=== PATIENT | male | born 1965 | race Caucasian/White ===

== ENCOUNTER 2025-03-15 18:30 | Inpatient (IN) | payer MEDICARE, MEDICAID, SELFPAY ==
[2025-03-15] VITALS (15 sets, daily range): BP systolic 118–157; BP diastolic 54–85; PULSE 80–92; RESP 14–24; TEMP 36.8; O2SAT 86–97; BMI 28.3
--- NOTE | 2025-03-15 | ECG_ITS ---
Test Reason : SOB Blood Pressure : */* mmHG Vent. Rate : 85 BPM Atrial Rate : 85 BPM P-R Int : 134 ms QRS Dur : 88 ms QT Int : 374 ms P-R-T Axes : -25 16 64 degrees QTcB Int : 445 ms Normal sinus rhythm Septal infarct , age undetermined Abnormal ECG No previous ECGs available Referred By: Eloina Andrade Electronically Signed By: CORBY BARKER MD
--- NOTE | ~2025-03-15 | US_ITS ---
CLINICAL HISTORY: RUQ GB sludge ? acute philip or CBD obstruction US abdomen limited Comparison: CT/SR - CT ABDOMEN PELVIS WO IV CON - 03/15/25 21:28 EDT Findings: The common duct is 3 mm in diameter. The gallbladder contains sludge and stones. Stones appear mobile. Gallbladder wall is normal measuring 2 mm. IMPRESSION: Cholelithiasis without evidence of cholecystitis or common duct obstruction. This document has been electronically signed by: Eitan Trejo MD on 03/16/2025 02:51:08
--- NOTE | ~2025-03-15 | CT_ITS ---
CLINICAL HISTORY: History of COPD perinephric abscess CT chest without contrast Comparison: CT/SR - CT ABDOMEN PELVIS WO IV CON - 03/15/25 21:28 EDT CR - XR CHEST 1V - 03/15/25 19:32 EDT Findings: Mild coronary artery atherosclerotic vascular calcifications. The elevation of left hemidiaphragm exerts mass effect on the mediastinum/heart. The visualized thyroid and mediastinum are unremarkable. Small Left pleural effusion. Low lung volumes. Bilateral somewhat linear opacities in the lungs (left lower lobe greater than the right lower lobe ) which may be due to infection and/or atelectasis. Recommend follow-up chest CT in 4-6 weeks. Elevation of left hemidiaphragm. Fluoroscopic sniff test could be performed for further evaluation if indicated. Refer to concurrently acquired CT abdomen and pelvis for description of intra-abdominal and intrapelvic findings. There is age-indeterminate irregularity at the superior endplate and compression fracture with approximately 25% height loss of the 1st [id number]-oyyydvj vertebrae ( labeling as L1 with possible lumbosacral transitional vertebrae ). This is within the region of the thickening posterior to the right kidney. If there is clinical concern for discitis osteomyelitis then MRI of this spinal region is recommended. Limited evaluation without intravenous contrast. IMPRESSION: 1. There is age-indeterminate irregularity at the superior endplate and compression fracture with approximately 25% height loss of the 1st efu-utm-mbixphb vertebrae ( labeling as L1 with possible lumbosacral transitional vertebrae ). This is within the region of the thickening posterior to the right kidney. If there is clinical concern for discitis osteomyelitis then MRI of this spinal region is recommended. 2. Small Left pleural effusion. 3. Bilateral somewhat linear opacities in the lungs (left lower lobe greater than the right lower lobe ) which may be due to infection and/or atelectasis. Recommend follow-up chest CT in 4-6 weeks. 4. Elevation of left hemidiaphragm. Fluoroscopic sniff test could be performed for further evaluation if indicated. This document has been electronically signed by: Quinn Shaver DO on 03/15/2025 23:15:13
--- NOTE | ~2025-03-15 | CT_ITS ---
CLINICAL HISTORY: History of perinephric abscess. Presented today w CT abdomen and pelvis without contrast Comparison: CT/SR - CT CHEST WO IV CON - 03/15/25 21:28 EDT CR - XR CHEST 1V - 03/15/25 19:32 EDT Findings: Elevation of the left hemidiaphragm. Refer to concurrently acquired chest CT for description of intrathoracic findings. Scarring and atrophy of the right kidney. There is a percutaneous nephrostomy tube in the right kidney in good position with coil in the right renal pelvis region. Indeterminate rounded 2.5 cm Fluid density lesion in the right upper renal pole. (series 11, image 46). Indeterminate rounded fluid density lesion in the right mid kidney measuring 1.5 cm ( series 11, image 47). Comparison with prior imaging if available is recommended. Renal ultrasound could be obtained for further evaluation if contrast is not able to be administered. Linear calcification which is nonobstructive in the right inferior renal pole measuring 0.8 cm. The right kidney abuts a linear area of soft tissue density and calcifications which extends inferiorly along the psoas musculature into the right renal pelvis which may be due to scarring. Comparison with prior imaging if available is recommended. Multiple areas of amorphous density throughout the left renal cortex likely due to medullary nephrocalcinosis. Multiple nonobstructive left nephrolithiasis. Gallbladder is distended measuring 4.2 cm in diameter. Gallbladder sludge. Multiple gallstones. These findings are nonspecific. Correlation with right upper quadrant tenderness is recommended. If indicated, right upper quadrant ultrasound is recommended for further evaluation. Both indeterminate left adrenal gland nodule measuring 1.1 cm. Correlation with remote prior imaging if available is recommended. If remote prior imaging is not available then recommend CT adrenal protocol for further evaluation. Marked hepatic cirrhosis with portal venous hypertension including multiple enlarged collateral vessels. Indeterminate area of fat density along the hepatic dome measuring 2.1 cm. Comparison with prior imaging if available is recommended. If prior imaging is not available then MRI liver mass protocol is recommended for further evaluation. No bowel obstruction, pneumoperitoneum, or pneumatosis. Atherosclerotic vascular calcifications. Fat stranding in the central mesentery. This is nonspecific in the setting of cirrhosis. The rectum is distended with stool measuring 7.7 cm in diameter. There is rectal wall thickening and mild adjacent inflammation. Findings may be due to stercoral colitis. Chronic appearing compression fractures of L1. Postoperative changes of the lumbar spine. Limited evaluation without intravenous contrast. Lumbosacral transitional vertebrae. There is fat density posterior to this possible area of scarring. IMPRESSION: 1. Limited evaluation without intravenous contrast. 2. There is a percutaneous nephrostomy tube in the right kidney in good position with coil in the right renal pelvis region. 3. Indeterminate rounded 2.5 cm Fluid density lesion in the right upper renal pole. (series 11, image 46). Indeterminate rounded fluid density lesion in the right mid kidney measuring 1.5 cm ( series 11, image 47). Comparison with prior imaging if available is recommended. Renal ultrasound could be obtained for further evaluation if contrast is not able to be administered. 4. The right kidney abuts a linear area of soft tissue density and calcifications which extends inferiorly along the psoas musculature into the right renal pelvis which may be due to scarring. Comparison with prior imaging if available is recommended. 5. Multiple areas of amorphous density throughout the left renal cortex likely due to medullary nephrocalcinosis. 6. The rectum is distended with stool measuring 7.7 cm in diameter. There is rectal wall thickening and mild adjacent inflammation. Findings may be due to stercoral colitis. 7. Gallbladder is distended measuring 4.2 cm in diameter. Gallbladder sludge. Multiple gallstones. These findings are nonspecific. Correlation with right upper quadrant tenderness is recommended. If indicated, right upper quadrant ultrasound is recommended for further evaluation. Both indeterminate left adrenal gland nodule measuring 1.1 cm. Correlation with remote prior imaging if available is recommended. If remote prior imaging is not available then recommend CT adrenal protocol for further evaluation. 8. Marked hepatic cirrhosis with portal venous hypertension including multiple enlarged collateral vessels. Indeterminate area of fat density along the hepatic dome measuring 2.1 cm. Comparison with prior imaging if available is recommended. If prior imaging is not available then MRI liver mass protocol is recommended for further evaluation. This document has been electronically signed by: Quinn Shaver DO on 03/15/2025 23:06:57
--- NOTE | ~2025-03-15 | NM_ITS ---
CLINICAL HISTORY: r o Lumbar spine osteo Nuclear medicine white blood cell scan Comparison: None provided Findings: Patient was given 13 mCi technetium Ceretec. Vascular phase imaging performed initially. Delayed whole-body and spot images obtained. Heterogeneous uptake noted in the lungs. This can indicate pneumonia, please correlate. Hepatic and splenic activity is unremarkable. No other abnormal uptake is identified. Bone marrow activity is also within normal limits. Dedicated spinal images not possible with white blood cell stand. If spinal osteomyelitis discitis suspected, recommend MRI. Impression: Bilateral pulmonary uptake, possible pneumonia Recommend MRI if discitis or osteomyelitis is suspected This document has been electronically signed by: Dank Gonzalez MD on 03/20/2025 20:15:02
--- NOTE | ~2025-03-15 | XR_ITS ---
CLINICAL HISTORY: sob 1 view chest x-ray. Comparison: None Findings: No consolidation or effusion. There is elevation of the left hemidiaphragm with mild resultant left base atelectasis. Cardiac and mediastinal contours appear grossly unremarkable. Bones unremarkable. Impression: 1. No acute pulmonary disease. This document has been electronically signed by: Jeffrey Pereira MD on 03/15/2025 19:55:05
--- NOTE | ~2025-03-15 | CT_ITS ---
EXAMINATION: CT ABDOMEN PELVIS WITHOUT IV CONTRAST HISTORY: anemia, bruising at right flank COMPARISON: Previous CT of the abdomen and pelvis March 15, 2025 and abdominal ultrasound March 15, 2025 TECHNIQUE: CT scan of the abdomen and pelvis was performed without contrast using standard departmental protocol. Coronal and sagittal reformatted images were generated and reviewed. This CT exam was performed with one or more of the following dose reduction techniques: automated exposure control, adjustment of the mA and/or kV according to patient size, use of iterative reconstruction technique. DLP: 678 mGy-cm FINDINGS: LOWER CHEST: Atelectasis/consolidation in both lower lobes and small bilateral pleural effusions, left greater than right. This is increased from February 2025 exam. CARDIOVASCULATURE: Heart is enlarged. There is no pericardial effusion. LIVER: Cirrhotic appearing liver. 1 cm partially fatty lesion high in the dome of the liver. 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 This is unchanged from prior exam. No other focal liver lesion. GALLBLADDER / BILE DUCTS: Bile normal size gallbladder. Multiple gallstones. No intra or extrahepatic biliary duct dilatation. SPLEEN: Slightly enlarged spleen measuring 14.5 cm in length. No focal lesion. PANCREAS: The pancreas has an unremarkable unenhanced appearance. ADRENAL GLANDS: Difficult to except for the adrenal glands from varices. The right adrenal gland is probably a normal-appearing image 30-32 series 3. Question left adrenal nodule measuring 1.3 cm axial image 27 series 3 versus varix. KIDNEYS/RETROPERITONEUM: There is a right nephrostomy tube in satisfactory position. There are upper pole cystic structure is questionable for dilated calyces versus peripelvic cysts. No lower pole collecting system dilatation or dilatation of the right renal pelvis is seen. There are 2 stones in the lower pole of the right kidney largest measuring 4 mm. There are multiple left renal stones largest measuring 4 to 5 mm in the mid and lower pole of the left kidney. No hydronephrosis. Are central high attenuation areas in the left kidney. L1 appears well-defined in the upper pole questionable for a hyperdense cyst. Other lesions appear ill-defined more suggestive of medullary nephrocalcinosis. No left hydronephrosis. There is minimal thickening or stranding of the right perinephric fat. This is partially calcified inferiorly. This is continuous with the anterior right psoas muscle and extends anterior to the IVC. Adjacent scattered areas of rim calcification probably representing areas of fat necrosis in the right retroperitoneum.. This does not appear appreciably changed from March 16, 2025 suggestive of chronic changes as opposed to changes from acute hematoma. LYMPH NODES: No retroperitoneal lymphadenopathy is identified in the abdomen or pelvis. VASCULATURE: Mild atherosclerotic disease. Portal hypertension with multiple upper abdominal varices. The left renal vein is prominent and there may be a spontaneous splenorenal shunt. MESENTERY/PERITONEUM: No free fluid. No masses. There is no free intraperitoneal gas. Right perinephric changes described above. STOMACH: Not optimally distended. Difficult to exclude mild proximal gastric wall or fold thickening/gastritis. SMALL BOWEL: The small bowel is normal in caliber. COLON: Increased stool the colon and rectum suggestive of constipation. Mild diverticulosis. APPENDIX: Not Definitely seen. No inflammatory changes in the right lower quadrant. URINARY BLADDER/PELVIC ORGANS: The urinary bladder is unremarkable. The prostate gland does not appear enlarged. BONES / SOFT TISSUES: There may be transitional anatomy with 6 lumbar type vertebral bodies. The first nonrib-bearing vertebral body is designated as L1 for metastases prior to dictation. There is surgical hardware in the lower lumbar spine with posterior rods and interpedicular screws and disc interspace appears at L5, transitional segment and S1. There is mild anterior subluxation of the transitional segment with respect to S1. Compression fracture of the superior endplate of the most superior lumbar type vertebral body designated as L1. This appears similar to recent exam. There is air in the disc space. May be degenerative or related to trauma. Infection cannot be excluded. Again if there is clinical concern of osteomyelitis/discitis, MRI would be recommended. No abnormal paraspinal soft tissue or fluid collection is seen. Multiple rib fractures of varying ages. Most recent fractures appear to be left posterior lower rib fractures. Old trauma to the left pelvis/iliac crest. Degenerative changes of the spine and hip joints. Minimal increased in thickening and fat stranding surrounding the left nephrostomy tube appears increased compared to recent exam. No large fluid collection or soft tissue hematoma is seen. wall umbilical hernia containing fat. CT/CT abdomen pelvis wo IV con IMPRESSION: Stable position of right nephrostomy tube. Question right dilated upper pole calyces versus peripelvic cysts. No lower pole calyceal dilatation adjacent to the nephrostomy tube renal pelvis or ureteral dilatation. Increased skin thickening and fat stranding surrounding the nephrostomy tube which may be related to hemorrhage given clinical history. No large fluid collection or soft tissue hematoma is seen. Chronic soft tissue changes in the right posterior pararenal fascia and muscle extending to the right anterior psoas muscle and anterior to the IVC. This appears partially calcified and similar to March 16, 2025 exam and likely chronic. No evidence of acute retroperitoneal hematoma. Left renal stones. Question hyperdense left renal cyst versus medullary nephrocalcinosis. Cirrhosis splenomegaly and varices. There may be a spontaneous left splenorenal shunt. Gallstones. Difficult to visualize the adrenal glands with the varices. Question left adrenal nodule versus a varix. Constipation and diverticulosis. Bilateral rib fractures of varying ages. Probable transitional vertebral body and anatomy. Transitional or upper lumbar vertebral body mild recent appearing compression fracture. Air in the adjacent disc space. This may be related to trauma or degenerative change. Cannot include infection. Again if there is concern for discitis/osteomyelitis, lumbar spine MRI would be recommended. Multiple bilateral rib fractures of varying ages. Old trauma to the pelvis. Postsurgical changes to the lower lumbar sacral spine. Increasing bilateral lower lobe atelectasis/consolidation and small bilateral pleural effusions, left greater than right2. Electronically signed by: Gina Ball MD 03/18/2025 11:35 AM EDT
[2025-03-15] MEDS: Albuterol Sulfate 7.5 MG, Albuterol Sulfate (0.083%) 2.5 MG 10 MG INHALE (18:54)
--- OUTSIDE RECORDS SUMMARY | 2025-03-15 19:05 | XMS_ITS | Encounter Summary ---
Author Organization [employer] Address [address] [place] [address] Care Team Providers Care Antique Jewelry Repairer Name Role Phone Jules Lu MD Primary Care Provider + [phone] Encounter Details Date Type Department Care Team (Late st Contact Info) Description 06/20/2024 Lab Requisition [facility] - Main Lab [address] [facility] [address] Jules Lu MD [address] [place] [address] Anemia, unspecified; Heart failure, unspecified (CMS/HCC V24, CMS/HCC V28) Social History Tobacco Use Types Packs/Day Years Used Date Smoking Tobacco: Never Assessed Sex and Gender Information Value Date Recorded Sex Assigned at Not on file Legal Sex Male 3:40 PM EDT Gender Identity Not on file Sexual Orientation Not on file documented as of this encounter Plan of Treatment Not on file documented as of this encounter Procedures Procedure Name Priority Date/Time Associated Diagnosis Comments CBC WITH AUTO DIFFERENTIAL Routine 06/20/2024 6:41 AM EST Anemia, unspecified Heart failure, unspecified (CMS/HCC) CBC AND DIFFERENTIAL Routine 06/20/2024 6:41 AM EST Anemia, unspecified Heart failure, unspecified (CMS/HCC) COMPREHENSIVE METABOLIC PANEL Routine 06/20/2024 6:41 AM EST Anemia, unspecified Heart failure, unspecified (CMS/HCC) documented in this encounter Results * (ABNORMAL) CBC auto differential (06/20/2024 6:41 AM EST) WBC 13.5(H) 4.8 - 10.8 K/[facility] LAB HEMETOLOGY METHOD 06/20/2024 10:14 AM [facility] LAB RBC 3.50(L) 4.50 - 5.50 M/mcL LAB HEMETOLOGY METHOD 06/20/2024 10:14 AM [facility] LAB Hemoglobin 10.2(L) 13.5 - 17.5 g/dL LAB HEMETOLOGY METHOD 06/20/2024 10:14 AM [facility] LAB Hematocrit 33.9(L) 42.0 - 54.0 % LAB HEMETOLOGY METHOD 06/20/2024 10:14 AM [facility] LAB MCV 95.8 79.0 - 98.0 FL LAB HEMETOLOGY METHOD 06/20/2024 10:14 AM [facility] LAB MCH 28.8 27.0 - 32.0 pcg LAB HEMETOLOGY METHOD 06/20/2024 10:14 AM [facility] LAB MCHC 30.1(L) 32.0 - 37.0 g/dL LAB HEMETOLOGY METHOD 06/20/2024 10:14 AM [facility] LAB RDW 21.0(H) 11.0 - 15.0 % LAB HEMETOLOGY METHOD 06/20/2024 10:14 AM [facility] LAB Platelets 168 130 - 400 K/mcL LAB HEMETOLOGY METHOD 06/20/2024 10:14 AM [facility] LAB MPV 12.2(H) 7.0 - 11.0 FL LAB HEMETOLOGY METHOD 06/20/2024 10:14 AM [facility] LAB NRBC 0.0 <1.0 % LAB HEMETOLOGY METHOD 06/20/2024 10:14 AM [facility] LAB NRBC Absolute 0.00 <0.10 K/mcL LAB HEMETOLOGY METHOD 06/20/2024 10:14 AM [facility] LAB Neutrophils Relative 82.6 % LAB HEMETOLOGY METHOD 06/20/2024 10:14 AM [facility] LAB Lymphocytes Relative 9.3 % LAB HEMETOLOGY METHOD 06/20/2024 10:14 AM [facility] LAB Monocytes Relative 6.1 % LAB HEMETOLOGY METHOD 06/20/2024 10:14 AM [facility] LAB Eosinophils Relative 1.5 % LAB HEMETOLOGY METHOD 06/20/2024 10:14 AM [facility] LAB Basophils Relative 0.1 % LAB HEMETOLOGY METHOD 06/20/2024 10:14 AM [facility] LAB Immature Granulocytes Relative 0.4 % LAB HEMETOLOGY METHOD 06/20/2024 10:14 AM [facility] LAB Neutrophils Absolute 11.13(H) 1.50 - 7.00 K/mcL LAB HEMETOLOGY METHOD 06/20/2024 10:14 AM [facility] LAB Lymphocytes Absolute 1.26 1.00 - 5.00 K/mcL LAB HEMETOLOGY METHOD 06/20/2024 10:14 AM [facility] LAB Monocytes Absolute 0.82 0.20 - 1.00 K/mcL LAB HEMETOLOGY METHOD 06/20/2024 10:14 AM [facility] LAB Eosinophils Absolute 0.20 0.00 - 0.50 K/mcL LAB HEMETOLOGY METHOD 06/20/2024 10:14 AM [facility] LAB Basophils Absolute 0.02 0.00 - 0.20 K/mcL LAB HEMETOLOGY METHOD 06/20/2024 10:14 AM [facility] LAB Immature Granulocytes Absolute 0.06(H) 0.00 - 0.03 K/mcL LAB HEMETOLOGY METHOD 06/20/2024 10:14 AM [facility] LAB Blood Venous blood specimen / Unknown Venipuncture / Unknown 06/20/2024 6:41 AM EST 06/20/2024 9:14 AM EST us Jules Lu MD LAB BLOOD ORDERABLES Final R esult [facility] [address] [place] [address], * (ABNORMAL) Comprehensive metabolic panel (06/20/2024 6:41 AM EST) Sodium 141 133 - 145 mmol/L LAB CHEMISTRY METHOD 06/20/2024 10:45 AM EST [facility] LAB Potassium 4.5 3.5 - 5.5 mmol/L LAB CHEMISTRY METHOD 06/20/2024 10:45 AM [facility] LAB Chloride 107 96 - 110 mmol/L LAB CHEMISTRY METHOD 06/20/2024 10:45 AM [facility] LAB CO2 30 21 - 32 mmol/L LAB CHEMISTRY METHOD 06/20/2024 10:45 AM [facility] LAB Anion Gap 4 3 - 11 LAB CHEMISTRY METHOD 06/20/2024 10:45 AM [facility] LAB Glucose 63(L) 70 - 100 mg/dL LAB CHEMISTRY METHOD 06/20/2024 10:45 AM [facility] LAB BUN 37(H) 5 - 25 mg/dL LAB CHEMISTRY METHOD 06/20/2024 10:45 AM [facility] LAB Creatinine 1.20 0.70 - 1.30 mg/dL LAB CHEMISTRY METHOD 06/20/2024 10:45 AM [facility] LAB eGFR 69 >=60 mL/min/1. 73m2 LAB CHEMISTRY METHOD 06/20/2024 10:45 AM [facility] LAB Comment:Calculation based on the Chronic Kidney Disease Epidemiology Collaboration (CKD-EPI) equation refit without adjustment for race. BUN/Creatinine Ratio 30.8 LAB CHEMISTRY METHOD 06/20/2024 10:45 AM [facility] LAB Calcium 8.6 8.5 - 10.5 mg/dL LAB CHEMISTRY METHOD 06/20/2024 10:45 AM [facility] LAB AST (SGOT) 24 10 - 42 unit/L LAB CHEMISTRY METHOD 06/20/2024 10:45 AM [facility] LAB ALT (SGPT) 16 10 - 60 unit/L LAB CHEMISTRY METHOD 06/20/2024 10:45 AM [facility] LAB Alkaline Phosphatase 145(H) 42 - 121 unit/L LAB CHEMISTRY METHOD 06/20/2024 10:45 AM EST [facility] LAB Total Protein 7.0 6.0 - 8.0 g/dL LAB CHEMISTRY METHOD 06/20/2024 10:45 AM [facility] LAB Albumin 2.0(L) 3.2 - 5.0 g/dL LAB CHEMISTRY METHOD 06/20/2024 10:45 AM [facility] LAB Total Bilirubin 1.3 0.0 - 1.4 mg/dL LAB CHEMISTRY METHOD 06/20/2024 10:45 AM [facility] LAB Blood Venous blood specimen / Unknown Venipuncture / Unknown 06/20/2024 6:41 AM EST 06/20/2024 9:14 AM EST Jules Lu MD LAB BLOOD ORDERABLES Final R esult [facility] [address] [place] [address], documented in this encounter Visit Diagnoses Diagnosis Anemia, unspecified Heart failure, unspecified (CMS/HCC V24, CMS/HCC V28) Heart failure, unspecified documented in this encounter Care Teams Antique Jewelry Repairer Relationship Specialty Start Date End Date Jules Lu MD [address] [place] [address] PCP - General Family Medicine 03/25/24 documented as of this encounter
--- OUTSIDE RECORDS SUMMARY | 2025-03-15 19:05 | XMS_ITS | Encounter Summary ---
Author Organization [employer] Address [address] [place] [address] Care Team Providers Care Barrel Rifler Button Name Role Phone Jules Lu MD Primary Care Provider [phone] Encounter Details Date Type Department Care Team (Late st Contact Info) Description 02/05/2025 Lab Requisition [facility] - Main Lab [address] [facility] [place] [address] Jules Lu MD [address] [place] [address] Anemia, unspecified; Unspecified atrial fibrillation (CMS/HCC V24, CMS/HCC V28) Social History Tobacco [...] Procedure Name Priority Date/Time Associated Diagnosis Comments PROTHROMBIN TIME WITH INR Routine 02/05/2025 8:18 AM EDT Anemia, unspecified Unspecified atrial fibrillation (CMS/HCC V24, CMS/HCC V28) COMPLETE BLOOD COUNT Routine 02/05/2025 8:18 AM EDT Anemia, unspecified Unspecified atrial fibrillation (CMS/HCC V24, CMS/HCC V28) COMPREHENSIVE METABOLIC PANEL Routine 02/05/2025 8:18 AM EDT Anemia, unspecified Unspecified atrial fibrillation (CMS/HCC V24, CMS/HCC V28) documented in this encounter Results * (ABNORMAL) Comprehensive metabolic panel (02/05/2025 8:18 AM EDT) Sodium 144 133 - 145 mmol/L LAB CHEMISTRY METHOD 02/05/2025 11:20 AM [facility] LAB Potassium 4.9 3.5 - 5.5 mmol/L LAB CHEMISTRY METHOD 02/05/2025 11:20 AM [facility] LAB Chloride 107 96 - 110 mmol/L LAB CHEMISTRY METHOD 02/05/2025 11:20 AM [facility] LAB CO2 35(H) 21 - 32 mmol/L LAB CHEMISTRY METHOD 02/05/2025 11:20 AM [facility] LAB Anion Gap 2(L) 3 - 11 LAB CHEMISTRY METHOD 02/05/2025 11:20 AM [facility] LAB Glucose 57(L) 70 - 100 mg/dL LAB CHEMISTRY METHOD 02/05/2025 11:20 AM [facility] BUN 15 5 - 25 mg/dL LAB CHEMISTRY METHOD 02/05/2025 11:20 AM [facility] LAB Creatinine 0.88 0.70 - 1.30 mg/dL LAB CHEMISTRY METHOD 02/05/2025 11:20 AM [facility] LAB eGFR 98 >=60 mL/min/1. 73m2 LAB CHEMISTRY METHOD 02/05/2025 11:20 AM [facility] LAB Comment:Calculation based on the Chronic Kidney Disease Epidemiology Collaboration (CKD-EPI) equation refit without adjustment for race. BUN/Creatinine Ratio 17.0 LAB CHEMISTRY METHOD 02/05/2025 11:20 AM [facility] LAB Calcium 9.2 8.5 - 10.5 mg/dL LAB CHEMISTRY METHOD 02/05/2025 11:20 AM [facility] LAB AST (SGOT) 24 10 - 42 unit/L LAB CHEMISTRY METHOD 02/05/2025 11:20 AM [facility] LAB ALT (SGPT) 18 10 - 60 unit/L LAB CHEMISTRY METHOD 02/05/2025 11:20 AM EDT [facility] Alkaline Phosphatase 139(H) 42 - 121 unit/L LAB CHEMISTRY METHOD 02/05/2025 11:20 AM EDT [facility] Total Protein 6.6 6.0 - 8.0 g/dL LAB CHEMISTRY METHOD 02/05/2025 11:20 AM EDT [facility] Albumin 2.3(L) 3.2 - 5.0 g/dL LAB CHEMISTRY METHOD 02/05/2025 11:20 AM EDT [facility] Total Bilirubin 0.7 0.0 - 1.4 mg/dL LAB CHEMISTRY METHOD 02/05/2025 11:20 AM EDT [facility] Blood Venous blood specimen / Unknown Venipuncture / Unknown 02/05/2025 8:18 AM EDT 02/05/2025 10:04 AM EDT us Jules Lu MD LAB BLOOD ORDERABLES Final R esult Performing Organization Address City/[facility]/ZIP Co de Phone Number [facility] [address] [place] [address], [place] [phone] * (ABNORMAL) Prothrombin time with INR (02/05/2025 8:18 AM EDT) Protime 14.8(H) 10.6 - 13.9 sec LAB COAGULATION METHOD 02/05/2025 10:49 AM EDT [facility] INR 1.2 LAB COAGULATION METHOD 02/05/2025 10:49 AM EDT [facility] Blood Venous blood specimen / Unknown Venipuncture / Unknown 02/05/2025 8:18 AM EDT 02/05/2025 10:04 AM EDT us Jules Lu MD LAB BLOOD ORDERABLES Final R esult Performing Organization Address City/[facility]/ZIP Co de Phone Number [facility] [address] [place] [address], [place] [phone] * (ABNORMAL) Complete blood count (02/05/2025 8:18 AM EDT) [facility] WBC 11.5(H) 4.8 - 10.8 K/mcL LAB HEMETOLOGY METHOD 02/05/2025 10:52 AM [facility] RBC 3.80(L) 4.50 - 5.50 M/mcL LAB HEMETOLOGY METHOD 02/05/2025 10:52 AM [facility] Hemoglobin 11.8(L) 13.5 - 17.5 g/dL LAB HEMETOLOGY METHOD 02/05/2025 10:52 AM [facility] LAB Hematocrit 39.7(L) 42.0 - 54.0 % LAB HEMETOLOGY METHOD 02/05/2025 10:52 AM [facility] LAB MCV 103.9(H) 79.0 - 98.0 FL LAB HEMETOLOGY METHOD 02/05/2025 10:52 AM [facility] MCH 30.9 27.0 - 32.0 pcg LAB HEMETOLOGY METHOD 02/05/2025 10:52 AM [facility] LAB MCHC 29.7(L) 32.0 - 37.0 g/dL LAB HEMETOLOGY METHOD 02/05/2025 10:52 AM [facility] LAB RDW 17.7(H) 11.0 - 15.0 % LAB HEMETOLOGY METHOD 02/05/2025 10:52 AM [facility] LAB Platelets 158 130 - 400 K/mcL LAB HEMETOLOGY METHOD 02/05/2025 10:52 AM [facility] LAB MPV 12.0(H) 7.0 - 11.0 FL LAB HEMETOLOGY METHOD 02/05/2025 10:52 AM [facility] NRBC 0.0 <1.0 % LAB HEMETOLOGY METHOD 02/05/2025 10:52 AM EDT [facility] NRBC Absolute 0.00 <0.10 K/[facility] LAB HEMETOLOGY METHOD 02/05/2025 10:52 AM EDT [facility] Blood Venous blood specimen / Unknown Venipuncture / Unknown 02/05/2025 8:18 AM EDT 02/05/2025 10:04 AM EDT us Jules Lu MD LAB BLOOD ORDERABLES Final R esult [facility] [address] [place] [address], documented in this encounter Visit Diagnoses Diagnosis Anemia, unspecified Unspecified atrial fibrillation (CMS/HCC V24, CMS/HCC V28) documented in this encounter Care Teams Barrel Rifler Button Relationship Specialty Start Date End Date Jules Lu MD [address] [place] [id number] PCP - General Family Medicine 03/25/24 documented as of this encounter
--- OUTSIDE RECORDS SUMMARY | 2025-03-15 19:05 | XMS_ITS | Encounter Summary ---
Author Organization [employer] Address [address] [place] [address] Care Team Providers Care Thread Winder Name Role Phone Jules Lu MD Primary Care Provider [phone] Encounter Details Date Type Department Care Team (Late st Contact Info) Description 05/03/[address] [facility] - Main Lab [address] [place] [address] Jules Lu MD [address] [place] [address] Localized swelling, mass and lump, left upper limb Social History Tobacco Use Types Packs/Day Years [...] Procedure Name Priority Date/Time Associated Diagnosis Comments COMPLETE BLOOD COUNT Routine 05/03/2024 6:49 AM EST Localized swelling, mass and lump, left upper limb URIC ACID Routine 05/03/2024 6:49 AM EST Localized swelling, mass and lump, left upper limb documented in this encounter Results * Uric acid (05/03/2024 6:49 AM EST) Uric Acid 7.7 3.7 - 9.2 mg/dL LAB CHEMISTRY METHOD 05/03/2024 10:12 AM EST [facility] Blood Venous blood specimen / Unknown Venipuncture / Unknown 05/03/2024 6:49 AM EST 05/03/2024 9:23 AM EST Jules Lu MD LAB BLOOD ORDERABLES Final R esult [facility] [address] [place] [address], * (ABNORMAL) Complete blood count (05/03/2024 6:49 AM EST) WBC 3.6(L) 4.8 - 10.8 K/mcL LAB HEMETOLOGY METHOD 05/03/2024 10:51 AM EST [facility] RBC 2.90(L) 4.50 - 5.50 M/mcL LAB HEMETOLOGY METHOD 05/03/2024 10:51 AM [facility] Hemoglobin 8.3(L) 13.5 - 17.5 g/dL LAB HEMETOLOGY METHOD 05/03/2024 10:51 AM [facility] LAB Hematocrit 27.5(L) 42.0 - 54.0 % LAB HEMETOLOGY METHOD 05/03/2024 10:51 AM EST [facility] MCV 96.5 79.0 - 98.0 FL LAB HEMETOLOGY METHOD 05/03/2024 10:51 AM [facility] MCH 29.1 27.0 - 32.0 pcg LAB HEMETOLOGY METHOD 05/03/2024 10:51 AM [facility] LAB MCHC 30.2(L) 32.0 - 37.0 g/dL LAB HEMETOLOGY METHOD 05/03/2024 10:51 AM [facility] LAB RDW 17.2(H) 11.0 - 15.0 % LAB HEMETOLOGY METHOD 05/03/2024 10:51 AM [facility] LAB Platelets 93(L) 130 - 400 K/mcL LAB HEMETOLOGY METHOD 05/03/2024 10:51 AM [facility] LAB Comment:reviewed by slide MPV 11.5(H) 7.0 - 11.0 FL LAB HEMETOLOGY METHOD 05/03/2024 10:51 AM EST [facility] NRBC 0.0 <1.0 % LAB HEMETOLOGY METHOD 05/03/2024 10:51 AM EST [facility] NRBC Absolute 0.00 <0.10 K/mcL LAB HEMETOLOGY METHOD 05/03/2024 10:51 AM EST [facility] Blood Venous blood specimen / Unknown Venipuncture / Unknown 05/03/2024 6:49 AM EST 05/03/2024 9:23 AM EST us Jules Lu MD LAB BLOOD ORDERABLES Final R esult [facility] [address] [place] [address], documented in this encounter Visit Diagnoses Diagnosis Localized swelling, mass and lump, left upper limb documented in this encounter Care Teams Thread Winder Relationship Specialty Start Date End Date Jules Lu MD [address] [place] [address] PCP - General Family Medicine 03/25/24 documented as of this encounter
--- OUTSIDE RECORDS SUMMARY | 2025-03-15 19:05 | XMS_ITS | Encounter Summary ---
Author Organization [employer] Address [address] [place] [address] Care Team Providers Care Assistant Professor Of Art Name Role Phone Jules Lu MD Primary Care Provider [phone] Encounter Details Date Type Department Care Team (Late st Contact Info) Description 06/22/2024 Lab Requisition [facility] - Main Lab [address] [facility] [address] [place] [address] Jules Lu MD [address] [place] [address] Nausea with vomiting, unspecified Social History Tobacco Use Types Packs/Day Years [...] Procedure Name Priority Date/Time Associated Diagnosis Comments RBC MORPHOLOGY REVIEW Routine 06/22/2024 5:41 AM EST Nausea with vomiting, unspecified CBC WITH AUTO DIFFERENTIAL Routine 06/22/2024 5:41 AM EST Nausea with vomiting, unspecified CBC AND DIFFERENTIAL Routine 06/22/2024 5:41 AM EST Nausea with vomiting, unspecified COMPREHENSIVE METABOLIC PANEL Routine 06/22/2024 5:41 AM EST Nausea with vomiting, unspecified documented in this encounter Results * (ABNORMAL) RBC morphology review (06/22/2024 5:41 AM EST) Rbc Morphology Consistent with indices Consistent with indices, Normal for LAB HEMETOLOGY METHOD 06/22/2024 11:08 AM EST [facility] Platelet Morphology - WAM See Note(A) Normal LAB HEMETOLOGY METHOD 06/22/2024 11:08 AM [facility] LAB Comment:PLT: Normal Blood Venous blood specimen / Unknown Venipuncture / Unknown 06/22/2024 5:41 AM EST 06/22/2024 10:03 AM EST Jules Lu MD LAB BLOOD ORDERABLES Final R esult [facility] [address] [place] [address], [place] [phone] * (ABNORMAL) CBC auto differential (06/22/2024 5:41 AM EST) WBC 7.6 4.8 - 10.8 K/mcL LAB HEMETOLOGY METHOD 06/22/2024 11:08 AM [facility] LAB RBC 3.10(L) 4.50 - 5.50 M/mcL LAB HEMETOLOGY METHOD 06/22/2024 11:08 AM [facility] Hemoglobin 9.1(L) 13.5 - 17.5 g/dL LAB HEMETOLOGY METHOD 06/22/2024 11:08 AM [facility] LAB Hematocrit 30.2(L) 42.0 - 54.0 % LAB HEMETOLOGY METHOD 06/22/2024 11:08 AM [facility] LAB MCV 96.8 79.0 - 98.0 FL LAB HEMETOLOGY METHOD 06/22/2024 11:08 AM [facility] LAB MCH 29.2 27.0 - 32.0 pcg LAB HEMETOLOGY METHOD 06/22/2024 11:08 AM [facility] LAB MCHC 30.1(L) 32.0 - 37.0 g/dL LAB HEMETOLOGY METHOD 06/22/2024 11:08 AM [facility] RDW 20.2(H) 11.0 - 15.0 % LAB HEMETOLOGY METHOD 06/22/2024 11:08 AM [facility] Platelets 132 130 - 400 K/mcL LAB HEMETOLOGY METHOD 06/22/2024 11:08 AM [facility] MPV 12.0(H) 7.0 - 11.0 FL LAB HEMETOLOGY METHOD 06/22/2024 11:08 AM [facility] NRBC 0.0 <1.0 % LAB HEMETOLOGY METHOD 06/22/2024 11:08 AM [facility] NRBC Absolute 0.00 <0.10 K/mcL LAB HEMETOLOGY METHOD 06/22/2024 11:08 AM [facility] Neutrophils Relative 58.7 % LAB HEMETOLOGY METHOD 06/22/2024 11:08 AM [facility] LAB Comment:This is an appended report. These results have been appended to a previously preliminary verified report. Lymphocytes Relative 22.4 % LAB HEMETOLOGY METHOD 06/22/2024 11:08 AM [facility] Comment:This is an appended report. These results have been appended to a previously preliminary verified report. Monocytes Relative 10.6 % LAB HEMETOLOGY METHOD 06/22/2024 11:08 AM [facility] Comment:This is an appended report. These results have been appended to a previously preliminary verified report. Eosinophils Relative 8.1 % LAB HEMETOLOGY METHOD 06/22/2024 11:08 AM [facility] Comment:This is an appended report. These results have been appended to a previously preliminary verified report. Basophils Relative 0.1 % LAB HEMETOLOGY METHOD 06/22/2024 11:08 AM [facility] Comment:This is an appended report. These results have been appended to a previously preliminary verified report. Immature Granulocytes Relative 0.1 % LAB HEMETOLOGY METHOD 06/22/2024 11:08 AM [facility] Comment:This is an appended report. These results have been appended to a previously preliminary verified report. Neutrophils Absolute 4.48 1.50 - 7.00 K/mcL LAB HEMETOLOGY METHOD 06/22/2024 11:08 AM [facility] Comment:This is an appended report. These results have been appended to a previously preliminary verified report. Lymphocytes Absolute 1.71 1.00 - 5.00 K/mcL LAB HEMETOLOGY METHOD 06/22/2024 11:08 AM [facility] Comment:This is an appended report. These results have been appended to a previously preliminary verified report. Monocytes Absolute 0.81 0.20 - 1.00 K/mcL LAB HEMETOLOGY METHOD 06/22/2024 11:08 AM [facility] Comment:This is an appended report. These results have been appended to a previously preliminary verified report. Eosinophils Absolute 0.62(H) 0.00 - 0.50 K/mcL LAB HEMETOLOGY METHOD 06/22/2024 11:08 AM [facility] Comment:This is an appended report. These results have been appended to a previously preliminary verified report. Basophils Absolute 0.01 0.00 - 0.20 K/mcL LAB HEMETOLOGY METHOD 06/22/2024 11:08 AM [facility] Comment:This is an appended report. These results have been appended to a previously preliminary verified report. Immature Granulocytes Absolute 0.01 0.00 - 0.03 K/mcL LAB HEMETOLOGY METHOD 06/22/2024 11:08 AM [facility] Comment:This is an appended report. These results have been appended to a previously preliminary verified report. Blood Venous blood specimen / Unknown Venipuncture / Unknown 06/22/2024 5:41 AM EST 06/22/2024 10:03 AM EST Jules Lu MD LAB BLOOD ORDERABLES Final R esult [facility] [address] [place] [address], * (ABNORMAL) Comprehensive metabolic panel (06/22/2024 5:41 AM EST) Sodium 141 133 - 145 mmol/L LAB CHEMISTRY METHOD 06/22/2024 11:20 AM EST [facility] Potassium 4.3 3.5 - 5.5 mmol/L LAB CHEMISTRY METHOD 06/22/2024 11:20 AM [facility] Chloride 105 96 - 110 mmol/L LAB CHEMISTRY METHOD 06/22/2024 11:20 AM [facility] CO2 32 21 - 32 mmol/L LAB CHEMISTRY METHOD 06/22/2024 11:20 AM [facility] Anion Gap 4 3 - 11 LAB CHEMISTRY METHOD 06/22/2024 11:20 AM [facility] Glucose 47(L) 70 - 100 mg/dL LAB CHEMISTRY METHOD 06/22/2024 11:20 AM [facility] BUN 29(H) 5 - 25 mg/dL LAB CHEMISTRY METHOD 06/22/2024 11:20 AM [facility] Creatinine 1.09 0.70 - 1.30 mg/dL LAB CHEMISTRY METHOD 06/22/2024 11:20 AM [facility] LAB eGFR 78 >=60 mL/min/1. 73m2 LAB CHEMISTRY METHOD 06/22/2024 11:20 AM [facility] Comment:Calculation based on the Chronic Kidney Disease Epidemiology Collaboration (CKD-EPI) equation refit without adjustment for race. BUN/Creatinine Ratio 26.6 LAB CHEMISTRY METHOD 06/22/2024 11:20 AM [facility] Calcium 8.7 8.5 - 10.5 mg/dL LAB CHEMISTRY METHOD 06/22/2024 11:20 AM [facility] AST (SGOT) 17 10 - 42 unit/L LAB CHEMISTRY METHOD 06/22/2024 11:20 AM [facility] ALT (SGPT) 17 10 - 60 unit/L LAB CHEMISTRY METHOD 06/22/2024 11:20 AM [facility] Alkaline Phosphatase 124(H) 42 - 121 unit/L LAB CHEMISTRY METHOD 06/22/2024 11:20 AM [facility] Total Protein 6.5 6.0 - 8.0 g/dL LAB CHEMISTRY METHOD 06/22/2024 11:20 AM [facility] Albumin 2.1(L) 3.2 - 5.0 g/dL LAB CHEMISTRY METHOD 06/22/2024 11:20 AM [facility] Total Bilirubin 0.7 0.0 - 1.4 mg/dL LAB CHEMISTRY METHOD 06/22/2024 11:20 AM [facility] Blood Venous blood specimen / Unknown Venipuncture / Unknown 06/22/2024 5:41 AM EST 06/22/2024 10:03 AM EST us Jules Lu MD LAB BLOOD ORDERABLES Final R esult [facility] [address] [place] [address], documented in this encounter Visit Diagnoses Diagnosis Nausea with vomiting, unspecified documented in this encounter Care Teams Assistant Professor Of Art Relationship Specialty Start Date End Date Jules Lu MD [address] [place] [address] PCP - General Family Medicine 03/25/24 documented as of this encounter
--- OUTSIDE RECORDS SUMMARY | 2025-03-15 19:05 | XMS_ITS | Clinical Summary ---
Author Organization [facility] Address [address] [place] [address] Phone Care Team Providers Care Casing Splitter Name Role Phone Jules Lu MD Primary Care Provider Encounters Date Type Department Care Team Description 03/14/2025 Lab Requisition [facility] [address] [place] [phone] Jules Lu MD Presbyopia; Anemia, unspecified; Unspecified systolic (congestive) heart failure ([facility] V24, [facility] V28) 02/26/2025 Lab Requisition [facility] [address] [place] [phone] Jules Lu MD Unspecified infectious disease 02/05/2025 Lab Requisition [facility] [address] [place] [phone] Jules Lu MD Anemia, unspecified; Unspecified atrial fibrillation ([facility] V24, [facility] V28) 01/16/2025 Lab Requisition [facility] [address] [place] [phone] Jules Lu MD Hepatic encephalopathy ([facility] V24, [facility] V28) 01/10/2025 Lab Requisition [facility] [address] [place] [phone] Jules Lu MD Unspecified cirrhosis of liver ([facility] V24, [facility] V28); Heart failure, unspecified ([facility] V24, [facility] V28); Anemia, unspecified; Epilepsy, unspecified, intractable, without status epilepticus ([facility] V24, [facility] V28) 01/09/2025 Lab Requisition [facility] [address] [place] [phone] Jules Lu MD Unspecified cirrhosis of liver (CMS/HCC V24, CMS/HCC V28); Heart failure, unspecified (CMS/HCC V24, CMS/HCC V28); Anemia, unspecified; Epilepsy, unspecified, intractable, without status epilepticus (CMS/HCC V24, CMS/HCC V28) 01/04/2025 Lab Requisition [facility] [address] [place] [phone] Jules Lu MD Unspecified cirrhosis of liver (CMS/HCC V24, CMS/HCC V28); Heart failure, unspecified (CMS/HCC V24, CMS/HCC V28); Anemia, unspecified; Epilepsy, unspecified, intractable, without status epilepticus (CMS/HCC V24, CMS/HCC V28) 01/02/2025 Lab Requisition [facility] [address] [place] [phone] Jules Lu MD Unspecified cirrhosis of liver (CMS/HCC V24, CMS/HCC V28); Heart failure, unspecified (CMS/HCC V24, CMS/HCC V28); Anemia, unspecified; Epilepsy, unspecified, intractable, without status epilepticus (CMS/HCC V24, CMS/HCC V28) 12/31/2024 Lab Requisition [facility] [address] [place] [phone] Jules Lu MD Hepatic encephalopathy (CMS/HCC V24, CMS/HCC V28); Hyperlipidemia, unspecified; Unspecified cirrhosis of liver (CMS/HCC V24, CMS/HCC V28) 12/27/2024 Lab Requisition [facility] [address] [place] [phone] Jules Lu MD Unspecified cirrhosis of liver (CMS/HCC V24, CMS/HCC V28); Heart failure, unspecified (CMS/HCC V24, CMS/HCC V28); Anemia, unspecified; Epilepsy, unspecified, intractable, without status epilepticus (CMS/HCC V24, CMS/HCC V28) 12/26/2024 Lab Requisition [facility] [address] [place] [phone] Jules Lu MD Unspecified cirrhosis of liver (CMS/HCC V24, CMS/HCC V28); Heart failure, unspecified (CMS/HCC V24, CMS/HCC V28); Anemia, unspecified; Epilepsy, unspecified, intractable, without status epilepticus (CMS/HCC V24, CMS/HCC V28) 12/21/2024 Lab Requisition [facility] [address] [place] [phone] Jules Lu MD Unspecified cirrhosis of liver (CMS/HCC V24, CMS/HCC V28); Heart failure, unspecified (CMS/HCC V24, CMS/HCC V28); Anemia, unspecified; Epilepsy, unspecified, intractable, without status epilepticus (CMS/HCC V24, CMS/HCC V28) 12/19/2024 Lab Requisition [facility] [address] [place] [phone] Jules Lu MD Unspecified cirrhosis of liver (CMS/HCC V24, CMS/HCC V28); Heart failure, unspecified (CMS/HCC V24, CMS/HCC V28); Anemia, unspecified; Epilepsy, unspecified, intractable, without status epilepticus (CMS/HCC V24, CMS/HCC V28) 12/14/2024 Lab Requisition [facility] [address] [place] [phone] Jules Lu MD Unspecified cirrhosis of liver (CMS/HCC V24, CMS/HCC V28); Heart failure, unspecified (CMS/HCC V24, CMS/HCC V28); Anemia, unspecified; Epilepsy, unspecified, intractable, without status epilepticus (CMS/HCC V24, CMS/HCC V28) 12/13/2024 Lab Requisition [facility] [address] [place] [phone] Jules Lu MD Anemia, unspecified; Heart failure, unspecified (CMS/HCC V24, CMS/HCC V28); Unspecified cirrhosis of liver (CMS/HCC V24, CMS/HCC V28); Epilepsy, unspecified, not intractable, without status epilepticus (CMS/HCC V24, CMS/HCC V28) from Last 3 Months Social History Tobacco Use Types Packs/Day Years Used Date Smoking Tobacco: Never Assessed Sex and Gender Information Value Date Recorded Sex Assigned at Not on file Legal Sex Male 3:40 PM EDT Gender Identity Not on file Sexual Orientation Not on file Plan of Treatment Health Maintenance Due Date Last Done Comments Colorectal Cancer Screening: Colonoscopy 1965 Hepatitis A Vaccines (1 of 2 - Risk 2-dose series) 1983 RSV Immunization Adult Patients (1 - Risk 50-74 years 1-dose series) 2014 Pneumococcal Vaccine: 50+ Years (2 of 2 - PCV) 01/06/2022 01/06/2021, 07/16/2018 Cholesterol Screening (Lipid Panel) 03/17/2024 HIV Screening 03/17/2024 Hepatitis C Screening 03/17/2024 Medicare Annual Wellness Visit 03/17/2024 Social Influencers of Health Screening 03/17/2024 Depression Screening 05/22/2024 Influenza Vaccine (#1) 2025 , 03/31/2023, 05/06/2022, Additional history exists Hypertension/CHF/CAD Annual BMP Blood Test 03/14/2026 03/14/2025, 02/26/2025, 02/05/2025, Additional history exists DTaP,Tdap,and Td Vaccines (2 - Td or Tdap) 10/05/2033 10/06/2023 Zoster Vaccines Completed 05/08/2020, 03/06/2020 Hepatitis B Vaccines Completed 06/08/2022, 08/31/2020, 07/20/2020 COVID-19 Vaccine Completed 03/20/2024, 09/2023, 11/13/2021, Additional history exists HIB Vaccines Aged Out No longer eligi ble based on patient's age to complete this topic HPV Vaccines Aged Out No longer eligi ble based on patient's age to complete this topic IPV Vaccines Aged Out No longer eligi ble based on patient's age to complete this topic MMR Vaccines Aged Out No longer eligi ble based on patient's age to complete this topic Meningococcal ACWY Vaccine Aged Out N o longer eligible based on patient's age to complete this topic Meningococcal B Vaccine Aged Out No l onger eligible based on patient's age to complete this topic RSV Immunization Patients Under 20 months Aged Out No longer eligible based on patient's age to complete this topic Varicella Vaccines Aged Out No longer eligible based on patient's age to complete this topic Procedures Procedure Name Priority Date/Time Associated Diagnosis Comments AMMONIA Routine 03/14/2025 9:01 AM EDT Presbyopia Anemia, unspecified Unspecified systolic (congestive) heart failure (CMS/HCC V24, CMS/HCC V28) BASIC METABOLIC PANEL Routine 03/14/2025 9:01 AM EDT Presbyopia Anemia, unspecified Unspecified systolic (congestive) heart failure (CMS/HCC V24, CMS/HCC V28) COMPLETE BLOOD COUNT Routine 03/14/2025 9:01 AM EDT Presbyopia Anemia, unspecified Unspecified systolic (congestive) heart failure (CMS/HCC V24, CMS/HCC V28) BASIC METABOLIC PANEL Routine 02/26/2025 5:00 AM EDT Unspecified infectious disease COMPLETE BLOOD COUNT Routine 02/26/2025 5:00 AM EDT Unspecified infectious disease COMPREHENSIVE METABOLIC PANEL Routine 02/05/2025 8:18 AM EDT Anemia, unspecified Unspecified atrial fibrillation (CMS/HCC V24, CMS/HCC V28) PROTHROMBIN TIME WITH INR Routine 02/05/2025 8:18 AM EDT Anemia, unspecified Unspecified atrial fibrillation (CMS/HCC V24, CMS/HCC V28) COMPLETE BLOOD COUNT Routine 02/05/2025 8:18 AM EDT Anemia, unspecified Unspecified atrial fibrillation (CMS/HCC V24, CMS/HCC V28) COMPREHENSIVE METABOLIC PANEL Routine 01/16/2025 5:28 AM EDT Hepatic encephalopathy (CMS/HCC V24, CMS/HCC V28) COMPLETE BLOOD COUNT Routine 01/16/2025 5:28 AM EDT Hepatic encephalopathy (CMS/HCC V24, CMS/HCC V28) AMMONIA Routine 01/13/2025 8:36 AM EDT Unspecified cirrhosis of liver (CMS/HCC V24, CMS/HCC V28) Heart failure, unspecified (CMS/HCC V24, CMS/HCC V28) Anemia, unspecified Epilepsy, unspecified, intractable, without status epilepticus (CMS/HCC V24, CMS/HCC V28) COMPLETE BLOOD COUNT Routine 01/13/2025 8:36 AM EDT Unspecified cirrhosis of liver (CMS/HCC V24, CMS/HCC V28) Heart failure, unspecified (CMS/HCC V24, CMS/HCC V28) Anemia, unspecified Epilepsy, unspecified, intractable, without status epilepticus (CMS/HCC V24, CMS/HCC V28) COMPREHENSIVE METABOLIC PANEL Routine 01/13/2025 8:36 AM EDT Unspecified cirrhosis of liver (CMS/HCC V24, CMS/HCC V28) Heart failure, unspecified (CMS/HCC V24, CMS/HCC V28) Anemia, unspecified Epilepsy, unspecified, intractable, without status epilepticus (CMS/HCC V24, CMS/HCC V28) LEVETIRACETAM LEVEL Routine 01/13/2025 8 :36 AM EDT Unspecified cirrhosis of liver (CMS/HCC V24, CMS/HCC V28) Heart failure, unspecified (CMS/HCC V24, CMS/HCC V28) Anemia, unspecified Epilepsy, unspecified, intractable, without status epilepticus (CMS/HCC V24, CMS/HCC V28) AMMONIA Routine 01/06/2025 5:36 AM EDT Unspecified cirrhosis of liver (CMS/HCC V24, CMS/HCC V28) Heart failure, unspecified (CMS/HCC V24, CMS/HCC V28) Anemia, unspecified Epilepsy, unspecified, intractable, without status epilepticus (CMS/HCC V24, CMS/HCC V28) COMPLETE BLOOD COUNT Routine 01/06/2025 5:36 AM EDT Unspecified cirrhosis of liver (CMS/HCC V24, CMS/HCC V28) Heart failure, unspecified (CMS/HCC V24, CMS/HCC V28) Anemia, unspecified Epilepsy, unspecified, intractable, without status epilepticus (CMS/HCC V24, CMS/HCC V28) COMPREHENSIVE METABOLIC PANEL Routine 01/06/2025 5:36 AM EDT Unspecified cirrhosis of liver (CMS/HCC V24, CMS/HCC V28) Heart failure, unspecified (CMS/HCC V24, CMS/HCC V28) Anemia, unspecified Epilepsy, unspecified, intractable, without status epilepticus (CMS/HCC V24, CMS/HCC V28) LEVETIRACETAM LEVEL Routine 01/06/2025 5 :36 AM EDT Unspecified cirrhosis of liver (CMS/HCC V24, CMS/HCC V28) Heart failure, unspecified (CMS/HCC V24, CMS/HCC V28) Anemia, unspecified Epilepsy, unspecified, intractable, without status epilepticus (CMS/HCC V24, CMS/HCC V28) AMMONIA Routine 01/03/2025 8:02 AM EDT Unspecified cirrhosis of liver (CMS/HCC V24, CMS/HCC V28) Heart failure, unspecified (CMS/HCC V24, CMS/HCC V28) Anemia, unspecified Epilepsy, unspecified, intractable, without status epilepticus (CMS/HCC V24, CMS/HCC V28) COMPLETE BLOOD COUNT Routine 01/03/2025 8:02 AM EDT Unspecified cirrhosis of liver (CMS/HCC V24, CMS/HCC V28) Heart failure, unspecified (CMS/HCC V24, CMS/HCC V28) Anemia, unspecified Epilepsy, unspecified, intractable, without status epilepticus (CMS/HCC V24, CMS/HCC V28) COMPREHENSIVE METABOLIC PANEL Routine 01/03/2025 8:02 AM EDT Unspecified cirrhosis of liver (CMS/HCC V24, CMS/HCC V28) Heart failure, unspecified (CMS/HCC V24, CMS/HCC V28) Anemia, unspecified Epilepsy, unspecified, intractable, without status epilepticus (CMS/HCC V24, CMS/HCC V28) LEVETIRACETAM LEVEL Routine 01/03/2025 8 :02 AM EDT Unspecified cirrhosis of liver (CMS/HCC V24, CMS/HCC V28) Heart failure, unspecified (CMS/HCC V24, CMS/HCC V28) Anemia, unspecified Epilepsy, unspecified, intractable, without status epilepticus (CMS/HCC V24, CMS/HCC V28) AMMONIA Routine 12/31/2024 5:38 AM EDT Hepatic encephalopathy (CMS/HCC V24, CMS/HCC V28) Hyperlipidemia, unspecified Unspecified cirrhosis of liver (CMS/HCC V24, CMS/HCC V28) MAGNESIUM Routine 12/31/2024 5:38 AM EDT Hepatic encephalopathy (CMS/HCC V24, CMS/HCC V28) Hyperlipidemia, unspecified Unspecified cirrhosis of liver (CMS/HCC V24, CMS/HCC V28) COMPREHENSIVE METABOLIC PANEL Routine 12/31/2024 5:38 AM EDT Hepatic encephalopathy (CMS/HCC V24, CMS/HCC V28) Hyperlipidemia, unspecified Unspecified cirrhosis of liver (CMS/HCC V24, CMS/HCC V28) COMPLETE BLOOD COUNT Routine 12/31/2024 5:38 AM EDT Hepatic encephalopathy (CMS/HCC V24, CMS/HCC V28) Hyperlipidemia, unspecified Unspecified cirrhosis of liver (CMS/HCC V24, CMS/HCC V28) AMMONIA Routine 12/30/2024 6:16 AM EDT Unspecified cirrhosis of liver (CMS/HCC V24, CMS/HCC V28) Heart failure, unspecified (CMS/HCC V24, CMS/HCC V28) Anemia, unspecified Epilepsy, unspecified, intractable, without status epilepticus (CMS/HCC V24, CMS/HCC V28) COMPLETE BLOOD COUNT Routine 12/30/2024 6:16 AM EDT Unspecified cirrhosis of liver (CMS/HCC V24, CMS/HCC V28) Heart failure, unspecified (CMS/HCC V24, CMS/HCC V28) Anemia, unspecified Epilepsy, unspecified, intractable, without status epilepticus (CMS/HCC V24, CMS/HCC V28) COMPREHENSIVE METABOLIC PANEL Routine 12/30/2024 6:16 AM EDT Unspecified cirrhosis of liver (CMS/HCC V24, CMS/HCC V28) Heart failure, unspecified (CMS/HCC V24, CMS/HCC V28) Anemia, unspecified Epilepsy, unspecified, intractable, without status epilepticus (CMS/HCC V24, CMS/HCC V28) LEVETIRACETAM LEVEL Routine 12/30/2024 6 :16 AM EDT Unspecified cirrhosis of liver (CMS/HCC V24, CMS/HCC V28) Heart failure, unspecified (CMS/HCC V24, CMS/HCC V28) Anemia, unspecified Epilepsy, unspecified, intractable, without status epilepticus (CMS/HCC V24, CMS/HCC V28) AMMONIA Routine 12/27/2024 8:58 AM EDT Unspecified cirrhosis of liver (CMS/HCC V24, CMS/HCC V28) Heart failure, unspecified (CMS/HCC V24, CMS/HCC V28) Anemia, unspecified Epilepsy, unspecified, intractable, without status epilepticus (CMS/HCC V24, CMS/HCC V28) COMPLETE BLOOD COUNT Routine 12/27/2024 8:58 AM EDT Unspecified cirrhosis of liver (CMS/HCC V24, CMS/HCC V28) Heart failure, unspecified (CMS/HCC V24, CMS/HCC V28) Anemia, unspecified Epilepsy, unspecified, intractable, without status epilepticus (CMS/HCC V24, CMS/HCC V28) COMPREHENSIVE METABOLIC PANEL Routine 12/27/2024 8:58 AM EDT Unspecified cirrhosis of liver (CMS/HCC V24, CMS/HCC V28) Heart failure, unspecified (CMS/HCC V24, CMS/HCC V28) Anemia, unspecified Epilepsy, unspecified, intractable, without status epilepticus (CMS/HCC V24, CMS/HCC V28) LEVETIRACETAM LEVEL Routine 12/27/2024 8 :58 AM EDT Unspecified cirrhosis of liver (CMS/HCC V24, CMS/HCC V28) Heart failure, unspecified (CMS/HCC V24, CMS/HCC V28) Anemia, unspecified Epilepsy, unspecified, intractable, without status epilepticus (CMS/HCC V24, CMS/HCC V28) AMMONIA Routine 12/23/2024 5:55 AM EDT Unspecified cirrhosis of liver (CMS/HCC V24, CMS/HCC V28) Heart failure, unspecified (CMS/HCC V24, CMS/HCC V28) Anemia, unspecified Epilepsy, unspecified, intractable, without status epilepticus (CMS/HCC V24, CMS/HCC V28) COMPLETE BLOOD COUNT Routine 12/23/2024 5:55 AM EDT Unspecified cirrhosis of liver (CMS/HCC V24, CMS/HCC V28) Heart failure, unspecified (CMS/HCC V24, CMS/HCC V28) Anemia, unspecified Epilepsy, unspecified, intractable, without status epilepticus (CMS/HCC V24, CMS/HCC V28) COMPREHENSIVE METABOLIC PANEL Routine 12/23/2024 5:55 AM EDT Unspecified cirrhosis of liver (CMS/HCC V24, CMS/HCC V28) Heart failure, unspecified (CMS/HCC V24, CMS/HCC V28) Anemia, unspecified Epilepsy, unspecified, intractable, without status epilepticus (CMS/HCC V24, CMS/HCC V28) LEVETIRACETAM LEVEL Routine 12/23/2024 5 :55 AM EDT Unspecified cirrhosis of liver (CMS/HCC V24, CMS/HCC V28) Heart failure, unspecified (CMS/HCC V24, CMS/HCC V28) Anemia, unspecified Epilepsy, unspecified, intractable, without status epilepticus (CMS/HCC V24, CMS/HCC V28) COMPLETE BLOOD COUNT Routine 12/20/2024 9:11 AM EDT Unspecified cirrhosis of liver (CMS/HCC V24, CMS/HCC V28) Heart failure, unspecified (CMS/HCC V24, CMS/HCC V28) Anemia, unspecified Epilepsy, unspecified, intractable, without status epilepticus (CMS/HCC V24, CMS/HCC V28) AMMONIA Routine 12/20/2024 9:11 AM EDT Unspecified cirrhosis of liver (CMS/HCC V24, CMS/HCC V28) Heart failure, unspecified (CMS/HCC V24, CMS/HCC V28) Anemia, unspecified Epilepsy, unspecified, intractable, without status epilepticus (CMS/HCC V24, CMS/HCC V28) COMPREHENSIVE METABOLIC PANEL Routine 12/20/2024 9:11 AM EDT Unspecified cirrhosis of liver (CMS/HCC V24, CMS/HCC V28) Heart failure, unspecified (CMS/HCC V24, CMS/HCC V28) Anemia, unspecified Epilepsy, unspecified, intractable, without status epilepticus (CMS/HCC V24, CMS/HCC V28) LEVETIRACETAM LEVEL Routine 12/20/2024 9 :11 AM EDT Unspecified cirrhosis of liver (CMS/HCC V24, CMS/HCC V28) Heart failure, unspecified (CMS/HCC V24, CMS/HCC V28) Anemia, unspecified Epilepsy, unspecified, intractable, without status epilepticus (CMS/HCC V24, CMS/HCC V28) AMMONIA Routine 12/16/2024 9:30 AM EDT Unspecified cirrhosis of liver (CMS/HCC V24, CMS/HCC V28) Heart failure, unspecified (CMS/HCC V24, CMS/HCC V28) Anemia, unspecified Epilepsy, unspecified, intractable, without status epilepticus (CMS/HCC V24, CMS/HCC V28) COMPLETE BLOOD COUNT Routine 12/16/2024 9:30 AM EDT Unspecified cirrhosis of liver (CMS/HCC V24, CMS/HCC V28) Heart failure, unspecified (CMS/HCC V24, CMS/HCC V28) Anemia, unspecified Epilepsy, unspecified, intractable, without status epilepticus (CMS/HCC V24, CMS/HCC V28) COMPREHENSIVE METABOLIC PANEL Routine 12/16/2024 9:30 AM EDT Unspecified cirrhosis of liver (CMS/HCC V24, CMS/HCC V28) Heart failure, unspecified (CMS/HCC V24, CMS/HCC V28) Anemia, unspecified Epilepsy, unspecified, intractable, without status epilepticus (CMS/HCC V24, CMS/HCC V28) LEVETIRACETAM LEVEL Routine 12/16/2024 9 :30 AM EDT Unspecified cirrhosis of liver (CMS/HCC V24, CMS/HCC V28) Heart failure, unspecified (CMS/HCC V24, CMS/HCC V28) Anemia, unspecified Epilepsy, unspecified, intractable, without status epilepticus (CMS/HCC V24, CMS/HCC V28) AMMONIA Routine 12/13/2024 7:22 AM EDT Anemia, unspecified Heart failure, unspecified (CMS/HCC V24, CMS/HCC V28) Unspecified cirrhosis of liver (CMS/HCC V24, CMS/HCC V28) Epilepsy, unspecified, not intractable, without status epilepticus (CMS/HCC V24, CMS/HCC V28) LEVETIRACETAM LEVEL Routine 12/13/2024 7 :22 AM EDT Anemia, unspecified Heart failure, unspecified (CMS/HCC V24, CMS/HCC V28) Unspecified cirrhosis of liver (CMS/HCC V24, CMS/HCC V28) Epilepsy, unspecified, not intractable, without status epilepticus (CMS/HCC V24, CMS/HCC V28) COMPREHENSIVE METABOLIC PANEL Routine 12/13/2024 7:22 AM EDT Anemia, unspecified Heart failure, unspecified (CMS/HCC V24, CMS/HCC V28) Unspecified cirrhosis of liver (CMS/HCC V24, CMS/HCC V28) Epilepsy, unspecified, not intractable, without status epilepticus (CMS/HCC V24, CMS/HCC V28) COMPLETE BLOOD COUNT Routine 12/13/2024 7:22 AM EDT Anemia, unspecified Heart failure, unspecified (CMS/HCC V24, CMS/HCC V28) Unspecified cirrhosis of liver (CMS/HCC V24, CMS/HCC V28) Epilepsy, unspecified, not intractable, without status epilepticus (CMS/HCC V24, CMS/HCC V28) from Last 3 Months Results * (ABNORMAL) Complete blood count (03/14/2025 9:01 AM EDT) Only the most recent of14 resultswithin the time period is included. WBC 14.8(H) 4.8 - 10.8 K/mcL LAB HEMETOLOGY METHOD 03/14/2025 9:38 AM [facility] RBC 3.80(L) 4.50 - 5.50 M/mcL LAB HEMETOLOGY METHOD 03/14/2025 9:38 AM [facility] Hemoglobin 11.5(L) 13.5 - 17.5 g/dL LAB HEMETOLOGY METHOD 03/14/2025 9:38 AM [facility] Hematocrit 37.9(L) 42.0 - 54.0 % LAB HEMETOLOGY METHOD 03/14/2025 9:38 AM [facility] MCV 99.5(H) 79.0 - 98.0 FL LAB HEMETOLOGY METHOD 03/14/2025 9:38 AM [facility] MCH 30.2 27.0 - 32.0 pcg LAB HEMETOLOGY METHOD 03/14/2025 9:38 AM EDT [facility] MCHC 30.3(L) 32.0 - 37.0 g/dL LAB HEMETOLOGY METHOD 03/14/2025 9:38 AM EDT [facility] RDW 16.1(H) 11.0 - 15.0 % LAB HEMETOLOGY METHOD 03/14/2025 9:38 AM EDT [facility] Platelets 101(L) 130 - 400 K/mcL LAB HEMETOLOGY METHOD 03/14/2025 9:38 AM EDT [facility] MPV 11.9(H) 7.0 - 11.0 FL LAB HEMETOLOGY METHOD 03/14/2025 9:38 AM EDT [facility] NRBC 0.0 <1.0 % LAB HEMETOLOGY METHOD 03/14/2025 9:38 AM EDT [facility] NRBC Absolute 0.00 <0.10 K/mcL LAB HEMETOLOGY METHOD 03/14/2025 9:38 AM EDT [facility] Blood Venous blood specimen / Unknown Venipuncture / Unknown 03/14/2025 9:01 AM EDT 03/14/2025 9:32 AM EDT Jules Lu MD LAB BLOOD ORDERABLES Final R esult [facility] [address] [place] [address], * (ABNORMAL) Ammonia (03/14/2025 9:01 AM EDT) Only the most recent of11 resultswithin the time period is included. Ammonia 113(H) 11 - 35 mcmol/L LAB CHEMISTRY METHOD 03/14/2025 9:57 AM EDT [facility] Blood Venous blood specimen / Unknown Venipuncture / Unknown 03/14/2025 9:01 AM EDT 03/14/2025 9:32 AM EDT us Jules Lu MD LAB BLOOD ORDERABLES Final R esult [facility] [address] [place] [address], [place] [phone] * (ABNORMAL) Basic metabolic panel (03/14/2025 9:01 AM EDT) Only the most recent of2 resultswithin the time period is included. Pathologist [facility] Sodium 143 133 - 145 mmol/L LAB CHEMISTRY METHOD 03/14/2025 10:30 AM [facility] Potassium 4.3 3.5 - 5.5 mmol/L LAB CHEMISTRY METHOD 03/14/2025 10:30 AM [facility] Chloride 101 96 - 110 mmol/L LAB CHEMISTRY METHOD 03/14/2025 10:30 AM [facility] CO2 37(H) 21 - 32 mmol/L LAB CHEMISTRY METHOD 03/14/2025 10:30 AM [facility] Anion Gap 5 3 - 11 LAB CHEMISTRY METHOD 03/14/2025 10:30 AM [facility] Glucose 88 70 - 100 mg/dL LAB CHEMISTRY METHOD 03/14/2025 10:30 AM [facility] BUN 28(H) 5 - 25 mg/dL LAB CHEMISTRY METHOD 03/14/2025 10:30 AM [facility] Creatinine 1.56(H) 0.70 - 1.30 mg/dL LAB CHEMISTRY METHOD 03/14/2025 10:30 AM [facility] eGFR 51(L) >=60 mL/min/1. 73m2 LAB CHEMISTRY METHOD 03/14/2025 10:30 AM [facility] Comment:Calculation based on the Chronic Kidney Disease Epidemiology Collaboration (CKD-EPI) equation refit without adjustment for race. BUN/Creatinine Ratio 17.9 LAB CHEMISTRY METHOD 03/14/2025 10:30 AM EDT [facility] Calcium 9.5 8.5 - 10.5 mg/dL LAB CHEMISTRY METHOD 03/14/2025 10:30 AM EDT [facility] Blood Venous blood specimen / Unknown Venipuncture / Unknown 03/14/2025 9:01 AM EDT 03/14/2025 9:32 AM EDT Jules Lu MD LAB BLOOD ORDERABLES Final R esult Performing Organization Address City/[facility]/ZIP Co de Phone Number [facility] [address] [place] [address], [place] [phone] * (ABNORMAL) Prothrombin time with INR (02/05/2025 8:18 AM EDT) Protime 14.8(H) 10.6 - 13.9 sec LAB COAGULATION METHOD 02/05/2025 10:49 AM EDT [facility] INR 1.2 LAB COAGULATION METHOD 02/05/2025 10:49 AM EDT [facility] Blood Venous blood specimen / Unknown Venipuncture / Unknown 02/05/2025 8:18 AM EDT 02/05/2025 10:04 AM EDT Jules Lu MD LAB BLOOD ORDERABLES Final R esult Performing Organization Address City/[facility]/ZIP Co de Phone Number [facility] [address] [place] [address], [place] [phone] * (ABNORMAL) Comprehensive metabolic panel (02/05/2025 8:18 AM EDT) Only the most recent of12 resultswithin the time period is included. Sodium 144 133 - 145 mmol/L LAB CHEMISTRY METHOD 02/05/2025 11:20 AM EDT [facility] Potassium 4.9 3.5 - 5.5 mmol/L LAB CHEMISTRY METHOD 02/05/2025 11:20 AM [facility] Chloride 107 96 - 110 mmol/L LAB CHEMISTRY METHOD 02/05/2025 11:20 AM [facility] LAB CO2 35(H) 21 - 32 mmol/L LAB CHEMISTRY METHOD 02/05/2025 11:20 AM [facility] LAB Anion Gap 2(L) 3 - 11 LAB CHEMISTRY METHOD 02/05/2025 11:20 AM [facility] LAB Glucose 57(L) 70 - 100 mg/dL LAB CHEMISTRY METHOD 02/05/2025 11:20 AM [facility] LAB BUN 15 5 - 25 mg/dL LAB CHEMISTRY METHOD 02/05/2025 11:20 AM [facility] LAB Creatinine 0.88 0.70 - 1.30 mg/dL LAB CHEMISTRY METHOD 02/05/2025 11:20 AM [facility] LAB eGFR 98 >=60 mL/min/1. 73m2 LAB CHEMISTRY METHOD 02/05/2025 11:20 AM [facility] LAB Comment:Calculation based on the Chronic Kidney Disease Epidemiology Collaboration (CKD-EPI) equation refit without adjustment for race. BUN/Creatinine Ratio 17.0 LAB CHEMISTRY METHOD 02/05/2025 11:20 AM [facility] LAB Calcium 9.2 8.5 - 10.5 mg/dL LAB CHEMISTRY METHOD 02/05/2025 11:20 AM [facility] LAB AST (SGOT) 24 10 - 42 unit/L LAB CHEMISTRY METHOD 02/05/2025 11:20 AM [facility] LAB ALT (SGPT) 18 10 - 60 unit/L LAB CHEMISTRY METHOD 02/05/2025 11:20 AM [facility] LAB Alkaline Phosphatase 139(H) 42 - 121 unit/L LAB CHEMISTRY METHOD 02/05/2025 11:20 AM [facility] LAB Total Protein 6.6 6.0 - 8.0 g/dL LAB CHEMISTRY METHOD 02/05/2025 11:20 AM EDT [facility] Albumin 2.3(L) 3.2 - 5.0 g/dL LAB CHEMISTRY METHOD 02/05/2025 11:20 AM EDT [facility] Total Bilirubin 0.7 0.0 - 1.4 mg/dL LAB CHEMISTRY METHOD 02/05/2025 11:20 AM EDT [facility] Blood Venous blood specimen / Unknown Venipuncture / Unknown 02/05/2025 8:18 AM EDT 02/05/2025 10:04 AM EDT us Jules Lu MD LAB BLOOD ORDERABLES Final R esult [facility] [address] [place] [address], * Levetiracetam level (01/13/2025 8:36 AM EDT) Only the most recent of9 resultswithin the time period is included. [facility] Signature Levetiracetam 39.0 3.0 - 60.0 ug/mL 01/15/2025 5:35 AM EDT [facility] Comment: Steady state trough serum or plasma levels following doses of 1000 to 3000 mg/Day: 3 to 37 ug/mL. The same dosage regimen will typically result in peak levels of 10 to 60 ug/mL, at approximately 1.5 hours post dose. If applicable, any drug confirmation testing reported here was developed and the performance characteristics determined by [facility]. This confirmation testing has not been cleared or approved by the FDA. The laboratory is regulated under CLIA as qualified to perform high-complexity testing. This test is used for patient testing purposes. It should not be regarded as investigational or for research. Test performed at [facility], [address] , [place] [address] Allison Dominguez MD, PhD - Welding Machine Operator Plasma Arc Blood Venous blood specimen / Unknown Venipuncture / Unknown 01/13/2025 8:36 AM EDT 01/13/2025 10:28 AM EDT Jules Lu MD LAB BLOOD ORDERABLES Final R esult [facility] [address] [place] [address] * (ABNORMAL) Magnesium (12/31/2024 5:38 AM EDT) Magnesium 1.8(L) 1.9 - 2.6 mg/dL LAB CHEMISTRY METHOD 12/31/2024 9:21 AM EDT [facility]) [facility] Blood Venous blood specimen / Unknown Venipuncture / Unknown 12/31/2024 5:38 AM EDT 12/31/2024 6:49 AM EDT Jules Lu MD LAB BLOOD ORDERABLES Final R esult [facility] [address] [place] [address], [place] [phone] from Last 3 Months Insurance MEDICAID - [place] MEDICARE Care Teams Casing Splitter Relationship Specialty Start Date End Date Jules Lu MD [address] [place] [address] PCP - General Family Medicine 03/25/24
--- OUTSIDE RECORDS SUMMARY | 2025-03-15 19:05 | XMS_ITS | Encounter Summary ---
Author Organization [employer] Address [address] [place] [address] Care Team Providers Care Stained Glass Glazier Helper Name Role Phone Jules Lu MD Primary Care Provider [phone] Encounter Details Date Type Department Care Team (Late st Contact Info) Description 06/10/2024 Lab Requisition [facility] - Main Lab [address] [place] [address] Jules Lu MD [address] [place] [address] Heart failure, unspecified (CMS/HCC V24, CMS/HCC V28); Anemia, unspecified Social History Tobacco Use Types Packs/Day [...] Associated Diagnosis Comments COMPLETE BLOOD COUNT Routine 06/10/2024 6:01 AM EST Heart failure, unspecified (CMS/HCC) Anemia, unspecified BASIC METABOLIC PANEL Routine 06/10/2024 6:01 AM EST Heart failure, unspecified (CMS/HCC) Anemia, unspecified documented in this encounter Results * (ABNORMAL) Basic metabolic panel (06/10/2024 6:01 AM EST) Sodium 138 133 - 145 mmol/L LAB CHEMISTRY METHOD 06/10/2024 3:28 PM EST [facility] Potassium 4.4 3.5 - 5.5 mmol/L LAB CHEMISTRY METHOD 06/10/2024 3:28 PM EST [facility] Chloride 100 96 - 110 mmol/L LAB CHEMISTRY METHOD 06/10/2024 3:28 PM [facility] CO2 36(H) 21 - 32 mmol/L LAB CHEMISTRY METHOD 06/10/2024 3:28 PM [facility] Anion Gap 2(L) 3 - 11 LAB CHEMISTRY METHOD 06/10/2024 3:28 PM [facility] Glucose 43(L) 70 - 100 mg/dL LAB CHEMISTRY METHOD 06/10/2024 3:28 PM [facility] BUN 19 5 - 25 mg/dL LAB CHEMISTRY METHOD 06/10/2024 3:28 PM [facility] Creatinine 0.87 0.70 - 1.30 mg/dL LAB CHEMISTRY METHOD 06/10/2024 3:28 PM [facility] eGFR 99 >=60 mL/min/1. 73m2 LAB CHEMISTRY METHOD 06/10/2024 3:28 PM [facility] Comment:Calculation based on the Chronic Kidney Disease Epidemiology Collaboration (CKD-EPI) equation refit without adjustment for race. BUN/Creatinine Ratio 21.8 LAB CHEMISTRY METHOD 06/10/2024 3:28 PM [facility] Calcium 8.8 8.5 - 10.5 mg/dL LAB CHEMISTRY METHOD 06/10/2024 3:28 PM [facility] Blood Venous blood specimen / Unknown Venipuncture / Unknown 06/10/2024 6:01 AM EST 06/10/2024 12:26 PM EST us Jules Lu MD LAB BLOOD ORDERABLES Final R esult [facility] [address] [place] [address], * (ABNORMAL) Complete blood count (06/10/2024 6:01 AM EST) WBC 9.8 4.8 - 10.8 K/mcL LAB HEMETOLOGY METHOD 06/10/2024 1:18 PM [facility] RBC 3.10(L) 4.50 - 5.50 M/mcL LAB HEMETOLOGY METHOD 06/10/2024 1:18 PM [facility] Hemoglobin 9.1(L) 13.5 - 17.5 g/dL LAB HEMETOLOGY METHOD 06/10/2024 1:18 PM [facility] Hematocrit 30.0(L) 42.0 - 54.0 % LAB HEMETOLOGY METHOD 06/10/2024 1:18 PM [facility] MCV 97.1 79.0 - 98.0 FL LAB HEMETOLOGY METHOD 06/10/2024 1:18 PM [facility] MCH 29.4 27.0 - 32.0 pcg LAB HEMETOLOGY METHOD 06/10/2024 1:18 PM [facility] MCHC 30.3(L) 32.0 - 37.0 g/dL LAB HEMETOLOGY METHOD 06/10/2024 1:18 PM [facility] RDW 19.2(H) 11.0 - 15.0 % LAB HEMETOLOGY METHOD 06/10/2024 1:18 PM [facility] Platelets 137 130 - 400 K/mcL LAB HEMETOLOGY METHOD 06/10/2024 1:18 PM [facility] MPV 10.9 7.0 - 11.0 FL LAB HEMETOLOGY METHOD 06/10/2024 1:18 PM [facility] NRBC 0.0 <1.0 % LAB HEMETOLOGY METHOD 06/10/2024 1:18 PM [facility] NRBC Absolute 0.00 <0.10 K/mcL LAB HEMETOLOGY METHOD 06/10/2024 1:18 PM [facility] Blood Venous blood specimen / Unknown Venipuncture / Unknown 06/10/2024 6:01 AM EST 06/10/2024 12:26 PM EST Jules Lu MD LAB BLOOD ORDERABLES Final R esult [facility] ([facility] [place] [address] [place] [address], documented in this encounter Visit Diagnoses Diagnosis Heart failure, unspecified (CMS/HCC V24, CMS/HCC V28) Heart failure, unspecified Anemia, unspecified documented in this encounter Care Teams Stained Glass Glazier Helper Relationship Specialty Start Date End Date Jules Lu MD [address] [place] [address] PCP - General Family Medicine 03/25/24 documented as of this encounter
--- OUTSIDE RECORDS SUMMARY | 2025-03-15 19:05 | XMS_ITS | Encounter Summary ---
Author Organization [employer] Address [address] [place] [address] Care Team Providers Care Delivery Truck Driver Heavy Name Role Phone Jules Lu MD Primary Care Provider [phone] Encounter Details Date Type Department Care Team (Late st Contact Info) Description 05/29/[address] [facility] - Main Lab [address] [place] [address] Jules Lu MD [address] [place] [address] Disorder of kidney and ureter, unspecified; Anemia, unspecified Social History Tobacco Use Types [...] Associated Diagnosis Comments COMPLETE BLOOD COUNT Routine 05/29/2024 5:52 AM EST Disorder of kidney and ureter, unspecified Anemia, unspecified MAGNESIUM Routine 05/29/2024 5:52 AM EST Disorder of kidney and ureter, unspecified Anemia, unspecified BASIC METABOLIC PANEL Routine 05/29/2024 5:52 AM EST Disorder of kidney and ureter, unspecified Anemia, unspecified documented in this encounter Results * Magnesium (05/29/2024 5:52 AM EST) Magnesium 2.4 1.9 - 2.6 mg/dL LAB CHEMISTRY METHOD 05/29/2024 11:57 AM EST [facility] Blood Venous blood specimen / Unknown Venipuncture / Unknown 05/29/2024 5:52 AM EST 05/29/2024 10:19 AM EST us Jules Lu MD LAB BLOOD ORDERABLES Final R esult [facility] [address] [place] [address], [place] [phone] * (ABNORMAL) Basic metabolic panel (05/29/2024 5:52 AM EST) Sodium 138 133 - 145 mmol/L LAB CHEMISTRY METHOD 05/29/2024 12:17 PM [facility] Potassium 4.5 3.5 - 5.5 mmol/L LAB CHEMISTRY METHOD 05/29/2024 12:17 PM [facility] Chloride 100 96 - 110 mmol/L LAB CHEMISTRY METHOD 05/29/2024 12:17 PM [facility] CO2 37(H) 21 - 32 mmol/L LAB CHEMISTRY METHOD 05/29/2024 12:17 PM [facility] Anion Gap 1(L) 3 - 11 LAB CHEMISTRY METHOD 05/29/2024 12:17 PM [facility] Glucose 61(L) 70 - 100 mg/dL LAB CHEMISTRY METHOD 05/29/2024 12:17 PM [facility] BUN 16 5 - 25 mg/dL LAB CHEMISTRY METHOD 05/29/2024 12:17 PM [facility] Creatinine 0.90 0.70 - 1.30 mg/dL LAB CHEMISTRY METHOD 05/29/2024 12:17 PM [facility] eGFR 98 >=60 mL/min/1. 73m2 LAB CHEMISTRY METHOD 05/29/2024 12:17 PM [facility] Comment:Calculation based on the Chronic Kidney Disease Epidemiology Collaboration (CKD-EPI) equation refit without adjustment for race. BUN/Creatinine Ratio 17.8 LAB CHEMISTRY METHOD 05/29/2024 12:17 PM [facility] Calcium 8.4(L) 8.5 - 10.5 mg/dL LAB CHEMISTRY METHOD 05/29/2024 12:17 PM [facility] Blood Venous blood specimen / Unknown Venipuncture / Unknown 05/29/2024 5:52 AM EST 05/29/2024 10:19 AM EST us Jules Lu MD LAB BLOOD ORDERABLES Final R esult [facility] [address] [place] [address], * (ABNORMAL) Complete blood count (05/29/2024 5:52 AM EST) WBC 6.3 4.8 - 10.8 K/mcL LAB HEMETOLOGY METHOD 05/29/2024 11:31 AM [facility] RBC 2.80(L) 4.50 - 5.50 M/mcL LAB HEMETOLOGY METHOD 05/29/2024 11:31 AM [facility] Hemoglobin 8.0(L) 13.5 - 17.5 g/dL LAB HEMETOLOGY METHOD 05/29/2024 11:31 AM [facility] Hematocrit 27.1(L) 42.0 - 54.0 % LAB HEMETOLOGY METHOD 05/29/2024 11:31 AM [facility] MCV 95.8 79.0 - 98.0 FL LAB HEMETOLOGY METHOD 05/29/2024 11:31 AM [facility] MCH 28.3 27.0 - 32.0 pcg LAB HEMETOLOGY METHOD 05/29/2024 11:31 AM [facility] MCHC 29.5(L) 32.0 - 37.0 g/dL LAB HEMETOLOGY METHOD 05/29/2024 11:31 AM EST [facility] RDW 17.2(H) 11.0 - 15.0 % LAB HEMETOLOGY METHOD 05/29/2024 11:31 AM EST [facility] Platelets 139 130 - 400 K/mcL LAB HEMETOLOGY METHOD 05/29/2024 11:31 AM EST [facility] MPV 10.7 7.0 - 11.0 FL LAB HEMETOLOGY METHOD 05/29/2024 11:31 AM EST [facility] NRBC 0.5 <1.0 % LAB HEMETOLOGY METHOD 05/29/2024 11:31 AM [facility] NRBC Absolute 0.03 <0.10 K/mcL LAB HEMETOLOGY METHOD 05/29/2024 11:31 AM [facility] Blood Venous blood specimen / Unknown Venipuncture / Unknown 05/29/2024 5:52 AM EST 05/29/2024 10:19 AM EST us Jules Lu MD LAB BLOOD ORDERABLES Final R esult [facility] [address] [place] [address], documented in this encounter Visit Diagnoses Diagnosis Disorder of kidney and ureter, unspecified Anemia, unspecified documented in this encounter Care Teams Delivery Truck Driver Heavy Relationship Specialty Start Date End Date Jules Lu MD [address] [place] [id number] PCP - General Family Medicine 03/25/24 documented as of this encounter
--- OUTSIDE RECORDS SUMMARY | 2025-03-15 19:05 | XMS_ITS | Encounter Summary ---
Author Organization [employer] Address [address] [place] [address] Care Team Providers Care On Site Property Manager Name Role Phone Jules Lu MD Primary Care Provider [phone] Encounter Details Date Type Department Care Team (Late st Contact Info) Description 06/05/2024 Lab Requisition [facility] - Main Lab [address] [place] [address] Jules Lu MD [address] [place] [address] Anemia, unspecified Social History Tobacco Use Types [...] Diagnosis Comments CBC WITH AUTO DIFFERENTIAL Routine 06/06/2024 5:24 AM EST Anemia, unspecified CBC AND DIFFERENTIAL Routine 06/06/2024 5:24 AM EST Anemia, unspecified documented in this encounter Results * (ABNORMAL) CBC auto differential (06/06/2024 5:24 AM EST) WBC 11.9(H) 4.8 - 10.8 K/mcL LAB HEMETOLOGY METHOD 06/06/2024 10:42 AM EST [facility] RBC 3.10(L) 4.50 - 5.50 M/mcL LAB HEMETOLOGY METHOD 06/06/2024 10:42 AM EST [facility] Hemoglobin 8.7(L) 13.5 - 17.5 g/dL LAB HEMETOLOGY METHOD 06/06/2024 10:42 AM [facility] Hematocrit 29.7(L) 42.0 - 54.0 % LAB HEMETOLOGY METHOD 06/06/2024 10:42 AM [facility] MCV 97.4 79.0 - 98.0 FL LAB HEMETOLOGY METHOD 06/06/2024 10:42 AM [facility] MCH 28.5 27.0 - 32.0 pcg LAB HEMETOLOGY METHOD 06/06/2024 10:42 AM [facility] MCHC 29.3(L) 32.0 - 37.0 g/dL LAB HEMETOLOGY METHOD 06/06/2024 10:42 AM [facility] RDW 18.6(H) 11.0 - 15.0 % LAB HEMETOLOGY METHOD 06/06/2024 10:42 AM [facility] Platelets 147 130 - 400 K/mcL LAB HEMETOLOGY METHOD 06/06/2024 10:42 AM [facility] MPV 10.8 7.0 - 11.0 FL LAB HEMETOLOGY METHOD 06/06/2024 10:42 AM [facility] NRBC 0.0 <1.0 % LAB HEMETOLOGY METHOD 06/06/2024 10:42 AM [facility] NRBC Absolute 0.00 <0.10 K/mcL LAB HEMETOLOGY METHOD 06/06/2024 10:42 AM [facility] Neutrophils Relative 76.2 % LAB HEMETOLOGY METHOD 06/06/2024 10:42 AM [facility] Lymphocytes Relative 12.1 % LAB HEMETOLOGY METHOD 06/06/2024 10:42 AM [facility] Monocytes Relative 10.3 % LAB HEMETOLOGY METHOD 06/06/2024 10:42 AM [facility] Eosinophils Relative 0.8 % LAB HEMETOLOGY METHOD 06/06/2024 10:42 AM EST [facility] Basophils Relative 0.2 % LAB HEMETOLOGY METHOD 06/06/2024 10:42 AM [facility] Immature Granulocytes Relative 0.4 % LAB HEMETOLOGY METHOD 06/06/2024 10:42 AM [facility] Neutrophils Absolute 9.06(H) 1.50 - 7.00 K/mcL LAB HEMETOLOGY METHOD 06/06/2024 10:42 AM EST [facility] Lymphocytes Absolute 1.44 1.00 - 5.00 K/mcL LAB HEMETOLOGY METHOD 06/06/2024 10:42 AM [facility] Monocytes Absolute 1.23(H) 0.20 - 1.00 K/mcL LAB HEMETOLOGY METHOD 06/06/2024 10:42 AM [facility] Eosinophils Absolute 0.09 0.00 - 0.50 K/mcL LAB HEMETOLOGY METHOD 06/06/2024 10:42 AM EST [facility] Basophils Absolute 0.02 0.00 - 0.20 K/mcL LAB HEMETOLOGY METHOD 06/06/2024 10:42 AM [facility] Immature Granulocytes Absolute 0.05(H) 0.00 - 0.03 K/mcL LAB HEMETOLOGY METHOD 06/06/2024 10:42 AM [facility] Blood Venous blood specimen / Unknown Venipuncture / Unknown 06/06/2024 5:24 AM EST 06/06/2024 10:14 AM EST us Jules Lu MD LAB BLOOD ORDERABLES Final R esult [facility] [address] [place] [address], documented in this encounter Visit Diagnoses Diagnosis Anemia, unspecified documented in this encounter Care Teams On Site Property Manager Relationship Specialty Start Date End Date Jules Lu MD [address] [place] [address] PCP - General Family Medicine 03/25/24 documented as of this encounter
--- OUTSIDE RECORDS SUMMARY | 2025-03-15 19:05 | XMS_ITS | Encounter Summary ---
Author Organization [employer] Address [address] [place] [address] Care Team Providers Care Yield Analyst Name Role Phone Jules Lu MD Primary Care Provider [phone] Encounter Details Date Type Department Care Team (Late st Contact Info) Description 09/29/[address] [facility] - Main Lab [address] [place] [address] Jules Lu MD [address] [place] [address] Heart failure, unspecified (CMS/HCC V24, CMS/HCC V28); Hypokalemia Social History Tobacco Use Types Packs/Day Years [...] Procedure Name Priority Date/Time Associated Diagnosis Comments BASIC METABOLIC PANEL Routine 09/30/2024 5:12 AM EDT Heart failure, unspecified (CMS/HCC V24, CMS/HCC V28) Hypokalemia documented in this encounter Results * (ABNORMAL) Basic metabolic panel (09/30/2024 5:12 AM EDT) Sodium 140 133 - 145 mmol/L LAB CHEMISTRY METHOD 09/30/2024 1:30 PM EDT [facility] Potassium 4.1 3.5 - 5.5 mmol/L LAB CHEMISTRY METHOD 09/30/2024 1:30 PM EDT [facility] Chloride 104 96 - 110 mmol/L LAB CHEMISTRY METHOD 09/30/2024 1:30 PM EDT [facility] CO2 29 21 - 32 mmol/L LAB CHEMISTRY METHOD 09/30/2024 1:30 PM EDT [facility] Anion Gap 7 3 - 11 LAB CHEMISTRY METHOD 09/30/2024 1:30 PM EDT [facility] Glucose 50(L) 70 - 100 mg/dL LAB CHEMISTRY METHOD 09/30/2024 1:30 PM EDT [facility] BUN 25 5 - 25 mg/dL LAB CHEMISTRY METHOD 09/30/2024 1:30 PM EDT [facility] Creatinine 1.22 0.70 - 1.30 mg/dL LAB CHEMISTRY METHOD 09/30/2024 1:30 PM EDT [facility] eGFR 68 >=60 mL/min/1. 73m2 LAB CHEMISTRY METHOD 09/30/2024 1:30 PM EDT [facility] Comment:Calculation based on the Chronic Kidney Disease Epidemiology Collaboration (CKD-EPI) equation refit without adjustment for race. BUN/Creatinine Ratio 20.5 LAB CHEMISTRY METHOD 09/30/2024 1:30 PM T [facility] Calcium 8.8 8.5 - 10.5 mg/dL LAB CHEMISTRY METHOD 09/30/2024 1:30 PM T [facility] Blood Venous blood specimen / Unknown Venipuncture / Unknown 09/30/2024 5:12 AM EDT 09/30/2024 12:04 PM EDT us Jules Lu MD LAB BLOOD ORDERABLES Final R esult [facility] [address] [place] [address], documented in this encounter Visit Diagnoses Diagnosis Heart failure, unspecified (CMS/HCC V24, CMS/HCC V28) Heart failure, unspecified Hypokalemia Hypopotassemia documented in this encounter Care Teams Yield Analyst Relationship Specialty Start Date End Date Jules Lu MD [address] [place] [address] PCP - General Family Medicine 03/25/24 documented as of this encounter
--- OUTSIDE RECORDS SUMMARY | 2025-03-15 19:05 | XMS_ITS | Encounter Summary ---
Author Organization [employer] Address [address] [place] [address] Care Team Providers Care Lube Man Name Role Phone Jules Lu MD Primary Care Provider [phone] Encounter Details Date Type Department Care Team (Latest Contact Info) Description 01/16/2025 Lab Requisition [facility] - Main Lab [address] [place] [address] Jules Lu MD [facility] [place] [address] Hepatic encephalopathy (CMS/HCC V24, CMS/HCC V28) Social History Tobacco [...] Associated Diagnosis Comments COMPLETE BLOOD COUNT Routine 01/16/2025 5:28 AM EDT Hepatic encephalopathy (CMS/HCC V24, CMS/HCC V28) COMPREHENSIVE METABOLIC PANEL Routine 01/16/2025 5:28 AM EDT Hepatic encephalopathy (CMS/HCC V24, CMS/HCC V28) documented in this encounter Results * (ABNORMAL) Comprehensive metabolic panel (01/16/2025 5:28 AM EDT) Sodium 144 133 - 145 mmol/L LAB CHEMISTRY METHOD 01/16/2025 10:[address] [facility] Potassium 4.6 3.5 - 5.5 mmol/L LAB CHEMISTRY METHOD 01/16/2025 10:[address] [facility] Chloride 106 96 - 110 mmol/L LAB CHEMISTRY METHOD 01/16/2025 10:41 AM [facility] CO2 35(H) 21 - 32 mmol/L LAB CHEMISTRY METHOD 01/16/2025 10:41 AM [facility] Anion Gap 3 3 - 11 LAB CHEMISTRY METHOD 01/16/2025 10:41 AM [facility] Glucose 85 70 - 100 mg/dL LAB CHEMISTRY METHOD 01/16/2025 10:41 AM [facility] BUN 17 5 - 25 mg/dL LAB CHEMISTRY METHOD 01/16/2025 10:41 AM [facility] Creatinine 1.01 0.70 - 1.30 mg/dL LAB CHEMISTRY METHOD 01/16/2025 10:41 AM [facility] eGFR 85 >=60 mL/min/1. 73m2 LAB CHEMISTRY METHOD 01/16/2025 10:41 AM [facility] Comment:Calculation based on the Chronic Kidney Disease Epidemiology Collaboration (CKD-EPI) equation refit without adjustment for race. BUN/Creatinine Ratio 16.8 LAB CHEMISTRY METHOD 01/16/2025 10:41 AM [facility] Calcium 8.6 8.5 - 10.5 mg/dL LAB CHEMISTRY METHOD 01/16/2025 10:41 AM [facility] AST (SGOT) 25 10 - 42 unit/L LAB CHEMISTRY METHOD 01/16/2025 10:41 AM [facility] ALT (SGPT) 21 10 - 60 unit/L LAB CHEMISTRY METHOD 01/16/2025 10:41 AM [facility] Alkaline Phosphatase 203(H) 42 - 121 unit/L LAB CHEMISTRY METHOD 01/16/2025 10:41 AM [facility] Total Protein 6.5 6.0 - 8.0 g/dL LAB CHEMISTRY METHOD 01/16/2025 10:41 AM [facility] Albumin 2.3(L) 3.2 - 5.0 g/dL LAB CHEMISTRY METHOD 01/16/2025 10:[address] [facility] Total Bilirubin 0.5 0.0 - 1.4 mg/dL LAB CHEMISTRY METHOD 01/16/2025 10:41 AM [facility] Blood Venous blood specimen / Unknown Venipuncture / Unknown 01/16/2025 5:28 AM EDT 01/16/2025 9:14 AM EDT us Jules Lu MD LAB BLOOD ORDERABLES Final R esult [facility] [address] [place] [address], [place] [phone] * (ABNORMAL) Complete blood count (01/16/2025 5:28 AM EDT) WBC 8.4 4.8 - 10.8 K/mcL LAB HEMETOLOGY METHOD 01/16/2025 10:12 AM [facility] RBC 3.70(L) 4.50 - 5.50 M/mcL LAB HEMETOLOGY METHOD 01/16/2025 10:12 AM [facility] Hemoglobin 11.2(L) 13.5 - 17.5 g/dL LAB HEMETOLOGY METHOD 01/16/2025 10:12 AM [facility] Hematocrit 38.6(L) 42.0 - 54.0 % LAB HEMETOLOGY METHOD 01/16/2025 10:12 AM [facility] MCV 104.9(H) 79.0 - 98.0 FL LAB HEMETOLOGY METHOD 01/16/2025 10:12 AM [facility] MCH 30.4 27.0 - 32.0 pcg LAB HEMETOLOGY METHOD 01/16/2025 10:12 AM EDT [facility] MCHC 29.0(L) 32.0 - 37.0 g/dL LAB HEMETOLOGY METHOD 01/16/2025 10:[address] [facility] RDW 17.1(H) 11.0 - 15.0 % LAB HEMETOLOGY METHOD 01/16/2025 10:[address] [facility] Platelets 143 130 - 400 K/mcL LAB HEMETOLOGY METHOD 01/16/2025 10:[address] [facility] MPV 12.5(H) 7.0 - 11.0 FL LAB HEMETOLOGY METHOD 01/16/2025 10:[address] [facility] NRBC 0.0 <1.0 % LAB HEMETOLOGY METHOD 01/16/2025 10:[address] [facility] NRBC Absolute 0.00 <0.10 K/mcL LAB HEMETOLOGY METHOD 01/16/2025 10:[address] [facility] Blood Venous blood specimen / Unknown Venipuncture / Unknown 01/16/2025 5:28 AM EDT 01/16/2025 9:14 AM EDT us Jules Lu MD LAB BLOOD ORDERABLES Final R esult [facility] [address] [place] [address], documented in this encounter Visit Diagnoses Diagnosis Hepatic encephalopathy (CMS/HCC V24, CMS/HCC V28) Hepatic encephalopathy documented in this encounter Care Teams Lube Man Relationship Specialty Start Date End Date Jules Lu MD [facility] [place] [address] PCP - General Family Medicine 03/25/24 documented as of this encounter
--- OUTSIDE RECORDS SUMMARY | 2025-03-15 19:05 | XMS_ITS | Encounter Summary ---
Author Organization [employer] Address [address] [place] [address] Care Team Providers Care Talent Engineer Name Role Phone Jules Lu MD Primary Care Provider [phone] Encounter Details Date Type Department Care Team (Late st Contact Info) Description 09/08/2024 Lab Requisition [facility] - Main Lab [address] [facility] [place] [address] Jules Lu MD [address] [place] [address] Sepsis, unspecified organism (CMS/HCC V24, CMS/HCC V28) Social History Tobacco [...] Associated Diagnosis Comments COMPLETE BLOOD COUNT Routine 09/09/2024 6:09 AM EDT Sepsis, unspecified organism (CMS/HCC V24, CMS/HCC V28) VANCOMYCIN, TROUGH Routine 09/09/2024 6: 09 AM EDT Sepsis, unspecified organism (CMS/HCC V24, CMS/HCC V28) BASIC METABOLIC PANEL Routine 09/09/2024 6:09 AM EDT Sepsis, unspecified organism (CMS/HCC V24, CMS/HCC V28) documented in this encounter Results * Vancomycin, trough (09/09/2024 6:09 AM EDT) Vancomycin Trough 18.2 10.0 - 20.0 mcg/mL LAB CHEMISTRY METHOD 09/09/2024 1:03 PM [facility] Blood Venous blood specimen / Unknown Venipuncture / Unknown 09/09/2024 6:09 AM EDT 09/09/2024 9:59 AM EDT us Jules Lu MD LAB BLOOD ORDERABLES Final R esult [facility] [address] [place] [address], * (ABNORMAL) Basic metabolic panel (09/09/2024 6:09 AM EDT) Sodium 142 133 - 145 mmol/L LAB CHEMISTRY METHOD 09/09/2024 1:14 PM [facility] Potassium 4.6 3.5 - 5.5 mmol/L LAB CHEMISTRY METHOD 09/09/2024 1:14 PM [facility] Chloride 104 96 - 110 mmol/L LAB CHEMISTRY METHOD 09/09/2024 1:14 PM [facility] CO2 32 21 - 32 mmol/L LAB CHEMISTRY METHOD 09/09/2024 1:14 PM [facility] Anion Gap 6 3 - 11 LAB CHEMISTRY METHOD 09/09/2024 1:14 PM [facility] Glucose 40(L) 70 - 100 mg/dL LAB CHEMISTRY METHOD 09/09/2024 1:14 PM [facility] BUN 24 5 - 25 mg/dL LAB CHEMISTRY METHOD 09/09/2024 1:14 PM [facility] Creatinine 0.92 0.70 - 1.30 mg/dL LAB CHEMISTRY METHOD 09/09/2024 1:14 PM [facility] eGFR 95 >=60 mL/min/1. 73m2 LAB CHEMISTRY METHOD 09/09/2024 1:14 PM [facility] Comment:Calculation based on the Chronic Kidney Disease Epidemiology Collaboration (CKD-EPI) equation refit without adjustment for race. BUN/Creatinine Ratio 26.1 LAB CHEMISTRY METHOD 09/09/2024 1:14 PM EDT [facility] Calcium 9.8 8.5 - 10.5 mg/dL LAB CHEMISTRY METHOD 09/09/2024 1:14 PM [facility] Blood Venous blood specimen / Unknown Venipuncture / Unknown 09/09/2024 6:09 AM EDT 09/09/2024 9:59 AM EDT us Jules Lu MD LAB BLOOD ORDERABLES Final R esult [facility] [address] [place] [address], [place] [phone] * (ABNORMAL) Complete blood count (09/09/2024 6:09 AM EDT) WBC 11.2(H) 4.8 - 10.8 K/mcL LAB HEMETOLOGY METHOD 09/09/2024 11:23 AM [facility] RBC 3.30(L) 4.50 - 5.50 M/mcL LAB HEMETOLOGY METHOD 09/09/2024 11:23 AM [facility] Hemoglobin 9.1(L) 13.5 - 17.5 g/dL LAB HEMETOLOGY METHOD 09/09/2024 11:23 AM [facility] Hematocrit 31.4(L) 42.0 - 54.0 % LAB HEMETOLOGY METHOD 09/09/2024 11:23 AM [facility] MCV 94.3 79.0 - 98.0 FL LAB HEMETOLOGY METHOD 09/09/2024 11:23 AM [facility] MCH 27.3 27.0 - 32.0 pcg LAB HEMETOLOGY METHOD 09/09/2024 11:23 AM [facility] MCHC 29.0(L) 32.0 - 37.0 g/dL LAB HEMETOLOGY METHOD 09/09/2024 11:23 AM EDT [facility] RDW 17.3(H) 11.0 - 15.0 % LAB HEMETOLOGY METHOD 09/09/2024 11:23 AM EDT [facility] Platelets 143 130 - 400 K/mcL LAB HEMETOLOGY METHOD 09/09/2024 11:23 AM EDT [facility] MPV 11.4(H) 7.0 - 11.0 FL LAB HEMETOLOGY METHOD 09/09/2024 11:23 AM T [facility] NRBC 0.0 <1.0 % LAB HEMETOLOGY METHOD 09/09/2024 11:23 AM [facility] NRBC Absolute 0.00 <0.10 K/mcL LAB HEMETOLOGY METHOD 09/09/2024 11:23 AM T [facility] Blood Venous blood specimen / Unknown Venipuncture / Unknown 09/09/2024 6:09 AM EDT 09/09/2024 9:59 AM EDT us Jules Lu MD LAB BLOOD ORDERABLES Final R esult [facility] [address] [place] [address], documented in this encounter Visit Diagnoses Diagnosis Sepsis, unspecified organism (CMS/HCC V24, CMS/HCC V28) documented in this encounter Care Teams Talent Engineer Relationship Specialty Start Date End Date Jules Lu MD [address] [place] [address] PCP - General Family Medicine 03/25/24 documented as of this encounter
--- OUTSIDE RECORDS SUMMARY | 2025-03-15 19:05 | XMS_ITS | Encounter Summary ---
Author Organization [employer] Address [address] [place] [address] Care Team Providers Care Process Improvement Engineer Name Role Phone Juels Lu MD Primary Care Provider [phone] Encounter Details Date Type Department Care Team (Late st Contact Info) Description 09/19/2024 Lab Requisition [facility] - Main Lab [address] [place] [address] Jules Lu MD [address] [place] [address] Acute and chronic respiratory failure, unspecified whether with hypoxia or hypercapnia (CMS/HCC V24, CMS/HCC V28) Social History Tobacco [...] Procedure Name Priority Date/Time Associated Diagnosis Comments VANCOMYCIN, TROUGH Routine 09/20/2024 5: 25 AM EDT Acute and chronic respiratory failure, unspecified whether with hypoxia or hypercapnia (CMS/HCC V24, CMS/HCC V28) documented in this encounter Results * Vancomycin, trough (09/20/2024 5:25 AM EDT) Vancomycin Trough 14.6 10.0 - 20.0 mcg/mL LAB CHEMISTRY METHOD 09/20/2024 8:37 AM EDT [facility] Blood Venous blood specimen / Unknown Venipuncture / Unknown 09/20/2024 5:25 AM EDT 09/20/2024 8:08 AM EDT Jules Lu MD LAB BLOOD ORDERABLES Final R esult [facility] [address] [place] [address], documented in this encounter Visit Diagnoses Diagnosis Acute and chronic respiratory failure, unspecified whether with hypoxia or hypercapnia (CMS/HCC V24, CMS/HCC V28) documented in this encounter Care Teams Process Improvement Engineer Relationship Specialty Start Date End Date Jules Lu MD [address] [place] [address] PCP - General Family Medicine 03/25/24 documented as of this encounter
--- OUTSIDE RECORDS SUMMARY | 2025-03-15 19:05 | XMS_ITS | Encounter Summary ---
Author Organization [employer] Address [address] [place] [address] Care Team Providers Care Route Sales Associate Name Role Phone Jules Lu MD Primary Care Provider [phone]- [phone] Encounter Details Date Type Department Care Team (Latest Contact Info) Description 04/26/2024 Lab Requisition [facility] - Main Lab [address] [place] [address] Jules Lu MD [employer] [place] [address] Type 2 diabetes mellitus without complications (CMS/HCC V24, CMS/HCC V28) Social History Tobacco [...] Procedure Name Priority Date/Time Associated Diagnosis Comments HEMOGLOBIN A1C Routine 04/26/2024 7:48 AM EST Type 2 diabetes mellitus without complications (CMS/[facility]) documented in this encounter Results * Hemoglobin A1c (04/26/2024 7:48 AM EST) Hemoglobin A1C 4.3 <6.5 % LAB CHEMISTRY METHOD 04/26/2024 2:19 PM EST [facility] Mean Bld Glu Estim. 77 mg/dL LAB CHEMISTRY METHOD 04/26/2024 2:19 PM EST [facility] Blood Venous blood specimen / Unknown Venipuncture / Unknown 04/26/2024 7:48 AM EST 04/26/2024 10:32 AM EST Jules Lu MD LAB BLOOD ORDERABLES Final R esult [facility] LAB [address] [place] [address], documented in this encounter Visit Diagnoses Diagnosis Type 2 diabetes mellitus without complications (CMS/HCC V24, CMS/HCC V28) documented in this encounter Care Teams Route Sales Associate Relationship Specialty Start Date End Date Jules Lu MD [address] [place] [address] PCP - General Family Medicine 03/25/24 documented as of this encounter
--- OUTSIDE RECORDS SUMMARY | 2025-03-15 19:05 | XMS_ITS | Encounter Summary ---
Author Organization [employer] Address [address] [place] [address] Care Team Providers Care Deputy Sheriff Civil Division Name Role Phone Jules Lu MD Primary Care Provider [phone] Encounter Details Date Type Department Care Team (Late st Contact Info) Description 06/07/2024 Lab Requisition [facility] - Main Lab [address] [place] [address] Jules Lu MD [address] [place] [address] Anemia, unspecified Social History Tobacco [...] Associated Diagnosis Comments COMPLETE BLOOD COUNT Routine 06/07/2024 6:25 AM EST Anemia, unspecified documented in this encounter Results * (ABNORMAL) Complete blood count (06/07/2024 6:25 AM EST) WBC 11.2(H) 4.8 - 10.8 K/[facility] LAB HEMETOLOGY METHOD 06/07/2024 9:21 AM EST [facility] RBC 3.10(L) 4.50 - 5.50 M/[facility] LAB HEMETOLOGY METHOD 06/07/2024 9:21 AM EST [facility] Hemoglobin 8.7(L) 13.5 - 17.5 g/dL LAB HEMETOLOGY METHOD 06/07/2024 9:21 AM EST [facility] Hematocrit 29.3(L) 42.0 - 54.0 % LAB HEMETOLOGY METHOD 06/07/2024 9:21 AM EST [facility] MCV 96.1 79.0 - 98.0 FL LAB HEMETOLOGY METHOD 06/07/2024 9:21 AM [facility] MCH 28.5 27.0 - 32.0 pcg LAB HEMETOLOGY METHOD 06/07/2024 9:21 AM EST [facility] MCHC 29.7(L) 32.0 - 37.0 g/dL LAB HEMETOLOGY METHOD 06/07/2024 9:21 AM [facility] RDW 18.9(H) 11.0 - 15.0 % LAB HEMETOLOGY METHOD 06/07/2024 9:21 AM [facility] Platelets 136 130 - 400 K/mcL LAB HEMETOLOGY METHOD 06/07/2024 9:21 AM EST [facility] MPV 11.3(H) 7.0 - 11.0 FL LAB HEMETOLOGY METHOD 06/07/2024 9:21 AM EST [facility] NRBC 0.0 <1.0 % LAB HEMETOLOGY METHOD 06/07/2024 9:21 AM [facility] NRBC Absolute 0.00 <0.10 K/mcL LAB HEMETOLOGY METHOD 06/07/2024 9:21 AM [facility] Blood Venous blood specimen / Unknown Venipuncture / Unknown 06/07/2024 6:25 AM EST 06/07/2024 8:52 AM EST us Jules Lu MD LAB BLOOD ORDERABLES Final R esult [facility] [address] [place] [address], documented in this encounter Visit Diagnoses Diagnosis Anemia, unspecified documented in this encounter Care Teams Deputy Sheriff Civil Division Relationship Specialty Start Date End Date Jules Lu MD [address] [place] [address] PCP - General Family Medicine 03/25/24 documented as of this encounter
--- OUTSIDE RECORDS SUMMARY | 2025-03-15 19:05 | XMS_ITS | Encounter Summary ---
Author Organization [employer] Address [address] [place] [address] Care Team Providers Care Tape Edge Machine Operator Name Role Phone Jules Lu MD Primary Care Provider Encounter Details Date Type Department Care Team (Late st Contact Info) Description 06/22/2024 Lab Requisition [facility] - Main Lab [address] [facility] [place] [address] Brianna Pires MD [address] [place] [address] Social History Tobacco Use Types Packs/Day Years Used Date Smoking Tobacco: Never Assessed Sex and Gender Information Value Date Recorded Sex Assigned at Not on file Legal Sex Male 3:40 PM EDT Gender Identity Not on file Sexual Orientation Not on file documented as of this encounter Plan of Treatment Not on file documented as of this encounter Visit Diagnoses Not on filedocumented in this encounter Care Teams Tape Edge Machine Operator Relationship Specialty Start Date End Date Jules Lu MD [address] [place] [address] PCP - General Family Medicine 03/25/24 documented as of this encounter
--- OUTSIDE RECORDS SUMMARY | 2025-03-15 19:05 | XMS_ITS | Encounter Summary ---
Author Organization [employer] Address [address] [place] [address] Care Team Providers Care Alterations Sewer Name Role Phone Jules Lu MD Primary Care Provider [phone] Encounter Details Date Type Department Care Team (Late st Contact Info) Description 01/10/2025 Lab Requisition [facility] - Main Lab [address] [facility] [place] [address] Jules Lu MD [address] [place] [address] Unspecified cirrhosis of liver (CMS/HCC V24, CMS/HCC V28); Heart failure, unspecified (CMS/HCC V24, CMS/HCC V28); Anemia, unspecified; Epilepsy, unspecified, intractable, without status epilepticus (CMS/HCC V24, CMS/HCC V28) Social History Tobacco [...] Procedure Name Priority Date/Time Associated Diagnosis Comments LEVETIRACETAM LEVEL Routine 01/13/2025 8 :36 AM [...] epilepticus (CMS/HCC V24, CMS/HCC V28) AMMONIA Routine 01/13/2025 [...] without status epilepticus (CMS/HCC V24, CMS/HCC V28) documented in this encounter Results * (ABNORMAL) Ammonia (01/13/2025 8:36 AM EDT) Pathologist [facility] Ammonia 113(H) 11 - 35 mcmol/L LAB CHEMISTRY METHOD 01/13/2025 10:20 AM EDT [facility] Blood Venous blood specimen / Unknown Venipuncture / Unknown 01/13/2025 8:36 AM EDT 01/13/2025 9:52 AM EDT us Jules Lu MD LAB BLOOD ORDERABLES Final R esult [facility] [address] [place] [address], * (ABNORMAL) Complete blood count (01/13/2025 8:36 AM EDT) Pathologist [facility] WBC 6.6 4.8 - 10.8 K/mcL LAB HEMETOLOGY METHOD 01/13/2025 11:06 AM EDT [facility] RBC 3.10(L) 4.50 - 5.50 M/mcL LAB HEMETOLOGY METHOD 01/13/2025 11:06 AM [facility] Hemoglobin 9.7(L) 13.5 - 17.5 g/dL LAB HEMETOLOGY METHOD 01/13/2025 11:06 AM [facility] Hematocrit 32.7(L) 42.0 - 54.0 % LAB HEMETOLOGY METHOD 01/13/2025 11:06 AM [facility] MCV 104.8(H) 79.0 - 98.0 FL LAB HEMETOLOGY METHOD 01/13/2025 11:06 AM [facility] MCH 31.1 27.0 - 32.0 pcg LAB HEMETOLOGY METHOD 01/13/2025 11:06 AM [facility] MCHC 29.7(L) 32.0 - 37.0 g/dL LAB HEMETOLOGY METHOD 01/13/2025 11:06 AM [facility] RDW 17.2(H) 11.0 - 15.0 % LAB HEMETOLOGY METHOD 01/13/2025 11:06 AM [facility] Platelets 136 130 - 400 K/mcL LAB HEMETOLOGY METHOD 01/13/2025 11:06 AM [facility] MPV 12.4(H) 7.0 - 11.0 FL LAB HEMETOLOGY METHOD 01/13/2025 11:06 AM [facility] NRBC 0.0 <1.0 % LAB HEMETOLOGY METHOD 01/13/2025 11:06 AM [facility] NRBC Absolute 0.00 <0.10 K/mcL LAB HEMETOLOGY METHOD 01/13/2025 11:06 AM [facility] Blood Venous blood specimen / Unknown Venipuncture / Unknown 01/13/2025 8:36 AM EDT 01/13/2025 10:27 AM EDT us Jules Lu MD LAB BLOOD ORDERABLES Final R esult [facility] [address] [place] [address], [place] [phone] * (ABNORMAL) Comprehensive metabolic panel (01/13/2025 8:36 AM EDT) Sodium 143 133 - 145 mmol/L LAB CHEMISTRY METHOD 01/13/2025 11:54 AM EDT [facility] Potassium 4.4 3.5 - 5.5 mmol/L LAB CHEMISTRY METHOD 01/13/2025 11:54 AM [facility] Chloride 107 96 - 110 mmol/L LAB CHEMISTRY METHOD 01/13/2025 11:54 AM [facility] CO2 34(H) 21 - 32 mmol/L LAB CHEMISTRY METHOD 01/13/2025 11:54 AM [facility] Anion Gap 2(L) 3 - 11 LAB CHEMISTRY METHOD 01/13/2025 11:54 AM [facility] Glucose 102(H) 70 - 100 mg/dL LAB CHEMISTRY METHOD 01/13/2025 11:54 AM [facility] BUN 17 5 - 25 mg/dL LAB CHEMISTRY METHOD 01/13/2025 11:54 AM [facility] Creatinine 1.21 0.70 - 1.30 mg/dL LAB CHEMISTRY METHOD 01/13/2025 11:54 AM [facility] eGFR 69 >=60 mL/min/1. 73m2 LAB CHEMISTRY METHOD 01/13/2025 11:54 AM [facility] Comment:Calculation based on the Chronic Kidney Disease Epidemiology Collaboration (CKD-EPI) equation refit without adjustment for race. BUN/Creatinine Ratio 14.0 LAB CHEMISTRY METHOD 01/13/2025 11:54 AM [facility] Calcium 8.6 8.5 - 10.5 mg/dL LAB CHEMISTRY METHOD 01/13/2025 11:54 AM EDT [facility] AST (SGOT) 23 10 - 42 unit/L LAB CHEMISTRY METHOD 01/13/2025 11:54 AM [facility] ALT (SGPT) 16 10 - 60 unit/L LAB CHEMISTRY METHOD 01/13/2025 11:54 AM EDT [facility] Alkaline Phosphatase 181(H) 42 - 121 unit/L LAB CHEMISTRY METHOD 01/13/2025 11:54 AM EDT [facility] Total Protein 5.7(L) 6.0 - 8.0 g/dL LAB CHEMISTRY METHOD 01/13/2025 11:54 AM [facility] Albumin 2.0(L) 3.2 - 5.0 g/dL LAB CHEMISTRY METHOD 01/13/2025 11:54 AM [facility] Total Bilirubin 0.7 0.0 - 1.4 mg/dL LAB CHEMISTRY METHOD 01/13/2025 11:54 AM [facility] Blood Venous blood specimen / Unknown Venipuncture / Unknown 01/13/2025 8:36 AM EDT 01/13/2025 10:28 AM EDT Jules Lu MD LAB BLOOD ORDERABLES Final R esult [facility] [address] [place] [address], * Levetiracetam level (01/13/2025 8:36 AM EDT) Levetiracetam 39.0 3.0 - 60.0 ug/mL 01/15/2025 5:35 AM EDT [facility] Comment: Steady state trough serum or plasma levels following doses of 1000 to 3000 mg/Day: 3 to 37 ug/mL. The same dosage regimen will typically result in peak levels of 10 to 60 ug/mL, at approximately 1.5 hours post dose. If applicable, any drug confirmation testing reported here was developed and the performance characteristics determined by [facility]. This confirmation testing has not been cleared or approved by the FDA. The laboratory is regulated under CLIA as qualified to perform high-complexity testing. This test is used for patient testing purposes. It should not be regarded as investigational or for research. Test performed at [facility], [address] , [place] [address] Allison Dominguez MD, PhD - Counselor Supervisor Blood Venous blood specimen / Unknown Venipuncture / Unknown 01/13/2025 8:36 AM EDT 01/13/2025 10:28 AM EDT Jules Lu MD LAB BLOOD ORDERABLES Final R esult [facility] [address] [place] [address] documented in this encounter Visit Diagnoses Diagnosis Unspecified cirrhosis of liver (CMS/HCC V24, CMS/HCC V28) Heart failure, unspecified (CMS/HCC V24, CMS/HCC V28) Heart failure, unspecified Anemia, unspecified Epilepsy, unspecified, intractable, without status epilepticus (CMS/HCC V24, CMS/HCC V28) documented in this encounter Care Teams Alterations Sewer Relationship Specialty Start Date End Date Jules Lu MD [address] [place] [address] PCP - General Family Medicine 03/25/24 documented as of this encounter
--- OUTSIDE RECORDS SUMMARY | 2025-03-15 19:05 | XMS_ITS | Encounter Summary ---
Author Organization [employer] Address [address] [place] [address] Care Team Providers Care Dental Instructor Name Role Phone Jules Lu MD Primary Care Provider [phone]- [phone] Encounter Details Date Type Department Care Team (Late st Contact Info) Description 07/29/2024 Lab Requisition [facility] - Main Lab 299 [facility] [place] [address] Jules Lu MD [address] [place] [address] Anemia, unspecified Social History Tobacco [...] Associated Diagnosis Comments COMPLETE BLOOD COUNT Routine 07/29/2024 5:33 AM EDT Anemia, unspecified BASIC METABOLIC PANEL Routine 07/29/2024 5:33 AM EDT Anemia, unspecified documented in this encounter Results * Basic metabolic panel (07/29/2024 5:33 AM EDT) Sodium 143 133 - 145 mmol/L LAB CHEMISTRY METHOD 07/29/2024 1:20 PM EDT [facility] Potassium 4.4 3.5 - 5.5 mmol/L LAB CHEMISTRY METHOD 07/29/2024 1:20 PM EDT [facility] Chloride 106 96 - 110 mmol/L LAB CHEMISTRY METHOD 07/29/2024 1:20 PM T [facility] CO2 30 21 - 32 mmol/L LAB CHEMISTRY METHOD 07/29/2024 1:20 PM EDT [facility] Anion Gap 7 3 - 11 LAB CHEMISTRY METHOD 07/29/2024 1:20 PM [facility] Glucose 81 70 - 100 mg/dL LAB CHEMISTRY METHOD 07/29/2024 1:20 PM EDT [facility] BUN 18 5 - 25 mg/dL LAB CHEMISTRY METHOD 07/29/2024 1:20 PM T [facility] Creatinine 0.90 0.70 - 1.30 mg/dL LAB CHEMISTRY METHOD 07/29[facility]2024 [facility] eGFR 98 >=60 mL/min/1. 73m2 LAB CHEMISTRY METHOD 07/29/2024 1:20 PM T [facility] Comment:Calculation based on the Chronic Kidney Disease Epidemiology Collaboration (CKD-EPI) equation refit without adjustment for race. BUN/Creatinine Ratio 20.0 LAB CHEMISTRY METHOD 07/29/2024 1:20 PM [facility] Calcium 8.7 8.5 - 10.5 mg/dL LAB CHEMISTRY METHOD 07/29/2024 1:20 PM [facility] Blood Venous blood specimen / Unknown Venipuncture / Unknown 07/29/2024 5:33 AM EDT 07/29/2024 11:09 AM EDT Jules Lu MD LAB BLOOD ORDERABLES Final R esult [facility] [address] [place] [address], * (ABNORMAL) Complete blood count (07/29/2024 5:33 AM EDT) WBC 9.6 4.8 - 10.8 K/mcL LAB HEMETOLOGY METHOD 07/29/2024 12:35 PM EDT [facility] RBC 2.90(L) 4.50 - 5.50 M/mcL LAB HEMETOLOGY METHOD 07/29/2024 12:35 PM [facility] Hemoglobin 8.5(L) 13.5 - 17.5 g/dL LAB HEMETOLOGY METHOD 07/29/2024 12:35 PM [facility] Hematocrit 29.3(L) 42.0 - 54.0 % LAB HEMETOLOGY METHOD 07/29/2024 12:35 PM [facility] MCV 99.7(H) 79.0 - 98.0 FL LAB HEMETOLOGY METHOD 07/29/2024 12:35 PM [facility] MCH 28.9 27.0 - 32.0 pcg LAB HEMETOLOGY METHOD 07/29/2024 12:35 PM [facility] MCHC 29.0(L) 32.0 - 37.0 g/dL LAB HEMETOLOGY METHOD 07/29/2024 12:35 PM [facility] RDW 17.8(H) 11.0 - 15.0 % LAB HEMETOLOGY METHOD 07/29/2024 12:35 PM [facility] Platelets 173 130 - 400 K/mcL LAB HEMETOLOGY METHOD 07/29/2024 12:35 PM [facility] MPV 10.6 7.0 - 11.0 FL LAB HEMETOLOGY METHOD 07/29/2024 12:35 PM [facility] NRBC 0.0 <1.0 % LAB HEMETOLOGY METHOD 07/29/2024 12:35 PM [facility] NRBC Absolute 0.00 <0.10 K/mcL LAB HEMETOLOGY METHOD 07/29/2024 12:35 PM [facility] Blood Venous blood specimen / Unknown Venipuncture / Unknown 07/29/2024 5:33 AM EDT 07/29/2024 11:09 AM EDT us Jules Lu MD LAB BLOOD ORDERABLES Final R esult [facility] [address] [place] [address], documented in this encounter Visit Diagnoses Diagnosis Anemia, unspecified documented in this encounter Care Teams Dental Instructor Relationship Specialty Start Date End Date Jules Lu MD [address] [place] [address] PCP - General Family Medicine 03/25/24 documented as of this encounter
--- OUTSIDE RECORDS SUMMARY | 2025-03-15 19:05 | XMS_ITS | Encounter Summary ---
Author Organization [employer] Address [address] [place] [address] Care Team Providers Care Airworthiness Inspector Name Role Phone Jules Lu MD Primary Care Provider [phone]- [phone] Encounter Details Date Type Department Care Team (Late st Contact Info) Description 09/20/2024 Lab Requisition [facility] - Main Lab [address] [facility] [place] [address] Jules Lu MD [address] [place] [address] Sepsis, unspecified organism (CMS/HCC V24, [...] Associated Diagnosis Comments COMPLETE BLOOD COUNT Routine 09/23/2024 5:33 AM EDT Sepsis, unspecified organism (CMS/HCC V24, CMS/HCC V28) VANCOMYCIN, TROUGH Routine 09/23/2024 5: 33 AM EDT Sepsis, unspecified organism (CMS/HCC V24, CMS/HCC V28) BASIC METABOLIC PANEL Routine 09/23/2024 5:33 AM EDT Sepsis, unspecified organism (CMS/HCC V24, CMS/HCC V28) documented in this encounter Results * Vancomycin, trough (09/23/2024 5:33 AM EDT) Vancomycin Trough 15.3 10.0 - 20.0 mcg/mL LAB CHEMISTRY METHOD 09/23/2024 11:44 AM [facility] Blood Venous blood specimen / Unknown Venipuncture / Unknown 09/23/2024 5:33 AM EDT 09/23/2024 10:50 AM EDT us Jules Lu MD LAB BLOOD ORDERABLES Final R esult [facility] [address] [place] [address], * (ABNORMAL) Basic metabolic panel (09/23/2024 5:33 AM EDT) Sodium 140 133 - 145 mmol/L LAB CHEMISTRY METHOD 09/23/2024 11:53 AM [facility] Potassium 3.4(L) 3.5 - 5.5 mmol/L LAB CHEMISTRY METHOD 09/23/2024 11:53 AM [facility] Chloride 105 96 - 110 mmol/L LAB CHEMISTRY METHOD 09/23/2024 11:53 AM [facility] CO2 30 21 - 32 mmol/L LAB CHEMISTRY METHOD 09/23/2024 11:53 AM [facility] Anion Gap 5 3 - 11 LAB CHEMISTRY METHOD 09/23/2024 11:53 AM [facility] Glucose 43(L) 70 - 100 mg/dL LAB CHEMISTRY METHOD 09/23/2024 11:53 AM [facility] BUN 24 5 - 25 mg/dL LAB CHEMISTRY METHOD 09/23/2024 11:53 AM [facility] Creatinine 1.07 0.70 - 1.30 mg/dL LAB CHEMISTRY METHOD 09/23/2024 11:53 AM [facility] eGFR 79 >=60 mL/min/1. 73m2 LAB CHEMISTRY METHOD 09/23/2024 11:53 AM [facility] Comment:Calculation based on the Chronic Kidney Disease Epidemiology Collaboration (CKD-EPI) equation refit without adjustment for race. BUN/Creatinine Ratio 22.4 LAB CHEMISTRY METHOD 09/23/2024 11:53 AM T [facility] Calcium 9.7 8.5 - 10.5 mg/dL LAB CHEMISTRY METHOD 09/23/2024 11:53 AM [facility] Blood Venous blood specimen / Unknown Venipuncture / Unknown 09/23/2024 5:33 AM EDT 09/23/2024 10:50 AM EDT us Jules Lu MD LAB BLOOD ORDERABLES Final R esult [facility] [address] [place] [address], [place] [phone] * (ABNORMAL) Complete blood count (09/23/2024 5:33 AM EDT) WBC 7.4 4.8 - 10.8 K/mcL LAB HEMETOLOGY METHOD 09/23/2024 11:51 AM [facility] RBC 3.80(L) 4.50 - 5.50 M/mcL LAB HEMETOLOGY METHOD 09/23/2024 11:51 AM [facility] Hemoglobin 10.4(L) 13.5 - 17.5 g/dL LAB HEMETOLOGY METHOD 09/23/2024 11:51 AM [facility] Hematocrit 36.1(L) 42.0 - 54.0 % LAB HEMETOLOGY METHOD 09/23/2024 11:51 AM [facility] MCV 95.3 79.0 - 98.0 FL LAB HEMETOLOGY METHOD 09/23/2024 11:51 AM [facility] MCH 27.4 27.0 - 32.0 pcg LAB HEMETOLOGY METHOD 09/23/2024 11:51 AM [facility] MCHC 28.8(L) 32.0 - 37.0 g/dL LAB HEMETOLOGY METHOD 09/23/2024 11:51 AM EDT [facility] RDW 20.3(H) 11.0 - 15.0 % LAB HEMETOLOGY METHOD 09/23/2024 11:51 AM EDT [facility] Platelets 145 130 - 400 K/mcL LAB HEMETOLOGY METHOD 09/23/2024 11:51 AM EDT [facility] Comment:few clumps seen MPV 11.0 7.0 - 11.0 FL LAB HEMETOLOGY METHOD 09/23/2024 11:51 AM EDT [facility] NRBC 0.0 <1.0 % LAB HEMETOLOGY METHOD 09/23/2024 11:51 AM EDT [facility] NRBC Absolute 0.00 <0.10 K/mcL LAB HEMETOLOGY METHOD 09/23/2024 11:51 AM EDT [facility] Blood Venous blood specimen / Unknown Venipuncture / Unknown 09/23/2024 5:33 AM EDT 09/23/2024 10:50 AM EDT us Jules Lu MD LAB BLOOD ORDERABLES Final R esult [facility] [address] [place] [address], documented in this encounter Visit Diagnoses Diagnosis Sepsis, unspecified organism (CMS/HCC V24, CMS/HCC V28) documented in this encounter Care Teams Airworthiness Inspector Relationship Specialty Start Date End Date Jules Lu MD [address] [place] [address] PCP - General Family Medicine 03/25/24 documented as of this encounter
--- OUTSIDE RECORDS SUMMARY | 2025-03-15 19:05 | XMS_ITS | Encounter Summary ---
Author Organization [employer] Address [address] [place] [address] Care Team Providers Care Chemist Biological Name Role Phone Jules Lu MD Primary Care Provider [phone]- [phone] Encounter Details Date Type Department Care Team (Late st Contact Info) Description 09/13/2024 Lab Requisition [facility] - Main Lab 299 [facility] [place] [address] Jules Lu MD [address] [place] [address] Sepsis, unspecified organism (CMS/[facility] V24, CMS/HCC V28) Social History Tobacco Use [...] Associated Diagnosis Comments COMPLETE BLOOD COUNT Routine 09/16/2024 5:13 AM EDT Sepsis, unspecified organism (CMS/HCC V24, CMS/[facility] V28) VANCOMYCIN, TROUGH Routine 09/16/2024 5: 13 AM EDT Sepsis, unspecified organism (CMS/HCC V24, CMS/HCC V28) BASIC METABOLIC PANEL Routine 09/16/2024 5:13 AM EDT Sepsis, unspecified organism (CMS/HCC V24, CMS/HCC V28) documented in this encounter Results * (ABNORMAL) Vancomycin, trough (09/16/2024 5:13 AM EDT) Vancomycin Trough 21.9(H) 10.0 - 20.0 mcg/mL LAB CHEMISTRY METHOD 09/16/2024 1:29 PM [facility] Blood Venous blood specimen / Unknown Venipuncture / Unknown 09/16/2024 5:13 AM EDT 09/16/2024 10:12 AM EDT us Jules Lu MD LAB BLOOD ORDERABLES Final R esult [facility] [address] [place] [address], * (ABNORMAL) Basic metabolic panel (09/16/2024 5:13 AM EDT) Sodium 141 133 - 145 mmol/L LAB CHEMISTRY METHOD 09/16/2024 1:29 PM [facility] Potassium 4.0 3.5 - 5.5 mmol/L LAB CHEMISTRY METHOD 09/16/2024 1:29 PM [facility] Chloride 106 96 - 110 mmol/L LAB CHEMISTRY METHOD 09/16/2024 1:29 PM [facility] CO2 28 21 - 32 mmol/L LAB CHEMISTRY METHOD 09/16/2024 1:29 PM [facility] Anion Gap 7 3 - 11 LAB CHEMISTRY METHOD 09/16/2024 1:29 PM [facility] Glucose 68(L) 70 - 100 mg/dL LAB CHEMISTRY METHOD 09/16/2024 1:29 PM [facility] BUN 26(H) 5 - 25 mg/dL LAB CHEMISTRY METHOD 09/16/2024 1:29 PM [facility] Creatinine 0.88 0.70 - 1.30 mg/dL LAB CHEMISTRY METHOD 09/16/2024 1:29 PM [facility] eGFR 98 >=60 mL/min/1. 73m2 LAB CHEMISTRY METHOD 09/16/2024 1:29 PM [facility] Comment:Calculation based on the Chronic Kidney Disease Epidemiology Collaboration (CKD-EPI) equation refit without adjustment for race. BUN/Creatinine Ratio 29.5 LAB CHEMISTRY METHOD 09/16/2024 1:29 PM EDT [facility] Calcium 9.3 8.5 - 10.5 mg/dL LAB CHEMISTRY METHOD 09/16/2024 1:29 PM T [facility] Blood Venous blood specimen / Unknown Venipuncture / Unknown 09/16/2024 5:13 AM EDT 09/16/2024 10:12 AM EDT us Jules Lu MD LAB BLOOD ORDERABLES Final R esult [facility] [address] [place] [address], * (ABNORMAL) Complete blood count (09/16/2024 5:13 AM EDT) WBC 6.0 4.8 - 10.8 K/mcL LAB HEMETOLOGY METHOD 09/16/2024 11:40 AM [facility] RBC 3.20(L) 4.50 - 5.50 M/[facility] LAB HEMETOLOGY METHOD 09/16/2024 11:40 AM [facility] Hemoglobin 9.1(L) 13.5 - 17.5 g/dL LAB HEMETOLOGY METHOD 09/16/2024 11:40 AM [facility] Hematocrit 31.0(L) 42.0 - 54.0 % LAB HEMETOLOGY METHOD 09/16/2024 11:40 AM [facility] MCV 95.7 79.0 - 98.0 FL LAB HEMETOLOGY METHOD 09/16/2024 11:40 AM [facility] MCH 28.1 27.0 - 32.0 pcg LAB HEMETOLOGY METHOD 09/16/2024 11:40 AM EDT [facility] MCHC 29.4(L) 32.0 - 37.0 g/dL LAB HEMETOLOGY METHOD 09/16/2024 11:40 AM EDT [facility] RDW 19.2(H) 11.0 - 15.0 % LAB HEMETOLOGY METHOD 09/16/2024 11:40 AM EDT [facility] Platelets 97(L) 130 - 400 K/mcL LAB HEMETOLOGY METHOD 09/16/2024 11:40 AM EDT [facility] Comment:reviewed by slide MPV 11.5(H) 7.0 - 11.0 FL LAB HEMETOLOGY METHOD 09/16/2024 11:40 AM EDT [facility] NRBC 0.0 <1.0 % LAB HEMETOLOGY METHOD 09/16/2024 11:40 AM EDT [facility] NRBC Absolute 0.00 <0.10 K/mcL LAB HEMETOLOGY METHOD 09/16/2024 11:40 AM T [facility] Blood Venous blood specimen / Unknown Venipuncture / Unknown 09/16/2024 5:13 AM EDT 09/16/2024 10:12 AM EDT us Jules Lu MD LAB BLOOD ORDERABLES Final R esult [facility] [address] [place] [address], documented in this encounter Visit Diagnoses Diagnosis Sepsis, unspecified organism (CMS/HCC V24, CMS/HCC V28) documented in this encounter Care Teams Chemist Biological Relationship Specialty Start Date End Date Jules Lu MD [address] [place] [address] PCP - General Family Medicine 03/25/24 documented as of this encounter
--- OUTSIDE RECORDS SUMMARY | 2025-03-15 19:05 | XMS_ITS | Encounter Summary ---
Author Organization [employer] Address [address] [place] [address] Care Team Providers Care Shoe Puller Name Role Phone Jules Lu MD Primary Care Provider [phone] Encounter Details Date Type Department Care Team (Late st Contact Info) Description 01/04/2025 Lab Requisition [facility] - Main Lab 299 [facility] [place] [address] Jules Lu MD [address] [place] [address] Unspecified cirrhosis of liver (CMS/HCC [...] Date/Time Associated Diagnosis Comments LEVETIRACETAM LEVEL Routine 01/06/2025 5 :36 AM [...] in this encounter Results * (ABNORMAL) Ammonia (01/06/2025 5:36 AM EDT) Ammonia 52(H) 11 - 35 mcmol/L LAB CHEMISTRY METHOD 01/06/2025 6:58 AM EDT [facility] Blood Venous blood specimen / Unknown Venipuncture / Unknown 01/06/2025 5:36 AM EDT 01/06/2025 6:24 AM EDT us Jules Lu MD LAB BLOOD ORDERABLES Final R esult [facility] [address] [place] [address], * (ABNORMAL) Complete blood count (01/06/2025 5:36 AM EDT) WBC 10.9(H) 4.8 - 10.8 K/mcL LAB HEMETOLOGY METHOD 01/06/2025 6:49 AM EDT [facility] RBC 3.20(L) 4.50 - 5.50 M/mcL LAB HEMETOLOGY METHOD 01/06/2025 6:49 AM [facility] Hemoglobin 9.7(L) 13.5 - 17.5 g/dL LAB HEMETOLOGY METHOD 01/06/2025 6:49 AM [facility] Hematocrit 31.9(L) 42.0 - 54.0 % LAB HEMETOLOGY METHOD 01/06/2025 6:49 AM [facility] MCV 100.9(H) 79.0 - 98.0 FL LAB HEMETOLOGY METHOD 01/06/2025 6:49 AM [facility] MCH 30.7 27.0 - 32.0 pcg LAB HEMETOLOGY METHOD 01/06/2025 6:49 AM [facility] MCHC 30.4(L) 32.0 - 37.0 g/dL LAB HEMETOLOGY METHOD 01/06/2025 6:49 AM [facility] RDW 16.9(H) 11.0 - 15.0 % LAB HEMETOLOGY METHOD 01/06/2025 6:49 AM [facility] Platelets 123(L) 130 - 400 K/mcL LAB HEMETOLOGY METHOD 01/06/2025 6:49 AM [facility] MPV 11.4(H) 7.0 - 11.0 FL LAB HEMETOLOGY METHOD 01/06/2025 6:49 AM [facility] NRBC 0.0 <1.0 % LAB HEMETOLOGY METHOD 01/06/2025 6:49 AM [facility] NRBC Absolute 0.00 <0.10 K/mcL LAB HEMETOLOGY METHOD 01/06/2025 6:49 AM [facility] Blood Venous blood specimen / Unknown Venipuncture / Unknown 01/06/2025 5:36 AM EDT 01/06/2025 6:24 AM EDT us Jules Lu MD LAB BLOOD ORDERABLES Final R esult [facility] [address] [place] [address], [place] [phone] * (ABNORMAL) Comprehensive metabolic panel (01/06/2025 5:36 AM EDT) Sodium 143 133 - 145 mmol/L LAB CHEMISTRY METHOD 01/06/2025 7:50 AM [facility] Potassium 3.9 3.5 - 5.5 mmol/L LAB CHEMISTRY METHOD 01/06/2025 7:50 AM [facility] Chloride 103 96 - 110 mmol/L LAB CHEMISTRY METHOD 01/06/2025 7:50 AM [facility] CO2 37(H) 21 - 32 mmol/L LAB CHEMISTRY METHOD 01/06/2025 7:50 AM [facility] Anion Gap 3 3 - 11 LAB CHEMISTRY METHOD 01/06/2025 7:50 AM [facility] Glucose 63(L) 70 - 100 mg/dL LAB CHEMISTRY METHOD 01/06/2025 7:50 AM [facility] BUN 22 5 - 25 mg/dL LAB CHEMISTRY METHOD 01/06/2025 7:50 AM [facility] Creatinine 1.17 0.70 - 1.30 mg/dL LAB CHEMISTRY METHOD 01/06/2025 7:50 AM [facility] eGFR 71 >=60 mL/min/1. 73m2 LAB CHEMISTRY METHOD 01/06/2025 7:50 AM [facility] Comment:Calculation based on the Chronic Kidney Disease Epidemiology Collaboration (CKD-EPI) equation refit without adjustment for race. BUN/Creatinine Ratio 18.8 LAB CHEMISTRY METHOD 01/06/2025 7:50 AM [facility] Calcium 8.5 8.5 - 10.5 mg/dL LAB CHEMISTRY METHOD 01/06/2025 7:50 AM EDT [facility] AST (SGOT) 32 10 - 42 unit/L LAB CHEMISTRY METHOD 01/06/2025 7:50 AM EDT [facility] ALT (SGPT) 11 10 - 60 unit/L LAB CHEMISTRY METHOD 01/06/2025 7:50 AM EDT [facility] Alkaline Phosphatase 254(H) 42 - 121 unit/L LAB CHEMISTRY METHOD 01/06/2025 7:50 AM EDT [facility] Total Protein 5.4(L) 6.0 - 8.0 g/dL LAB CHEMISTRY METHOD 01/06/2025 7:50 AM EDT [facility] Albumin 2.0(L) 3.2 - 5.0 g/dL LAB CHEMISTRY METHOD 01/06/2025 7:50 AM EDT [facility] Total Bilirubin 1.1 0.0 - 1.4 mg/dL LAB CHEMISTRY METHOD 01/06/2025 7:50 AM EDT [facility] Blood Venous blood specimen / Unknown Venipuncture / Unknown 01/06/2025 5:36 AM EDT 01/06/2025 6:23 AM EDT Jules Lu MD LAB BLOOD ORDERABLES Final R esult [facility] [address] [place] [address], * (ABNORMAL) Levetiracetam level (01/06/2025 5:36 AM EDT) Levetiracetam 68.1(H) 3.0 - 60.0 ug/mL 01/08/2025 6:16 AM EDT [facility] Comment: Steady state trough serum or plasma levels following doses of 1000 to 3000 mg/Day: 3 to 37 ug/mL. The same dosage regimen will typically result in peak levels of 10 to 60 ug/mL, at approximately 1.5 hours post dose. If applicable, any drug confirmation testing reported here was developed and the performance characteristics determined by [facility]. This confirmation testing has not been cleared or approved by the FDA. The laboratory is regulated under CLIA as qualified to perform high-complexity testing. This test is used for patient testing purposes. It should not be regarded as investigational or for research. Test performed at [facility], [address] , [place] [address] Allison Dominguez MD, PhD - [employer] Blood Venous blood specimen / Unknown Venipuncture / Unknown 01/06/2025 5:36 AM EDT 01/06/2025 6:23 AM EDT Jules Lu MD LAB BLOOD ORDERABLES Final R esult [facility] [address] [place] [address] documented in this encounter Visit Diagnoses Diagnosis Unspecified cirrhosis of liver (CMS/HCC V24, CMS/HCC V28) Heart failure, unspecified (CMS/HCC V24, CMS/HCC V28) Heart failure, unspecified Anemia, unspecified Epilepsy, unspecified, intractable, without status epilepticus (CMS/HCC V24, CMS/HCC V28) documented in this encounter Care Teams Shoe Puller Relationship Specialty Start Date End Date Jules Lu MD [address] [place] [address] PCP - General Family Medicine 03/25/24 documented as of this encounter
--- OUTSIDE RECORDS SUMMARY | 2025-03-15 19:05 | XMS_ITS | Encounter Summary ---
Author Organization [employer] Address [address] [place] [address] Care Team Providers Care Field Instructor Name Role Phone Jules Lu MD Primary Care Provider [phone] Encounter Details Date Type Department Care Team (Late st Contact Info) Description 06/03/2024 Lab Requisition [facility] - Main Lab [address] [facility] [place] [address] Jules Lu MD [address] [place] [address] Anemia, unspecified Social History Tobacco [...] Associated Diagnosis Comments COMPLETE BLOOD COUNT Routine 06/04/2024 5:37 AM EST Anemia, unspecified RENAL FUNCTION PANEL Routine 06/04/2024 5:37 AM EST Anemia, unspecified documented in this encounter Results * (ABNORMAL) Renal function panel (06/04/2024 5:37 AM EST) Sodium 139 133 - 145 mmol/L LAB CHEMISTRY METHOD 06/04/2024 11:10 AM EST [facility] Potassium 4.4 3.5 - 5.5 mmol/L LAB CHEMISTRY METHOD 06/04/2024 11:10 AM EST [facility] Chloride 104 96 - 110 mmol/L LAB CHEMISTRY METHOD 06/04/2024 11:10 AM EST [facility] CO2 32 21 - 32 mmol/L LAB CHEMISTRY METHOD 06/04/2024 11:[address] [facility] Anion Gap 3 3 - 11 LAB CHEMISTRY METHOD 06/04/2024 11:[address] [facility] Glucose 57(L) 70 - 100 mg/dL LAB CHEMISTRY METHOD 06/04/2024 11:[address] [facility] BUN 15 5 - 25 mg/dL LAB CHEMISTRY METHOD 06/04/2024 11:[address] [facility] Creatinine 0.90 0.70 - 1.30 mg/dL LAB CHEMISTRY METHOD 06/04/2024 11:[address] [facility] eGFR 98 >=60 mL/min/1. 73m2 LAB CHEMISTRY METHOD 06/04/2024 11:[address] [facility] Comment:Calculation based on the Chronic Kidney Disease Epidemiology Collaboration (CKD-EPI) equation refit without adjustment for race. BUN/Creatinine Ratio 16.7 LAB CHEMISTRY METHOD 06/04/2024 11:[address] [facility] Albumin 2.1(L) 3.2 - 5.0 g/dL LAB CHEMISTRY METHOD 06/04/2024 11:[address] [facility] Calcium 8.5 8.5 - 10.5 mg/dL LAB CHEMISTRY METHOD 06/04/2024 11:[address] [facility] Phosphorus 2.7 2.5 - 4.5 mg/dL LAB CHEMISTRY METHOD 06/04/2024 11:[address] [facility] Blood Venous blood specimen / Unknown Venipuncture / Unknown 06/04/2024 5:37 AM EST 06/04/2024 10:09 AM EST us Jules Lu MD LAB BLOOD ORDERABLES Final R esult [facility] [address] [place] [address], * (ABNORMAL) Complete blood count (06/04/2024 5:37 AM EST) [facility] WBC 12.4(H) 4.8 - 10.8 K/mcL LAB HEMETOLOGY METHOD 06/04/2024 10:[address] [facility] RBC 3.00(L) 4.50 - 5.50 M/mcL LAB HEMETOLOGY METHOD 06/04/2024 10:[address] [facility] Hemoglobin 8.7(L) 13.5 - 17.5 g/dL LAB HEMETOLOGY METHOD 06/04/2024 10:[address] [facility] Hematocrit 29.3(L) 42.0 - 54.0 % LAB HEMETOLOGY METHOD 06/04/2024 10:[address] [facility] MCV 99.0(H) 79.0 - 98.0 FL LAB HEMETOLOGY METHOD 06/04/2024 10:[address] [facility] MCH 29.4 27.0 - 32.0 pcg LAB HEMETOLOGY METHOD 06/04/2024 10:[address] [facility] MCHC 29.7(L) 32.0 - 37.0 g/dL LAB HEMETOLOGY METHOD 06/04/2024 10:[address] [facility] RDW 18.7(H) 11.0 - 15.0 % LAB HEMETOLOGY METHOD 06/04/2024 10:[address] [facility] Platelets 145 130 - 400 K/mcL LAB HEMETOLOGY METHOD 06/04/2024 10:[address] [facility] MPV 11.6(H) 7.0 - 11.0 FL LAB HEMETOLOGY METHOD 06/04/2024 10:[address] [facility] NRBC 0.0 <1.0 % LAB HEMETOLOGY METHOD 06/04/2024 10:[address] [facility] NRBC Absolute 0.00 <0.10 K/mcL LAB HEMETOLOGY METHOD 06/04/2024 10:39 AM EST [facility] Blood Venous blood specimen / Unknown Venipuncture / Unknown 06/04/2024 5:37 AM EST 06/04/2024 10:11 AM EST us Jules Lu MD LAB BLOOD ORDERABLES Final R esult [facility] [address] [place] [address], documented in this encounter Visit Diagnoses Diagnosis Anemia, unspecified documented in this encounter Care Teams Field Instructor Relationship Specialty Start Date End Date Jules Lu MD [address] [place] [address] PCP - General Family Medicine 03/25/24 documented as of this encounter
--- OUTSIDE RECORDS SUMMARY | 2025-03-15 19:05 | XMS_ITS | Encounter Summary ---
Author Organization [employer] Address [address] [place] [address] Care Team Providers Care Wheel Borer Name Role Phone Jules Lu MD Primary Care Provider [phone]- [phone] Encounter Details Date Type Department Care Team (Late st Contact Info) Description 01/09/2025 Lab Requisition [facility] - Main Lab 299 [facility] [place] [address] Jules Lu MD [address] [place] [id number] Unspecified cirrhosis of liver (CMS/HCC V24, CMS/HCC [...] documented as of this encounter Visit Diagnoses Diagnosis Unspecified cirrhosis of liver (CMS/HCC V24, CMS/HCC V28) Heart failure, unspecified (CMS/HCC V24, CMS/HCC V28) Heart failure, unspecified Anemia, unspecified Epilepsy, unspecified, intractable, without status epilepticus (CMS/HCC V24, CMS/HCC V28) documented in this encounter Care Teams Wheel Borer Relationship Specialty Start Date End Date Jules Lu MD [address] [place] [phone] PCP - General Family Medicine 03/25/24 documented as of this encounter
--- OUTSIDE RECORDS SUMMARY | 2025-03-15 19:05 | XMS_ITS | Encounter Summary ---
Author Organization [employer] Address [address] [place] [address] Care Team Providers Care Prune Washer Name Role Phone Jules Lu MD Primary Care Provider [phone]- [phone] Encounter Details Date Type Department Care Team (Late st Contact Info) Description 02/26/2025 Lab Requisition [facility] - Main Lab 299 [facility] [place] [address] Jules Lu MD [address] [place] [address] Unspecified infectious disease Social History Tobacco Use Types Packs/Day Years [...] Associated Diagnosis Comments COMPLETE BLOOD COUNT Routine 02/26/2025 5:00 AM EDT Unspecified infectious disease BASIC METABOLIC PANEL Routine 02/26/2025 5:00 AM EDT Unspecified infectious disease documented in this encounter Results * (ABNORMAL) Basic metabolic panel (02/26/2025 5:00 AM EDT) Sodium 141 133 - 145 mmol/L LAB CHEMISTRY METHOD 02/26/2025 11:03 AM EDT [facility] Potassium 3.9 3.5 - 5.5 mmol/L LAB CHEMISTRY METHOD 02/26/2025 11:03 AM T [facility] Chloride 98 96 - 110 mmol/L LAB CHEMISTRY METHOD 02/26/2025 11:03 AM [facility] CO2 40(H) 21 - 32 mmol/L LAB CHEMISTRY METHOD 02/26/2025 11:03 AM [facility] Anion Gap 3 3 - 11 LAB CHEMISTRY METHOD 02/26/2025 11:03 AM [facility] Glucose 100 70 - 100 mg/dL LAB CHEMISTRY METHOD 02/26/2025 11:03 AM [facility] BUN 31(H) 5 - 25 mg/dL LAB CHEMISTRY METHOD 02/26/2025 11:03 AM [facility] Comment:Results verified by repeat testing Creatinine 1.00 0.70 - 1.30 mg/dL LAB CHEMISTRY METHOD 02/26/2025 11:03 AM [facility] eGFR 86 >=60 mL/min/1. 73m2 LAB CHEMISTRY METHOD 02/26/2025 11:03 AM [facility] Comment:Calculation based on the Chronic Kidney Disease Epidemiology Collaboration (CKD-EPI) equation refit without adjustment for race. BUN/Creatinine Ratio 31.0 LAB CHEMISTRY METHOD 02/26/2025 11:03 AM [facility] Calcium 8.4(L) 8.5 - 10.5 mg/dL LAB CHEMISTRY METHOD 02/26/2025 11:03 AM [facility] Blood Venous blood specimen / Unknown Venipuncture / Unknown 02/26/2025 5:00 AM EDT 02/26/2025 9:27 AM EDT us Jules Lu MD LAB BLOOD ORDERABLES Final R esult [facility] [address] [place] [address], * (ABNORMAL) Complete blood count (02/26/2025 5:00 AM EDT) WBC 8.8 4.8 - 10.8 K/mcL LAB HEMETOLOGY METHOD 02/26/2025 10:10 AM [facility] RBC 3.20(L) 4.50 - 5.50 M/mcL LAB HEMETOLOGY METHOD 02/26/2025 10:10 AM [facility] Hemoglobin 9.9(L) 13.5 - 17.5 g/dL LAB HEMETOLOGY METHOD 02/26/2025 10:10 AM [facility] Hematocrit 32.4(L) 42.0 - 54.0 % LAB HEMETOLOGY METHOD 02/26/2025 10:10 AM [facility] MCV 100.6(H) 79.0 - 98.0 FL LAB HEMETOLOGY METHOD 02/26/2025 10:10 AM [facility] MCH 30.7 27.0 - 32.0 pcg LAB HEMETOLOGY METHOD 02/26/2025 10:10 AM [facility] MCHC 30.6(L) 32.0 - 37.0 g/dL LAB HEMETOLOGY METHOD 02/26/2025 10:10 AM [facility] RDW 17.6(H) 11.0 - 15.0 % LAB HEMETOLOGY METHOD 02/26/2025 10:10 AM [facility] Platelets 111(L) 130 - 400 K/mcL LAB HEMETOLOGY METHOD 02/26/2025 10:10 AM [facility] MPV 12.7(H) 7.0 - 11.0 FL LAB HEMETOLOGY METHOD 02/26/2025 10:10 AM [facility] NRBC 0.0 <1.0 % LAB HEMETOLOGY METHOD 02/26/2025 10:10 AM [facility] NRBC Absolute 0.00 <0.10 K/mcL LAB HEMETOLOGY METHOD 02/26/2025 10:10 AM EDT [facility] Blood Venous blood specimen / Unknown Venipuncture / Unknown 02/26/2025 5:00 AM EDT 02/26/2025 9:27 AM EDT Jules Lu MD LAB BLOOD ORDERABLES Final R esult [facility] [address] [place] [address], documented in this encounter Visit Diagnoses Diagnosis Unspecified infectious disease documented in this encounter Care Teams Prune Washer Relationship Specialty Start Date End Date Jules Lu MD [address] [place] [address] PCP - General Family Medicine 03/25/24 documented as of this encounter
--- OUTSIDE RECORDS SUMMARY | 2025-03-15 19:05 | XMS_ITS | Encounter Summary ---
Author Organization [employer] Address [address] [place] [address] Care Team Providers Care Track Laborer Name Role Phone Jules Lu MD Primary Care Provider [phone] Encounter Details Date Type Department Care Team (Late st Contact Info) Description 03/14/2025 Lab Requisition [facility] - Main Lab 299 [facility] [place] [address] Jules Lu MD [address] [place] [address] Presbyopia; Anemia, unspecified; Unspecified systolic (congestive) heart failure (CMS/HCC V24, CMS/HCC V28) Social History Tobacco [...] Associated Diagnosis Comments COMPLETE BLOOD COUNT Routine 03/14/2025 9:01 AM EDT Presbyopia Anemia, unspecified Unspecified systolic (congestive) heart failure (CMS/HCC V24, CMS/HCC V28) AMMONIA Routine 03/14/2025 9:01 AM EDT Presbyopia Anemia, unspecified Unspecified systolic (congestive) heart failure (CMS/HCC V24, CMS/HCC V28) BASIC METABOLIC PANEL Routine 03/14/2025 9:01 AM EDT Presbyopia Anemia, unspecified Unspecified systolic (congestive) heart failure (CMS/HCC V24, CMS/HCC V28) documented in this encounter Results * (ABNORMAL) Ammonia (03/14/2025 9:01 AM EDT) Ammonia 113(H) 11 - 35 mcmol/L LAB CHEMISTRY METHOD 03/14/2025 9:57 AM [facility] Blood Venous blood specimen / Unknown Venipuncture / Unknown 03/14/2025 9:01 AM EDT 03/14/2025 9:32 AM EDT us Jules Lu MD LAB BLOOD ORDERABLES Final R esult [facility] [address] [place] [address], * (ABNORMAL) Basic metabolic panel (03/14/2025 9:01 AM EDT) Sodium 143 133 - 145 mmol/L LAB CHEMISTRY METHOD 03/14/2025 10:30 AM [facility] Potassium 4.3 3.5 - 5.5 mmol/L LAB CHEMISTRY METHOD 03/14/2025 10:30 AM [facility] Chloride 101 96 - 110 mmol/L LAB CHEMISTRY METHOD 03/14/2025 10:30 AM [facility] CO2 37(H) 21 - 32 mmol/L LAB CHEMISTRY METHOD 03/14/2025 10:30 AM [facility] Anion Gap 5 3 - 11 LAB CHEMISTRY METHOD 03/14/2025 10:30 AM [facility] Glucose 88 70 - 100 mg/dL LAB CHEMISTRY METHOD 03/14/2025 10:30 AM [facility] BUN 28(H) 5 - 25 mg/dL LAB CHEMISTRY METHOD 03/14/2025 10:30 AM [facility] Creatinine 1.56(H) 0.70 - 1.30 mg/dL LAB CHEMISTRY METHOD 03/14/2025 10:30 AM [facility] eGFR 51(L) >=60 mL/min/1. 73m2 LAB CHEMISTRY METHOD 03/14/2025 10:30 AM EDT [facility] Comment:Calculation based on the Chronic Kidney Disease Epidemiology Collaboration (CKD-EPI) equation refit without adjustment for race. BUN/Creatinine Ratio 17.9 LAB CHEMISTRY METHOD 03/14/2025 10:30 AM [facility] Calcium 9.5 8.5 - 10.5 mg/dL LAB CHEMISTRY METHOD 03/14/2025 10:30 AM T [facility] Blood Venous blood specimen / Unknown Venipuncture / Unknown 03/14/2025 9:01 AM EDT 03/14/2025 9:32 AM EDT us Jules Lu MD LAB BLOOD ORDERABLES Final R esult [facility] [address] [place] [address], * (ABNORMAL) Complete blood count (03/14/2025 9:01 AM EDT) WBC 14.8(H) 4.8 - 10.8 [facility] LAB HEMETOLOGY METHOD 03/14/2025 9:38 AM [facility] RBC 3.80(L) 4.50 - 5.50 M/[facility] LAB HEMETOLOGY METHOD 03/14/2025 9:38 AM [facility] Hemoglobin 11.5(L) 13.5 - 17.5 g/dL LAB HEMETOLOGY METHOD 03/14/2025 9:38 AM [facility] Hematocrit 37.9(L) 42.0 - 54.0 % LAB HEMETOLOGY METHOD 03/14/2025 9:38 AM [facility] MCV 99.5(H) 79.0 - 98.0 FL LAB HEMETOLOGY METHOD 03/14/2025 9:38 AM EDT [facility] MCH 30.2 27.0 - 32.0 pcg LAB HEMETOLOGY METHOD 03/14/2025 9:38 AM EDT [facility] MCHC 30.3(L) 32.0 - 37.0 g/dL LAB HEMETOLOGY METHOD 03/14/2025 9:38 AM EDT [facility] RDW 16.1(H) 11.0 - 15.0 % LAB HEMETOLOGY METHOD 03/14/2025 9:38 AM EDT [facility] Platelets 101(L) 130 - 400 K/mcL LAB HEMETOLOGY METHOD 03/14/2025 9:38 AM EDT [facility] MPV 11.9(H) 7.0 - 11.0 FL LAB HEMETOLOGY METHOD 03/14/2025 9:38 AM EDT [facility] NRBC 0.0 <1.0 % LAB HEMETOLOGY METHOD 03/14/2025 9:38 AM T [facility] NRBC Absolute 0.00 <0.10 K/mcL LAB HEMETOLOGY METHOD 03/14/2025 9:38 AM [facility] Blood Venous blood specimen / Unknown Venipuncture / Unknown 03/14/2025 9:01 AM EDT 03/14/2025 9:32 AM EDT Jules Lu MD LAB BLOOD ORDERABLES Final R esult [facility] [address] [place] [address], documented in this encounter Visit Diagnoses Diagnosis Presbyopia Anemia, unspecified Unspecified systolic (congestive) heart failure (CMS/HCC V24, CMS/HCC V28) documented in this encounter Care Teams Track Laborer Relationship Specialty Start Date End Date Jules Lu MD [address] [place] [address] PCP - General Family Medicine 03/25/24 documented as of this encounter
--- OUTSIDE RECORDS SUMMARY | 2025-03-15 19:05 | XMS_ITS | Encounter Summary ---
Author Organization [employer] Address [address] [place] [address] Care Team Providers Care Llama Farmer Name Role Phone Jules Lu MD Primary Care Provider [phone] Encounter Details Date Type Department Care Team (Late st Contact Info) Description 10/03/2024 Lab Requisition [facility] - Main Lab [address] [place] [address] Jules Lu MD [address] [place] [address] Altered mental status, unspecified; Chronic fatigue, unspecified Social History Tobacco Use Types Packs/Day [...] Associated Diagnosis Comments COMPLETE BLOOD COUNT Routine 10/03/2024 6:09 AM EDT Altered mental status, unspecified Chronic fatigue, unspecified BASIC METABOLIC PANEL Routine 10/03/2024 6:09 AM EDT Altered mental status, unspecified Chronic fatigue, unspecified documented in this encounter Results * (ABNORMAL) Basic metabolic panel (10/03/2024 6:09 AM EDT) Sodium 144 133 - 145 mmol/L LAB CHEMISTRY METHOD 10/03/2024 8:34 AM EDT [facility] Potassium 3.6 3.5 - 5.5 mmol/L LAB CHEMISTRY METHOD 10/03/2024 8:34 AM EDT [facility] Chloride 105 96 - 110 mmol/L LAB CHEMISTRY METHOD 10/03/2024 8:34 AM [facility] CO2 34(H) 21 - 32 mmol/L LAB CHEMISTRY METHOD 10/03/2024 8:34 AM [facility] Anion Gap 5 3 - 11 LAB CHEMISTRY METHOD 10/03/2024 8:34 AM [facility] Glucose 47(L) 70 - 100 mg/dL LAB CHEMISTRY METHOD 10/03/2024 8:34 AM [facility] BUN 33(H) 5 - 25 mg/dL LAB CHEMISTRY METHOD 10/03/2024 8:34 AM [facility] Creatinine 1.50(H) 0.70 - 1.30 mg/dL LAB CHEMISTRY METHOD 10/03/2024 8:34 AM [facility] eGFR 53(L) >=60 mL/min/1. 73m2 LAB CHEMISTRY METHOD 10/03/2024 8:34 AM [facility] Comment:Calculation based on the Chronic Kidney Disease Epidemiology Collaboration (CKD-EPI) equation refit without adjustment for race. BUN/Creatinine Ratio 22.0 LAB CHEMISTRY METHOD 10/03/2024 8:34 AM [facility] Calcium 9.3 8.5 - 10.5 mg/dL LAB CHEMISTRY METHOD 10/03/2024 8:34 AM [facility] Blood Venous blood specimen / Unknown Venipuncture / Unknown 10/03/2024 6:09 AM EDT 10/03/2024 7:11 AM EDT us Jules Lu MD LAB BLOOD ORDERABLES Final R esult [facility] [address] [place] [address], * (ABNORMAL) Complete blood count (10/03/2024 6:09 AM EDT) WBC 7.6 4.8 - 10.8 K/mcL LAB HEMETOLOGY METHOD 10/03/2024 8:07 AM [facility] RBC 3.70(L) 4.50 - 5.50 M/mcL LAB HEMETOLOGY METHOD 10/03/2024 8:07 AM [facility] Hemoglobin 10.5(L) 13.5 - 17.5 g/dL LAB HEMETOLOGY METHOD 10/03/2024 8:07 AM [facility] Hematocrit 35.4(L) 42.0 - 54.0 % LAB HEMETOLOGY METHOD 10/03/2024 8:07 AM [facility] MCV 95.2 79.0 - 98.0 FL LAB HEMETOLOGY METHOD 10/03/2024 8:07 AM [facility] MCH 28.2 27.0 - 32.0 pcg LAB HEMETOLOGY METHOD 10/03/2024 8:07 AM [facility] MCHC 29.7(L) 32.0 - 37.0 g/dL LAB HEMETOLOGY METHOD 10/03/2024 8:07 AM [facility] RDW 19.5(H) 11.0 - 15.0 % LAB HEMETOLOGY METHOD 10/03/2024 8:07 AM [facility] Platelets 165 130 - 400 K/mcL LAB HEMETOLOGY METHOD 10/03/2024 8:07 AM [facility] MPV 11.7(H) 7.0 - 11.0 FL LAB HEMETOLOGY METHOD 10/03/2024 8:07 AM [facility] NRBC 0.0 <1.0 % LAB HEMETOLOGY METHOD 10/03/2024 8:07 AM [facility] NRBC Absolute 0.00 <0.10 K/mcL LAB HEMETOLOGY METHOD 10/03/2024 8:07 AM EDT [facility] Blood Venous blood specimen / Unknown Venipuncture / Unknown 10/03/2024 6:09 AM EDT 10/03/2024 7:11 AM EDT us Jules Lu MD LAB BLOOD ORDERABLES Final R esult [facility] [address] [place] [address], documented in this encounter Visit Diagnoses Diagnosis Altered mental status, unspecified Chronic fatigue, unspecified documented in this encounter Care Teams Llama Farmer Relationship Specialty Start Date End Date Jules Lu MD [address] [place] [address] PCP - General Family Medicine 03/25/24 documented as of this encounter
--- OUTSIDE RECORDS SUMMARY | 2025-03-15 19:06 | XMS_ITS | Encounter Summary ---
Author Organization [employer] Address [address] [place] [address] Care Team Providers Care Foundry Manager Name Role Phone Jules Lu MD Primary Care Provider [phone]- [phone] Encounter Details Date Type Department Care Team (Late st Contact Info) Description 03/27/2024 Lab Requisition [facility] - Main Lab [address] [place] [address] Jules Lu MD [address] [place] [address] Personal history of urinary (tract) infections Social History Tobacco Use Types Packs/Day Years [...] Diagnosis Comments CBC WITH AUTO DIFFERENTIAL Routine 03/27/2024 11:42 AM EST Personal history of urinary (tract) infections CULTURE BLOOD Routine 03/27/2024 11:42 AM EST Personal history of urinary (tract) infections CBC AND DIFFERENTIAL Routine 03/27/2024 11:42 AM EST Personal history of urinary (tract) infections documented in this encounter Results * (ABNORMAL) CBC auto differential (03/27/2024 11:42 AM EST) WBC 6.1 4.8 - 10.8 K/mcL LAB HEMETOLOGY METHOD 03/27/2024 12:37 PM EST [facility] RBC 3.20(L) 4.50 - 5.50 M/Health system LAB HEMETOLOGY METHOD 03/27/2024 12:37 PM [facility] Hemoglobin 8.9(L) 13.5 - 17.5 g/dL LAB HEMETOLOGY METHOD 03/27/2024 12:37 PM [facility] Hematocrit 30.5(L) 42.0 - 54.0 % LAB HEMETOLOGY METHOD 03/27/2024 12:37 PM [facility] MCV 95.3 79.0 - 98.0 FL LAB HEMETOLOGY METHOD 03/27/2024 12:37 PM [facility] MCH 27.8 27.0 - 32.0 pcg LAB HEMETOLOGY METHOD 03/27/2024 12:37 PM [facility] MCHC 29.2(L) 32.0 - 37.0 g/dL LAB HEMETOLOGY METHOD 03/27/2024 12:37 PM [facility] RDW 18.4(H) 11.0 - 15.0 % LAB HEMETOLOGY METHOD 03/27/2024 12:37 PM [facility] Platelets 140 130 - 400 K/mcL LAB HEMETOLOGY METHOD 03/27/2024 12:37 PM [facility] MPV 12.2(H) 7.0 - 11.0 FL LAB HEMETOLOGY METHOD 03/27/2024 12:37 PM [facility] NRBC 0.0 <1.0 % LAB HEMETOLOGY METHOD 03/27/2024 12:37 PM [facility] NRBC Absolute 0.00 <0.10 K/mcL LAB HEMETOLOGY METHOD 03/27/2024 12:37 PM [facility] Neutrophils Relative 75.0 % LAB HEMETOLOGY METHOD 03/27/2024 12:37 PM [facility] Lymphocytes Relative 13.9 % LAB HEMETOLOGY METHOD 03/27/2024 12:37 PM EST [facility] Monocytes Relative 6.2 % LAB HEMETOLOGY METHOD 03/27/2024 12:37 PM [facility] Eosinophils Relative 4.4 % LAB HEMETOLOGY METHOD 03/27/2024 12:37 PM [facility] Basophils Relative 0.2 % LAB HEMETOLOGY METHOD 03/27/2024 12:37 PM [facility] Immature Granulocytes Relative 0.3 % LAB HEMETOLOGY METHOD 03/27/2024 12:37 PM [facility] Neutrophils Absolute 4.59 1.50 - 7.00 K/mcL LAB HEMETOLOGY METHOD 03/27/2024 12:37 PM [facility] Lymphocytes Absolute 0.85(L) 1.00 - 5.00 K/mcL LAB HEMETOLOGY METHOD 03/27/2024 12:37 PM [facility] Monocytes Absolute 0.38 0.20 - 1.00 K/mcL LAB HEMETOLOGY METHOD 03/27/2024 12:37 PM [facility] Eosinophils Absolute 0.27 0.00 - 0.50 K/mcL LAB HEMETOLOGY METHOD 03/27/2024 12:37 PM [facility] Basophils Absolute 0.01 0.00 - 0.20 K/mcL LAB HEMETOLOGY METHOD 03/27/2024 12:37 PM [facility] Immature Granulocytes Absolute 0.02 0.00 - 0.03 K/mcL LAB HEMETOLOGY METHOD 03/27/2024 12:37 PM [facility] Blood Venous blood specimen / Unknown Venipuncture / Unknown 03/27/2024 11:42 AM EST 03/27/2024 12:17 PM EST us Jules Lu MD LAB BLOOD ORDERABLES Final R esult [facility] [address] [place] [address], [place] [phone] * Culture blood (03/27/2024 11:42 AM EST) Culture, Blood No growth at 5 days LAB MICROBIOLOGY METHOD 04/01/2024 1:01 PM EST [facility] Blood Venous blood specimen / Unknown Venipuncture / Unknown 03/27/2024 11:42 AM EST 03/27/2024 12:17 PM EST us Jules Lu MD LAB MICROBIOLOGY - GENERAL O RDERABLES Final Result [facility] [address] [place] [address], [place] [phone] documented in this encounter Visit Diagnoses Diagnosis Personal history of urinary (tract) infections documented in this encounter Care Teams Foundry Manager Relationship Specialty Start Date End Date Jules Lu MD [address] [place] [phone] PCP - General Family Medicine 03/25/24 documented as of this encounter
--- OUTSIDE RECORDS SUMMARY | 2025-03-15 19:06 | XMS_ITS | Encounter Summary ---
Author Organization [employer] Address [address] [place] [address] Care Team Providers Care Machine Assembler Supervisor Name Role Phone Jules Lu MD Primary Care Provider [phone] Encounter Details Date Type Department Care Team (Late st Contact Info) Description 12/19/2024 Lab Requisition [facility] - Main Lab [address] [facility] [place] [address] Jules Lu MD [address] [place] [address] Unspecified cirrhosis of liver (CMS/HCC [...] Date/Time Associated Diagnosis Comments LEVETIRACETAM LEVEL Routine 12/20/2024 9 :11 AM [...] encounter Results * (ABNORMAL) Complete blood count (12/20/2024 9:11 AM EDT) [facility] WBC 10.4 4.8 - 10.8 K/mcL LAB HEMETOLOGY METHOD 12/20/2024 10:[address] [facility] RBC 3.60(L) 4.50 - 5.50 M/mcL LAB HEMETOLOGY METHOD 12/20/2024 10:[address] [facility] Hemoglobin 11.0(L) 13.5 - 17.5 g/dL LAB HEMETOLOGY METHOD 12/20/2024 10:[address] [facility] Hematocrit 36.0(L) 42.0 - 54.0 % LAB HEMETOLOGY METHOD 12/20/2024 10:[address] [facility] MCV 99.7(H) 79.0 - 98.0 FL LAB HEMETOLOGY METHOD 12/20/2024 10:[address] [facility] MCH 30.5 27.0 - 32.0 pcg LAB HEMETOLOGY METHOD 12/20/2024 10:30 AM EDT [facility] MCHC 30.6(L) 32.0 - 37.0 g/dL LAB HEMETOLOGY METHOD 12/20/2024 10:30 AM EDT [facility] RDW 17.4(H) 11.0 - 15.0 % LAB HEMETOLOGY METHOD 12/20/2024 10:30 AM EDT [facility] Platelets 180 130 - 400 K/mcL LAB HEMETOLOGY METHOD 12/20/2024 10:30 AM EDT [facility] MPV 11.3(H) 7.0 - 11.0 FL LAB HEMETOLOGY METHOD 12/20/2024 10:30 AM EDT [facility] NRBC 0.0 <1.0 % LAB HEMETOLOGY METHOD 12/20/2024 10:30 AM EDT [facility] NRBC Absolute 0.00 <0.10 K/mcL LAB HEMETOLOGY METHOD 12/20/2024 10:30 AM EDT [facility] Blood Venous blood specimen / Unknown Venipuncture / Unknown 12/20/2024 9:11 AM EDT 12/20/2024 10:12 AM EDT Jules Lu MD LAB BLOOD ORDERABLES Final R esult [facility] [address] [place] [address], * (ABNORMAL) Ammonia (12/20/2024 9:11 AM EDT) Ammonia 65(H) 11 - 35 mcmol/L LAB CHEMISTRY METHOD 12/20/2024 10:12 AM EDT [facility] Blood Venous blood specimen / Unknown Venipuncture / Unknown 12/20/2024 9:11 AM EDT 12/20/2024 9:53 AM EDT us Jules Lu MD LAB BLOOD ORDERABLES Final R esult [facility] [address] [place] [address], [place] [phone] * (ABNORMAL) Comprehensive metabolic panel (12/20/2024 9:11 AM EDT) Sodium 141 133 - 145 mmol/L LAB CHEMISTRY METHOD 12/20/2024 11:[address] [facility] Potassium 3.3(L) 3.5 - 5.5 mmol/L LAB CHEMISTRY METHOD 12/20/2024 11:[address] [facility] Chloride 106 96 - 110 mmol/L LAB CHEMISTRY METHOD 12/20/2024 11:[address] [facility] CO2 27 21 - 32 mmol/L LAB CHEMISTRY METHOD 12/20/2024 11:[address] [facility] Anion Gap 8 3 - 11 LAB CHEMISTRY METHOD 12/20/2024 11:[address] [facility] Glucose 111(H) 70 - 100 mg/dL LAB CHEMISTRY METHOD 12/20/2024 11:[address] [facility] BUN 17 5 - 25 mg/dL LAB CHEMISTRY METHOD 12/20/2024 11:[address] [facility] Creatinine 1.35(H) 0.70 - 1.30 mg/dL LAB CHEMISTRY METHOD 12/20/2024 11:[address] [facility] eGFR 60 >=60 mL/min/1. 73m2 LAB CHEMISTRY METHOD 12/20/2024 11:[address] [facility] Comment:Calculation based on the Chronic Kidney Disease Epidemiology Collaboration (CKD-EPI) equation refit without adjustment for race. BUN/Creatinine Ratio 12.6 LAB CHEMISTRY METHOD 12/20/2024 11:[address] [facility] Calcium 9.0 8.5 - 10.5 mg/dL LAB CHEMISTRY METHOD 12/20/2024 11:[address] [facility] AST (SGOT) 33 10 - 42 unit/L LAB CHEMISTRY METHOD 12/20/2024 11:[address] [facility] ALT (SGPT) 31 10 - 60 unit/L LAB CHEMISTRY METHOD 12/20/2024 11:[address] [facility] Alkaline Phosphatase 101 42 - 121 unit/L LAB CHEMISTRY METHOD 12/20/2024 11:[address] [facility] Total Protein 7.1 6.0 - 8.0 g/dL LAB CHEMISTRY METHOD 12/20/2024 11:[address] [facility] Albumin 2.9(L) 3.2 - 5.0 g/dL LAB CHEMISTRY METHOD 12/20/2024 11:[address] [facility] Total Bilirubin 1.3 0.0 - 1.4 mg/dL LAB CHEMISTRY METHOD 12/20/2024 11:[address] [facility] Blood Venous blood specimen / Unknown Venipuncture / Unknown 12/20/2024 9:11 AM EDT 12/20/2024 10:11 AM EDT us Jules Lu MD LAB BLOOD ORDERABLES Final R esult [facility] [address] [place] [address], * (ABNORMAL) Levetiracetam level (12/20/2024 9:11 AM EDT) Levetiracetam 63.6(H) 3.0 - 60.0 ug/mL 12/23/2024 12:31 PM EDT [facility] Comment: Steady state trough serum or plasma levels following doses of 1000 to 3000 mg/Day: 3 to 37 ug/mL. The same dosage regimen will typically result in peak levels of 10 to 60 ug/mL, at approximately 1.5 hours post dose. If applicable, any drug confirmation testing reported here was developed and the performance characteristics determined by [facility]. This confirmation testing has not been cleared or approved by the FDA. The laboratory is regulated under CLIA as qualified to perform high-complexity testing. This test is used for patient testing purposes. It should not be regarded as investigational or for research. Test performed at [facility], [address] , [place] [address] Allison Dominguez MD, PhD - Field Tech Blood Venous blood specimen / Unknown Venipuncture / Unknown 12/20/2024 9:11 AM EDT 12/20/2024 10:12 AM EDT Jules Lu MD LAB BLOOD ORDERABLES Final R esult [facility] [address] [place] [address] documented in this encounter Visit Diagnoses Diagnosis Unspecified cirrhosis of liver (CMS/HCC V24, CMS/HCC V28) Heart failure, unspecified (CMS/HCC V24, CMS/HCC V28) Heart failure, unspecified Anemia, unspecified Epilepsy, unspecified, intractable, without status epilepticus (CMS/HCC V24, CMS/HCC V28) documented in this encounter Care Teams Machine Assembler Supervisor Relationship Specialty Start Date End Date Jules Lu MD [address] [place] [address] PCP - General Family Medicine 03/25/24 documented as of this encounter
--- OUTSIDE RECORDS SUMMARY | 2025-03-15 19:06 | XMS_ITS | Encounter Summary ---
Author Organization [employer] Address [address] [place] [address] Care Team Providers Care Digital Media Director Name Role Phone Jules Lu MD Primary Care Provider Encounter Details Date Type Department Care Team (Late st Contact Info) Description 03/25/2024 Lab Requisition [facility] - Main Lab [address] [facility] [place] [address] Social History Tobacco Use Types Packs/Day Years [...] on filedocumented in this encounter Care Teams Digital Media Director Relationship Specialty Start Date End Date Jules Lu MD [address] [place] [address] PCP - General Family Medicine 03/25/24 documented as of this encounter
--- OUTSIDE RECORDS SUMMARY | 2025-03-15 19:06 | XMS_ITS | Encounter Summary ---
Author Organization [employer] Address [address] [place] [address] Care Team Providers Care Head Turbine Operator Name Role Phone Jules Lu MD Primary Care Provider [phone] Encounter Details Date Type Department Care Team (Late st Contact Info) Description 01/02/2025 Lab Requisition [facility] - Main Lab [address] [facility] [place] [address] Jules Lu MD [address] [place] [address] Unspecified cirrhosis of liver (CMS/HCC [...] Date/Time Associated Diagnosis Comments LEVETIRACETAM LEVEL Routine 01/03/2025 8 :02 AM [...] in this encounter Results * (ABNORMAL) Ammonia (01/03/2025 8:02 AM EDT) Pathologist [facility] Ammonia 95(H) 11 - 35 mcmol/L LAB CHEMISTRY METHOD 01/03/2025 8:49 AM EDT [facility] Blood Venous blood specimen / Unknown Venipuncture / Unknown 01/03/2025 8:02 AM EDT 01/03/2025 8:31 AM EDT us Jules Lu MD LAB BLOOD ORDERABLES Final R esult [facility] [address] [place] [address], * (ABNORMAL) Complete blood count (01/03/2025 8:02 AM EDT) [facility] WBC 10.8 4.8 - 10.8 K/mcL LAB HEMETOLOGY METHOD 01/03/2025 8:52 AM EDT [facility] RBC 3.30(L) 4.50 - 5.50 M/mcL LAB HEMETOLOGY METHOD 01/03/2025 8:52 AM [facility] Hemoglobin 10.1(L) 13.5 - 17.5 g/dL LAB HEMETOLOGY METHOD 01/03/2025 8:52 AM [facility] Hematocrit 33.1(L) 42.0 - 54.0 % LAB HEMETOLOGY METHOD 01/03/2025 8:52 AM [facility] MCV 100.6(H) 79.0 - 98.0 FL LAB HEMETOLOGY METHOD 01/03/2025 8:52 AM [facility] MCH 30.7 27.0 - 32.0 pcg LAB HEMETOLOGY METHOD 01/03/2025 8:52 AM [facility] MCHC 30.5(L) 32.0 - 37.0 g/dL LAB HEMETOLOGY METHOD 01/03/2025 8:52 AM [facility] RDW 17.1(H) 11.0 - 15.0 % LAB HEMETOLOGY METHOD 01/03/2025 8:52 AM [facility] Platelets 148 130 - 400 K/mcL LAB HEMETOLOGY METHOD 01/03/2025 8:52 AM [facility] MPV 12.0(H) 7.0 - 11.0 FL LAB HEMETOLOGY METHOD 01/03/2025 8:52 AM [facility] NRBC 0.0 <1.0 % LAB HEMETOLOGY METHOD 01/03/2025 8:52 AM [facility] NRBC Absolute 0.00 <0.10 K/mcL LAB HEMETOLOGY METHOD 01/03/2025 8:52 AM [facility] Blood Venous blood specimen / Unknown Venipuncture / Unknown 01/03/2025 8:02 AM EDT 01/03/2025 8:39 AM EDT us Jules Lu MD LAB BLOOD ORDERABLES Final R esult [facility] [address] [place] [address], [place] [phone] * (ABNORMAL) Comprehensive metabolic panel (01/03/2025 8:02 AM EDT) Sodium 141 133 - 145 mmol/L LAB CHEMISTRY METHOD 01/03/2025 10:17 AM [facility] Potassium 3.8 3.5 - 5.5 mmol/L LAB CHEMISTRY METHOD 01/03/2025 10:17 AM [facility] Chloride 98 96 - 110 mmol/L LAB CHEMISTRY METHOD 01/03/2025 10:17 AM [facility] CO2 41(HH) 21 - 32 mmol/L LAB CHEMISTRY METHOD 01/03/2025 10:17 AM [facility] Anion Gap 2(L) 3 - 11 LAB CHEMISTRY METHOD 01/03/2025 10:17 AM [facility] Glucose 59(L) 70 - 100 mg/dL LAB CHEMISTRY METHOD 01/03/2025 10:17 AM [facility] BUN 15 5 - 25 mg/dL LAB CHEMISTRY METHOD 01/03/2025 10:17 AM [facility] Creatinine 1.23 0.70 - 1.30 mg/dL LAB CHEMISTRY METHOD 01/03/2025 10:17 AM [facility] eGFR 67 >=60 mL/min/1. 73m2 LAB CHEMISTRY METHOD 01/03/2025 10:17 AM [facility] Comment:Calculation based on the Chronic Kidney Disease Epidemiology Collaboration (CKD-EPI) equation refit without adjustment for race. BUN/Creatinine Ratio 12.2 LAB CHEMISTRY METHOD 01/03/2025 10:17 AM [facility] Calcium 8.8 8.5 - 10.5 mg/dL LAB CHEMISTRY METHOD 01/03/2025 10:17 AM T [facility] AST (SGOT) 19 10 - 42 unit/L LAB CHEMISTRY METHOD 01/03/2025 10:17 AM [facility] ALT (SGPT) 19 10 - 60 unit/L LAB CHEMISTRY METHOD 01/03/2025 10:17 AM T [facility] Alkaline Phosphatase 192(H) 42 - 121 unit/L LAB CHEMISTRY METHOD 01/03/2025 10:17 AM T [facility] Total Protein 6.0 6.0 - 8.0 g/dL LAB CHEMISTRY METHOD 01/03/2025 10:17 AM [facility] Albumin 2.2(L) 3.2 - 5.0 g/dL LAB CHEMISTRY METHOD 01/03/2025 10:17 AM [facility] Total Bilirubin 0.9 0.0 - 1.4 mg/dL LAB CHEMISTRY METHOD 01/03/2025 10:17 AM [facility] Blood Venous blood specimen / Unknown Venipuncture / Unknown 01/03/2025 8:02 AM EDT 01/03/2025 8:40 AM EDT us Jules Lu MD LAB BLOOD ORDERABLES Final R esult [facility] [address] [place] [address], * Levetiracetam level (01/03/2025 8:02 AM EDT) Levetiracetam 37.2 3.0 - 60.0 ug/mL 01/06/2025 6:33 AM EDT [facility] Comment: Steady state trough serum or plasma levels following doses of 1000 to 3000 mg/Day: 3 to 37 ug/mL. The same dosage regimen will typically result in peak levels of 10 to 60 ug/mL, at approximately 1.5 hours post dose. If applicable, any drug confirmation testing reported here was developed and the performance characteristics determined by [facility]. This confirmation testing has not been cleared or approved by the FDA. The laboratory is regulated under CLIA as qualified to perform high-complexity testing. This test is used for patient testing purposes. It should not be regarded as investigational or for research. Test performed at [facility], [address] , [place] [address] Allison Dominguez MD, PhD - Manager Imaging Blood Venous blood specimen / Unknown Venipuncture / Unknown 01/03/2025 8:02 AM EDT 01/03/2025 8:40 AM EDT Jules Lu MD LAB BLOOD ORDERABLES Final R esult [facility] [address] [address] documented in this encounter Visit Diagnoses Diagnosis Unspecified cirrhosis of liver (CMS/HCC V24, CMS/HCC V28) Heart failure, unspecified (CMS/HCC V24, CMS/HCC V28) Heart failure, unspecified Anemia, unspecified Epilepsy, unspecified, intractable, without status epilepticus (CMS/HCC V24, CMS/HCC V28) documented in this encounter Care Teams Head Turbine Operator Relationship Specialty Start Date End Date Jules Lu MD [address] [place] [address] PCP - General Family Medicine 03/25/24 documented as of this encounter
--- OUTSIDE RECORDS SUMMARY | 2025-03-15 19:06 | XMS_ITS | Encounter Summary ---
Author Organization [employer] Address [address] [place] [address] Care Team Providers Care Sales Data Analyst Name Role Phone Jules Lu MD Primary Care Provider [phone] Encounter Details Date Type Department Care Team (Late st Contact Info) Description 11/15/2024 Lab Requisition [facility] - Main Lab [address] [place] [address] Jules Lu MD [address] [place] [address] Pneumonia, unspecified organism Social History Tobacco Use Types Packs/Day Years [...] Diagnosis Comments CBC WITH AUTO DIFFERENTIAL Routine 11/18/2024 7:27 AM EDT Pneumonia, unspecified organism CBC AND DIFFERENTIAL Routine 11/18/2024 7:27 AM EDT Pneumonia, unspecified organism COMPREHENSIVE METABOLIC PANEL Routine 11/18/2024 7:27 AM EDT Pneumonia, unspecified organism documented in this encounter Results * (ABNORMAL) CBC auto differential (11/18/2024 7:27 AM EDT) WBC 11.4(H) 4.8 - 10.8 K/mcL LAB HEMETOLOGY METHOD 11/18/2024 12:07 PM EDT [facility] RBC 3.70(L) 4.50 - 5.50 M/mcL LAB HEMETOLOGY METHOD 11/18/2024 12:07 PM [facility] Hemoglobin 11.4(L) 13.5 - 17.5 g/dL LAB HEMETOLOGY METHOD 11/18/2024 12:07 PM [facility] Hematocrit 37.3(L) 42.0 - 54.0 % LAB HEMETOLOGY METHOD 11/18/2024 12:07 PM [facility] MCV 101.9(H) 79.0 - 98.0 FL LAB HEMETOLOGY METHOD 11/18/2024 12:07 PM [facility] MCH 31.1 27.0 - 32.0 pcg LAB HEMETOLOGY METHOD 11/18/2024 12:07 PM [facility] MCHC 30.6(L) 32.0 - 37.0 g/dL LAB HEMETOLOGY METHOD 11/18/2024 12:07 PM [facility] RDW 21.0(H) 11.0 - 15.0 % LAB HEMETOLOGY METHOD 11/18/2024 12:07 [facility] Platelets 104(L) 130 - 400 K/mcL LAB HEMETOLOGY METHOD 11/18/2024 12:07 PM [facility] MPV 12.1(H) 7.0 - 11.0 FL LAB HEMETOLOGY METHOD 11/18/2024 12:07 PM [facility] NRBC 0.0 <1.0 % LAB HEMETOLOGY METHOD 11/18/2024 12:07 PM [facility] NRBC Absolute 0.00 <0.10 K/mcL LAB HEMETOLOGY METHOD 11/18/2024 12:07 [facility] Neutrophils Relative 75.2 % LAB HEMETOLOGY METHOD 11/18/2024 12:07 PM [facility] Lymphocytes Relative 15.0 % LAB HEMETOLOGY METHOD 11/18/2024 12:07 PM [facility] Monocytes Relative 7.2 % LAB HEMETOLOGY METHOD 11/18/2024 12:07 PM [facility] Eosinophils Relative 1.7 % LAB HEMETOLOGY METHOD 11/18/2024 12:07 PM [facility] Basophils Relative 0.3 % LAB HEMETOLOGY METHOD 11/18/2024 12:07 PM [facility] Immature Granulocytes Relative 0.6 % LAB HEMETOLOGY METHOD 11/18/2024 12:07 PM [facility] Neutrophils Absolute 8.56(H) 1.50 - 7.00 K/mcL LAB HEMETOLOGY METHOD 11/18/2024 12:07 PM [facility] Lymphocytes Absolute 1.71 1.00 - 5.00 K/mcL LAB HEMETOLOGY METHOD 11/18/2024 12:07 PM [facility] Monocytes Absolute 0.82 0.20 - 1.00 K/mcL LAB HEMETOLOGY METHOD 11/18/2024 12:07 PM [facility] Eosinophils Absolute 0.19 0.00 - 0.50 K/mcL LAB HEMETOLOGY METHOD 11/18/2024 12:07 PM [facility] Basophils Absolute 0.03 0.00 - 0.20 K/mcL LAB HEMETOLOGY METHOD 11/18/2024 12:07 PM [facility] Immature Granulocytes Absolute 0.07(H) 0.00 - 0.03 K/mcL LAB HEMETOLOGY METHOD 11/18/2024 12:07 PM [facility] Blood Venous blood specimen / Unknown Venipuncture / Unknown 11/18/2024 7:27 AM EDT 11/18/2024 10:16 AM EDT Jules Lu MD LAB BLOOD ORDERABLES Final R esult [facility] [address] [place] [address], * (ABNORMAL) Comprehensive metabolic panel (11/18/2024 7:27 AM EDT) Sodium 136 133 - 145 mmol/L LAB CHEMISTRY METHOD 11/18/2024 12:25 PM [facility] Potassium 3.7 3.5 - 5.5 mmol/L LAB CHEMISTRY METHOD 11/18/2024 12:25 PM [facility] Chloride 97 96 - 110 mmol/L LAB CHEMISTRY METHOD 11/18/2024 12:25 PM [facility] CO2 32 21 - 32 mmol/L LAB CHEMISTRY METHOD 11/18/2024 12:25 PM [facility] Anion Gap 7 3 - 11 LAB CHEMISTRY METHOD 11/18/2024 12:25 PM [facility] Glucose 47(L) 70 - 100 mg/dL LAB CHEMISTRY METHOD 11/18/2024 12:25 PM [facility] BUN 19 5 - 25 mg/dL LAB CHEMISTRY METHOD 11/18/2024 12:25 PM [facility] Creatinine 0.96 0.70 - 1.30 mg/dL LAB CHEMISTRY METHOD 11/18/2024 12:25 PM [facility] eGFR 90 >=60 mL/min/1. 73m2 LAB CHEMISTRY METHOD 11/18/2024 12:25 PM [facility] Comment:Calculation based on the Chronic Kidney Disease Epidemiology Collaboration (CKD-EPI) equation refit without adjustment for race. BUN/Creatinine Ratio 19.8 LAB CHEMISTRY METHOD 11/18/2024 12:25 PM [facility] Calcium 9.0 8.5 - 10.5 mg/dL LAB CHEMISTRY METHOD 11/18/2024 12:25 PM [facility] AST (SGOT) 18 10 - 42 unit/L LAB CHEMISTRY METHOD 11/18/2024 12:25 PM EDT [facility] ALT (SGPT) 19 10 - 60 unit/L LAB CHEMISTRY METHOD 11/18/2024 12:25 PM EDT [facility] Alkaline Phosphatase 123(H) 42 - 121 unit/L LAB CHEMISTRY METHOD 11/18/2024 12:25 PM EDT [facility] Total Protein 6.7 6.0 - 8.0 g/dL LAB CHEMISTRY METHOD 11/18/2024 12:25 PM EDT [facility] Albumin 2.5(L) 3.2 - 5.0 g/dL LAB CHEMISTRY METHOD 11/18/2024 12:25 PM EDT [facility] Total Bilirubin 1.2 0.0 - 1.4 mg/dL LAB CHEMISTRY METHOD 11/18/2024 12:25 PM EDT [facility] Blood Venous blood specimen / Unknown Venipuncture / Unknown 11/18/2024 7:27 AM EDT 11/18/2024 10:16 AM EDT us Jules Lu MD LAB BLOOD ORDERABLES Final R esult [facility] [address] [place] [address], documented in this encounter Visit Diagnoses Diagnosis Pneumonia, unspecified organism documented in this encounter Care Teams Sales Data Analyst Relationship Specialty Start Date End Date Jules Lu MD [address] [place] [address] PCP - General Family Medicine 03/25/24 documented as of this encounter
--- OUTSIDE RECORDS SUMMARY | 2025-03-15 19:06 | XMS_ITS | Encounter Summary ---
Author Organization [facility] Address [address] [place] [address] Care Team Providers Care V Groove Cutter Name Role Phone Jules Lu MD Primary Care Provider [phone] Encounter Details Date Type Department Care Team (Late st Contact Info) Description 12/21/2024 Lab Requisition [facility] - Main Lab [address] [facility] [place] [address] Jules Lu MD [address] [place] [address] Unspecified cirrhosis of liver (CMS/HCC [...] Date/Time Associated Diagnosis Comments LEVETIRACETAM LEVEL Routine 12/23/2024 5 :55 AM [...] in this encounter Results * (ABNORMAL) Ammonia (12/23/2024 5:55 AM EDT) Pathologist [facility] Ammonia 94(H) 11 - 35 mcmol/L LAB CHEMISTRY METHOD 12/23/2024 7:21 AM EDT [facility] Blood Venous blood specimen / Unknown Venipuncture / Unknown 12/23/2024 5:55 AM EDT 12/23/2024 6:47 AM EDT us Jules Lu MD LAB BLOOD ORDERABLES Final R esult [facility] [address] [place] [address], * (ABNORMAL) Complete blood count (12/23/2024 5:55 AM EDT) [facility] WBC 5.1 4.8 - 10.8 K/mcL LAB HEMETOLOGY METHOD 12/23/2024 8:28 AM EDT [facility] RBC 3.00(L) 4.50 - 5.50 M/mcL LAB HEMETOLOGY METHOD 12/23/2024 8:28 AM [facility] Hemoglobin 9.3(L) 13.5 - 17.5 g/dL LAB HEMETOLOGY METHOD 12/23/2024 8:28 AM [facility] Hematocrit 31.2(L) 42.0 - 54.0 % LAB HEMETOLOGY METHOD 12/23/2024 8:28 AM [facility] MCV 102.6(H) 79.0 - 98.0 FL LAB HEMETOLOGY METHOD 12/23/2024 8:28 AM [facility] MCH 30.6 27.0 - 32.0 pcg LAB HEMETOLOGY METHOD 12/23/2024 8:28 AM [facility] MCHC 29.8(L) 32.0 - 37.0 g/dL LAB HEMETOLOGY METHOD 12/23/2024 8:28 AM [facility] RDW 17.5(H) 11.0 - 15.0 % LAB HEMETOLOGY METHOD 12/23/2024 8:28 AM [facility] Platelets 75(L) 130 - 400 K/mcL LAB HEMETOLOGY METHOD 12/23/2024 8:28 AM [facility] MPV 13.2(H) 7.0 - 11.0 FL LAB HEMETOLOGY METHOD 12/23/2024 8:28 AM [facility] NRBC 0.0 <1.0 % LAB HEMETOLOGY METHOD 12/23/2024 8:28 AM [facility] NRBC Absolute 0.00 <0.10 K/mcL LAB HEMETOLOGY METHOD 12/23/2024 8:28 AM [facility] Blood Venous blood specimen / Unknown Venipuncture / Unknown 12/23/2024 5:55 AM EDT 12/23/2024 7:43 AM EDT us Jules Lu MD LAB BLOOD ORDERABLES Final R esult [facility] [address] [place] [address], [place] [phone] * (ABNORMAL) Comprehensive metabolic panel (12/23/2024 5:55 AM EDT) Sodium 144 133 - 145 mmol/L LAB CHEMISTRY METHOD 12/23/2024 8:39 AM [facility] Potassium 3.8 3.5 - 5.5 mmol/L LAB CHEMISTRY METHOD 12/23/2024 8:39 AM [facility] Chloride 102 96 - 110 mmol/L LAB CHEMISTRY METHOD 12/23/2024 8:39 AM [facility] CO2 39(H) 21 - 32 mmol/L LAB CHEMISTRY METHOD 12/23/2024 8:39 AM [facility] Anion Gap 3 3 - 11 LAB CHEMISTRY METHOD 12/23/2024 8:39 AM [facility] Glucose 68(L) 70 - 100 mg/dL LAB CHEMISTRY METHOD 12/23/2024 8:39 AM [facility] BUN 21 5 - 25 mg/dL LAB CHEMISTRY METHOD 12/23/2024 8:39 AM [facility] Creatinine 1.16 0.70 - 1.30 mg/dL LAB CHEMISTRY METHOD 12/23/2024 8:39 AM [facility] eGFR 72 >=60 mL/min/1. 73m2 LAB CHEMISTRY METHOD 12/23/2024 8:39 AM [facility] Comment:Calculation based on the Chronic Kidney Disease Epidemiology Collaboration (CKD-EPI) equation refit without adjustment for race. BUN/Creatinine Ratio 18.1 LAB CHEMISTRY METHOD 12/23/2024 8:39 AM [facility] Calcium 8.7 8.5 - 10.5 mg/dL LAB CHEMISTRY METHOD 12/23/2024 8:39 AM EDT [facility] AST (SGOT) 20 10 - 42 unit/L LAB CHEMISTRY METHOD 12/23/2024 8:39 AM [facility] ALT (SGPT) 29 10 - 60 unit/L LAB CHEMISTRY METHOD 12/23/2024 8:39 AM EDT [facility] Alkaline Phosphatase 85 42 - 121 unit/L LAB CHEMISTRY METHOD 12/23/2024 8:39 AM EDT [facility] Total Protein 5.6(L) 6.0 - 8.0 g/dL LAB CHEMISTRY METHOD 12/23/2024 8:39 AM [facility] Albumin 2.3(L) 3.2 - 5.0 g/dL LAB CHEMISTRY METHOD 12/23/2024 8:39 AM [facility] Total Bilirubin 1.0 0.0 - 1.4 mg/dL LAB CHEMISTRY METHOD 12/23/2024 8:39 AM [facility] Blood Venous blood specimen / Unknown Venipuncture / Unknown 12/23/2024 5:55 AM EDT 12/23/2024 7:43 AM EDT us Jules Lu MD LAB BLOOD ORDERABLES Final R esult [facility] [address] [place] [address], * Levetiracetam level (12/23/2024 5:55 AM EDT) Levetiracetam 53.2 3.0 - 60.0 ug/mL 12/25/2024 6:00 AM EDT [facility] Comment: Steady state trough serum or plasma levels following doses of 1000 to 3000 mg/Day: 3 to 37 ug/mL. The same dosage regimen will typically result in peak levels of 10 to 60 ug/mL, at approximately 1.5 hours post dose. If applicable, any drug confirmation testing reported here was developed and the performance characteristics determined by [facility]. This confirmation testing has not been cleared or approved by the FDA. The laboratory is regulated under CLIA as qualified to perform high-complexity testing. This test is used for patient testing purposes. It should not be regarded as investigational or for research. Test performed at [facility], [address] , [place] [address] Allison Dominguez MD, PhD - Recreation Facility Attendant Blood Venous blood specimen / Unknown Venipuncture / Unknown 12/23/2024 5:55 AM EDT 12/23/2024 7:43 AM EDT Jules Lu MD LAB BLOOD ORDERABLES Final R esult [facility] [address] [place] [address] documented in this encounter Visit Diagnoses Diagnosis Unspecified cirrhosis of liver (CMS/HCC V24, CMS/HCC V28) Heart failure, unspecified (CMS/HCC V24, CMS/HCC V28) Heart failure, unspecified Anemia, unspecified Epilepsy, unspecified, intractable, without status epilepticus (CMS/HCC V24, CMS/HCC V28) documented in this encounter Care Teams V Groove Cutter Relationship Specialty Start Date End Date Jules Lu MD [address] [place] [address] PCP - General Family Medicine 03/25/24 documented as of this encounter
--- OUTSIDE RECORDS SUMMARY | 2025-03-15 19:06 | XMS_ITS | Encounter Summary ---
Author Organization [employer] Address [address] [place] [address] Care Team Providers Care Doormaker Name Role Phone Jules Lu MD Primary Care Provider [phone] Encounter Details Date Type Department Care Team (Late st Contact Info) Description 04/13/2024 Lab Requisition [facility] - Main Lab [address] [facility] [place] [address] Jules Lu MD [address] [place] [address] Sepsis, unspecified organism (CMS/HCC V24, [...] Associated Diagnosis Comments COMPLETE BLOOD COUNT Routine 04/13/2024 8:41 AM EST Sepsis, unspecified organism (CMS/HCC) BILIRUBIN, DIRECT Routine 04/13/2024 8:4 1 AM EST Sepsis, unspecified organism (CMS/HCC) AMMONIA Routine 04/13/2024 8:41 AM EST Sepsis, unspecified organism (CMS/HCC) COMPREHENSIVE METABOLIC PANEL Routine 04/13/2024 8:41 AM EST Sepsis, unspecified organism (CMS/HCC) documented in this encounter Results * (ABNORMAL) Ammonia (04/13/2024 8:41 AM EST) Ammonia 85(H) 11 - 35 mcmol/L LAB CHEMISTRY METHOD 04/13/2024 11:19 AM EST [facility] Blood Venous blood specimen / Unknown Venipuncture / Unknown 04/13/2024 8:41 AM EST 04/13/2024 10:39 AM EST Jules Lu MD LAB BLOOD ORDERABLES Final R esult [facility] [address] [place] [address], [place] [phone] * Bilirubin, direct (04/13/2024 8:41 AM EST) Pathologist [facility] Bilirubin, Direct 0.3 0.0 - 0.3 mg/dL LAB CHEMISTRY METHOD 04/13/2024 12:10 PM [facility] Blood Venous blood specimen / Unknown Venipuncture / Unknown 04/13/2024 8:41 AM EST 04/13/2024 10:39 AM EST Jules Lu MD LAB BLOOD ORDERABLES Final R esult [facility] [address] [place] [address], [place] [phone] * (ABNORMAL) Comprehensive metabolic panel (04/13/2024 8:41 AM EST) Pathologist [facility] Sodium 142 133 - 145 mmol/L LAB CHEMISTRY METHOD 04/13/2024 12:11 PM EST [facility] Potassium 4.3 3.5 - 5.5 mmol/L LAB CHEMISTRY METHOD 04/13/2024 12:11 PM [facility] Chloride 103 96 - 110 mmol/L LAB CHEMISTRY METHOD 04/13/2024 12:11 PM [facility] CO2 36(H) 21 - 32 mmol/L LAB CHEMISTRY METHOD 04/13/2024 12:11 PM [facility] Anion Gap 3 3 - 11 LAB CHEMISTRY METHOD 04/13/2024 12:11 PM [facility] Glucose 72 70 - 100 mg/dL LAB CHEMISTRY METHOD 04/13/2024 12:11 PM [facility] BUN 11 5 - 25 mg/dL LAB CHEMISTRY METHOD 04/13/2024 12:11 PM [facility] Creatinine 0.82 0.70 - 1.30 mg/dL LAB CHEMISTRY METHOD 04/13/2024 12:11 PM [facility] eGFR 101 >=60 mL/min/1. 73m2 LAB CHEMISTRY METHOD 04/13/2024 12:11 PM [facility] Comment:Calculation based on the Chronic Kidney Disease Epidemiology Collaboration (CKD-EPI) equation refit without adjustment for race. BUN/Creatinine Ratio 13.4 LAB CHEMISTRY METHOD 04/13/2024 12:11 PM [facility] Calcium 9.3 8.5 - 10.5 mg/dL LAB CHEMISTRY METHOD 04/13/2024 12:11 PM [facility] AST (SGOT) 29 10 - 42 unit/L LAB CHEMISTRY METHOD 04/13/2024 12:11 PM [facility] ALT (SGPT) 13 10 - 60 unit/L LAB CHEMISTRY METHOD 04/13/2024 12:11 PM [facility] Alkaline Phosphatase 127(H) 42 - 121 unit/L LAB CHEMISTRY METHOD 04/13/2024 12:11 PM [facility] Total Protein 6.9 6.0 - 8.0 g/dL LAB CHEMISTRY METHOD 04/13/2024 12:11 PM [facility] Albumin 2.0(L) 3.2 - 5.0 g/dL LAB CHEMISTRY METHOD 04/13/2024 12:11 PM [facility] Total Bilirubin 0.6 0.0 - 1.4 mg/dL LAB CHEMISTRY METHOD 04/13/2024 12:11 PM [facility] Blood Venous blood specimen / Unknown Venipuncture / Unknown 04/13/2024 8:41 AM EST 04/13/2024 10:39 AM EST us Jules Lu MD LAB BLOOD ORDERABLES Final R esult [facility] [address] [place] [address], * (ABNORMAL) Complete blood count (04/13/2024 8:41 AM EST) WBC 4.4(L) 4.8 - 10.8 K/mcL LAB HEMETOLOGY METHOD 04/13/2024 11:51 AM [facility] RBC 3.10(L) 4.50 - 5.50 M/mcL LAB HEMETOLOGY METHOD 04/13/2024 11:51 AM [facility] Hemoglobin 8.8(L) 13.5 - 17.5 g/dL LAB HEMETOLOGY METHOD 04/13/2024 11:51 AM [facility] Hematocrit 30.4(L) 42.0 - 54.0 % LAB HEMETOLOGY METHOD 04/13/2024 11:51 AM [facility] MCV 96.8 79.0 - 98.0 FL LAB HEMETOLOGY METHOD 04/13/2024 11:51 AM [facility] MCH 28.0 27.0 - 32.0 pcg LAB HEMETOLOGY METHOD 04/13/2024 11:51 AM [facility] MCHC 28.9(L) 32.0 - 37.0 g/dL LAB HEMETOLOGY METHOD 04/13/2024 11:51 AM [facility] RDW 17.3(H) 11.0 - 15.0 % LAB HEMETOLOGY METHOD 04/13/2024 11:51 AM [facility] Platelets 101(L) 130 - 400 K/mcL LAB HEMETOLOGY METHOD 04/13/2024 11:51 AM EST [facility] MPV 12.5(H) 7.0 - 11.0 FL LAB HEMETOLOGY METHOD 04/13/2024 11:51 AM EST [facility] NRBC 0.0 <1.0 % LAB HEMETOLOGY METHOD 04/13/2024 11:51 AM EST [facility] NRBC Absolute 0.00 <0.10 K/mcL LAB HEMETOLOGY METHOD 04/13/2024 11:51 AM EST [facility] Blood Venous blood specimen / Unknown Venipuncture / Unknown 04/13/2024 8:41 AM EST 04/13/2024 10:39 AM EST us Jules Lu MD LAB BLOOD ORDERABLES Final R esult [facility] [address] [place] [address], documented in this encounter Visit Diagnoses Diagnosis Sepsis, unspecified organism (CMS/HCC V24, CMS/HCC V28) documented in this encounter Care Teams Doormaker Relationship Specialty Start Date End Date Jules Lu MD [address] [place] [address] PCP - General Family Medicine 03/25/24 documented as of this encounter
--- OUTSIDE RECORDS SUMMARY | 2025-03-15 19:06 | XMS_ITS | Encounter Summary ---
Author Organization [employer] Address [address] [place] [address] Care Team Providers Care Head Start Assistant Teacher Name Role Phone Jules Lu MD Primary Care Provider [phone] Encounter Details Date Type Department Care Team (Late st Contact Info) Description 03/25/2024 Lab Requisition [facility] - Main Lab [address] [place] [address] Jules Lu MD [address] [place] [address] Anemia, unspecified Social History Tobacco [...] Procedure Name Priority Date/Time Associated Diagnosis Comments TRAVEL PHLEBOTOMY FEE Routine 03/25/2024 5:42 AM EST Anemia, unspecified COMPLETE BLOOD COUNT Routine 03/25/2024 5:42 AM EST Anemia, unspecified documented in this encounter Results * Travel phlebotomy fee (03/25/2024 5:42 AM EST) [facility] TRAVEL PHLEBOTOMY FEE Completed 03/25/2024 1:01 PM EST [facility] Blood Venous blood specimen / Unknown 03/25/2024 5:42 AM EST 03/25/2024 12:31 PM EST Jules Lu MD LAB BLOOD ORDERABLES Final R esult [facility] [address] [place] [address], * (ABNORMAL) Complete blood count (03/25/2024 5:42 AM EST) [facility] WBC 4.3(L) 4.8 - 10.8 K/mcL LAB HEMETOLOGY METHOD 03/25/2024 1:59 PM [facility] RBC 3.10(L) 4.50 - 5.50 M/mcL LAB HEMETOLOGY METHOD 03/25/2024 1:59 PM [facility] Hemoglobin 8.8(L) 13.5 - 17.5 g/dL LAB HEMETOLOGY METHOD 03/25/2024 1:59 PM [facility] Hematocrit 30.4(L) 42.0 - 54.0 % LAB HEMETOLOGY METHOD 03/25/2024 1:59 PM [facility] MCV 96.8 79.0 - 98.0 FL LAB HEMETOLOGY METHOD 03/25/2024 1:59 PM [facility] MCH 28.0 27.0 - 32.0 pcg LAB HEMETOLOGY METHOD 03/25/2024 1:59 PM [facility] MCHC 28.9(L) 32.0 - 37.0 g/dL LAB HEMETOLOGY METHOD 03/25/2024 1:59 PM [facility] RDW 18.3(H) 11.0 - 15.0 % LAB HEMETOLOGY METHOD 03/25/2024 1:59 PM [facility] Platelets 120(L) 130 - 400 K/mcL LAB HEMETOLOGY METHOD 03/25/2024 1:59 PM [facility] MPV 12.1(H) 7.0 - 11.0 FL LAB HEMETOLOGY METHOD 03/25/2024 1:59 PM [facility] NRBC 0.0 <1.0 % LAB HEMETOLOGY METHOD 03/25/2024 1:59 PM EST [facility] NRBC Absolute 0.00 <0.10 K/mcL LAB HEMETOLOGY METHOD 03/25/2024 1:59 PM EST [facility] Blood Venous blood specimen / Unknown 03/25/2024 5:42 AM EST 03/25/2024 12:31 PM EST us Jules Lu MD LAB BLOOD ORDERABLES Final R esult [facility] [address] [place] [address], documented in this encounter Visit Diagnoses Diagnosis Anemia, unspecified documented in this encounter Care Teams Head Start Assistant Teacher Relationship Specialty Start Date End Date Jules Lu MD [address] [place] [address] PCP - General Family Medicine 03/25/24 documented as of this encounter
--- OUTSIDE RECORDS SUMMARY | 2025-03-15 19:06 | XMS_ITS | Data Portability ---
Author Organization [facility], [id number] Address [address] [place] [address] Assessment No assessment recorded. Plan of Treatment Reminders Order Date Submit Date Provider Last Modified By Organization Details Last Modified Time Details Appointments None record ed. Lab None record ed. Referral None record ed. Procedures None record ed. Surgeries None record ed. Imaging None record ed. Medication Orders None record ed. Patient TargetsNo targets recorded. Patient InstructionsNo instructions recorded. Reason for Referral None Reported. Medical Equipment None Reported. Vitals None Recorded Social History None recorded. Functional Status None recorded. Mental Status None recorded. Family History Nothing Reported. Medical History No medical history recorded. Past Encounters Encounter ID Performer Location Encounter Start Date Encounter Closed Date Diagnosis/Indication Diagnosis SNOMED-CT Code Diagnosis ICD10 Code Diagnosis IMO Codes Diagnosis Note [id number] [facility] [address] [place] [phone] 04/20/2015 15:30:00 04/20/2015 16:29:49 Health Concerns Section Related Observation LastModified by Organization Detai ls LastModified Time None Recorded Concern Status LastModified by Organization Details LastModified Time None Recorded Advance Directives Directive None Recorded Payers Insurance Date Sequence Insurance Name Policy Number Policy Ordonez Covered Member ID Ordonez Member ID Guarantor Name 05/25/2022 1 [facility] PUBLIC PLANS [facility] TYPE III (HMO) Suhial Ward [id number] Suhail [address]
--- OUTSIDE RECORDS SUMMARY | 2025-03-15 19:06 | XMS_ITS | Encounter Summary ---
Author Organization [employer] Address [address] [place] [address] Care Team Providers Care Franchise Sales Manager Name Role Phone Jules Lu MD Primary Care Provider [phone] Encounter Details Date Type Department Care Team (Late st Contact Info) Description 10/07/2024 Lab Requisition [facility] - Main Lab [address] [facility] [employer] [place] [address] Jules Lu MD [address] [place] [address] Dehydration Social History Tobacco Use Types Packs/Day Years [...] Associated Diagnosis Comments COMPLETE BLOOD COUNT Routine 10/07/2024 6:09 AM EDT Dehydration BASIC METABOLIC PANEL Routine 10/07/2024 6:09 AM EDT Dehydration documented in this encounter Results * (ABNORMAL) Basic metabolic panel (10/07/2024 6:09 AM EDT) Sodium 147(H) 133 - 145 mmol/L LAB CHEMISTRY METHOD 10/07/2024 8:47 AM EDT [facility] Potassium 3.9 3.5 - 5.5 mmol/L LAB CHEMISTRY METHOD 10/07/2024 8:47 AM EDT [facility] Chloride 109 96 - 110 mmol/L LAB CHEMISTRY METHOD 10/07/2024 8:47 AM EDT [facility] CO2 31 21 - 32 mmol/L LAB CHEMISTRY METHOD 10/07/2024 8:47 AM [facility] Anion Gap 7 3 - 11 LAB CHEMISTRY METHOD 10/07/2024 8:47 AM [facility] Glucose 60(L) 70 - 100 mg/dL LAB CHEMISTRY METHOD 10/07/2024 8:47 AM [facility] BUN 31(H) 5 - 25 mg/dL LAB CHEMISTRY METHOD 10/07/2024 8:47 AM [facility] Creatinine 1.54(H) 0.70 - 1.30 mg/dL LAB CHEMISTRY METHOD 10/07/2024 8:47 AM [facility] eGFR 51(L) >=60 mL/min/1. 73m2 LAB CHEMISTRY METHOD 10/07/2024 8:47 AM [facility] Comment:Calculation based on the Chronic Kidney Disease Epidemiology Collaboration (CKD-EPI) equation refit without adjustment for race. BUN/Creatinine Ratio 20.1 LAB CHEMISTRY METHOD 10/07/2024 8:47 AM [facility] Calcium 8.9 8.5 - 10.5 mg/dL LAB CHEMISTRY METHOD 10/07/2024 8:47 AM [facility] Blood Venous blood specimen / Unknown Venipuncture / Unknown 10/07/2024 6:09 AM EDT 10/07/2024 8:16 AM EDT us Jules Lu MD LAB BLOOD ORDERABLES Final R esult [facility] [address] [place] [address], * (ABNORMAL) Complete blood count (10/07/2024 6:09 AM EDT) WBC 5.6 4.8 - 10.8 K/[facility] LAB HEMETOLOGY METHOD 10/07/2024 8:26 AM [facility] RBC 3.80(L) 4.50 - 5.50 M/mcL LAB HEMETOLOGY METHOD 10/07/2024 8:26 AM [facility] Hemoglobin 10.7(L) 13.5 - 17.5 g/dL LAB HEMETOLOGY METHOD 10/07/2024 8:26 AM [facility] Hematocrit 36.4(L) 42.0 - 54.0 % LAB HEMETOLOGY METHOD 10/07/2024 8:26 AM [facility] MCV 96.0 79.0 - 98.0 FL LAB HEMETOLOGY METHOD 10/07/2024 8:26 AM [facility] MCH 28.2 27.0 - 32.0 pcg LAB HEMETOLOGY METHOD 10/07/2024 8:26 AM [facility] MCHC 29.4(L) 32.0 - 37.0 g/dL LAB HEMETOLOGY METHOD 10/07/2024 8:26 AM [facility] RDW 20.0(H) 11.0 - 15.0 % LAB HEMETOLOGY METHOD 10/07/2024 8:26 AM [facility] Platelets 162 130 - 400 K/mcL LAB HEMETOLOGY METHOD 10/07/2024 8:26 AM [facility] MPV 10.8 7.0 - 11.0 FL LAB HEMETOLOGY METHOD 10/07/2024 8:26 AM [facility] NRBC 0.0 <1.0 % LAB HEMETOLOGY METHOD 10/07/2024 8:26 AM [facility] NRBC Absolute 0.00 <0.10 K/mcL LAB HEMETOLOGY METHOD 10/07/2024 8:26 AM [facility] Blood Venous blood specimen / Unknown Venipuncture / Unknown 10/07/2024 6:09 AM EDT 10/07/2024 8:16 AM EDT us Jules Lu MD LAB BLOOD ORDERABLES Final R esult [facility] [address] [place] [address], documented in this encounter Visit Diagnoses Diagnosis Dehydration documented in this encounter Care Teams Franchise Sales Manager Relationship Specialty Start Date End Date Jules Lu MD [address] [place] [address] PCP - General Family Medicine 03/25/24 documented as of this encounter
--- OUTSIDE RECORDS SUMMARY | 2025-03-15 19:06 | XMS_ITS | Encounter Summary ---
Author Organization [employer] Address [address] [place] [address] Care Team Providers Care Box Nailer Name Role Phone Jules Lu MD Primary Care Provider [phone] Encounter Details Date Type Department Care Team (Late st Contact Info) Description 04/10/2024 Lab Requisition [facility] - Main Lab [address] [place] [address] Jules Lu MD [address] [place] [address] Urinary tract infection, site not specified; Other artificial openings of urinary tract status (CMS/[facility] V24, CMS/[facility] V28) Social History Tobacco Use Types Packs/Day [...] Associated Diagnosis Comments COMPLETE BLOOD COUNT Routine 04/10/2024 5:34 AM EST Urinary tract infection, site not specified Other artificial openings of urinary tract status ([facility]) documented in this encounter Results * (ABNORMAL) Complete blood count (04/10/2024 5:34 AM EST) WBC 5.1 4.8 - 10.8 K/[facility] LAB HEMETOLOGY METHOD 04/10/2024 9:[address] [facility] RBC 3.00(L) 4.50 - 5.50 M/mcL LAB HEMETOLOGY METHOD 04/10/2024 9:[address] [facility] Hemoglobin 8.6(L) 13.5 - 17.5 g/dL LAB HEMETOLOGY METHOD 04/10/2024 9:26 AM [facility] Hematocrit 29.1(L) 42.0 - 54.0 % LAB HEMETOLOGY METHOD 04/10/2024 9:26 AM [facility] MCV 96.0 79.0 - 98.0 FL LAB HEMETOLOGY METHOD 04/10/2024 9:26 AM [facility] MCH 28.4 27.0 - 32.0 pcg LAB HEMETOLOGY METHOD 04/10/2024 9:26 AM [facility] MCHC 29.6(L) 32.0 - 37.0 g/dL LAB HEMETOLOGY METHOD 04/10/2024 9:26 AM [facility] RDW 17.9(H) 11.0 - 15.0 % LAB HEMETOLOGY METHOD 04/10/2024 9:26 AM [facility] Platelets 111(L) 130 - 400 K/mcL LAB HEMETOLOGY METHOD 04/10/2024 9:26 AM [facility] MPV 12.4(H) 7.0 - 11.0 FL LAB HEMETOLOGY METHOD 04/10/2024 9:26 AM [facility] NRBC 0.0 <1.0 % LAB HEMETOLOGY METHOD 04/10/2024 9:26 AM [facility] NRBC Absolute 0.00 <0.10 K/mcL LAB HEMETOLOGY METHOD 04/10/2024 9:26 AM [facility] Blood Venous blood specimen / Unknown Venipuncture / Unknown 04/10/2024 5:34 AM EST 04/10/2024 8:59 AM EST us Jules Lu MD LAB BLOOD ORDERABLES Final R esult [facility] [address] [place] [address], documented in this encounter Visit Diagnoses Diagnosis Urinary tract infection, site not specified Other artificial openings of urinary tract status (CMS/HCC V24, CMS/HCC V28) documented in this encounter Care Teams Box Nailer Relationship Specialty Start Date End Date Jules Lu MD [address] [place] [address] PCP - General Family Medicine 03/25/24 documented as of this encounter
--- OUTSIDE RECORDS SUMMARY | 2025-03-15 19:06 | XMS_ITS | Encounter Summary ---
Author Organization [employer] Address [address] [place] [address] Care Team Providers Care Pest Control Technician Name Role Phone Jules Lu MD Primary Care Provider + [phone] Encounter Details Date Type Department Care Team (Late st Contact Info) Description 12/13/2024 Lab Requisition [facility] - Main Lab [address] [facility] [place] [address] Jules Lu MD [address] [place] [address] Anemia, unspecified; Heart failure, unspecified [...] Date/Time Associated Diagnosis Comments LEVETIRACETAM LEVEL Routine 12/13/2024 7 :22 AM [...] in this encounter Results * (ABNORMAL) Ammonia (12/13/2024 7:22 AM EDT) Ammonia 105(H) 11 - 35 mcmol/L LAB CHEMISTRY METHOD 12/13/2024 9:08 AM EDT [facility] Blood Venous blood specimen / Unknown Venipuncture / Unknown 12/13/2024 7:22 AM EDT 12/13/2024 8:36 AM EDT us Jules Lu MD LAB BLOOD ORDERABLES Final R esult [facility] [address] [place] [address], * Levetiracetam level (12/13/2024 7:22 AM EDT) Levetiracetam 47.7 3.0 - 60.0 ug/mL 12/16/2024 6:30 AM EDT [facility] Comment: Steady state trough serum or plasma levels following doses of 1000 to 3000 mg/Day: 3 to 37 ug/mL. The same dosage regimen will typically result in peak levels of 10 to 60 ug/mL, at approximately 1.5 hours post dose. If applicable, any drug confirmation testing reported here was developed and the performance characteristics determined by [facility]. This confirmation testing has not been cleared or approved by the FDA. The laboratory is regulated under CLIA as qualified to perform high-complexity testing. This test is used for patient testing purposes. It should not be regarded as investigational or for research. Test performed at [facility], [address] , [place] [address] Allison Dominguez MD, PhD - Truck Driver Heavy Blood Venous blood specimen / Unknown Venipuncture / Unknown 12/13/2024 7:22 AM EDT 12/13/2024 8:36 AM EDT us Jules Lu MD LAB BLOOD ORDERABLES Final R esult [facility] [address] [place] [address] * (ABNORMAL) Comprehensive metabolic panel (12/13/2024 7:22 AM EDT) Sodium 142 133 - 145 mmol/L LAB CHEMISTRY METHOD 12/13/2024 9:04 AM [facility] Potassium 4.1 3.5 - 5.5 mmol/L LAB CHEMISTRY METHOD 12/13/2024 9:04 AM [facility] Chloride 104 96 - 110 mmol/L LAB CHEMISTRY METHOD 12/13/2024 9:04 AM [facility] CO2 35(H) 21 - 32 mmol/L LAB CHEMISTRY METHOD 12/13/2024 9:04 AM [facility] Anion Gap 3 3 - 11 LAB CHEMISTRY METHOD 12/13/2024 9:04 AM [facility] Glucose 57(L) 70 - 100 mg/dL LAB CHEMISTRY METHOD [facility]/13[facility]24 [facility] BUN 17 5 - 25 mg/dL LAB CHEMISTRY METHOD 12/13/2024 9:04 AM [facility] Creatinine 0.94 0.70 - 1.30 mg/dL LAB CHEMISTRY METHOD 12/13/2024 9:04 AM [facility] eGFR 93 >=60 mL/min/1. 73m2 LAB CHEMISTRY METHOD 12/13/2024 9:04 AM [facility] Comment:Calculation based on the Chronic Kidney Disease Epidemiology Collaboration (CKD-EPI) equation refit without adjustment for race. BUN/Creatinine Ratio 18.1 LAB CHEMISTRY METHOD 12/13/2024 9:04 AM [facility] Calcium 9.3 8.5 - 10.5 mg/dL LAB CHEMISTRY METHOD 12/13/2024 9:04 AM [facility] AST (SGOT) 16 10 - 42 unit/L LAB CHEMISTRY METHOD 12/13/2024 9:04 AM [facility] ALT (SGPT) 21 10 - 60 unit/L LAB CHEMISTRY METHOD 12/13/2024 9:04 AM [facility] Alkaline Phosphatase 95 42 - 121 unit/L LAB CHEMISTRY METHOD 12/13/2024 9:04 AM [facility] Total Protein 6.9 6.0 - 8.0 g/dL LAB CHEMISTRY METHOD 12/13/2024 9:04 AM [facility] Albumin 2.7(L) 3.2 - 5.0 g/dL LAB CHEMISTRY METHOD 12/13/2024 9:04 AM [facility] Total Bilirubin 1.2 0.0 - 1.4 mg/dL LAB CHEMISTRY METHOD 12/13/2024 9:04 AM [facility] Blood Venous blood specimen / Unknown Venipuncture / Unknown 12/13/2024 7:22 AM EDT 12/13/2024 8:36 AM EDT us Jules Lu MD LAB BLOOD ORDERABLES Final R esult [facility] [address] [place] [address], * (ABNORMAL) Complete blood count (12/13/2024 7:22 AM EDT) WBC 7.5 4.8 - 10.8 K/mcL LAB HEMETOLOGY METHOD 12/13/2024 8:47 AM EDT [facility] RBC 3.30(L) 4.50 - 5.50 M/mcL LAB HEMETOLOGY METHOD 12/13/2024 8:47 AM EDT [facility] Hemoglobin 9.9(L) 13.5 - 17.5 g/dL LAB HEMETOLOGY METHOD 12/13/2024 8:47 AM EDT [facility] Hematocrit 33.3(L) 42.0 - 54.0 % LAB HEMETOLOGY METHOD 12/13/2024 8:47 [facility] MCV 101.8(H) 79.0 - 98.0 FL LAB HEMETOLOGY METHOD 12/13/2024 8:47 [facility] MCH 30.3 27.0 - 32.0 pcg LAB HEMETOLOGY METHOD 12/13/2024 8:47 AM EDT [facility] MCHC 29.7(L) 32.0 - 37.0 g/dL LAB HEMETOLOGY METHOD 12/13/2024 8:47 [facility] RDW 17.9(H) 11.0 - 15.0 % LAB HEMETOLOGY METHOD 12/13/2024 8:47 AM EDT [facility] Platelets 136 130 - 400 K/mcL LAB HEMETOLOGY METHOD 12/13/2024 8:47 AM EDT [facility] MPV 11.4(H) 7.0 - 11.0 FL LAB HEMETOLOGY METHOD 12/13/2024 8:47 AM EDT [facility] NRBC 0.0 <1.0 % LAB HEMETOLOGY METHOD 12/13/2024 8:47 AM EDT [facility] NRBC Absolute 0.00 <0.10 K/mcL LAB HEMETOLOGY METHOD 12/13/2024 8:47 AM EDT [facility] Blood Venous blood specimen / Unknown Venipuncture / Unknown 12/13/2024 7:22 AM EDT 12/13/2024 8:36 AM EDT Jules Lu MD LAB BLOOD ORDERABLES Final R esult [facility] [address] [place] [address], documented in this encounter Visit Diagnoses Diagnosis Anemia, unspecified Heart failure, unspecified (CMS/HCC V24, CMS/HCC V28) Heart failure, unspecified Unspecified cirrhosis of liver (CMS/HCC V24, CMS/HCC V28) Epilepsy, unspecified, not intractable, without status epilepticus (CMS/HCC V24, CMS/HCC V28) documented in this encounter Care Teams Pest Control Technician Relationship Specialty Start Date End Date Jules Lu MD [address] [place] [id number] PCP - General Family Medicine 03/25/24 documented as of this encounter
--- OUTSIDE RECORDS SUMMARY | 2025-03-15 19:06 | XMS_ITS | Encounter Summary ---
Author Organization [employer] Address [address] [place] [address] Care Team Providers Care User Interface Designer Name Role Phone Jules Lu MD Primary Care Provider [phone] Encounter Details Date Type Department Care Team (Late st Contact Info) Description 12/14/2024 Lab Requisition [facility] - Main Lab [address] [facility] [place] [address] Jules Lu MD [address] [place] [address] Unspecified cirrhosis of liver (CMS/HCC [...] Date/Time Associated Diagnosis Comments LEVETIRACETAM LEVEL Routine 12/16/2024 9 :30 AM [...] in this encounter Results * (ABNORMAL) Ammonia (12/16/2024 9:30 AM EDT) Pathologist [facility] Ammonia 231(H) 11 - 35 mcmol/L LAB CHEMISTRY METHOD 12/16/2024 10:[address] [facility] Blood Venous blood specimen / Unknown Venipuncture / Unknown 12/16/2024 9:30 AM EDT 12/16/2024 10:01 AM EDT us Jules Lu MD LAB BLOOD ORDERABLES Final R esult [facility] [address] [place] [address], * (ABNORMAL) Complete blood count (12/16/2024 9:30 AM EDT) Pathologist [facility] WBC 10.4 4.8 - 10.8 K/mcL LAB HEMETOLOGY METHOD 12/16/2024 12:[address] [facility] RBC 3.70(L) 4.50 - 5.50 M/mcL LAB HEMETOLOGY METHOD 12/16/2024 12:17 PM [facility] Hemoglobin 11.4(L) 13.5 - 17.5 g/dL LAB HEMETOLOGY METHOD 12/16/2024 12:17 PM [facility] Hematocrit 37.3(L) 42.0 - 54.0 % LAB HEMETOLOGY METHOD 12/16/2024 12:17 PM [facility] MCV 100.0(H) 79.0 - 98.0 FL LAB HEMETOLOGY METHOD 12/16/2024 12:17 PM [facility] MCH 30.6 27.0 - 32.0 pcg LAB HEMETOLOGY METHOD 12/16/2024 12:17 PM [facility] MCHC 30.6(L) 32.0 - 37.0 g/dL LAB HEMETOLOGY METHOD 12/16/2024 12:17 PM [facility] RDW 18.5(H) 11.0 - 15.0 % LAB HEMETOLOGY METHOD 12/16/2024 12:17 PM [facility] Platelets 182 130 - 400 K/mcL LAB HEMETOLOGY METHOD 12/16/2024 12:17 PM [facility] MPV 11.9(H) 7.0 - 11.0 FL LAB HEMETOLOGY METHOD 12/16/2024 12:17 PM [facility] NRBC 0.0 <1.0 % LAB HEMETOLOGY METHOD 12/16/2024 12:17 PM [facility] NRBC Absolute 0.00 <0.10 K/mcL LAB HEMETOLOGY METHOD 12/16/2024 12:17 PM [facility] Blood Venous blood specimen / Unknown Venipuncture / Unknown 12/16/2024 9:30 AM EDT 12/16/2024 10:01 AM EDT us Jules Lu MD LAB BLOOD ORDERABLES Final R esult [facility] [address] [place] [address], [place] [phone] * (ABNORMAL) Comprehensive metabolic panel (12/16/2024 9:30 AM EDT) Sodium 145 133 - 145 mmol/L LAB CHEMISTRY METHOD 12/16/2024 1:07 PM [facility] Potassium 4.0 3.5 - 5.5 mmol/L LAB CHEMISTRY METHOD 12/16/2024 1:07 PM [facility] Chloride 109 96 - 110 mmol/L LAB CHEMISTRY METHOD 12/16/2024 1:07 PM [facility] CO2 29 21 - 32 mmol/L LAB CHEMISTRY METHOD 12/16/2024 1:07 PM [facility] Anion Gap 7 3 - 11 LAB CHEMISTRY METHOD 12/16/2024 1:07 PM [facility] Glucose 58(L) 70 - 100 mg/dL LAB CHEMISTRY METHOD 12/16/2024 1:07 PM [facility] BUN 21 5 - 25 mg/dL LAB CHEMISTRY METHOD 12/16/2024 1:07 PM [facility] Creatinine 1.26 0.70 - 1.30 mg/dL LAB CHEMISTRY METHOD 12/16/2024 1:07 PM [facility] eGFR 65 >=60 mL/min/1. 73m2 LAB CHEMISTRY METHOD 12/16/2024 1:07 PM [facility] Comment:Calculation based on the Chronic Kidney Disease Epidemiology Collaboration (CKD-EPI) equation refit without adjustment for race. BUN/Creatinine Ratio 16.7 LAB CHEMISTRY METHOD 12/16/2024 1:07 PM [facility] Calcium 9.8 8.5 - 10.5 mg/dL LAB CHEMISTRY METHOD 12/16/2024 1:[address] [facility] AST (SGOT) 25 10 - 42 unit/L LAB CHEMISTRY METHOD 12/16/2024 1:[address] [facility] ALT (SGPT) 21 10 - 60 unit/L LAB CHEMISTRY METHOD 12/16/2024 1:[address] [facility] Alkaline Phosphatase 98 42 - 121 unit/L LAB CHEMISTRY METHOD 12/16/2024 1:[address] [facility] Total Protein 7.0 6.0 - 8.0 g/dL LAB CHEMISTRY METHOD 12/16/2024 1:07 PM [facility] Albumin 2.7(L) 3.2 - 5.0 g/dL LAB CHEMISTRY METHOD 12/16/2024 1:07 PM [facility] Total Bilirubin 1.2 0.0 - 1.4 mg/dL LAB CHEMISTRY METHOD 12/16/2024 1:[address] [facility] Blood Venous blood specimen / Unknown Venipuncture / Unknown 12/16/2024 9:30 AM EDT 12/16/2024 10:01 AM EDT Jules Lu MD LAB BLOOD ORDERABLES Final R esult [facility] [address] [place] [address], * Levetiracetam level (12/16/2024 9:30 AM EDT) Levetiracetam 32.9 3.0 - 60.0 ug/mL 12/18/2024 6:17 AM EDT [facility] Comment: Steady state trough serum or plasma levels following doses of 1000 to 3000 mg/Day: 3 to 37 ug/mL. The same dosage regimen will typically result in peak levels of 10 to 60 ug/mL, at approximately 1.5 hours post dose. If applicable, any drug confirmation testing reported here was developed and the performance characteristics determined by [facility]. This confirmation testing has not been cleared or approved by the FDA. The laboratory is regulated under CLIA as qualified to perform high-complexity testing. This test is used for patient testing purposes. It should not be regarded as investigational or for research. Test performed at [facility], [address] , [place] [address] Allison Dominguez MD, PhD - Stone Carver Blood Venous blood specimen / Unknown Venipuncture / Unknown 12/16/2024 9:30 AM EDT 12/16/2024 10:01 AM EDT Jules Lu MD LAB BLOOD ORDERABLES Final R esult [facility] [address] [place] [address] documented in this encounter Visit Diagnoses Diagnosis Unspecified cirrhosis of liver (CMS/HCC V24, CMS/HCC V28) Heart failure, unspecified (CMS/HCC V24, CMS/HCC V28) Heart failure, unspecified Anemia, unspecified Epilepsy, unspecified, intractable, without status epilepticus (CMS/HCC V24, CMS/HCC V28) documented in this encounter Care Teams User Interface Designer Relationship Specialty Start Date End Date Jules Lu MD [address] [place] [address] PCP - General Family Medicine 03/25/24 documented as of this encounter
--- OUTSIDE RECORDS SUMMARY | 2025-03-15 19:06 | XMS_ITS | Encounter Summary ---
Author Organization [facility] Address [address] [place] [address] Care Team Providers Care Automotive Service Professional Name Role Phone Jules Lu MD Primary Care Provider Encounter Details Date Type Department Care Team (Late st Contact Info) Description 10/11/2024 Lab Requisition [facility] - Main Lab [address] [place] [address] Jules Lu MD [address] [place] [address] Personal history of other medical treatment Social History Tobacco Use Types Packs/Day Years [...] Associated Diagnosis Comments COMPLETE BLOOD COUNT Routine 10/11/2024 6:13 AM EDT Personal history of other medical treatment AMMONIA Routine 10/11/2024 6:13 AM EDT Personal history of other medical treatment BASIC METABOLIC PANEL Routine 10/11/2024 6:13 AM EDT Personal history of other medical treatment documented in this encounter Results * (ABNORMAL) Basic metabolic panel (10/11/2024 6:13 AM EDT) Sodium 143 133 - 145 mmol/L LAB CHEMISTRY METHOD 10/11/2024 8:[address] [facility] Potassium 4.6 3.5 - 5.5 mmol/L LAB CHEMISTRY METHOD 10/11/2024 8:[address] [facility] Comment:Hemolysis present Chloride 108 96 - 110 mmol/L LAB CHEMISTRY METHOD 10/11/2024 8:[address] [facility] CO2 28 21 - 32 mmol/L LAB CHEMISTRY METHOD 10/11/2024 8:35 AM [facility] Anion Gap 7 3 - 11 LAB CHEMISTRY METHOD 10/11/2024 8:35 AM [facility] Glucose 57(L) 70 - 100 mg/dL LAB CHEMISTRY METHOD 10/11/2024 8:35 AM [facility] BUN 30(H) 5 - 25 mg/dL LAB CHEMISTRY METHOD 10/11/2024 8:35 AM [facility] Creatinine 1.78(H) 0.70 - 1.30 mg/dL LAB CHEMISTRY METHOD 10/11/2024 8:35 AM [facility] eGFR 43(L) >=60 mL/min/1. 73m2 LAB CHEMISTRY METHOD 10/11/2024 8:35 AM [facility] Comment:Calculation based on the Chronic Kidney Disease Epidemiology Collaboration (CKD-EPI) equation refit without adjustment for race. BUN/Creatinine Ratio 16.9 LAB CHEMISTRY METHOD 10/11/2024 8:35 AM [facility] Calcium 9.1 8.5 - 10.5 mg/dL LAB CHEMISTRY METHOD 10/11/2024 8:35 AM [facility] Blood Venous blood specimen / Unknown Venipuncture / Unknown 10/11/2024 6:13 AM EDT 10/11/2024 7:16 AM EDT us Jules Lu MD LAB BLOOD ORDERABLES Final R esult [facility] [address] [place] [address], * (ABNORMAL) Ammonia (10/11/2024 6:13 AM EDT) Ammonia 202(H) 11 - 35 mcmol/L LAB CHEMISTRY METHOD 10/11/2024 8:[address] [facility] Blood Venous blood specimen / Unknown Venipuncture / Unknown 10/11/2024 6:13 AM EDT 10/11/2024 7:16 AM EDT us Jules Lu MD LAB BLOOD ORDERABLES Final R esult [facility] [address] [place] [address], * (ABNORMAL) Complete blood count (10/11/2024 6:13 AM EDT) [facility] WBC 11.3(H) 4.8 - 10.8 K/mcL LAB HEMETOLOGY METHOD [facility]24 [facility] RBC 4.40(L) 4.50 - 5.50 M/mcL LAB HEMETOLOGY METHOD 10/11/2024 8:23 AM [facility] Hemoglobin 12.6(L) 13.5 - 17.5 g/dL LAB HEMETOLOGY METHOD 10/11/2024 8:23 AM [facility] Hematocrit 42.4 42.0 - 54.0 % LAB HEMETOLOGY METHOD 10/11/2024 8:[address] [facility] MCV 96.4 79.0 - 98.0 FL LAB HEMETOLOGY METHOD 10/11/2024 8:23 AM [facility] MCH 28.6 27.0 - 32.0 pcg LAB HEMETOLOGY METHOD 10/11/2024 8:23 AM [facility] MCHC 29.7(L) 32.0 - 37.0 g/dL LAB HEMETOLOGY METHOD 10/11/2024 8:23 AM [facility] RDW 21.0(H) 11.0 - 15.0 % LAB HEMETOLOGY METHOD 10/11/2024 8:[address] [facility] Platelets 194 130 - 400 K/mcL LAB HEMETOLOGY METHOD 10/11/2024 8:[address] [facility] MPV 11.6(H) 7.0 - 11.0 FL LAB HEMETOLOGY METHOD 10/11/2024 8:[address] [facility] NRBC 0.0 <1.0 % LAB HEMETOLOGY METHOD 10/11/2024 8:[address] [facility] NRBC Absolute 0.00 <0.10 K/mcL LAB HEMETOLOGY METHOD 10/11/2024 8:[address] [facility] Blood Venous blood specimen / Unknown Venipuncture / Unknown 10/11/2024 6:13 AM EDT 10/11/2024 7:16 AM EDT us Jules Lu MD LAB BLOOD ORDERABLES Final R esult [facility] [address] [place] [address], documented in this encounter Visit Diagnoses Diagnosis Personal history of other medical treatment documented in this encounter Care Teams Automotive Service Professional Relationship Specialty Start Date End Date Jules Lu MD [address] [place] [address] PCP - General Family Medicine 03/25/24 documented as of this encounter
--- OUTSIDE RECORDS SUMMARY | 2025-03-15 19:06 | XMS_ITS | Encounter Summary ---
Author Organization [employer] Address [address] [place] [address] Care Team Providers Care Loan Servicing Representative Name Role Phone Jules Lu MD Primary Care Provider [phone] Encounter Details Date Type Department Care Team (Late st Contact Info) Description 10/11/2024 Lab Requisition [facility] - Main Lab [address] [place] [address] Jules Lu MD [address] [place] [address] Other abnormal findings in urine Social History Tobacco Use Types Packs/Day Years [...] Procedure Name Priority Date/Time Associated Diagnosis Comments URINALYSIS WITH REFLEX MICROSCOPIC Routine 10/11/2024 5:25 AM EDT Other abnormal findings in urine FUNES URINE CULTURE TUBE Routine 10/11/2024 5:25 AM EDT Other abnormal findings in urine URINALYSIS WITH REFLEX MICROSCOPIC Routine 10/11/2024 5:25 AM EDT Other abnormal findings in urine documented in this encounter Results * (ABNORMAL) Urinalysis with reflex microscopic (10/11/2024 5:25 AM EDT) Specific [place] Urine 1.013 1.003 - 1.030 LAB URINALYSIS - AUTOMATED METHOD 10/11/2024 11:55 AM EDT [facility] pH, Urine 8.0 5.0 - 8.0 pH LAB URINALYSIS - AUTOMATED METHOD 10/11/2024 11:55 AM [facility] Leukocytes, Urine Large(A) Negative LAB URINALYSIS - AUTOMATED METHOD 10/11/2024 11:55 AM [facility] Nitrite, Urine Negative Negative LAB URINALYSIS - AUTOMATED METHOD 10/11/2024 11:55 AM [facility] Protein, Urine 300(A) <=Trace mg/dL LAB URINALYSIS - AUTOMATED METHOD 10/11/2024 11:55 AM [facility] Glucose, Urine Negative Negative mg/dL LAB URINALYSIS - AUTOMATED METHOD 10/11/2024 11:55 AM [facility] Ketones, Urine Negative Negative mg/dL LAB URINALYSIS - AUTOMATED METHOD 10/11/2024 11:55 AM [facility] Urobilinogen , Urine 1.0 0.2 - 1.0 mg/dL LAB URINALYSIS - AUTOMATED METHOD 10/11/2024 11:55 AM [facility] Bilirubin, Urine Negative Negative LAB URINALYSIS - AUTOMATED METHOD 10/11/2024 11:55 AM [facility] Blood, Urine Large(A) Negative LAB URINALYSIS - AUTOMATED METHOD 10/11/2024 11:55 AM [facility] RBC, Urine 879.7(H) 0 - 4 /HPF LAB URINALYSIS - AUTOMATED METHOD 10/11/2024 11:55 AM [facility] WBC, Urine 1,948.5(H) 0 - 4 /HPF LAB URINALYSIS - AUTOMATED METHOD 10/11/2024 11:55 AM [facility] Squamous Epithelial, Urine >100(H) 0 - 60 /LPF LAB URINALYSIS - AUTOMATED METHOD 10/11/2024 11:55 AM [facility] Bacteria, Urine Many(A) Negative /HPF LAB URINALYSIS - AUTOMATED METHOD 10/11/2024 11:55 AM EDT [facility] Hyaline Casts, Urine 37.6(H) 0 - 3 /LPF LAB URINALYSIS - AUTOMATED METHOD 10/11/2024 11:55 AM EDT [facility] Urine Urine specimen obtained by clean catch procedure / Unknown Non-blood Collection / Unknown 10/11/2024 5:25 AM EDT 10/11/2024 10:20 AM EDT Jules Lu MD LAB URINE ORDERABLES Final R esult [facility] [address] [place] [address], [place] [phone] * Funes urine culture tube (10/11/2024 5:25 AM EDT) Extra Tube Hold for add-ons. 10/11/2024 12:01 PM EDT [facility] Comment:Auto resulted. Urine Urine specimen obtained by clean catch procedure / Unknown Non-blood Collection / Unknown 10/11/2024 5:25 AM EDT 10/11/2024 10:20 AM EDT us Jules Lu MD LAB URINE ORDERABLES Final R esult [facility] [address] [place] [address], [place] [phone] documented in this encounter Visit Diagnoses Diagnosis Other abnormal findings in urine documented in this encounter Care Teams Loan Servicing Representative Relationship Specialty Start Date End Date Jules Lu MD [address] [place] [id number] PCP - General Family Medicine 03/25/24 documented as of this encounter
--- OUTSIDE RECORDS SUMMARY | 2025-03-15 19:06 | XMS_ITS | Encounter Summary ---
Author Organization [employer] Address [address] [place] [address] Care Team Providers Care Residential Collections Name Role Phone Jules Lu MD Primary Care Provider [phone] Encounter Details Date Type Department Care Team (Late st Contact Info) Description 03/28/2024 Lab Requisition [facility] - Main Lab [address] [facility] [place] [address] Jules Lu MD [address] [place] [address] Personal history of urinary (tract) [...] Associated Diagnosis Comments URINALYSIS WITH REFLEX MICROSCOPIC AND CULTURE Routine 03/27/2024 6:00 AM EST Personal history of urinary (tract) infections FUNES URINE CULTURE TUBE Routine 03/27/2024 6:00 AM EST Personal history of urinary (tract) infections URINALYSIS WITH REFLEX MICROSCOPIC AND CULTURE Routine 03/27/2024 6:00 AM EST Personal history of urinary (tract) infections CULTURE URINE Routine 03/27/2024 6:00 AM EST Personal history of urinary (tract) infections documented in this encounter Results * Culture urine (03/27/2024 6:00 AM EST) Culture, Urine No growth 03/29/2024 10:28 AM EST [facility] Urine Urine specimen obtained by clean catch procedure / Unknown 03/27/2024 6:00 AM EST 03/28/2024 10:44 AM EST us Jules Lu MD LAB MICROBIOLOGY - GENERAL O RDERABLES Final Result Performing Organization Address [facility]/ZIP Co de Phone Number [facility] [address] [place] [address], [place] [phone] * Funes urine culture tube (03/27/2024 6:00 AM EST) Pathologist [facility] [place] Extra Tube Hold for add-ons. 03/28/2024 11:[address] [facility] Comment:Auto resulted. Urine Urine specimen obtained by clean catch procedure / Unknown 03/27/2024 6:00 AM EST 03/28/2024 9:54 AM EST Jules Lu MD LAB URINE ORDERABLES Final R esult Performing Organization Address [facility]/RUST Co de Phone Number [facility] [address] [place] [address], [place] [phone] * (ABNORMAL) Urinalysis with reflex microscopic and culture (03/27/2024 6:00 AM EST) Pathologist [facility] [place] Specific [place] Urine 1.019 1.003 - 1.030 LAB URINALYSIS - AUTOMATED METHOD 03/28/2024 10:[address] [facility] pH, Urine 8.0 5.0 - 8.0 pH LAB URINALYSIS - AUTOMATED METHOD 03/28/2024 10:[address] [facility] Leukocytes, Urine Small(A) Negative LAB URINALYSIS - AUTOMATED METHOD 03/28/2024 10:[address] [facility] Nitrite, Urine Negative Negative LAB URINALYSIS - AUTOMATED METHOD 03/28/2024 10:[address] [facility] Protein, Urine 100(A) <=Trace mg/dL LAB URINALYSIS - AUTOMATED METHOD 03/28/2024 10:[address] [facility] Glucose, Urine Negative Negative mg/dL LAB URINALYSIS - AUTOMATED METHOD 03/28/2024 10:[address] [facility] Ketones, Urine Trace(A) Negative mg/dL LAB URINALYSIS - AUTOMATED METHOD 03/28/2024 10:[address] [facility] Urobilinogen , Urine 1.0 0.2 - 1.0 mg/dL LAB URINALYSIS - AUTOMATED METHOD 03/28/2024 10:[address] [facility] Bilirubin, Urine Negative Negative LAB URINALYSIS - AUTOMATED METHOD 03/28/2024 10:[address] [facility] Blood, Urine Large(A) Negative LAB URINALYSIS - AUTOMATED METHOD 03/28/2024 10:[address] [facility] RBC, Urine 20.0(H) 0 - 4 /HPF LAB URINALYSIS - AUTOMATED METHOD 03/28/2024 10:[address] [facility] WBC, Urine 3.1 0 - 4 /HPF LAB URINALYSIS - AUTOMATED METHOD 03/28/2024 10:[address] [facility] Squamous Epithelial, Urine 19 0 - 60 /LPF LAB URINALYSIS - AUTOMATED METHOD 03/28/2024 10:[address] [facility] Crystals, Urine HEAVY VERONICA PHOSPHATE /LPF 03/28/2024 10:[address] [facility] Bacteria, Urine Negative Negative /HPF LAB URINALYSIS - AUTOMATED METHOD 03/28/2024 10:[address] [facility] Hyaline Casts, Urine 2.4 0 - 3 /LPF LAB URINALYSIS - AUTOMATED METHOD 03/28/2024 10:[address] [facility] Urine Urine specimen obtained by clean catch procedure / Unknown 03/27/2024 6:00 AM EST 03/28/2024 9:54 AM EST us Jules Lu MD LAB URINE ORDERABLES Final R esult [facility] [address] [place] [address], documented in this encounter Visit Diagnoses Diagnosis Personal history of urinary (tract) infections documented in this encounter Care Teams Residential Collections Relationship Specialty Start Date End Date Jules Lu MD [address] [place] [address] PCP - General Family Medicine 03/25/24 documented as of this encounter
--- OUTSIDE RECORDS SUMMARY | 2025-03-15 19:06 | XMS_ITS | Encounter Summary ---
Author Organization [employer] Address [address] [place] [address] Care Team Providers Care Racking Technician Name Role Phone Jules Lu MD Primary Care Provider [phone] Encounter Details Date Type Department Care Team (Late st Contact Info) Description 12/26/2024 Lab Requisition [facility] - Main Lab [address] [facility] [place] [address] Jules Lu MD [address] [place] [address] Unspecified cirrhosis of liver (CMS/HCC [...] Date/Time Associated Diagnosis Comments LEVETIRACETAM LEVEL Routine 12/27/2024 8 :58 AM [...] in this encounter Results * (ABNORMAL) Ammonia (12/27/2024 8:58 AM EDT) Pathologist [facility] Ammonia 124(H) 11 - 35 mcmol/L LAB CHEMISTRY METHOD 12/27/2024 10:24 AM EDT [facility] Blood Venous blood specimen / Unknown Venipuncture / Unknown 12/27/2024 8:58 AM EDT 12/27/2024 9:50 AM EDT us Jules Lu MD LAB BLOOD ORDERABLES Final R esult [facility] [address] [place] [address], * (ABNORMAL) Complete blood count (12/27/2024 8:58 AM EDT) [facility] WBC 10.0 4.8 - 10.8 K/mcL LAB HEMETOLOGY METHOD 12/27/2024 11:34 AM EDT [facility] RBC 3.40(L) 4.50 - 5.50 M/mcL LAB HEMETOLOGY METHOD 12/27/2024 11:34 AM [facility] Hemoglobin 10.5(L) 13.5 - 17.5 g/dL LAB HEMETOLOGY METHOD 12/27/2024 11:34 AM [facility] Hematocrit 34.7(L) 42.0 - 54.0 % LAB HEMETOLOGY METHOD 12/27/2024 11:34 AM [facility] MCV 101.8(H) 79.0 - 98.0 FL LAB HEMETOLOGY METHOD 12/27/2024 11:34 AM [facility] MCH 30.8 27.0 - 32.0 pcg LAB HEMETOLOGY METHOD 12/27/2024 11:34 AM [facility] MCHC 30.3(L) 32.0 - 37.0 g/dL LAB HEMETOLOGY METHOD 12/27/2024 11:34 AM [facility] RDW 17.6(H) 11.0 - 15.0 % LAB HEMETOLOGY METHOD 12/27/2024 11:34 AM [facility] Platelets 125(L) 130 - 400 K/mcL LAB HEMETOLOGY METHOD 12/27/2024 11:34 AM [facility] MPV 12.5(H) 7.0 - 11.0 FL LAB HEMETOLOGY METHOD 12/27/2024 11:34 AM [facility] NRBC 0.0 <1.0 % LAB HEMETOLOGY METHOD 12/27/2024 11:34 AM [facility] NRBC Absolute 0.00 <0.10 K/mcL LAB HEMETOLOGY METHOD 12/27/2024 11:34 AM [facility] Blood Venous blood specimen / Unknown Venipuncture / Unknown 12/27/2024 8:58 AM EDT 12/27/2024 10:13 AM EDT us Jules Lu MD LAB BLOOD ORDERABLES Final R esult [facility] [address] [place] [address], [place] [phone] * (ABNORMAL) Comprehensive metabolic panel (12/27/2024 8:58 AM EDT) Sodium 141 133 - 145 mmol/L LAB CHEMISTRY METHOD 12/27/2024 11:06 AM [facility] Potassium 3.6 3.5 - 5.5 mmol/L LAB CHEMISTRY METHOD 12/27/2024 11:06 AM [facility] Chloride 102 96 - 110 mmol/L LAB CHEMISTRY METHOD 12/27/2024 11:06 AM [facility] CO2 34(H) 21 - 32 mmol/L LAB CHEMISTRY METHOD 12/27/2024 11:06 AM [facility] Anion Gap 5 3 - 11 LAB CHEMISTRY METHOD 12/27/2024 11:06 AM [facility] Glucose 166(H) 70 - 100 mg/dL LAB CHEMISTRY METHOD 12/27/2024 11:06 AM [facility] BUN 18 5 - 25 mg/dL LAB CHEMISTRY METHOD 12/27/2024 11:06 AM [facility] Creatinine 1.18 0.70 - 1.30 mg/dL LAB CHEMISTRY METHOD 12/27/2024 11:06 AM [facility] eGFR 71 >=60 mL/min/1. 73m2 LAB CHEMISTRY METHOD 12/27/2024 11:06 AM [facility] Comment:Calculation based on the Chronic Kidney Disease Epidemiology Collaboration (CKD-EPI) equation refit without adjustment for race. BUN/Creatinine Ratio 15.3 LAB CHEMISTRY METHOD 12/27/2024 11:06 AM [facility] Calcium 8.6 8.5 - 10.5 mg/dL LAB CHEMISTRY METHOD 12/27/2024 11:06 AM [facility] AST (SGOT) 22 10 - 42 unit/L LAB CHEMISTRY METHOD 12/27/2024 11:06 AM [facility] ALT (SGPT) 20 10 - 60 unit/L LAB CHEMISTRY METHOD 12/27/2024 11:06 AM [facility] Alkaline Phosphatase 112 42 - 121 unit/L LAB CHEMISTRY METHOD 12/27/2024 11:06 AM [facility] Total Protein 6.1 6.0 - 8.0 g/dL LAB CHEMISTRY METHOD 12/27/2024 11:06 AM [facility] Albumin 2.3(L) 3.2 - 5.0 g/dL LAB CHEMISTRY METHOD 12/27/2024 11:06 AM [facility] Total Bilirubin 1.1 0.0 - 1.4 mg/dL LAB CHEMISTRY METHOD 12/27/2024 11:06 AM [facility] Blood Venous blood specimen / Unknown Venipuncture / Unknown 12/27/2024 8:58 AM EDT 12/27/2024 10:12 AM EDT us Jules Lu MD LAB BLOOD ORDERABLES Final R esult [facility] [address] [place] [address], * Levetiracetam level (12/27/2024 8:58 AM EDT) Levetiracetam 54.4 3.0 - 60.0 ug/mL 12/30/2024 6:09 AM EDT [facility] Comment: Steady state trough serum or plasma levels following doses of 1000 to 3000 mg/Day: 3 to 37 ug/mL. The same dosage regimen will typically result in peak levels of 10 to 60 ug/mL, at approximately 1.5 hours post dose. If applicable, any drug confirmation testing reported here was developed and the performance characteristics determined by [facility]. This confirmation testing has not been cleared or approved by the FDA. The laboratory is regulated under CLIA as qualified to perform high-complexity testing. This test is used for patient testing purposes. It should not be regarded as investigational or for research. Test performed at [facility], [address] , [place] [address] Allison Dominguez MD, PhD - Director Of Global Sales Blood Venous blood specimen / Unknown Venipuncture / Unknown 12/27/2024 8:58 AM EDT 12/27/2024 10:13 AM EDT Jules Lu MD LAB BLOOD ORDERABLES Final R esult [facility] [address] [place] [address] documented in this encounter Visit Diagnoses Diagnosis Unspecified cirrhosis of liver (CMS/HCC V24, CMS/HCC V28) Heart failure, unspecified (CMS/HCC V24, CMS/HCC V28) Heart failure, unspecified Anemia, unspecified Epilepsy, unspecified, intractable, without status epilepticus (CMS/HCC V24, CMS/HCC V28) documented in this encounter Care Teams Racking Technician Relationship Specialty Start Date End Date Juels Lu MD [address] [place] [address] PCP - General Family Medicine 03/25/24 documented as of this encounter
--- OUTSIDE RECORDS SUMMARY | 2025-03-15 19:06 | XMS_ITS | Data Portability ---
Author Organization [place] - [facility], Allergy Address [address] [address] Care Team Providers Care Licensed Nurse Practitioner Name Role Phone MARGAUXROELANTHONY ABEL Primary Care Provider Assessment Encounter Date Assessment Date Assessment LastModified by Organization Details LastModified Time 10/22/2024 10/22/2024 Patient describes a long history of severe headaches 8 of 10 discomfort. Over time they are less frequent but still at least weekly events that may last all day. I do not believe these are sinus infections but rather a variation of a migraine. The location above his eyes is suggestive of tension headache. Discussed hydration, stress, increased effort to perform his work with his decreased weight and muscle mass. Avoidance of high salt foods such as mercado and ham which apparently are a large part of his diet. Given the severity of his headaches recommend MRI study of the brain to rule out pathology. Smoking cessation is also highly recommended. Patient would like to receive results through the portal which his helps him manage [email or web address] Not available 10/22/2024 09:28:14 Plan of Treatment Reminders Order Date Submit Date Provider Last Modified By Organization Details Last Modified Time Details Appointments None recorded. Lab None recorded. Referral None recorded. Procedures None recorded. Surgeries None recorded. Imaging MRI, brain, w/o contrast 2024 025 [email or web address] [facility] ([facility]), [address] [facility] [address], [place], [address], 09:45:46 Medication Orders None recorded. Patient TargetsNo targets recorded. Patient InstructionsNo instructions recorded. Reason for Referral None Reported. Problems Name Problem SNOMED Code Status Onset Date Resolution Date Notes Provider Name and Address Organization Details Recorded Time Nasal congestio n 50871335 Active 2015 Nasal congestio n; Note: Date Diagnosed : 6 4:47 PM (R09.81) Not Available [facility] 4 02:32:26 Loss of sense of smell 21791456 Active 2015 Anosmia; Note: Date Diagnosed : 6 4:46 PM (R43.0) Not Available [facility] 4 02:32:22 Bilateral diffuse otitis externa 10429745866 63843 Active 2015 Diffuse otitis externa, bilateral ; Note: Date Diagnosed : 6 4:46 PM (H60.313) Not Available [facility] 4 02:32:21 Acute sinusitis 76408431 Active 2015 Other acute sinusitis ; Note: Date Diagnosed : 6 8:53 AM (J01.80) Not Available [facility] 4 02:32:20 Sensorine ural hearing loss of bilateral ears 881978013 Active 2015 Sensorine ural hearing loss, bilateral ; Note: Date Diagnosed : 04/29/2016 5:07 PM (H90.3) Not Available [facility] 4 02:32:20 Disorder of smell 897785023 Active 2015 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 5 09:21:29 Tobacco dependenc e caused by cigarette s 35999161116 368934 Active 2024 SHANTELLE HALL MD [address] [facility],[place] [address], [place], [address] , [facility] 09:29:39 Problem Notes None recorded. Procedures Surgical History Date Name Laterality Status Provider Name and Address Organization Details Recorded Time NasalEndoscopy _DP completed SHANTELLE HALL MD [address] [facility] [address], [place], [address], [facility] - [facility] 10/22/2024 09:21:20 vasectomy completed [facility] 10/22/2024 09:00:16 operative procedure on hand completed [facility] 10/22/2024 09:00:31 hernia repair completed [facility] 10/22/2024 09:00:40 Imaging Results None recorded. Procedure Notes None recorded. Medical Equipment None Reported. Allergies No known drug allergies Medications Name Sig Start Date Stop Date Status Note LastModified by Organization Details LastModified Time nicotine 14 mg/24 hr daily transderm al patch PLACE 1 PATCH ON THE SKIN 1 TIME EACH DAY AT THE SAME TIME. active Not Available Not Available No t Available prednison e 20 mg tablet 2 tablet by mouth 10/22 completed Medicati on ID: [id number] D uration Value: 5 Prescri bed By Name: Elena wood MD Brand Name: predniso ne Send Method: E-Prescr ibed Sub s Allowed: subs OK Medic ationGen ericName : predniso ne Not Available Not Available Not Available metronida zole 250 mg tablet TAKE 1 TABLET BY MOUTH FOUR TIMES A DAY 10/22 completed Not Available Not Available Not Available amoxicill in 500 mg tablet 1 tablet by mouth 10/22 completed Medicati on ID: [id number] P rescribe d By Name: Elena wood MD Brand Name: amoxicil manjinder Send Method: E-Prescr ibed Sub s Allowed: subs OK Medic ationGen ericName : amoxicil manjinder Not Available Not Available Not Available omeprazol e 20 mg capsule,d elayed release TAKE 1 CAPSULE BY MOUTH TWICE A DAY 10/22 completed Not Available Not Available Not Available albuterol sulfate HFA 90 mcg/actua tion aerosol inhaler INHALE 2 PUFFS BY MOUTH EVERY 4 (FOUR) HOURS IF NEEDED FOR WHEEZING . active Not Available Not Available No t Available doxycycli ne hyclate 100 mg tablet TAKE 1 TABLET BY MOUTH TWICE A DAY 10/22 completed Not Available Not Available Not Available TobraDex 0.3 %-0.1 % eye drops,[facility] 2015 active Medicati on ID: [id number] P rescribe d By Name: Elena wood MD Brand Name: TobraDex Send Method: E-Prescr ibed Sub s Allowed: subs OK Speci al Instruct ion: Instill 3 drops in the affect ear BID for 10 days Med icationG enericNa me: TobraDex Not Available Not Available Not Available Advil Allergy Sinus 2 mg-30 mg-200 mg tablet 2015 active Medicati on ID: [id number] D uration Value: 5 Brand Name: Advil Allergy Sinus Se nd Method: E-Prescr ibed Sub s Allowed: subs OK Speci al Instruct ion: TAKE 1 TABLET BY MOUTH EVERY 6 HOURS NEEDED Pita sallymikaelcalvin Erin Name: Advil Allergy Sinus Not Available Not Available Not Available varenicli ne tartrate 0.5 mg (11)-1 mg (42) tablets in a dose pack TAKE 1 TABLET DAILY FOR 11 DAYS THEN 1 TABET TWICE A DAY FOR 42 DAYS. active Not Available Not Available No t Available Vitals Date Recorded Body weight Body mass index (BMI) Body height Provider Name and Address Organization Details Last Updated DateTime 10/22/2024 06002.6 g 17.8 kg/m2 182.88 cm MARLY NESS [place] - [facility] 10/22/2024 09:01:20 Social History None recorded. Functional Status Question Answer Note LastModified by Organizat ion Details LastModified Time What is your level of alcohol consumption? Occasional ccomi Information not available 10/22/2024 Mental Status None recorded. Family History Nothing Reported. Medical History Condition Response Emphysema Y Migraines Y Past Encounters Encounter ID Performer Location Encounter Start Date Encounter Closed Date Diagnosis/Indication Diagnosis SNOMED-CT Code Diagnosis ICD10 Code Diagnosis IMO Codes Diagnosis Note [id number] SHANTELLE HALL MD [facility] [address] [place] [address] 10/22/2024 08:42:30 10/22/2024 09:27:52 Tension-type headache 727678533 G44.209 77877 Tobacco de pendence caused by cigarettes 4830731332 0307407 F17.210 [id number] Health Concerns Section Related Observation LastModified by Organization Detai ls LastModified Time None Recorded Concern Status LastModified by Organization Details LastModified Time None Recorded Advance Directives Directive None Recorded Payers Insurance Date Sequence Insurance Name Policy Number Policy Ordonez Covered Member ID Ordonez Member ID Guarantor Name 10/22/[address] [facility] [id number] Suhail Ward [id number] Suhail Ward Notes Date Note Type Note Provider Name and Address Organization Details Recorded Time 10/22/2024 text/html ROS as noted in the HPI Headache above eyes and behind right eyeonset 1 year agono prior allergy testingfrequency 2-3 times per week, may last all day. now 1 per week12/29 severity initiallygets relief with advil, or allergy pill, shower.no imagingNasal congestion and some clear mucustobacco +2ppd for many yearsRobbie Louis 2 dailydropped weight 20 pounds, now stablecoffee 2-3 daily, vitamin water x 1, diet coke x 1 PV 04/29/16 [employer] nasal congestion, improved with short course prednisone work - Environmental Services Supervisor SHANTELLE HALL MD [address] [facility],[place] [address], [place], [address], [facility] - [facility] 10/22/2024 09:29:55
--- OUTSIDE RECORDS SUMMARY | 2025-03-15 19:06 | XMS_ITS | Encounter Summary ---
Author Organization [employer] Address [address] [place] [address] Care Team Providers Care Jewelry Mechanic Name Role Phone Jules Lu MD Primary Care Provider [phone]- [phone] Encounter Details Date Type Department Care Team (Latest Contact Info) Description 10/15/2024 Lab Requisition [facility] - Main Lab [address] [facility] [place] [address] Jules Lu MD [facility] [place] [address] Anemia, unspecified; Hypokalemia; Hepatic encephalopathy (CMS/HCC V24, CMS/HCC V28) Social [...] Associated Diagnosis Comments COMPLETE BLOOD COUNT Routine 10/15/2024 6:09 AM EDT Anemia, unspecified Hypokalemia Hepatic encephalopathy (CMS/HCC V24, CMS/HCC V28) AMMONIA Routine 10/15/2024 6:09 AM EDT Anemia, unspecified Hypokalemia Hepatic encephalopathy (CMS/HCC V24, CMS/HCC V28) COMPREHENSIVE METABOLIC PANEL Routine 10/15/2024 6:09 AM EDT Anemia, unspecified Hypokalemia Hepatic encephalopathy (CMS/HCC V24, CMS/HCC V28) documented in this encounter Results * (ABNORMAL) Ammonia (10/15/2024 6:09 AM EDT) Ammonia 127(H) 11 - 35 mcmol/L LAB CHEMISTRY METHOD 10/15/2024 7:46 AM [facility] Blood Venous blood specimen / Unknown Venipuncture / Unknown 10/15/2024 6:09 AM EDT 10/15/2024 7:21 AM EDT us Jules Lu MD LAB BLOOD ORDERABLES Final R esult [facility] [address] [place] [address], * (ABNORMAL) Comprehensive metabolic panel (10/15/2024 6:09 AM EDT) Sodium 144 133 - 145 mmol/L LAB CHEMISTRY METHOD 10/15/2024 8:39 AM [facility] Potassium 4.8 3.5 - 5.5 mmol/L LAB CHEMISTRY METHOD 10/15/2024 8:39 AM [facility] Chloride 110 96 - 110 mmol/L LAB CHEMISTRY METHOD 10/15/2024 8:39 AM [facility] CO2 26 21 - 32 mmol/L LAB CHEMISTRY METHOD 10/15/2024 8:39 AM [facility] Anion Gap 8 3 - 11 LAB CHEMISTRY METHOD 10/15/2024 8:39 AM [facility] Glucose 60(L) 70 - 100 mg/dL LAB CHEMISTRY METHOD 10/15/2024 8:39 AM [facility] BUN 48(H) 5 - 25 mg/dL LAB CHEMISTRY METHOD 10/15/2024 8:39 AM [facility] Comment:Results verified by repeat testing Creatinine 2.29(H) 0.70 - 1.30 mg/dL LAB CHEMISTRY METHOD 10/15/2024 8:39 AM [facility] eGFR 32(L) >=60 mL/min/1. 73m2 LAB CHEMISTRY METHOD 10/15/2024 8:39 AM [facility] Comment:Calculation based on the Chronic Kidney Disease Epidemiology Collaboration (CKD-EPI) equation refit without adjustment for race. BUN/Creatinine Ratio 21.0 LAB CHEMISTRY METHOD 10/15/2024 8:39 AM [facility] Calcium 9.6 8.5 - 10.5 mg/dL LAB CHEMISTRY METHOD 10/15/2024 8:39 AM [facility] AST (SGOT) 38 10 - 42 unit/L LAB CHEMISTRY METHOD 10/15/2024 8:39 AM [facility] Comment:Results verified by repeat testing ALT (SGPT) 18 10 - 60 unit/L LAB CHEMISTRY METHOD 10/15/2024 8:39 AM [facility] Alkaline Phosphatase 123(H) 42 - 121 unit/L LAB CHEMISTRY METHOD 10/15/2024 8:39 AM [facility] Total Protein 7.9 6.0 - 8.0 g/dL LAB CHEMISTRY METHOD 10/15/2024 8:39 AM [facility] Albumin 2.2(L) 3.2 - 5.0 g/dL LAB CHEMISTRY METHOD 10/15/2024 8:39 AM [facility] Total Bilirubin 2.0(H) 0.0 - 1.4 mg/dL LAB CHEMISTRY METHOD 10/15/2024 8:39 AM [facility] Comment:Results verified by repeat testing Blood Venous blood specimen / Unknown Venipuncture / Unknown 10/15/2024 6:09 AM EDT 10/15/2024 7:21 AM EDT us Jules Lu MD LAB BLOOD ORDERABLES Final R esult [facility] [address] [place] [address], * (ABNORMAL) Complete blood count (10/15/2024 6:09 AM EDT) [facility] WBC 12.8(H) 4.8 - 10.8 K/mcL LAB HEMETOLOGY METHOD 10/15/2024 7:47 AM [facility] RBC 4.30(L) 4.50 - 5.50 M/mcL LAB HEMETOLOGY METHOD 10/15/2024 7:47 AM [facility] Hemoglobin 12.7(L) 13.5 - 17.5 g/dL LAB HEMETOLOGY METHOD 10/15/2024 7:47 AM [facility] Hematocrit 41.9(L) 42.0 - 54.0 % LAB HEMETOLOGY METHOD 10/15/2024 7:47 AM [facility] MCV 96.5 79.0 - 98.0 FL LAB HEMETOLOGY METHOD 10/15/2024 7:47 AM [facility] MCH 29.3 27.0 - 32.0 pcg LAB HEMETOLOGY METHOD 10/15/2024 7:47 AM [facility] MCHC 30.3(L) 32.0 - 37.0 g/dL LAB HEMETOLOGY METHOD 10/15/2024 7:47 AM [facility] RDW 21.6(H) 11.0 - 15.0 % LAB HEMETOLOGY METHOD 10/15/2024 7:47 AM [facility] Platelets 183 130 - 400 K/mcL LAB HEMETOLOGY METHOD 10/15/2024 7:47 AM [facility] MPV 11.4(H) 7.0 - 11.0 FL LAB HEMETOLOGY METHOD 10/15/2024 7:47 AM [facility] NRBC 0.0 <1.0 % LAB HEMETOLOGY METHOD 10/15/2024 7:47 AM [facility] NRBC Absolute 0.00 <0.10 [facility] LAB HEMETOLOGY METHOD 10/15/2024 7:47 AM EDT [facility] Blood Venous blood specimen / Unknown Venipuncture / Unknown 10/15/2024 6:09 AM EDT 10/15/2024 7:21 AM EDT us Jules Lu MD LAB BLOOD ORDERABLES Final R esult [facility] [address] [place] [address], documented in this encounter Visit Diagnoses Diagnosis Anemia, unspecified Hypokalemia Hypopotassemia Hepatic encephalopathy (CMS/HCC V24, CMS/HCC V28) Hepatic encephalopathy documented in this encounter Care Teams Jewelry Mechanic Relationship Specialty Start Date End Date Jules Lu MD [address] [place] [address] PCP - General Family Medicine 03/25/24 documented as of this encounter
--- OUTSIDE RECORDS SUMMARY | 2025-03-15 19:06 | XMS_ITS | Encounter Summary ---
Author Organization [employer] Address [address] [place] [address] Care Team Providers Care Nurse Ob Name Role Phone Jules Lu MD Primary Care Provider [phone] Encounter Details Date Type Department Care Team (Late st Contact Info) Description 10/09/[address] [facility] - Main Lab [address] [facility] [place] [address] Jules Lu MD [facility] [place] [address] Dehydration Social History Tobacco Use [...] Associated Diagnosis Comments BASIC METABOLIC PANEL Routine 10/10/2024 8:15 AM EDT Dehydration documented in this encounter Results * (ABNORMAL) Basic metabolic panel (10/10/2024 8:15 AM EDT) Sodium 147(H) 133 - 145 mmol/L LAB CHEMISTRY METHOD 10/10/2024 1:13 PM EDT [facility] Potassium 3.7 3.5 - 5.5 mmol/L LAB CHEMISTRY METHOD 10/10/2024 1:13 PM T [facility] Chloride 110 96 - 110 mmol/L LAB CHEMISTRY METHOD 10/10/2024 1:[address] [facility] CO2 28 21 - 32 mmol/L LAB CHEMISTRY METHOD 10/10/2024 1:13 PM T [facility] Anion Gap 9 3 - 11 LAB CHEMISTRY METHOD 10/10/2024 1:13 PM EDT [facility] Glucose 42(L) 70 - 100 mg/dL LAB CHEMISTRY METHOD 10/10/2024 1:[address] [facility] BUN 27(H) 5 - 25 mg/dL LAB CHEMISTRY METHOD 10/10/2024 1:[address] [facility] Creatinine 1.56(H) 0.70 - 1.30 mg/dL LAB CHEMISTRY METHOD 10/10/2024 1:13 PM T [facility] eGFR 51(L) >=60 mL/min/1. 73m2 LAB CHEMISTRY METHOD 10/10/2024 1:[address] [facility] Comment:Calculation based on the Chronic Kidney Disease Epidemiology Collaboration (CKD-EPI) equation refit without adjustment for race. BUN/Creatinine Ratio 17.3 LAB CHEMISTRY METHOD 10/10/2024 1:[address] [facility] Calcium 9.0 8.5 - 10.5 mg/dL LAB CHEMISTRY METHOD 10/10/2024 1:[address] [facility] Blood Venous blood specimen / Unknown Venipuncture / Unknown 10/10/2024 8:15 AM EDT 10/10/2024 11:12 AM EDT us Jules Lu MD LAB BLOOD ORDERABLES Final R esult [facility] [address] [place] [address], documented in this encounter Visit Diagnoses Diagnosis Dehydration documented in this encounter Care Teams Nurse Ob Relationship Specialty Start Date End Date Jules Lu MD [address] [place] [address] PCP - General Family Medicine 03/25/24 documented as of this encounter
--- OUTSIDE RECORDS SUMMARY | 2025-03-15 19:06 | XMS_ITS | Encounter Summary ---
Author Organization [employer] Address [address] [place] [address] Care Team Providers Care Sales Account Manager Name Role Phone Jules Lu MD Primary Care Provider [phone] Encounter Details Date Type Department Care Team (Late st Contact Info) Description 10/16/2024 Lab Requisition [facility] - Main Lab [address] [facility] [place] [address] Jules Lu MD [address] [place] [address] Essential (primary) hypertension; Liver cell carcinoma (CMS/HCC V24, CMS/HCC V28) Social History Tobacco [...] Associated Diagnosis Comments COMPLETE BLOOD COUNT Routine 10/16/2024 9:05 AM EDT Essential (primary) hypertension Liver cell carcinoma (CMS/HCC V24, CMS/HCC V28) AMMONIA Routine 10/16/2024 9:05 AM EDT Essential (primary) hypertension Liver cell carcinoma (CMS/HCC V24, CMS/HCC V28) BASIC METABOLIC PANEL Routine 10/16/2024 9:05 AM EDT Essential (primary) hypertension Liver cell carcinoma (CMS/HCC V24, CMS/HCC V28) documented in this encounter Results * (ABNORMAL) Ammonia (10/16/2024 9:05 AM EDT) Ammonia 171(H) 11 - 35 mcmol/L LAB CHEMISTRY METHOD 10/16/2024 10:08 AM [facility] Blood Venous blood specimen / Unknown Venipuncture / Unknown 10/16/2024 9:05 AM EDT 10/16/2024 9:40 AM EDT us Jules Lu MD LAB BLOOD ORDERABLES Final R esult [facility] [address] [place] [address], * (ABNORMAL) Basic metabolic panel (10/16/2024 9:05 AM EDT) Sodium 145 133 - 145 mmol/L LAB CHEMISTRY METHOD 10/16/2024 10:35 AM [facility] Potassium 5.4 3.5 - 5.5 mmol/L LAB CHEMISTRY METHOD 10/16/2024 10:35 AM [facility] Comment:Hemolysis present Chloride 114(H) 96 - 110 mmol/L LAB CHEMISTRY METHOD 10/16/2024 10:35 AM [facility] CO2 24 21 - 32 mmol/L LAB CHEMISTRY METHOD 10/16/2024 10:35 AM [facility] Anion Gap 7 3 - 11 LAB CHEMISTRY METHOD 10/16/2024 10:35 AM [facility] Glucose 51(L) 70 - 100 mg/dL LAB CHEMISTRY METHOD 10/16/2024 10:35 AM [facility] BUN 57(H) 5 - 25 mg/dL LAB CHEMISTRY METHOD 10/16/2024 10:35 AM [facility] Creatinine 2.28(H) 0.70 - 1.30 mg/dL LAB CHEMISTRY METHOD 10/16/2024 10:35 AM [facility] eGFR 32(L) >=60 mL/min/1. 73m2 LAB CHEMISTRY METHOD 10/16/2024 10:35 AM EDT [facility] Comment:Calculation based on the Chronic Kidney Disease Epidemiology Collaboration (CKD-EPI) equation refit without adjustment for race. BUN/Creatinine Ratio 25.0 LAB CHEMISTRY METHOD 10/16/2024 10:35 AM T [facility] Calcium 9.3 8.5 - 10.5 mg/dL LAB CHEMISTRY METHOD 10/16/2024 10:35 AM T [facility] Blood Venous blood specimen / Unknown Venipuncture / Unknown 10/16/2024 9:05 AM EDT 10/16/2024 9:40 AM EDT us Jules Lu MD LAB BLOOD ORDERABLES Final R esult [facility] [address] [place] [address], * (ABNORMAL) Complete blood count (10/16/2024 9:05 AM EDT) WBC 9.7 4.8 - 10.8 K/mcL LAB HEMETOLOGY METHOD 10/16/2024 9:47 AM [facility] RBC 4.30(L) 4.50 - 5.50 M/mcL LAB HEMETOLOGY METHOD 10/16/2024 9:47 AM [facility] Hemoglobin 12.4(L) 13.5 - 17.5 g/dL LAB HEMETOLOGY METHOD 10/16/2024 9:47 AM [facility] Hematocrit 42.1 42.0 - 54.0 % LAB HEMETOLOGY METHOD 10/16/2024 9:47 AM [facility] MCV 97.5 79.0 - 98.0 FL LAB HEMETOLOGY METHOD 10/16/2024 9:47 AM [facility] MCH 28.7 27.0 - 32.0 pcg LAB HEMETOLOGY METHOD 10/16/2024 9:47 AM EDT [facility] MCHC 29.5(L) 32.0 - 37.0 g/dL LAB HEMETOLOGY METHOD 10/16/2024 9:47 AM EDT [facility] RDW 22.4(H) 11.0 - 15.0 % LAB HEMETOLOGY METHOD 10/16/2024 9:47 AM EDT [facility] Platelets 153 130 - 400 K/mcL LAB HEMETOLOGY METHOD 10/16/2024 9:47 AM EDT [facility] MPV 11.2(H) 7.0 - 11.0 FL LAB HEMETOLOGY METHOD 10/16/2024 9:47 AM EDT [facility] NRBC 0.0 <1.0 % LAB HEMETOLOGY METHOD 10/16/2024 9:47 AM EDT [facility] NRBC Absolute 0.00 <0.10 K/mcL LAB HEMETOLOGY METHOD 10/16/2024 9:47 AM EDT [facility] Blood Venous blood specimen / Unknown Venipuncture / Unknown 10/16/2024 9:05 AM EDT 10/16/2024 9:40 AM EDT us Jules Lu MD LAB BLOOD ORDERABLES Final R esult [facility] [address] [place] [address], documented in this encounter Visit Diagnoses Diagnosis Essential (primary) hypertension Unspecified essential hypertension Liver cell carcinoma (CMS/HCC V24, CMS/HCC V28) Malignant neoplasm of liver, primary documented in this encounter Care Teams Sales Account Manager Relationship Specialty Start Date End Date Jules Lu MD [address] [place] [address] PCP - General Family Medicine 03/25/24 documented as of this encounter
--- OUTSIDE RECORDS SUMMARY | 2025-03-15 19:06 | XMS_ITS | Encounter Summary ---
Author Organization [employer] Address [address] [place] [address] Care Team Providers Care Lumber Inspector Name Role Phone Jules Lu MD Primary Care Provider [phone] Encounter Details Date Type Department Care Team (Late st Contact Info) Description 12/12/2024 Lab Requisition [facility] - Main Lab [address] [place] [address] Jules Lu MD [address] [place] [address] Essential (primary) hypertension Social History Tobacco Use Types Packs/Day Years [...] Associated Diagnosis Comments COMPLETE BLOOD COUNT Routine 12/12/2024 6:49 AM EDT Essential (primary) hypertension AMMONIA Routine 12/12/2024 6:49 AM EDT Essential (primary) hypertension BASIC METABOLIC PANEL Routine 12/12/2024 6:49 AM EDT Essential (primary) hypertension documented in this encounter Results * (ABNORMAL) Ammonia (12/12/2024 6:49 AM EDT) Ammonia 120(H) 11 - 35 mcmol/L LAB CHEMISTRY METHOD 12/12/2024 8:10 AM EDT [facility] Blood Venous blood specimen / Unknown Venipuncture / Unknown 12/12/2024 6:49 AM EDT 12/12/2024 7:41 AM EDT us Jules Lu MD LAB BLOOD ORDERABLES Final R esult [facility] [address] [place] [address], [place] [phone] * (ABNORMAL) Basic metabolic panel (12/12/2024 6:49 AM EDT) Sodium 142 133 - 145 mmol/L LAB CHEMISTRY METHOD 12/12/2024 8:39 AM [facility] Potassium 4.2 3.5 - 5.5 mmol/L LAB CHEMISTRY METHOD 12/12/2024 8:39 AM [facility] Chloride 104 96 - 110 mmol/L LAB CHEMISTRY METHOD 12/12/2024 8:39 AM [facility] CO2 37(H) 21 - 32 mmol/L LAB CHEMISTRY METHOD 12/12/2024 8:39 AM [facility] Anion Gap 1(L) 3 - 11 LAB CHEMISTRY METHOD 12/12/2024 8:39 AM [facility] Glucose 58(L) 70 - 100 mg/dL LAB CHEMISTRY METHOD 12/12/2024 8:39 AM [facility] BUN 18 5 - 25 mg/dL LAB CHEMISTRY METHOD 12/12/2024 8:39 AM [facility] Creatinine 0.91 0.70 - 1.30 mg/dL LAB CHEMISTRY METHOD 12/12/2024 8:39 AM [facility] eGFR 96 >=60 mL/min/1. 73m2 LAB CHEMISTRY METHOD 12/12/2024 8:39 AM [facility] Comment:Calculation based on the Chronic Kidney Disease Epidemiology Collaboration (CKD-EPI) equation refit without adjustment for race. BUN/Creatinine Ratio 19.8 LAB CHEMISTRY METHOD 12/12/2024 8:39 AM [facility] Calcium 9.2 8.5 - 10.5 mg/dL LAB CHEMISTRY METHOD 12/12/2024 8:39 AM [facility] Blood Venous blood specimen / Unknown Venipuncture / Unknown 12/12/2024 6:49 AM EDT 12/12/2024 7:41 AM EDT Jules Lu MD LAB BLOOD ORDERABLES Final R esult [facility] [address] [place] [address], * (ABNORMAL) Complete blood count (12/12/2024 6:49 AM EDT) WBC 5.6 4.8 - 10.8 K/mcL LAB HEMETOLOGY METHOD 12/12/2024 7:47 AM [facility] RBC 3.20(L) 4.50 - 5.50 M/mcL LAB HEMETOLOGY METHOD 12/12/2024 7:47 AM [facility] Hemoglobin 9.6(L) 13.5 - 17.5 g/dL LAB HEMETOLOGY METHOD 12/12/2024 7:47 AM [facility] Hematocrit 33.0(L) 42.0 - 54.0 % LAB HEMETOLOGY METHOD 12/12/2024 7:47 AM [facility] MCV 102.2(H) 79.0 - 98.0 FL LAB HEMETOLOGY METHOD 12/12/2024 7:47 AM [facility] MCH 29.7 27.0 - 32.0 pcg LAB HEMETOLOGY METHOD 12/12/2024 7:47 AM [facility] MCHC 29.1(L) 32.0 - 37.0 g/dL LAB HEMETOLOGY METHOD 12/12/2024 7:47 AM EDT [facility] RDW 17.8(H) 11.0 - 15.0 % LAB HEMETOLOGY METHOD 12/12/2024 7:47 AM EDT [facility] Platelets 100(L) 130 - 400 K/mcL LAB HEMETOLOGY METHOD 12/12/2024 7:47 AM EDT [facility] MPV 12.6(H) 7.0 - 11.0 FL LAB HEMETOLOGY METHOD 12/12/2024 7:47 AM EDT [facility] NRBC 0.0 <1.0 % LAB HEMETOLOGY METHOD 12/12/2024 7:47 AM EDT [facility] NRBC Absolute 0.00 <0.10 K/mcL LAB HEMETOLOGY METHOD 12/12/2024 7:47 AM EDT [facility] Blood Venous blood specimen / Unknown Venipuncture / Unknown 12/12/2024 6:49 AM EDT 12/12/2024 7:41 AM EDT us Jules Lu MD LAB BLOOD ORDERABLES Final R esult [facility] [address] [place] [address], documented in this encounter Visit Diagnoses Diagnosis Essential (primary) hypertension Unspecified essential hypertension documented in this encounter Care Teams Lumber Inspector Relationship Specialty Start Date End Date Jules Lu MD [address] [place] [address] PCP - General Family Medicine 03/25/24 documented as of this encounter
--- OUTSIDE RECORDS SUMMARY | 2025-03-15 19:06 | XMS_ITS | Encounter Summary ---
Author Organization [employer] Address [address] [place] [address] Care Team Providers Care Bander Operator Name Role Phone Jules Lu MD Primary Care Provider [phone] Encounter Details Date Type Department Care Team (Late st Contact Info) Description 03/29/2024 Lab Requisition [facility] - Main Lab [address] [place] [address] Jules Lu MD [address] [place] [address] Anemia, unspecified Social History Tobacco [...] Diagnosis Comments CBC WITH AUTO DIFFERENTIAL Routine 03/29/2024 9:40 AM EST Anemia, unspecified CBC AND DIFFERENTIAL Routine 03/29/2024 9:40 AM EST Anemia, unspecified AMMONIA Routine 03/29/2024 9:40 AM EST Anemia, unspecified BASIC METABOLIC PANEL Routine 03/29/2024 9:40 AM EST Anemia, unspecified documented in this encounter Results * (ABNORMAL) CBC auto differential (03/29/2024 9:40 AM EST) WBC 4.8 4.8 - 10.8 K/mcL LAB HEMETOLOGY METHOD 03/29/2024 11:33 AM EST [facility] RBC 3.30(L) 4.50 - 5.50 M/mcL LAB HEMETOLOGY METHOD 03/29/2024 11:33 AM [facility] Hemoglobin 8.9(L) 13.5 - 17.5 g/dL LAB HEMETOLOGY METHOD 03/29/2024 11:33 AM [facility] Hematocrit 30.8(L) 42.0 - 54.0 % LAB HEMETOLOGY METHOD 03/29/2024 11:33 AM [facility] MCV 94.8 79.0 - 98.0 FL LAB HEMETOLOGY METHOD 03/29/2024 11:33 AM [facility] MCH 27.4 27.0 - 32.0 pcg LAB HEMETOLOGY METHOD 03/29/2024 11:33 AM [facility] MCHC 28.9(L) 32.0 - 37.0 g/dL LAB HEMETOLOGY METHOD 03/29/2024 11:33 AM [facility] RDW 18.0(H) 11.0 - 15.0 % LAB HEMETOLOGY METHOD 03/29/2024 11:33 AM [facility] Platelets 143 130 - 400 K/mcL LAB HEMETOLOGY METHOD 03/29/2024 11:33 AM [facility] MPV 10.7 7.0 - 11.0 FL LAB HEMETOLOGY METHOD 03/29/2024 11:33 AM [facility] NRBC 0.0 <1.0 % LAB HEMETOLOGY METHOD 03/29/2024 11:33 AM [facility] NRBC Absolute 0.00 <0.10 K/mcL LAB HEMETOLOGY METHOD 03/29/2024 11:33 AM [facility] Neutrophils Relative 51.9 % LAB HEMETOLOGY METHOD 03/29/2024 11:33 AM [facility] Lymphocytes Relative 28.6 % LAB HEMETOLOGY METHOD 03/29/2024 11:33 AM EST [facility] Monocytes Relative 10.1 % LAB HEMETOLOGY METHOD 03/29/2024 11:33 AM [facility] Eosinophils Relative 8.8 % LAB HEMETOLOGY METHOD 03/29/2024 11:33 AM [facility] Basophils Relative 0.4 % LAB HEMETOLOGY METHOD 03/29/2024 11:33 AM [facility] Immature Granulocytes Relative 0.2 % LAB HEMETOLOGY METHOD 03/29/2024 11:33 AM [facility] Neutrophils Absolute 2.47 1.50 - 7.00 K/mcL LAB HEMETOLOGY METHOD 03/29/2024 11:33 AM [facility] Lymphocytes Absolute 1.36 1.00 - 5.00 K/mcL LAB HEMETOLOGY METHOD 03/29/2024 11:33 AM [facility] Monocytes Absolute 0.48 0.20 - 1.00 K/mcL LAB HEMETOLOGY METHOD 03/29/2024 11:33 AM [facility] Eosinophils Absolute 0.42 0.00 - 0.50 K/mcL LAB HEMETOLOGY METHOD 03/29/2024 11:33 AM [facility] Basophils Absolute 0.02 0.00 - 0.20 K/mcL LAB HEMETOLOGY METHOD 03/29/2024 11:33 AM [facility] Immature Granulocytes Absolute 0.01 0.00 - 0.03 K/mcL LAB HEMETOLOGY METHOD 03/29/2024 11:33 AM [facility] Blood Venous blood specimen / Unknown Venipuncture / Unknown 03/29/2024 9:40 AM EST 03/29/2024 10:41 AM EST us Jules Lu MD LAB BLOOD ORDERABLES Final R esult [facility] [address] [place] [address], [place] [phone] * (ABNORMAL) Ammonia (03/29/2024 9:40 AM EST) [facility] Ammonia 129(H) 11 - 35 mcmol/L LAB CHEMISTRY METHOD 03/29/2024 10:59 AM EST [facility] Blood Venous blood specimen / Unknown Venipuncture / Unknown 03/29/2024 9:40 AM EST 03/29/2024 10:41 AM EST Jules Lu MD LAB BLOOD ORDERABLES Final R esult [facility] [address] [place] [address], [place] [phone] * Basic metabolic panel (03/29/2024 9:40 AM EST) [facility] Sodium 142 133 - 145 mmol/L LAB CHEMISTRY METHOD 03/29/2024 11:56 AM [facility] Potassium 3.5 3.5 - 5.5 mmol/L LAB CHEMISTRY METHOD 03/29/2024 11:56 AM [facility] Chloride 106 96 - 110 mmol/L LAB CHEMISTRY METHOD 03/29/2024 11:56 AM [facility] CO2 30 21 - 32 mmol/L LAB CHEMISTRY METHOD 03/29/2024 11:56 AM [facility] Anion Gap 6 3 - 11 LAB CHEMISTRY METHOD 03/29/2024 11:56 AM [facility] Glucose 82 70 - 100 mg/dL LAB CHEMISTRY METHOD 03/29/2024 11:56 AM [facility] BUN 16 5 - 25 mg/dL LAB CHEMISTRY METHOD 03/29/2024 11:56 AM [facility] Creatinine 1.30 0.70 - 1.30 mg/dL LAB CHEMISTRY METHOD 03/29/2024 11:56 AM EST [facility] eGFR 63 >=60 mL/min/1. 73m2 LAB CHEMISTRY METHOD 03/29/2024 11:56 AM [facility] Comment:Calculation based on the Chronic Kidney Disease Epidemiology Collaboration (CKD-EPI) equation refit without adjustment for race. BUN/Creatinine Ratio 12.3 LAB CHEMISTRY METHOD 03/29/2024 11:56 AM [facility] Calcium 9.2 8.5 - 10.5 mg/dL LAB CHEMISTRY METHOD 03/29/2024 11:56 AM [facility] Blood Venous blood specimen / Unknown Venipuncture / Unknown 03/29/2024 9:40 AM EST 03/29/2024 10:41 AM EST us Jules Lu MD LAB BLOOD ORDERABLES Final R esult [facility] [address] [place] [address], documented in this encounter Visit Diagnoses Diagnosis Anemia, unspecified documented in this encounter Care Teams Bander Operator Relationship Specialty Start Date End Date Julse Lu MD [address] [place] [address] PCP - General Family Medicine 03/25/24 documented as of this encounter
--- OUTSIDE RECORDS SUMMARY | 2025-03-15 19:06 | XMS_ITS | Encounter Summary ---
Author Organization [employer] Address [address] [place] [address] Care Team Providers Care Chocolate Coater Name Role Phone Jules Lu MD Primary Care Provider [phone] Encounter Details Date Type Department Care Team (Late st Contact Info) Description 04/17/[address] [facility] - Main Lab [address] [place] [address] Jules Lu MD [address] [place] [address] Other specified disorders of kidney and ureter Social History Tobacco Use Types Packs/Day Years [...] URINALYSIS WITH REFLEX MICROSCOPIC AND CULTURE Routine 04/17/2024 9:38 AM EST Other specified disorders of kidney and ureter FUNES URINE CULTURE TUBE Routine 04/17/2024 9:38 AM EST Other specified disorders of kidney and ureter URINALYSIS WITH REFLEX MICROSCOPIC AND CULTURE Routine 04/17/2024 9:38 AM EST Other specified disorders of kidney and ureter documented in this encounter Results * Funes urine culture tube (04/17/2024 9:38 AM EST) Extra Tube Hold for add-ons. 04/17/2024 11:01 AM EST [facility] Comment:Auto resulted. Urine Urine specimen obtained by clean catch procedure / Unknown Non-blood Collection / Unknown 04/17/2024 9:38 AM EST 04/17/2024 9:40 AM EST us Jules Lu MD LAB URINE ORDERABLES Final R esult [facility] [address] [place] [address], [place] [phone] * Urinalysis with reflex microscopic and culture (04/17/2024 9:38 AM EST) Specific [place] Urine 1.019 1.003 - 1.030 LAB URINALYSIS - AUTOMATED METHOD 04/17/2024 10:27 AM [facility] pH, Urine 6.0 5.0 - 8.0 pH LAB URINALYSIS - AUTOMATED METHOD 04/17/2024 10:27 AM [facility] Leukocytes, Urine Negative Negative LAB URINALYSIS - AUTOMATED METHOD 04/17/2024 10:27 AM [facility] Nitrite, Urine Negative Negative LAB URINALYSIS - AUTOMATED METHOD 04/17/2024 10:27 AM [facility] Protein, Urine Negative <=Trace mg/dL LAB URINALYSIS - AUTOMATED METHOD 04/17/2024 10:27 AM [facility] Glucose, Urine Negative Negative mg/dL LAB URINALYSIS - AUTOMATED METHOD 04/17/2024 10:27 AM [facility] Ketones, Urine Negative Negative mg/dL LAB URINALYSIS - AUTOMATED METHOD 04/17/2024 10:27 AM [facility] Urobilinogen, Urine 1.0 0.2 - 1.0 mg/dL LAB URINALYSIS - AUTOMATED METHOD 04/17/2024 10:27 AM [facility] Bilirubin, Urine Negative Negative LAB URINALYSIS - AUTOMATED METHOD 04/17/2024 10:27 AM [facility] Blood, Urine Negative Negative LAB URINALYSIS - AUTOMATED METHOD 04/17/2024 10:27 AM EST [facility] Urine Urine specimen obtained by clean catch procedure / Unknown Non-blood Collection / Unknown 04/17/2024 9:38 AM EST 04/17/2024 9:40 AM EST us Jules Lu MD LAB URINE ORDERABLES Final R esult [facility] [address] [place] [address], documented in this encounter Visit Diagnoses Diagnosis Other specified disorders of kidney and ureter documented in this encounter Care Teams Chocolate Coater Relationship Specialty Start Date End Date Jules Lu MD [address] [place] [address] PCP - General Family Medicine 03/25/24 documented as of this encounter
--- OUTSIDE RECORDS SUMMARY | 2025-03-15 19:06 | XMS_ITS | Encounter Summary ---
Author Organization [employer] Address [address] [place] [address] Care Team Providers Care Golf Club Weighter Name Role Phone Jules Lu MD Primary Care Provider [phone] Encounter Details Date Type Department Care Team (Late st Contact Info) Description 12/27/2024 Lab Requisition [facility] - Main Lab [address] [facility] [place] [address] Jules Lu MD [address] [place] [address] Unspecified cirrhosis of liver (CMS/HCC [...] Date/Time Associated Diagnosis Comments LEVETIRACETAM LEVEL Routine 12/30/2024 6 :16 AM [...] epilepticus (CMS/HCC V24, CMS/HCC V28) AMMONIA Routine 12/30/2024 [...] in this encounter Results * (ABNORMAL) Ammonia (12/30/2024 6:16 AM EDT) Ammonia 52(H) 11 - 35 mcmol/L LAB CHEMISTRY METHOD 12/30/2024 7:26 AM EDT [facility] Blood Venous blood specimen / Unknown Venipuncture / Unknown 12/30/2024 6:16 AM EDT 12/30/2024 7:03 AM EDT us Jules Lu MD LAB BLOOD ORDERABLES Final R esult [facility] [address] [place] [address], * (ABNORMAL) Complete blood count (12/30/2024 6:16 AM EDT) WBC 13.6(H) 4.8 - 10.8 K/mcL LAB HEMETOLOGY METHOD 12/30/2024 12:48 PM EDT [facility] RBC 3.20(L) 4.50 - 5.50 M/mcL LAB HEMETOLOGY METHOD [facility] Hemoglobin 9.8(L) 13.5 - 17.5 g/dL LAB HEMETOLOGY METHOD 12/30/2024 12:48 PM [facility] Hematocrit 33.0(L) 42.0 - 54.0 % LAB HEMETOLOGY METHOD 12/30/2024 12:48 PM [facility] MCV 103.8(H) 79.0 - 98.0 FL LAB HEMETOLOGY METHOD 12/30/2024 12:48 PM [facility] MCH 30.8 27.0 - 32.0 pcg LAB HEMETOLOGY METHOD 12/30/2024 12:48 PM [facility] MCHC 29.7(L) 32.0 - 37.0 g/dL LAB HEMETOLOGY METHOD 12/30/2024 12:48 PM [facility] RDW 17.9(H) 11.0 - 15.0 % LAB HEMETOLOGY METHOD 12/30/2024 12:48 PM [facility] Platelets 145 130 - 400 K/mcL LAB HEMETOLOGY METHOD 12/30/2024 12:48 PM [facility] MPV 12.5(H) 7.0 - 11.0 FL LAB HEMETOLOGY METHOD 12/30/2024 12:48 PM [facility] NRBC 0.0 <1.0 % LAB HEMETOLOGY METHOD 12/30/2024 12:48 PM [facility] NRBC Absolute 0.00 <0.10 K/mcL LAB HEMETOLOGY METHOD 12/30/2024 12:48 PM [facility] Blood Venous blood specimen / Unknown Venipuncture / Unknown 12/30/2024 6:16 AM EDT 12/30/2024 11:22 AM EDT us Jules Lu MD LAB BLOOD ORDERABLES Final R esult [facility] [address] [place] [address], [place] [phone] * (ABNORMAL) Comprehensive metabolic panel (12/30/2024 6:16 AM EDT) Sodium 142 133 - 145 mmol/L LAB CHEMISTRY METHOD 12/30/2024 1:32 PM [facility] Potassium 3.3(L) 3.5 - 5.5 mmol/L LAB CHEMISTRY METHOD 12/30/2024 1:32 PM [facility] Chloride 102 96 - 110 mmol/L LAB CHEMISTRY METHOD 12/30/2024 1:32 PM [facility] CO2 33(H) 21 - 32 mmol/L LAB CHEMISTRY METHOD 12/30/2024 1:32 PM [facility] Anion Gap 7 3 - 11 LAB CHEMISTRY METHOD 12/30/2024 1:32 PM [facility] Glucose 34(LL) 70 - 100 mg/dL LAB CHEMISTRY METHOD 12/30/2024 1:32 PM [facility] BUN 18 5 - 25 mg/dL LAB CHEMISTRY METHOD 12/30/2024 1:32 PM [facility] Creatinine 1.05 0.70 - 1.30 mg/dL LAB CHEMISTRY METHOD 12/30/2024 1:32 PM [facility] eGFR 81 >=60 mL/min/1. 73m2 LAB CHEMISTRY METHOD 12/30/2024 1:32 PM [facility] Comment:Calculation based on the Chronic Kidney Disease Epidemiology Collaboration (CKD-EPI) equation refit without adjustment for race. BUN/Creatinine Ratio 17.1 LAB CHEMISTRY METHOD 12/30/2024 1:32 PM [facility] Calcium 8.9 8.5 - 10.5 mg/dL LAB CHEMISTRY METHOD 12/30/2024 1:32 PM EDT [facility] AST (SGOT) 21 10 - 42 unit/L LAB CHEMISTRY METHOD 12/30/2024 1:32 PM EDT [facility] ALT (SGPT) 20 10 - 60 unit/L LAB CHEMISTRY METHOD 12/30/2024 1:32 PM EDT [facility] Alkaline Phosphatase 146(H) 42 - 121 unit/L LAB CHEMISTRY METHOD 12/30/2024 1:32 PM EDT [facility] Total Protein 6.2 6.0 - 8.0 g/dL LAB CHEMISTRY METHOD 12/30/2024 1:32 PM EDT [facility] Albumin 2.4(L) 3.2 - 5.0 g/dL LAB CHEMISTRY METHOD 12/30/2024 1:32 PM EDT [facility] Total Bilirubin 0.8 0.0 - 1.4 mg/dL LAB CHEMISTRY METHOD 12/30/2024 1:32 PM EDT [facility] Blood Venous blood specimen / Unknown Venipuncture / Unknown 12/30/2024 6:16 AM EDT 12/30/2024 11:22 AM EDT Jules Lu MD LAB BLOOD ORDERABLES Final R esult [facility] [address] [place] [address], * Levetiracetam level (12/30/2024 6:16 AM EDT) Levetiracetam 54.5 3.0 - 60.0 ug/mL 01/01/2025 7:02 AM EDT [facility] Comment: Steady state [...] investigational or for research. Test performed at [facility], [address] , [place] [address] Allison Dominguez MD, PhD - Tying Machine [employer] Blood Venous blood specimen / Unknown Venipuncture / Unknown 12/30/2024 6:16 AM EDT 12/30/2024 11:22 AM EDT Jules Lu MD LAB BLOOD ORDERABLES Final R esult [facility] [address] 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
--- OUTSIDE RECORDS SUMMARY | 2025-03-15 19:06 | XMS_ITS | Encounter Summary ---
Author Organization [employer] Address [address] [place] [address] Care Team Providers Care Marine Erector Name Role Phone Jules Lu MD Primary Care Provider [phone] Encounter Details Date Type Department Care Team (Latest Contact Info) Description 12/31/2024 Lab Requisition [facility] - Main Lab [address] [facility] [place] [address] Jules Lu MD [facility] [place] [address] Hepatic encephalopathy (CMS/HCC V24, CMS/HCC V28); Hyperlipidemia, unspecified; Unspecified cirrhosis of liver (CMS/HCC V24, CMS/HCC V28) Social History Tobacco [...] Associated Diagnosis Comments COMPLETE BLOOD COUNT Routine 12/31/2024 5:38 AM EDT Hepatic encephalopathy (CMS/HCC V24, CMS/HCC V28) Hyperlipidemia, unspecified Unspecified cirrhosis of liver (CMS/HCC V24, CMS/HCC V28) MAGNESIUM Routine 12/31/2024 5:38 AM EDT Hepatic encephalopathy (CMS/HCC V24, CMS/HCC V28) Hyperlipidemia, unspecified Unspecified cirrhosis of liver (CMS/HCC V24, CMS/HCC V28) AMMONIA Routine 12/31/2024 5:38 AM EDT Hepatic encephalopathy (CMS/HCC V24, CMS/HCC V28) Hyperlipidemia, unspecified Unspecified cirrhosis of liver (CMS/HCC V24, CMS/HCC V28) COMPREHENSIVE METABOLIC PANEL Routine 12/31/2024 5:38 AM EDT Hepatic encephalopathy (CMS/HCC V24, [facility]/HCC V28) Hyperlipidemia, unspecified Unspecified cirrhosis of liver (CMS/HCC V24, CMS/HCC V28) documented in this encounter Results * (ABNORMAL) Ammonia (12/31/2024 5:38 AM EDT) [facility] Ammonia 64(H) 11 - 35 mcmol/L LAB CHEMISTRY METHOD 12/31/2024 7:11 AM EDT [facility] Blood Venous blood specimen / Unknown Venipuncture / Unknown 12/31/2024 5:38 AM EDT 12/31/2024 6:49 AM EDT Jules Lu MD LAB BLOOD ORDERABLES Final R esult Performing Organization Address City/[facility]/ZIP Co de Phone Number [facility] [address] [place] [address], [place] [phone] * (ABNORMAL) Magnesium (12/31/2024 5:38 AM EDT) [facility] Magnesium 1.8(L) 1.9 - 2.6 mg/dL LAB CHEMISTRY METHOD 12/31/2024 9:21 AM EDT [facility] Blood Venous blood specimen / Unknown Venipuncture / Unknown 12/31/2024 5:38 AM EDT 12/31/2024 6:49 AM EDT Jules Lu MD LAB BLOOD ORDERABLES Final R esult [facility] [address] [place] [address], [place] [phone] * (ABNORMAL) Comprehensive metabolic panel (12/31/2024 5:38 AM EDT) [facility] Sodium 142 133 - 145 mmol/L LAB CHEMISTRY METHOD 12/31/2024 9:24 AM [facility] Potassium 3.5 3.5 - 5.5 mmol/L LAB CHEMISTRY METHOD 12/31/2024 9:24 AM [facility] Chloride 101 96 - 110 mmol/L LAB CHEMISTRY METHOD 12/31/2024 9:24 AM [facility] CO2 36(H) 21 - 32 mmol/L LAB CHEMISTRY METHOD 12/31/2024 9:24 AM [facility] Anion Gap 5 3 - 11 LAB CHEMISTRY METHOD 12/31/2024 9:24 AM [facility] Glucose 44(L) 70 - 100 mg/dL LAB CHEMISTRY METHOD 12/31/2024 9:24 AM [facility] BUN 15 5 - 25 mg/dL LAB CHEMISTRY METHOD 12/31/2024 9:24 AM [facility] Creatinine 1.11 0.70 - 1.30 mg/dL LAB CHEMISTRY METHOD 12/31/2024 9:24 AM [facility] eGFR 76 >=60 mL/min/1. 73m2 LAB CHEMISTRY METHOD 12/31/2024 9:24 AM [facility] Comment:Calculation based on the Chronic Kidney Disease Epidemiology Collaboration (CKD-EPI) equation refit without adjustment for race. BUN/Creatinine Ratio 13.5 LAB CHEMISTRY METHOD 12/31/2024 9:24 AM [facility] Calcium 8.5 8.5 - 10.5 mg/dL LAB CHEMISTRY METHOD 12/31/2024 9:24 AM [facility] AST (SGOT) 21 10 - 42 unit/L LAB CHEMISTRY METHOD 12/31/2024 9:24 AM [facility] ALT (SGPT) 16 10 - 60 unit/L LAB CHEMISTRY METHOD 12/31/2024 9:24 AM [facility] Alkaline Phosphatase 141(H) 42 - 121 unit/L LAB CHEMISTRY METHOD 12/31/2024 9:24 AM EDT [facility] Total Protein 5.7(L) 6.0 - 8.0 g/dL LAB CHEMISTRY METHOD 12/31/2024 9:24 AM T [facility] Albumin 2.2(L) 3.2 - 5.0 g/dL LAB CHEMISTRY METHOD 12/31/2024 9:24 AM EDT [facility] Total Bilirubin 0.6 0.0 - 1.4 mg/dL LAB CHEMISTRY METHOD 12/31/2024 9:24 AM T [facility] Blood Venous blood specimen / Unknown Venipuncture / Unknown 12/31/2024 5:38 AM EDT 12/31/2024 6:49 AM EDT Jules Lu MD LAB BLOOD ORDERABLES Final R esult [facility] [address] [place] [address], * (ABNORMAL) Complete blood count (12/31/2024 5:38 AM EDT) WBC 9.4 4.8 - 10.8 K/mcL LAB HEMETOLOGY METHOD 12/31/2024 8:59 AM [facility] RBC 3.10(L) 4.50 - 5.50 M/[facility] LAB HEMETOLOGY METHOD 12/31/2024 8:59 AM EDT [facility] Hemoglobin 9.4(L) 13.5 - 17.5 g/dL LAB HEMETOLOGY METHOD 12/31/2024 8:59 AM [facility] Hematocrit 31.1(L) 42.0 - 54.0 % LAB HEMETOLOGY METHOD 12/31/2024 8:59 AM EDT [facility] MCV 102.0(H) 79.0 - 98.0 FL LAB HEMETOLOGY METHOD 12/31/2024 8:59 AM EDT [facility] MCH 30.8 27.0 - 32.0 pcg LAB HEMETOLOGY METHOD 12/31/2024 8:59 AM EDT [facility] MCHC 30.2(L) 32.0 - 37.0 g/dL LAB HEMETOLOGY METHOD 12/31/2024 8:59 AM EDT [facility] RDW 17.4(H) 11.0 - 15.0 % LAB HEMETOLOGY METHOD 12/31/2024 8:59 AM EDT [facility] Platelets 114(L) 130 - 400 K/mcL LAB HEMETOLOGY METHOD 12/31/2024 8:59 AM EDT [facility] MPV 12.3(H) 7.0 - 11.0 FL LAB HEMETOLOGY METHOD 12/31/2024 8:59 AM EDT [facility] NRBC 0.0 <1.0 % LAB HEMETOLOGY METHOD 12/31/2024 8:59 AM EDT [facility] NRBC Absolute 0.00 <0.10 K/mcL LAB HEMETOLOGY METHOD 12/31/2024 8:59 AM EDT [facility] Blood Venous blood specimen / Unknown Venipuncture / Unknown 12/31/2024 5:38 AM EDT 12/31/2024 6:49 AM EDT us Jules Lu MD LAB BLOOD ORDERABLES Final R esult [facility] [address] [place] [address], documented in this encounter Visit Diagnoses Diagnosis Hepatic encephalopathy (CMS/HCC V24, CMS/HCC V28) Hepatic encephalopathy Hyperlipidemia, unspecified Unspecified cirrhosis of liver (CMS/HCC V24, CMS/HCC V28) documented in this encounter Care Teams Marine Erector Relationship Specialty Start Date End Date Jules Lu MD [address] [place] [address] PCP - General Family Medicine 03/25/24 documented as of this encounter
--- OUTSIDE RECORDS SUMMARY | 2025-03-15 19:06 | XMS_ITS | Encounter Summary ---
Author Organization [employer] Address [address] [place] [address] Care Team Providers Care Desktop Engineer Name Role Phone Jules Lu MD Primary Care Provider [phone] Encounter Details Date Type Department Care Team (Late st Contact Info) Description 11/09/2024 Lab Requisition [facility] - Main Lab [address] [place] [address] Jules Lu MD [address] [place] [address] Pneumonia, unspecified organism Social History [...] Diagnosis Comments CBC WITH AUTO DIFFERENTIAL Routine 11/11/2024 7:11 AM EDT Pneumonia, unspecified organism CBC AND DIFFERENTIAL Routine 11/11/2024 7:11 AM EDT Pneumonia, unspecified organism COMPREHENSIVE METABOLIC PANEL Routine 11/11/2024 7:11 AM EDT Pneumonia, unspecified organism documented in this encounter Results * (ABNORMAL) CBC auto differential (11/11/2024 7:11 AM EDT) WBC 8.8 4.8 - 10.8 K/[facility] LAB HEMETOLOGY METHOD 11/11/2024 11:05 AM EDT [facility] RBC 3.30(L) 4.50 - 5.50 M/[facility] LAB HEMETOLOGY METHOD 11/11/2024 11:05 AM [facility] Hemoglobin 10.6(L) 13.5 - 17.5 g/dL LAB HEMETOLOGY METHOD 11/11/2024 11:05 AM [facility] Hematocrit 34.0(L) 42.0 - 54.0 % LAB HEMETOLOGY METHOD 11/11/2024 11:05 AM [facility] MCV 101.8(H) 79.0 - 98.0 FL LAB HEMETOLOGY METHOD 11/11/2024 11:05 AM [facility] MCH 31.7 27.0 - 32.0 pcg LAB HEMETOLOGY METHOD 11/11/2024 11:05 AM [facility] MCHC 31.2(L) 32.0 - 37.0 g/dL LAB HEMETOLOGY METHOD 11/11/2024 11:05 AM [facility] RDW 23.2(H) 11.0 - 15.0 % LAB HEMETOLOGY METHOD 11/11/2024 11:05 AM [facility] Platelets 155 130 - 400 K/mcL LAB HEMETOLOGY METHOD 11/11/2024 11:05 AM [facility] MPV 11.7(H) 7.0 - 11.0 FL LAB HEMETOLOGY METHOD 11/11/2024 11:05 AM [facility] NRBC 0.0 <1.0 % LAB HEMETOLOGY METHOD 11/11/2024 11:05 AM [facility] NRBC Absolute 0.00 <0.10 K/mcL LAB HEMETOLOGY METHOD 11/11/2024 11:05 AM [facility] Neutrophils Relative 62.1 % LAB HEMETOLOGY METHOD 11/11/2024 11:05 AM [facility] Lymphocytes Relative 19.8 % LAB HEMETOLOGY METHOD 11/11/2024 11:05 AM [facility] Monocytes Relative 12.1 % LAB HEMETOLOGY METHOD 11/11/2024 11:05 AM [facility] Eosinophils Relative 5.2 % LAB HEMETOLOGY METHOD 11/11/2024 11:05 AM [facility] Basophils Relative 0.5 % LAB HEMETOLOGY METHOD 11/11/2024 11:05 AM [facility] Immature Granulocytes Relative 0.3 % LAB HEMETOLOGY METHOD 11/11/2024 11:05 AM [facility] Neutrophils Absolute 5.45 1.50 - 7.00 K/mcL LAB HEMETOLOGY METHOD 11/11/2024 11:05 AM [facility] Lymphocytes Absolute 1.74 1.00 - 5.00 K/mcL LAB HEMETOLOGY METHOD 11/11/2024 11:05 AM [facility] Monocytes Absolute 1.06(H) 0.20 - 1.00 K/mcL LAB HEMETOLOGY METHOD 11/11/2024 11:05 AM [facility] Eosinophils Absolute 0.46 0.00 - 0.50 K/mcL LAB HEMETOLOGY METHOD 11/11/2024 11:05 AM [facility] Basophils Absolute 0.04 0.00 - 0.20 K/mcL LAB HEMETOLOGY METHOD 11/11/2024 11:05 AM [facility] Immature Granulocytes Absolute 0.03 0.00 - 0.03 K/mcL LAB HEMETOLOGY METHOD 11/11/2024 11:05 AM [facility] Blood Venous blood specimen / Unknown Venipuncture / Unknown 11/11/2024 7:11 AM EDT 11/11/2024 10:41 AM EDT Jules Lu MD LAB BLOOD ORDERABLES Final R esult [facility] [address] [place] [address], * (ABNORMAL) Comprehensive metabolic panel (11/11/2024 7:11 AM EDT) Sodium 138 133 - 145 mmol/L LAB CHEMISTRY METHOD 11/11/2024 12:24 PM [facility] Potassium 3.8 3.5 - 5.5 mmol/L LAB CHEMISTRY METHOD 11/11/2024 12:24 PM [facility] Chloride 103 96 - 110 mmol/L LAB CHEMISTRY METHOD 11/11/2024 12:24 PM [facility] CO2 30 21 - 32 mmol/L LAB CHEMISTRY METHOD 11/11/2024 12:24 PM [facility] Anion Gap 5 3 - 11 LAB CHEMISTRY METHOD 11/11/2024 12:24 PM [facility] Glucose 50(L) 70 - 100 mg/dL LAB CHEMISTRY METHOD 11/11/2024 12:24 PM [facility] BUN 11 5 - 25 mg/dL LAB CHEMISTRY METHOD 11/11/2024 12:24 PM [facility] Creatinine 0.90 0.70 - 1.30 mg/dL LAB CHEMISTRY METHOD 11/11/2024 12:24 PM [facility] eGFR 98 >=60 mL/min/1. 73m2 LAB CHEMISTRY METHOD 11/11/2024 12:24 PM [facility] Comment:Calculation based on the Chronic Kidney Disease Epidemiology Collaboration (CKD-EPI) equation refit without adjustment for race. BUN/Creatinine Ratio 12.2 LAB CHEMISTRY METHOD 11/11/2024 12:24 PM [facility] Calcium 8.7 8.5 - 10.5 mg/dL LAB CHEMISTRY METHOD 11/11/2024 12:24 PM [facility] AST (SGOT) 17 10 - 42 unit/L LAB CHEMISTRY METHOD 11/11/2024 12:24 PM EDT [facility] ALT (SGPT) 20 10 - 60 unit/L LAB CHEMISTRY METHOD 11/11/2024 12:24 PM EDT [facility] Alkaline Phosphatase 119 42 - 121 unit/L LAB CHEMISTRY METHOD 11/11/2024 12:24 PM T [facility] Total Protein 6.1 6.0 - 8.0 g/dL LAB CHEMISTRY METHOD 11/11/2024 12:24 PM EDT [facility] Albumin 2.2(L) 3.2 - 5.0 g/dL LAB CHEMISTRY METHOD 11/11/2024 12:24 PM [facility] Total Bilirubin 1.3 0.0 - 1.4 mg/dL LAB CHEMISTRY METHOD 11/11/2024 12:24 PM T [facility] Blood Venous blood specimen / Unknown Venipuncture / Unknown 11/11/2024 7:11 AM EDT 11/11/2024 10:41 AM EDT us Jules Lu MD LAB BLOOD ORDERABLES Final R esult [facility] [address] [place] [address], documented in this encounter Visit Diagnoses Diagnosis Pneumonia, unspecified organism documented in this encounter Care Teams Desktop Engineer Relationship Specialty Start Date End Date Jules Lu MD [address] [place] [address] PCP - General Family Medicine 03/25/24 documented as of this encounter
--- OUTSIDE RECORDS SUMMARY | 2025-03-15 19:06 | XMS_ITS | Encounter Summary ---
Author Organization [employer] Address [address] [place] [address] Care Team Providers Care Legislators Name Role Phone Jules Lu MD Primary Care Provider [phone] Encounter Details Date Type Department Care Team (Late st Contact Info) Description 03/27/2024 Lab Requisition [facility] - Main Lab [address] [place] [address] Jules Lu MD [facility] [place] [address] Personal history of urinary (tract) infections Social [...] Procedure Name Priority Date/Time Associated Diagnosis Comments CULTURE BLOOD Routine 03/27/2024 11:47 AM EST Personal history of urinary (tract) infections documented in this encounter Results * Culture blood (03/27/2024 11:47 AM EST) Culture, Blood No growth at 5 days LAB MICROBIOLOGY METHOD 04/01/2024 1:01 PM EST [facility] Blood Venous blood specimen / Unknown Venipuncture / Unknown 03/27/2024 11:47 AM EST 03/27/2024 12:19 PM EST Jules Lu MD LAB MICROBIOLOGY - GENERAL O RDERABLES Final Result [facility] [address] [place], [place] [address] [phone] documented in this encounter Visit Diagnoses Diagnosis Personal history of urinary (tract) infections documented in this encounter Care Teams Legislators Relationship Specialty Start Date End Date Jules Lu MD [address] [place] [address] PCP - General Family Medicine 03/25/24 documented as of this encounter
--- NOTE | 2025-03-15 19:08 | ED.SOB ---
HPI - SOB/Dyspnea General Chief Complaint: Dyspnea Stated Complaint: o2 stat 71% possible pneumonia &/ sepsis? Time Seen by Provider: 03/15/25 18:43 History of Present Illness HPI Narrative: Patient is a 59-year-old male with a history of PE history of COPD baseline on question oxygen. Presented today with having increasing shortness of breath. O2 sat in the 70s by EMS. On neb was given prior to arrival placed on 6 L of oxygen to maintain an O2 sat in the 90s. There is no fever no chills. There is no diaphoresis. Patient is from home. Related Data Allergies Allergy/AdvReac Type Severity Reaction Status Date / Time allopurinol Allergy Unknown Verified 03/15/25 18:52 cephalexin Allergy Unknown Verified 03/15/25 18:52 Iodinated Contrast Media Allergy Unknown Verified 03/15/25 18:52 (Contrast Dye) levofloxacin Allergy Unknown Verified 03/15/25 18:52 sulfamethoxazole Allergy Unknown Verified 03/15/25 18:52 trimethoprim Allergy Unknown Verified 03/15/25 18:52 Review of Systems Review of Systems: Positive shortness of breath Yes all other systems are reviewed and are negative [facility] Past Medical History Attestation statement: The following information was validated with the patient. Social History Social History Alcohol intake: former Smoked in Last 30 Days: No Use of substances other than those prescribed or required for medical reasons: No Advance Directives: No Advance Directives Information Provided: No Do you have a plan to hurt others: No Plan Physical Exam Exam: Exam: Toxic appearing , short of breath. Mumbling Appearance: Alert. Follows simple commands Eyes: Pupils equal, round and reactive to light. ENT: Pharynx normal. Neck: Trachea is midline there is no JVD noted CVS: Diminished breath sounds bilaterally wheezing bilaterally increased work of breathing bilaterally Respiratory: No respiratory distress. Breath sounds normal. No Wheezing. No rales Abdomen: Soft and nontender. No rigidity. No distention. good BS x4 Skin: Skin warm and dry. Normal skin color. Normal skin turgor. Extremities: No lower extremity edema. Neurovascular intact to all extremities. No Lacerations. No Rash Neuro: O awake alert moving arms and legs Vital Signs: Vital Signs: Last Vital Signs Temp 98.3 F 03/15/25 18:39 Pulse 87 10/25/25 20:52 Resp 18 03/15/25 20:52 BP 126/58 L 03/15/25 20:52 Pulse Ox 94 03/15/25 20:52 O2 Del Method BiPAP 03/15/25 20:52 O2 Flow Rate 10 03/15/25 20:31 Oxygen Flow Rate 6 03/15/25 18:39 BMI result Body Mass Index 28.3 Medications Administered Discontinued Medications Generic Name Dose Route Start Last Admin Trade Name Freq PRN Reason Stop Dose Admin Albuterol Sulfate 7.5 mg/ 10 mg 03/15/25 18:51 03/15/25 18:54 Albuterol Sulfate 2.5 mg INHALE 03/15/25 18:52 10 mg ONCE ONE Administration Magnesium Sulfate 2 gm in 50 mls @ 150 mls/hr 03/15/25 19:11 03/15/25 20:25 Magnesium Sulfate/H2o IV 03/15/25 19:30 Infused ONCE ONE Infusion Sodium Chloride 1,000 mls @ 999 mls/hr 03/15/25 20:00 03/15/25 20:23 Ns IV 03/15/25 21:00 999 mls/hr .Q1H1M HYUN Administration Sodium Chloride 1,000 mls @ 999 mls/hr 03/15/25 20:15 03/15/25 20:23 Ns IV 03/15/25 21:15 999 mls/hr .Q1H1M HYUN Administration Sodium Chloride 1,000 mls @ 999 mls/hr 03/15/25 20:15 03/15/25 20:41 Ns IV 03/15/25 21:15 999 mls/hr .Q1H1M HYUN Administration Meropenem 1 gm 03/15/25 19:12 03/15/25 19:39 Meropenem 1 Gm Vial IVPUSH 03/15/25 19:13 1 gm ONCE ONE Administration Methylprednisolone Sodium Succinate 125 mg 03/15/25 19:11 03/15/25 19:45 Methylprednisolone Sod Succ 125 Mg/2 Ml Vial IVPUSH 03/15/25 19:12 125 mg ONCE ONE Administration Medical Decision Making Medical Decision Making MDM Narrative: History of COPD baseline not on oxygen history of PE is on Eliquis history of congestive heart failure presented today with having coughing shortness of breath generalized malaise worsening shortness of breath. Requiring increasing amount of oxygen patient unable to give details. He is a full code. Currently on 6 L of oxygen and maintained an O2 sat of 93%. ABG labs ordered. Chest x-ray ordered. Bronchialdilator protocol older Patient toxic appearing. Short of breath. Decreased O2 sat. My interpretation patient's chest x-ray showed no focal infiltrate. Lungs are tight. O2 sat was low. We did an ABG it shows CO2 retention. With a pH of 7.3 pCO2 in the 60s. BiPAP was started. Patient has a nephrostomy tube. After flushing urine was sent. It was grossly infected question infection versus colonization in the setting of patient having an elevated lactate short of breath. Cultures were obtained. 30 cc/kilos IV fluids ordered. Patient was given a dose of meropenem because of multitude of allergies. COVID flu RSV were negative. BNP is 400 less likely secondary to congestive heart failure. Repeat focal exam for sepsis was done patient's symptoms seems to be about the same. Still short of breath. Now on BiPAP. ICU team was contacted. Now down to see patient. We obtain old records from [facility] looks like patient has a history of COPD is on 3 L of oxygen. Also a history of liver cirrhosis. History of hepatocellular cancer. History of having PE. Now is on Eliquis. History of having a perinephric abscess. Had a drain placed in [facility] in November. ICU team down to see patient patient to be admitted. Differential Diagnosis Differential Diagnoses: The differential diagnosis associated with the presentation includes COPD, pneumonia, urosepsis Admission/Observation Consideration of admission/observation: Escalation of care including admission/observation considered Consult Healthcare Provider Management of the patient was discussed with: Director Of Professional Services (Cash Register Operator) Lab Data [facility] Lab Attestation statement: I reviewed the patient's lab results. 03/15/25 19:36 03/15/25 19:36 Labs: Lab Results 03/15/25 03/15/25 03/15/25 Range/Units 19:36 20:19 20:50 WBC 16.1 H (4.8-10.8) X10*3/uL RBC 3.75 L (4.60-5.80) X10*6/uL Hgb 11.5 L (14.0-18.0) g/dl Hct 37.5 L (42.0-52.0) % MCV 100.0 H (80.0-98.0) fL MCH 30.7 (27.0-33.0) pg MCHC 30.7 L (31.0-36.0) g/dl RDW 15.4 (11.0-16.0) % Plt Count 101 L (160-400) X10*3/uL MPV 12.6 H (9.4-12.4) fL Immature Gran % (Auto) 0.4 (0.0-0.4) % Neut % (Auto) 73.7 H (45-73) % Lymph % (Auto) 10.8 L (20-40) % [place] % (Auto) 11.7 H (2-11) % Eos % (Auto) 2.9 (0-4) % Baso % (Auto) 0.5 (0-2) % Lymph # (Auto) 1.7 (1.2-4.9) X10*3/uL [place] # (Auto) 1.9 H (0.1-1.2) X10*3/uL Eos # (Auto) 0.5 H (0.0-0.4) X10*3/uL Baso # (Auto) 0.1 (0.0-0.2) X10*3/uL Abs Immat Gran (auto) 0.07 H (0.00-0.03) X10*3/uL Absolute Neuts (auto) 11.8 H (2.0-8.3) x10*3/uL Absolute Nucleated RBC 0.000 (0.0-0.012) X10*3/uL Nucleated RBC % (auto) 0.0 (0.0-0.2) /100WBC Smear Tech's Comments VERIFIED PT 20.2 H (10.9-12.4) SEC INR 1.8 H (0.9-1.1) O2 Saturation 97.0 % ABG pH at Pt Temp 7.28 L (7.35-7.45) ABG pCO2 at Pt Temp 60 H* (32-45) mmHg ABG pO2 at Pt Temp 98 (83-108) mmHg ABG HCO3 29 H (22-26) mmol/L ABG Base Excess (Actual) 1.1 mmol/L Sodium 145 (135-145) mmol/L Potassium 4.2 (3.3-5.1) mmol/L Chloride 98 (96-108) mmol/L Carbon Dioxide 37 H (22-29) mmol/L Anion Gap 14 (12-20) BUN 30 H (9-16) mg/dL Creatinine 1.52 H (0.5-1.4) mg/dL Estim Creat Clear Calc 59.9 Estimated GFR 47 Random Glucose 93 (60-115) mg/dL Lactic Acid 2.4 H* (0.5-2.0) mmol/L Calcium 9.5 (8.4-10.2) mg/dL Magnesium 1.7 (1.6-2.6) mg/dL Total Bilirubin 1.5 H (0.0-1.0) mg/dL Direct Bilirubin 0.8 H (0.0-0.5) mg/dL AST 26 (5-37) U/L ALT 11 (0-40) U/L Alkaline Phosphatase 168 H (39-117) U/L Ammonia 84 H (13-55) umol/L Troponin I High Sens 11.8 (<3.5-35.0) ng/L NT-Pro-B Natriuret Pep 431.1 H (<300) pg/mL Total Protein 7.0 (6.5-8.0) g/dL Albumin 2.6 L (3.5-5.0) g/dL Urine Color Red A Urine Appearance Cloudy Urine pH 6.5 (5.0-9.0) Ur Specific [place] 1.010 (1.005-1.025) Urine Protein 100 (2+) H (Neg-Trace) mg/dL Urine Glucose (UA) Negative (Negative) mg/dL Urine Ketones Negative (Negative) mg/dL Urine Blood Large (3+) H (Negative) Urine Nitrite Negative (Negative) Ur Leukocyte Esterase Large (3+) H (Negative) Urine RBC >20 H (0-2) /HPF Urine WBC >50 H (0-5) /HPF Ur Squamous Epith Cells 0-2 (0-2) /HPF Urine Bacteria None Seen (None Seen) Hyaline Casts 0-2 (0-2) /LPF Influenza Type A (PCR) NEGATIVE (Negative) Influenza Type B (PCR) NEGATIVE (Negative) RSV RNA Qual (PCR) NEGATIVE (Negative) SARS-CoV-2 RNA (RT-PCR) NEGATIVE (Negative) ABG Data Attestation ABG: I personally reviewed and interpreted this ABG as follows: Interpretation: Acute on chronic respiratory acidosis Independent Interpretation I performed an independent interpretation of an: EKG (Sinus heart rate is 85 AR QRS QTC within normal limits there is no ST segment elevation.) Radiology Impression Discussion of test interpretation with radiology: I have reviewed the radiologist's reading. External Record Review External record reviewed: Inpatient record Chronic Conditions Patient?s care impacted by: Hypertension History of COPD. History of hepatocellular cancer. History of PE. History of perinephric abscess Social Determinants Patient?s care significantly limited by Social Determinants of Health including: Problems related to primary support group Critical Care Time Critical Care Time Critical Care Time: Yes Total Critical Care Time: 90 Attestation: I have personally provided 90 minutes of critical care time exclusive of time spent on separately billable procedures. ?Time includes review of lab data, radiology results, discussion with consultants, and monitoring for potential decompensation. ?Interventions were performed as documented above Discharge Plan Discharge Clinical Impression: Asthma with exacerbation, Acute exacerbation of chronic obstructive airways disease, Respiratory failure Patient Disposition: Admitted As Inpatient
--- NOTE | 2025-03-15 19:37 | PC.NURSE ---
Received pt from room 20, per Dr. MCCORMICK pt is now a sepsis protocol. program architect aware.
[2025-03-15 19:44] LABS: Imm Gran Pct Auto 0.4 % (0.0-0.4); NRBC Abs Auto 0.000 X10*3/uL (0.0-0.012); NRBC Pct Auto 0.0 /100WBC (0.0-0.2); SCAN SMEAR FLAG 1
[2025-03-15] MEDS: Magnesium Sulfate/H2O 2 GM/50 ML PIGGYBACK IV (19:45)
[2025-03-15 19:46] LABS: Hematocrit 37.5 % (42.0-52.0); Hemoglobin 11.5 g/dl (14.0-18.0); Imm Gran Abs Auto 0.07 X10*3/uL (0.00-0.03); Lymphocytes Absolute Auto 1.7 X10*3/uL (1.2-4.9); Mean Corpuscular HGB Conc 30.7 g/dl (31.0-36.0); Mean Corpuscular Hemoglobin 30.7 pg (27.0-33.0); Mean Corpuscular Volume 100.0 fL (80.0-98.0); Platelet Count 101 X10*3/uL (160-400); Red Blood Count 3.75 X10*6/uL (4.60-5.80); White Blood Count 16.1 X10*3/uL (4.8-10.8)
[2025-03-15 19:47] LABS: MANUAL DIFF FLAG SCAN; PLT ABN DIST 1
[2025-03-15 19:50] LABS: INTERNATIONAL NORM RATIO 1.8 (0.9-1.1); Prothrombin Time 20.2 SEC (10.9-12.4)
[2025-03-15 19:59] LABS: Ammonia 84 umol/L (13-55)
[2025-03-15 20:01] LABS: Alanine Aminotransferase 11 U/L (0-40); Albumin Level 2.6 g/dL (3.5-5.0); Alkaline Phosphatase 168 U/L (39-117); Anion Gap 14 (12-20); Aspartate Amino Transferase 26 U/L (5-37); Blood Urea Nitrogen 30 mg/dL (9-16); Calcium 9.5 mg/dL (8.4-10.2); Carbon Dioxide 37 mmol/L (22-29); Chloride 98 mmol/L (96-108); Creatinine Clr Calc Pharmacy 59.9; Estimated Glomerular Filt Rate 47; Magnesium 1.7 mg/dL (1.6-2.6); Potassium 4.2 mmol/L (3.3-5.1); Sodium 145 mmol/L (135-145); Total Protein 7.0 g/dL (6.5-8.0)
[2025-03-15 20:09] LABS: Troponin-I High Sensitivity 11.8 ng/L (<3.5-35.0)
[2025-03-15 20:11] LABS: NT Pro B Type Natriuretic Pept 431.1 pg/mL (<300)
[2025-03-15 20:21] LABS: Resp Syncy Virus RNA Qual PCR NEGATIVE (Negative); SARS COV2 PCR INHOUSE NEGATIVE (Negative)
[2025-03-15 20:24] LABS: ABG HCO3 29 mmol/L (22-26); ABG O2 % Saturation 97.0 %
[2025-03-15 20:52] LABS: ABG Refer to POC result
[2025-03-15 20:58] LABS: Appearance Urine Cloudy; Glucose Urine UA Negative (Negative); PH 6.5 (5.0-9.0); Specific Gravity - Urine 1.010 (1.005-1.025); UMIC TRIGGER UACC YES
[2025-03-15 21:06] LABS: UACC Culture Trigger YES
--- NOTE | 2025-03-15 21:11 | PC.NURSE ---
Report to Cindi in ICU
--- NOTE | 2025-03-15 21:13 | PM.CCHP ---
History of Present Illness Date of Service: 03/15/25 <MAR Tucker - Last Filed: 03/16/25 00:46> Attending physician on admission: Mello Alfonso <MAR Tucker - Last Filed: 03/16/25 00:46> Chief Complaint: Acute Sepsis, COPD exace <MAR Tucker - Last Filed: 03/16/25 00:46> 59-year-old male who comes from a nursing facility with extensive past medical history per retirement records including PE on Eliquis last dose administered today at 17:15 prior to transfer, COPD, liver cancer, right perinephric abscess status post nephrostomy at [facility], history of CHF unknown EF, adrenal insufficiency on hydrocortisone orally, depression, thrombophilia, erythema multiforme, chronic pain syndrome, MRSA carrier, hypertension, atherosclerotic disease, paroxysmal atrial fibrillation, esophageal varices without bleeding, asthma, GERD, constipation, portal hypertension, recurrent falls, generalized muscle weakness, nicotine dependence, pneumonia, UTIs, fracture of the left humeral shaft, protein calorie malnutrition syndrome, cellulitis of the chest wall, bacteremia (unspecified) benign neoplasm of the colon, renal calculi, hypoxic respiratory failure, unspecified epilepsy, hepatic encephalopathy. Patient was sent to the emergency room via EMS who found the patient to have an O2 sat of 70% at baseline was placed on an OxyMask at 6 L improving his O2 sat 93%.? Full workup in the emergency room revealed a normotensive afebrile patient who is tachypneic and hypoxic, laboratories show a white count of 16.1, H and H of 11.5 and 37.5 respectively MCV of 100, platelets 101, INR 1.8.? ABG pH of 7.28, pCO2 60, PO2 98, HC03 of 29, sodium 145, potassium 4.2, chloride 98, carbon dioxide 37, anion gap 14, BUN 30, creatinine 1.52 (baseline unknown) lactic acid 2.4, calcium 9.5, magnesium 1.7, total bilirubin 1.5, direct bilirubin 0.8, urinalysis shows red urine with proteinuria, large amount of blood and leukocyte esterase no nitrites, no bacteria.? Respiratory panel negative.? Chest x-ray shows no acute disease.? EKG to my view shows sinus rhythm ventricular rate 85 beats per minute.? There is no ST elevations, no ST depressions.? QTC 374.? No comparison available. The patient received 3 L of IV fluid, give him multiple antibiotic allergies, meropenem was administered, Solu-Medrol, albuterol and subsequently placed on BiPAP.? During my encounter, the patient does appear to be in waof-rl-upihsrok respiratory distress using accessory muscles at the following commands and mentating well.? He is normotensive but I am concerned that the patient will likely deteriorate therefore the the patient will be admitted to the ICU for further care.? Prior to transfer the patient will have a CT of the chest, abdomen and pelvis without contrast. <MAR Tucker - Last Filed: 03/16/25 00:46> Review of Systems Review of Systems: Yes Unobtainable due to mental condition (on Bipap) <MAR Tucker - Last Filed: 03/16/25 00:46> [facility] Past Medical History Medical History: Medical History Perinephric abscess Hepatic encephalopathy Epilepsy, unspecified, not intractable, without status epilepticus Renal calculi Benign neoplasm of colon Bacteremia Cellulitis of chest wall Protein-calorie malnutrition UTI (urinary tract infection) Pneumonia Nicotine dependence Falls Portal hypertension Constipation GERD (gastroesophageal reflux disease) Asthma Esophageal varices Paroxysmal atrial fibrillation Hypertension History of MRSA infection Chronic pain syndrome Erythema multiforme Thrombophilia Depression Adrenal insufficiency COPD (chronic obstructive pulmonary disease) Liver cancer CHF (congestive heart failure) <MAR Tucker - Last Filed: 03/16/25 00:46> Social History Social History: Social History Household Members: Other Housing: [facility] Do you presently have visiting nurse or other home services: No Alcohol intake: former Patient Tobacco Use Status: Never used Tobacco Smoked in Last 30 Days: No Use of substances other than those prescribed or required for medical reasons: No Currently Displaying Signs/Symptoms of Drug Intoxication Withdrawal: No Have you been hit, kicked, punched, or otherwise hurt by someone within the past year? If so, by whom?: No Do you feel safe in your current relationship?: No Current Relationship Is there a partner from a previous relationship who is making you feel unsafe now?: No Are you made to feel afraid or neglected: No Advance Directives: No Advance Directives Information Provided: No Do you have a plan to hurt others: No Plan Recently lost weight without trying: Unsure How much weight loss: Unsure Eating poorly because of decreased appetite: No Nutrition screen score: 4 Nutrition Risks: No Nutritional Risk Poor oral hygiene: No service: No <MAR Tucker - Last Filed: 03/16/25 00:46> Meds Allergies/Adverse reactions: Allergies Allergy/AdvReac Type Severity Reaction Status Date / Time allopurinol Allergy Unknown Verified 03/15/25 18:52 cephalexin Allergy Unknown Verified 03/15/25 18:52 Iodinated Contrast Media Allergy Unknown Verified 03/15/25 18:52 (Contrast Dye) levofloxacin Allergy Unknown Verified 03/15/25 18:52 sulfamethoxazole Allergy Unknown Verified 03/15/25 18:52 trimethoprim Allergy Unknown Verified 03/15/25 18:52 <MAR Tucker - Last Filed: 03/16/25 00:46> Active Medications: Current Medications Sodium Chloride (Ns) 1,000 mls @ 999 mls/hr IV .Q1H1M HYUN Stop: 03/15/25 21:15 Last Admin: 03/15/25 20:23 Dose: 999 mls/hr Sodium Chloride (Ns) 1,000 mls @ 999 mls/hr IV .Q1H1M HYUN Stop: 03/15/25 21:15 Last Admin: 03/15/25 20:41 Dose: 999 mls/hr <MAR Tucker - Last Filed: 03/16/25 00:46> Physical Exam Vital Signs: Vital Signs: Last Vital Signs Temp 98.3 F 03/15/25 18:39 Pulse 87 03/15/25 20:52 Resp 18 03/15/25 20:52 BP 126/58 L 03/15/25 20:52 Pulse Ox 94 03/15/25 20:52 O2 Del Method BiPAP 03/15/25 20:52 O2 Flow Rate 10 03/15/25 20:31 Oxygen Flow Rate 6 03/15/25 18:39 BMI result Body Mass Index 28.3 <MAR Tucker - Last Filed: 03/16/25 00:46> Sepsis exam done at 2100 General:? Alert following basic commands, unable to determine orientation as the patient is on BiPAP.? Mild respiratory distress and accessory muscle usage. Skin:? Atrophied bilateral lower extremities .? Old surgical scar of the left shoulder.? Otherwise Intact, no lesions, edema, erythema, clubbing or cyanosis.? No ulcers. HEENT:? Head is normocephalic, atraumatic, pupils equal. Buccal mucosa is dry.? No cervical lymphadenopathy, bruits or masses. Cardiac:? Clear S1-S2, no murmurs rubs or gallops. Pulmonary:? Diminished lung sounds bilaterally fine expiratory wheezing bilaterally .? No crackles, rales or rhonchi. Abdomen:? Protuberant, positive bowel sounds in all 4 quadrants.? Soft, nontender, no rebound or guarding.? Musculoskeletal:? Moving all 4 extremities upon request a major joints, there is no crepitus or tenderness.? The strength is 5/5 bilaterally and throughout all 4 extremities.? There is no leg edema , no calf tenderness , no leg asymmetry.? Gait not assessed at this point. Neurologic:? As above.? No focal deficits noted. Vascular:? 2+ pulses upper and lower extremities distally.? Less than 2nd capillary refill of fingers and toes bilaterally upper and lower extremities <MAR Tucker - Last Filed: 03/16/25 00:46> Results Labs CBC and Chem 7: 03/16/25 07:54 03/16/25 07:54 <MAR Tucker - Last Filed: 03/16/25 00:46> Labs: Laboratory Results - last 24 hr 03/15/25 03/15/25 03/15/25 19:36 20:19 20:50 MCV 100.0 H MCH 30.7 MCHC 30.7 L RDW 15.4 Plt Count 101 L MPV 12.6 H Immature Gran % (Auto) 0.4 Neut % (Auto) 73.7 H Lymph % (Auto) 10.8 L Young % (Auto) 11.7 H Eos % (Auto) 2.9 Baso % (Auto) 0.5 Lymph # (Auto) 1.7 Young # (Auto) 1.9 H Eos # (Auto) 0.5 H Baso # (Auto) 0.1 Abs Immat Gran (auto) 0.07 H Absolute Neuts (auto) 11.8 H Absolute Nucleated RBC 0.000 Nucleated RBC % (auto) 0.0 Smear Tech's Comments VERIFIED PT 20.2 H INR 1.8 H O2 Saturation 97.0 ABG pH at Pt Temp 7.28 L ABG pCO2 at Pt Temp 60 H* ABG pO2 at Pt Temp 98 ABG HCO3 29 H ABG Base Excess (Actual) 1.1 Anion Gap 14 Estim Creat Clear Calc 59.9 Estimated GFR 47 Random Glucose 93 Lactic Acid 2.4 H* Calcium 9.5 Magnesium 1.7 Total Bilirubin 1.5 H Direct Bilirubin 0.8 H AST 26 ALT 11 Alkaline Phosphatase 168 H Ammonia 84 H Troponin I High Sens 11.8 NT-Pro-B Natriuret Pep 431.1 H Total Protein 7.0 Albumin 2.6 L Urine Color Red A Urine Appearance Cloudy Urine pH 6.5 Ur Specific [place] 1.010 Urine Protein 100 (2+) H Urine Glucose (UA) Negative Urine Ketones Negative Urine Blood Large (3+) H Urine Nitrite Negative Ur Leukocyte Esterase Large (3+) H Urine RBC >20 H Urine WBC >50 H Ur Squamous Epith Cells 0-2 Urine Bacteria None Seen Hyaline Casts 0-2 Influenza Type A (PCR) NEGATIVE Influenza Type B (PCR) NEGATIVE RSV RNA Qual (PCR) NEGATIVE SARS-CoV-2 RNA (RT-PCR) NEGATIVE <MAR Tucker - Last Filed: 03/16/25 00:46> Imaging Radiologist's Impressions: [address] [place] [address] CT Scan Report Signed with Addenda Patient: Diogo Gonzalez MR#: [id number] : 1965 Acct:[id number] Age/Sex: 59 / M ADM Date: 03/15/25 Loc: .ICU 253-[address]: Leonides MANUEL Ordering Physician: Eloina Andrade MD Date of Service: 03/15/25 Procedure(s): CT abdomen pelvis wo IV con Accession Number(s): [id number] cc: Eloina Andrade MD; Physician,Unknown ~ Report Number: [id number]: Total DLP = 1310.00 mGy-cm Reason for Exam: History of perinephric abscess. Presented today w ADDENDUM This document has been electronically signed by: Quinn Shaver DO on 03/15/2025 23:06:57 ADDENDUM: There is age-indeterminate irregularity at the superior endplate and compression fracture with approximately 25% height loss of the 1st kak-izh-ydtoder vertebrae ( labeling as L1 with possible lumbosacral transitional vertebrae ). This is within the region of the thickening posterior to the right kidney. If there is clinical concern for discitis osteomyelitis then MRI of this spinal region is recommended. The soft tissue thickening posterior to the right kidney along the superior /perinephric aspect ( series 12, image 406) is indeterminate Without intravenous contrast and may be due to infection or scarring. This document has been electronically signed by: Quinn Shaver DO on 03/15/2025 23:17:51 CLINICAL HISTORY: History of perinephric abscess. Presented today w CT abdomen and pelvis without contrast Comparison: CT/SR - CT CHEST WO IV CON - 03/15/25 21:28 EDT CR - XR CHEST 1V - 03/15/25 19:32 EDT Findings: Elevation of the left hemidiaphragm. Refer to concurrently acquired chest CT for description of intrathoracic findings. Scarring and atrophy of the right kidney. There is a percutaneous nephrostomy tube in the right kidney in good position with coil in the right renal pelvis region. Indeterminate rounded 2.5 cm Fluid density lesion in the right upper renal pole. (series 11, image 46). Indeterminate rounded fluid density lesion in the right mid kidney measuring 1.5 cm ( series 11, image 47). Comparison with prior imaging if available is recommended. Renal ultrasound could be obtained for further evaluation if contrast is not able to be administered. Linear calcification which is nonobstructive in the right inferior renal pole measuring 0.8 cm. The right kidney abuts a linear area of soft tissue density and calcifications which extends inferiorly along the psoas musculature into the right renal pelvis which may be due to scarring. Comparison with prior imaging if available is recommended. Multiple areas of amorphous density throughout the left renal cortex likely due to medullary nephrocalcinosis. Multiple nonobstructive left nephrolithiasis. Gallbladder is distended measuring 4.2 cm in diameter. Gallbladder sludge. Multiple gallstones. These findings are nonspecific. Correlation with right upper quadrant tenderness is recommended. If indicated, right upper quadrant ultrasound is recommended for further evaluation. Both indeterminate left adrenal gland nodule measuring 1.1 cm. Correlation with remote prior imaging if available is recommended. If remote prior imaging is not available then recommend CT adrenal protocol for further evaluation. Marked hepatic cirrhosis with portal venous hypertension including multiple enlarged collateral vessels. Indeterminate area of fat density along the hepatic dome measuring 2.1 cm. Comparison with prior imaging if available is recommended. If prior imaging is not available then MRI liver mass protocol is recommended for further evaluation. No bowel obstruction, pneumoperitoneum, or pneumatosis. Atherosclerotic vascular calcifications. Fat stranding in the central mesentery. This is nonspecific in the setting of cirrhosis. The rectum is distended with stool measuring 7.7 cm in diameter. There is rectal wall thickening and mild adjacent inflammation. Findings may be due to stercoral colitis. Chronic appearing compression fractures of L1. Postoperative changes of the lumbar spine. Limited evaluation without intravenous contrast. Lumbosacral transitional vertebrae. There is fat density posterior to this possible area of scarring. IMPRESSION: 1. Limited evaluation without intravenous contrast. 2. There is a percutaneous nephrostomy tube in the right kidney in good position with coil in the right renal pelvis region. 3. Indeterminate rounded 2.5 cm Fluid density lesion in the right upper renal pole. (series 11, image 46). Indeterminate rounded fluid density lesion in the right mid kidney measuring 1.5 cm ( series 11, image 47). Comparison with prior imaging if available is recommended. Renal ultrasound could be obtained for further evaluation if contrast is not able to be administered. 4. The right kidney abuts a linear area of soft tissue density and calcifications which extends inferiorly along the psoas musculature into the right renal pelvis which may be due to scarring. Comparison with prior imaging if available is recommended. 5. Multiple areas of amorphous density throughout the left renal cortex likely due to medullary nephrocalcinosis. 6. The rectum is distended with stool measuring 7.7 cm in diameter. There is rectal wall thickening and mild adjacent inflammation. Findings may be due to stercoral colitis. 7. Gallbladder is distended measuring 4.2 cm in diameter. Gallbladder sludge. Multiple gallstones. These findings are nonspecific. Correlation with right upper quadrant tenderness is recommended. If indicated, right upper quadrant ultrasound is recommended for further evaluation. Both indeterminate left adrenal gland nodule measuring 1.1 cm. Correlation with remote prior imaging if available is recommended. If remote prior imaging is not available then recommend CT adrenal protocol for further evaluation. 8. Marked hepatic cirrhosis with portal venous hypertension including multiple enlarged collateral vessels. Indeterminate area of fat density along the hepatic dome measuring 2.1 cm. Comparison with prior imaging if available is recommended. If prior imaging is not available then MRI liver mass protocol is recommended for further evaluation. This document has been electronically signed by: Quinn Shaver DO on 03/15/2025 23:06:57 Dictated By: Quinn Shaver DO Signed By: <Electronically signed by Quinn Shaver DO in OV> 03/15/252306 DD/ 05 TD/TT: 03/15/252305 Slabber: Addendum Dictated By: Quinn Shaver DO Addendum Signed By: <Electronically signed by Quinn Shaver DO in OV> 03/15/252318 Addendum Cosigned By: DD/ TD/TT: 03/15/[address] [place] [address] [address] Scan Report Signed Patient: Diogo Gonzalez MR#: [id number] : 1965 Acct:[id number] Age/Sex: 59 / M ADM Date: 03/15/25 Loc: [facility] [address] 253-[address]: Leonides MANUEL Ordering Physician: Eloina Andrade MD Date of Service: 03/15/25 Procedure(s): CT chest wo IV con Accession Number(s): [id number] cc: Eloina Andrade MD; Physician,Unknown ~ Report Number: [id number]: Total DLP = 566.00 mGy-cm Reason for Exam: History of COPD perinephric abscess CLINICAL HISTORY: History of COPD perinephric abscess CT chest without contrast Comparison: CT/SR - CT ABDOMEN PELVIS WO IV CON - 03/15/25 21:28 EDT CR - XR CHEST 1V - 03/15/25 19:32 EDT Findings: Mild coronary artery atherosclerotic vascular calcifications. The elevation of left hemidiaphragm exerts mass effect on the mediastinum/heart. The visualized thyroid and mediastinum are unremarkable. Small Left pleural effusion. Low lung volumes. Bilateral somewhat linear opacities in the lungs (left lower lobe greater than the right lower lobe ) which may be due to infection and/or atelectasis. Recommend follow-up chest CT in 4-6 weeks. Elevation of left hemidiaphragm. Fluoroscopic sniff test could be performed for further evaluation if indicated. Refer to concurrently acquired CT abdomen and pelvis for description of intra-abdominal and intrapelvic findings. There is age-indeterminate irregularity at the superior endplate and compression fracture with approximately 25% height loss of the 1st iqi-gxt-chjncxk vertebrae ( labeling as L1 with possible lumbosacral transitional vertebrae ). This is within the region of the thickening posterior to the right kidney. If there is clinical concern for discitis osteomyelitis then MRI of this spinal region is recommended. Limited evaluation without intravenous contrast. IMPRESSION: 1. There is age-indeterminate irregularity at the superior endplate and compression fracture with approximately 25% height loss of the 1st vum-fyf-zimhqci vertebrae ( labeling as L1 with possible lumbosacral transitional vertebrae ). This is within the region of the thickening posterior to the right kidney. If there is clinical concern for discitis osteomyelitis then MRI of this spinal region is recommended. 2. Small Left pleural effusion. 3. Bilateral somewhat linear opacities in the lungs (left lower lobe greater than the right lower lobe ) which may be due to infection and/or atelectasis. Recommend follow-up chest CT in 4-6 weeks. 4. Elevation of left hemidiaphragm. Fluoroscopic sniff test could be performed for further evaluation if indicated. This document has been electronically signed by: Quinn Shaver DO on 03/15/2025 23:15:13 Dictated By: Quinn Shaver DO Signed By: <Electronically signed by Quinn Shaver DO in OV> 03/15/252314 DD/ 14 TD/TT: 03/15/252314 Slabber: <MAR Tucker - Last Filed: 03/16/25 00:46> Assessment and Plan (1) Acute sepsis: Status: Acute <MAR Tucker - Last Filed: 03/16/25 00:46> ASSESSMENT : 1. Acute hypoxic respiratory failure with hypercarbia 2. Acute respiratory acidosis 3. Acute sepsis without septic shock (source to be identified) 4. Acute lactic and metabolic acidosis due to the above 5. Acute COPD exacerbation rule out developing pneumonia 6. Acute Thrombocytopenia 7. Elevated ammonia without mental status changes or acute encephalopathy 8. Hyperbilirubinemia likely due to underlying history of liver cancer 9. Hypoalbuminemia 10. Obesity 11. History of perinephric abscess status post nephrostomy 12. Questionable gallbladder disease in need of further evaluation 13. Age-indeterminate irregularity of the superior endplate and compression fracture with 25% of height loss of the 1st non rib bearing vertebrae L1. With surrounding posterior soft tissue changes around the perinephric aspect of the right kidney. PLAN OF CARE: The patient will be admitted to the ICU, monitor vital signs, I's and o's, for further workup I have ordered a CT of the chest, abdomen and pelvis without contrast, the likelihood of the patient having a PE is low given that his INR is elevated and the patient is known to be on Eliquis medication which is administered at a retirement facility.? Continue with BiPAP support, , adjust FiO2 for O2 sat of 88-90%, we will increase IPAP pressure. ?Solu-Medrol, scheduled DuoNebs and p.r.n. albuterol.? Sputum culture and Gram stain.? Repeat lactic acid, he did receive 30 mL/kilos of fluid, we will receive albumin, we will keep him NPO for now and when he is able to be taken off BiPAP we will assess his swallowing ability and administer lactulose. Review of CT of the chest reveals Infiltrates of the bilateral lungs will start the patient on Vancomycin and Zosyn monitoring for any type of allergic reactions. CT abdomen shows multiple chronic findings however the Gallbladder is distended measuring 4.2 cm in diameter. Gallbladder sludge; but the patient does not have nausea, vomiting, right upper quadrant pain. We will add lipase and order an ultrasound of the right upper quadrant. Additionally there seems to be significant amount of stool in the rectum. A suppository will be ordered and when the patient is off BiPAP, lactulose will be started. Regarding the findings around L1 and the soft tissue posterior to the right kidney I will discuss this with Dr. Alfonso to see if an MRI is desire although this could easily be residual from his prior perinephric abscess. GI PROPHYLAXIS:? IV ppi DVT PROPHYLAXIS:? Resume Eliquis Follow upp Sepsis exam 2300 General:? Alert following basic commands, unable to determine orientation as the patient is on BiPAP.? More awake asking for food Cardiac:? Clear S1-S2, no murmurs rubs or gallops. Pulmonary:?Improved lung sounds bilaterally fine expiratory wheezing bilaterally .? No crackles, rales or rhonchi. Abdomen:? Protuberant, positive bowel sounds in all 4 quadrants.? Soft, nontender, no rebound or guarding.?No murphys sign Neurologic:? As above.? No focal deficits noted. Vascular:? 2+ pulses upper and lower extremities distally.? Less than 2nd capillary refill of fingers and toes bilaterally upper and lower extremities Repeat lactic acid, pt received albumin. His last lactic acid might have increased due to the effect of repeated albuterol administration. He does not appear sicker. He remains hemodynamically stable except when he falls asleep with a map of 66. His last venous blood gas shows significant improvement both of the pH as well as the CO2. Continue with BiPAP. I have added Zosyn and vancomycin as the patient does appear to have a pneumonia of the bilateral lungs and [facility]. Ultrasound of the gallbladder is still pending. Repeat laboratories tonight. This patient counter and care had a high probability of a clinically significant, sudden, or life threatening deterioration of this patient's condition which required my full and direct attention, intervention and personal management. Critical care time used for critical evaluation of this patient, diagnosis, treatment and coordination of care, review her records and documentation TOTAL CRITICAL CARE TIME 90?? MIN . discussion and coordination with consultants, completely separate from any procedures performed. Patient's care was discussed in detail with Dr. Alfonso who is aware of all the above as well as the plan of care for this patient. <MAR Tucker - Last Filed: 03/16/25 00:46> ASSESSMENT : 1. Acute hypoxic respiratory failure with hypercarbia 2. Acute respiratory acidosis 3. Acute sepsis without septic shock (source to be identified) 4. Acute lactic and metabolic acidosis due to the above 5. Acute COPD exacerbation rule out developing pneumonia 6. Acute Thrombocytopenia 7. Elevated ammonia without mental status changes or acute encephalopathy 8. Hyperbilirubinemia likely due to underlying history of liver cancer 9. Hypoalbuminemia 10. Obesity 11. History of perinephric abscess status post nephrostomy 12. Questionable gallbladder disease in need of further evaluation 13. Age-indeterminate irregularity of the superior endplate and compression fracture with 25% of height loss of the 1st non rib bearing vertebrae L1. With surrounding posterior soft tissue changes around the perinephric aspect of the right kidney. PLAN OF CARE: The patient will be admitted to the ICU, monitor vital signs, I's and o's, for further workup I have ordered a CT of the chest, abdomen and pelvis without contrast, the likelihood of the patient having a PE is low given that his INR is elevated and the patient is known to be on Eliquis medication which is administered at a retirement facility.? Continue with BiPAP support, , adjust FiO2 for O2 sat of 88-90%, we will increase IPAP pressure. ?Solu-Medrol, scheduled DuoNebs and p.r.n. albuterol.? Sputum culture and Gram stain.? Repeat lactic acid, he did receive 30 mL/kilos of fluid, we will receive albumin, we will keep him NPO for now and when he is able to be taken off BiPAP we will assess his swallowing ability and administer lactulose. Review of CT of the chest reveals Infiltrates of the bilateral lungs will start the patient on Vancomycin and Zosyn monitoring for any type of allergic reactions. CT abdomen shows multiple chronic findings however the Gallbladder is distended measuring 4.2 cm in diameter. Gallbladder sludge; but the patient does not have nausea, vomiting, right upper quadrant pain. We will add lipase and order an ultrasound of the right upper quadrant. Additionally there seems to be significant amount of stool in the rectum. A suppository will be ordered and when the patient is off BiPAP, lactulose will be started. Regarding the findings around L1 and the soft tissue posterior to the right kidney I will discuss this with Dr. Alfonso to see if an MRI is desire although this could easily be residual from his prior perinephric abscess. GI PROPHYLAXIS:? IV ppi DVT PROPHYLAXIS:? Resume Eliquis Follow upp Sepsis exam 2300 General:? Alert following basic commands, unable to determine orientation as the patient is on BiPAP.? More awake asking for food Cardiac:? Clear S1-S2, no murmurs rubs or gallops. Pulmonary:?Improved lung sounds bilaterally fine expiratory wheezing bilaterally .? No crackles, rales or rhonchi. Abdomen:? Protuberant, positive bowel sounds in all 4 quadrants.? Soft, nontender, no rebound or guarding.?No murphys sign Neurologic:? As above.? No focal deficits noted. Vascular:? 2+ pulses upper and lower extremities distally.? Less than 2nd capillary refill of fingers and toes bilaterally upper and lower extremities Repeat lactic acid, pt received albumin. His last lactic acid might have increased due to the effect of repeated albuterol administration. He does not appear sicker. He remains hemodynamically stable except when he falls asleep with a map of 66. His last venous blood gas shows significant improvement both of the pH as well as the CO2. Continue with BiPAP. I have added Zosyn and vancomycin as the patient does appear to have a pneumonia of the bilateral lungs and [facility]. Ultrasound of the gallbladder is still pending. Repeat laboratories tonight. This patient counter and care had a high probability of a clinically significant, sudden, or life threatening deterioration of this patient's condition which required my full and direct attention, intervention and personal management. Critical care time used for critical evaluation of this patient, diagnosis, treatment and coordination of care, review her records and documentation TOTAL CRITICAL CARE TIME 45?? MIN . discussion and coordination with consultants, completely separate from any procedures performed. Patient's care was discussed in detail with Dr. Alfonso who is aware of all the above as well as the plan of care for this patient. <Mello Alfonso MD - Last Filed: 03/16/25 10:31> Total time managing care of this patient today: 90 minutes. <MAR Tucker - Last Filed: 03/16/25 00:46>
--- NOTE | 2025-03-15 21:24 | PC.NURSE ---
IVF infused, BPs documented after infusion of 3 liters. Pt off to CT with RN, RT and hydrological technical officer with plan to transport immediately after to ICU.
--- NOTE | 2025-03-15 21:39 | PC.NURSE ---
CTs completed at this time, pt en route to ICU.
[2025-03-15 21:41] LABS: Reflex Lactate? Lactic Acid Added
[2025-03-15] MEDS: Albumin Human 25 % 100 ML 133.33 ML IV ×2 (21:52→22:40)
[2025-03-15 22:54] LABS: ~Lactic Acid-LAB USE ONLY 3.5 mmol/L (0.5-2.0)
[2025-03-15] MEDS: Albuterol/Iprat 2.5/0.5MG 3 ML AMPUL.NEB INHALE (23:26)
[2025-03-15 23:32] LABS: Venous Blood Gas Refer to POC result
[2025-03-15 23:32] LABS: VBG HCO3 40 mmol/L (22-26)
[2025-03-16] VITALS (34 sets, daily range): BP systolic 91–132; BP diastolic 44–89; PULSE 66–86; RESP 9–29; TEMP 36.1–36.7; O2SAT 89–100; BMI 28.3
[2025-03-16 00:19] LABS: Lipase 11 U/L (8-78)
[2025-03-16 00:35] LABS: Reflex Lactate? 2 Y
[2025-03-16] MEDS: vancomycin/NS 2,000 MG/500 ML PLAST..BAG 250 MG IV (01:07)
[2025-03-16 01:22] LABS: Alanine Aminotransferase 6 U/L (0-40); Albumin Level 3.1 g/dL (3.5-5.0); Alkaline Phosphatase 116 U/L (39-117); Anion Gap 15 (12-20); Aspartate Amino Transferase 19 U/L (5-37); Blood Urea Nitrogen 27 mg/dL (9-16); Calcium 8.8 mg/dL (8.4-10.2); Carbon Dioxide 31 mmol/L (22-29); Chloride 105 mmol/L (96-108); Creatinine Clr Calc Pharmacy 61.1; Estimated Glomerular Filt Rate 48; Lipase 9 U/L (8-78); Potassium 4.4 mmol/L (3.3-5.1); Sodium 147 mmol/L (135-145); Total Protein 6.5 g/dL (6.5-8.0)
[2025-03-16 01:30] LABS: ~Lactic Acid-LAB USE ONLY 2.6 mmol/L (0.5-2.0)
[2025-03-16] MEDS: Albuterol/Iprat 2.5/0.5MG 3 ML AMPUL.NEB INHALE ×4 (03:44→21:15)
[2025-03-16 05:19] LABS: VBG HCO3 22 mmol/L (22-26); VBG O2 % Saturation 88.0 %
[2025-03-16 05:20] LABS: Venous Blood Gas Refer to POC result
[2025-03-16 05:28] LABS: Ammonia 44 umol/L (13-55)
--- NOTE | 2025-03-16 06:07 | HO.SKINPHOTO ---
upon removal of bipap and pink foam this morning bridge of nose found to be reddened
--- NOTE | 2025-03-16 07:49 | PHA.PROG ---
Admission Date/Time: March 15, 2025 21:02 Indication: sepsis Weight in k.2 kg Adjusted body weight in Kg: [place] body weight in Kg: Obesity Dosing Indication % IBW: Serum Creatinine - Last 168 Hours 03/15/25 03/16/25 19:36 00:59 Creatinine 1.52 H 1.49 H Estimated CrCl and GFR - Last 168 Hours 03/15/25 03/16/25 19:36 00:59 Estim Creat Clear Calc 59.9 61.1 Estimated GFR 47 48 Vancomycin Loading Dose: 2000 Current Vancomycin Dosing Regimen: 1500 Q24H Vancomycin Monitoring using AUC goal of 400 - 600 range with trough as surrogate marker: 527 Date and Time for next Vancomycin Level to be drawn: 03/17 @1000 Pharmacist Comments on Vancomycin Plan: Vancomycin dosing will take advantage of [employer] as a clinical decision support tool that uses Bayesian modeling to calculate individual patient's pharmacokinetic parameters and forecast the patient's drug concentration time course with the target goal AUC 24 range of 400 - 600 mg/L/hr.
[2025-03-16] MEDS: Hydrocortisone Sod Succ/PF 100 MG VIAL IVPUSH (08:10)
[2025-03-16 08:33] LABS: MRSA Nasal PCR NEGATIVE (Negative); SA Nasal PCR NEGATIVE (Negative)
[2025-03-16 08:43] LABS: Alanine Aminotransferase 8 U/L (0-40); Albumin Level 2.9 g/dL (3.5-5.0); Alkaline Phosphatase 116 U/L (39-117); Anion Gap 12 (12-20); Aspartate Amino Transferase 20 U/L (5-37); Blood Urea Nitrogen 27 mg/dL (9-16); Calcium 8.8 mg/dL (8.4-10.2); Carbon Dioxide 34 mmol/L (22-29); Chloride 106 mmol/L (96-108); Creatinine Clr Calc Pharmacy 60.3; Estimated Glomerular Filt Rate 47; Magnesium 1.8 mg/dL (1.6-2.6); Potassium 4.2 mmol/L (3.3-5.1); Sodium 148 mmol/L (135-145); Total Protein 6.3 g/dL (6.5-8.0)
[2025-03-16 08:44] LABS: Hematocrit 29.4 % (42.0-52.0); Hemoglobin 8.8 g/dl (14.0-18.0); Imm Gran Abs Auto 0.04 X10*3/uL (0.00-0.03); Imm Gran Pct Auto 0.6 % (0.0-0.4); Lymphocytes Absolute Auto 0.6 X10*3/uL (1.2-4.9); Mean Corpuscular HGB Conc 29.9 g/dl (31.0-36.0); Mean Corpuscular Hemoglobin 30.4 pg (27.0-33.0); Mean Corpuscular Volume 101.7 fL (80.0-98.0); NRBC Abs Auto 0.000 X10*3/uL (0.0-0.012); NRBC Pct Auto 0.0 /100WBC (0.0-0.2); Red Blood Count 2.89 X10*6/uL (4.60-5.80); White Blood Count 7.0 X10*3/uL (4.8-10.8)
[2025-03-16] MEDS: oxyCODONE HCl Immed Release 5 MG TABLET PO ×3 (09:05→21:10)
[2025-03-16 09:08] LABS: Platelet Count 48 X10*3/uL (160-400)
--- NOTE | 2025-03-16 10:29 | MHC.CM.PN ---
IMM DELIVERED TO BROTHER/HCP JOSEMANUEL RIOS, WHO REQUESTS WHITE COPY BE LEFT AT BEDSIDE. PT IS A LTC RESIDENT OF [facility]. PER HCP, PLAN WILL BE TO RETURN THERE ON DC VIA BLS. A RETURN REFERRAL WAS PLACED TO [facility] WITH REQUEST FOR COPY OF THE PT'S HCP. CM WILL CONTINUE TO FOLLOW FOR ANY CHANGE TO DC NEEDS.
--- NOTE | 2025-03-16 10:31 | PM.CCPN ---
Subjective Subjective Date of Service: 03/16/25 Interval History: Breathing better on morning gas, pCO2 22 currently off BiPAP support. Off Levophed support since 10:00. Critical Care Time (minutes): 35 Physical Exam Vital Signs: Vital Signs: Last Vital Signs Temp 97.5 F 03/16/25 04:00 Pulse 74 03/16/25 09:51 Resp 14 03/16/25 09:51 BP 91/73 03/16/25 09:51 Pulse Ox 92 03/16/25 09:51 O2 Del Method Nasal Cannula 03/16/25 09:51 O2 Flow Rate 3 03/16/25 09:51 FiO2 25 03/16/25 06:54 Oxygen Flow Rate 6 03/15/25 18:39 BMI result Body Mass Index 28.3 General: Elderly male in mild acute distress, he is chronically ill appearing and tired appearing Nutritional Appearance: well nourished and overweight Eyes: appearance normal, both eyes and all related structures; Alignment and Position: alignment normal and position normal Neck: No lymphadenopathy, no thyromegaly Resp: bilateral air entry equal, occasional added sounds present Cardio: Regular rate, regular rhythm; Heart sounds: S1 normal heart sound present and S2 normal heart sound present GI: soft, nontender, no guarding, no hepatosplenomegaly : bladder normal to inspection, bladder normal to palpation, no renal angle tenderness Skin: no rashes or lesions noted and elasticity normal Neuro: oriented to person, oriented to place, oriented to time and moves all extremities Objective Data Labs 03/16/25 07:54 03/16/25 07:54 Labs: Laboratory Results - last 24 hr 03/15/25 03/15/25 03/15/25 19:36 20:19 20:50 WBC 16.1 H RBC 3.75 L Hgb 11.5 L Hct 37.5 L MCV 100.0 H MCH 30.7 MCHC 30.7 L RDW 15.4 Plt Count 101 L MPV 12.6 H Immature Gran % (Auto) 0.4 Neut % (Auto) 73.7 H Lymph % (Auto) 10.8 L [place] % (Auto) 11.7 H Eos % (Auto) 2.9 Baso % (Auto) 0.5 Lymph # (Auto) 1.7 [place] # (Auto) 1.9 H Eos # (Auto) 0.5 H Baso # (Auto) 0.1 Abs Immat Gran (auto) 0.07 H Absolute Neuts (auto) 11.8 H Absolute Nucleated RBC 0.000 Nucleated RBC % (auto) 0.0 Smear Tech's Comments VERIFIED PT 20.2 H INR 1.8 H O2 Saturation 97.0 ABG pH at Pt Temp 7.28 L ABG pCO2 at Pt Temp 60 H* ABG pO2 at Pt Temp 98 ABG HCO3 29 H ABG Base Excess (Actual) 1.1 VBG pH VBG pCO2 VBG pO2 VBG HCO3 VBG O2 Saturation VBG Base Excess Sodium 145 Potassium 4.2 Chloride 98 Carbon Dioxide 37 H Anion Gap 14 BUN 30 H Creatinine 1.52 H Estim Creat Clear Calc 59.9 Estimated GFR 47 Random Glucose 93 Lactic Acid 2.4 H* Lactic Acid F/U @ 2Hr Lactic Acid F/U @ 4Hr Calcium 9.5 Phosphorus Magnesium 1.7 Total Bilirubin 1.5 H Direct Bilirubin 0.8 H AST 26 ALT 11 Alkaline Phosphatase 168 H Ammonia 84 H Troponin I High Sens 11.8 NT-Pro-B Natriuret Pep 431.1 H Total Protein 7.0 Albumin 2.6 L Lipase 11 Urine Color Red A Urine Appearance Cloudy Urine pH 6.5 Ur Specific [place] 1.010 Urine Protein 100 (2+) H Urine Glucose (UA) Negative Urine Ketones Negative Urine Blood Large (3+) H Urine Nitrite Negative Ur Leukocyte Esterase Large (3+) H Urine RBC >20 H Urine WBC >50 H Ur Squamous Epith Cells 0-2 Urine Bacteria None Seen Hyaline Casts 0-2 Nasal Screen MRSA (PCR) Nasal S. aureus Screen Nasal MRSA/S.aureus Interp Influenza Type A (PCR) NEGATIVE Influenza Type B (PCR) NEGATIVE RSV RNA Qual (PCR) NEGATIVE SARS-CoV-2 RNA (RT-PCR) NEGATIVE 03/15/25 03/15/25 03/16/25 22:31 23:28 00:59 WBC RBC Hgb Hct MCV MCH MCHC RDW Plt Count MPV Immature Gran % (Auto) Neut % (Auto) Lymph % (Auto) [place] % (Auto) Eos % (Auto) Baso % (Auto) Lymph # (Auto) [place] # (Auto) Eos # (Auto) Baso # (Auto) Abs Immat Gran (auto) Absolute Neuts (auto) Absolute Nucleated RBC Nucleated RBC % (auto) Smear Tech's Comments PT INR O2 Saturation ABG pH at Pt Temp ABG pCO2 at Pt Temp ABG pO2 at Pt Temp ABG HCO3 ABG Base Excess (Actual) VBG pH 7.36 VBG pCO2 70 VBG pO2 56 VBG HCO3 40 H VBG O2 Saturation TNP VBG Base Excess 11.6 Sodium 147 H Potassium 4.4 Chloride 105 Carbon Dioxide 31 H Anion Gap 15 BUN 27 H Creatinine 1.49 H Estim Creat Clear Calc 61.1 Estimated GFR 48 Random Glucose 97 Lactic Acid Lactic Acid F/U @ 2Hr 3.5 H* Lactic Acid F/U @ 4Hr 2.6 H* Calcium 8.8 D Phosphorus Magnesium Total Bilirubin 1.5 H Direct Bilirubin 0.9 H AST 19 ALT 6 Alkaline Phosphatase 116 Ammonia Troponin I High Sens NT-Pro-B Natriuret Pep Total Protein 6.5 Albumin 3.1 L Lipase 9 Urine Color Urine Appearance Urine pH Ur Specific [place] Urine Protein Urine Glucose (UA) Urine Ketones Urine Blood Urine Nitrite Ur Leukocyte Esterase Urine RBC Urine WBC Ur Squamous Epith Cells Urine Bacteria Hyaline Casts Nasal Screen MRSA (PCR) Nasal S. aureus Screen Nasal MRSA/S.aureus Interp Influenza Type A (PCR) Influenza Type B (PCR) RSV RNA Qual (PCR) SARS-CoV-2 RNA (RT-PCR) 03/16/25 03/16/25 03/16/25 05:11 05:15 05:38 WBC RBC Hgb Hct MCV MCH MCHC RDW Plt Count MPV Immature Gran % (Auto) Neut % (Auto) Lymph % (Auto) [place] % (Auto) Eos % (Auto) Baso % (Auto) Lymph # (Auto) [place] # (Auto) Eos # (Auto) Baso # (Auto) Abs Immat Gran (auto) Absolute Neuts (auto) Absolute Nucleated RBC Nucleated RBC % (auto) Smear Tech's Comments PT INR O2 Saturation ABG pH at Pt Temp ABG pCO2 at Pt Temp ABG pO2 at Pt Temp ABG HCO3 ABG Base Excess (Actual) VBG pH 7.59 H VBG pCO2 22 VBG pO2 53 VBG HCO3 22 VBG O2 Saturation 88.0 VBG Base Excess 1.8 Sodium Potassium Chloride Carbon Dioxide Anion Gap BUN Creatinine Estim Creat Clear Calc Estimated GFR Random Glucose Lactic Acid Lactic Acid F/U @ 2Hr Lactic Acid F/U @ 4Hr Calcium Phosphorus Magnesium Total Bilirubin Direct Bilirubin AST ALT Alkaline Phosphatase Ammonia 44 Troponin I High Sens NT-Pro-B Natriuret Pep Total Protein Albumin Lipase Urine Color Urine Appearance Urine pH Ur Specific [place] Urine Protein Urine Glucose (UA) Urine Ketones Urine Blood Urine Nitrite Ur Leukocyte Esterase Urine RBC Urine WBC Ur Squamous Epith Cells Urine Bacteria Hyaline Casts Nasal Screen MRSA (PCR) NEGATIVE Nasal S. aureus Screen NEGATIVE Nasal MRSA/S.aureus Interp SEE NOTE Influenza Type A (PCR) Influenza Type B (PCR) RSV RNA Qual (PCR) SARS-CoV-2 RNA (RT-PCR) 03/16/25 07:54 WBC 7.0 RBC 2.89 L D Hgb 8.8 L D Hct 29.4 L D MCV 101.7 H MCH 30.4 MCHC 29.9 L RDW 15.1 Plt Count 48 L D MPV 11.5 Immature Gran % (Auto) 0.6 H Neut % (Auto) 90.0 H Lymph % (Auto) 7.9 L [place] % (Auto) 1.4 L Eos % (Auto) 0.0 Baso % (Auto) 0.1 Lymph # (Auto) 0.6 L [place] # (Auto) 0.1 Eos # (Auto) 0.0 Baso # (Auto) 0.0 Abs Immat Gran (auto) 0.04 H Absolute Neuts (auto) 6.3 Absolute Nucleated RBC 0.000 Nucleated RBC % (auto) 0.0 Smear Tech's Comments PT INR O2 Saturation ABG pH at Pt Temp ABG pCO2 at Pt Temp ABG pO2 at Pt Temp ABG HCO3 ABG Base Excess (Actual) VBG pH VBG pCO2 VBG pO2 VBG HCO3 VBG O2 Saturation VBG Base Excess Sodium 148 H Potassium 4.2 Chloride 106 Carbon Dioxide 34 H Anion Gap 12 BUN 27 H Creatinine 1.51 H Estim Creat Clear Calc 60.3 Estimated GFR 47 Random Glucose 113 Lactic Acid Lactic Acid F/U @ 2Hr Lactic Acid F/U @ 4Hr Calcium 8.8 Phosphorus 2.4 L Magnesium 1.8 Total Bilirubin 1.4 H Direct Bilirubin 0.9 H AST 20 ALT 8 Alkaline Phosphatase 116 Ammonia Troponin I High Sens NT-Pro-B Natriuret Pep Total Protein 6.3 L Albumin 2.9 L Lipase Urine Color Urine Appearance Urine pH Ur Specific [place] Urine Protein Urine Glucose (UA) Urine Ketones Urine Blood Urine Nitrite Ur Leukocyte Esterase Urine RBC Urine WBC Ur Squamous Epith Cells Urine Bacteria Hyaline Casts Nasal Screen MRSA (PCR) Nasal S. aureus Screen Nasal MRSA/S.aureus Interp Influenza Type A (PCR) Influenza Type B (PCR) RSV RNA Qual (PCR) SARS-CoV-2 RNA (RT-PCR) Microbiology Microbiology Results: Microbiology 03/15/25 21:10 Sputum - Expectorated Gram Stain - Final 03/15/25 21:10 Sputum - Expectorated Sputum Culture - Final Progress Note: A&P Assessment and plan (1) Septic shock: Status: Acute (2) Acute kidney injury: Status: Acute (3) Acute exacerbation of chronic obstructive airways disease: Status: Acute Plan 59-year-old male with PMH of hypertension, CHF, atrial fibrillation, PE, COPD, asthma, liver cancer, portal hypertension and esophageal varices, thrombocytopenia, GERD and constipation, adrenal insufficiency, right perinephric abscess status post nephrostomy, depression presented to the ED with shortness of breath and hypotension. He needed BiPAP support for hypercarbia, Levophed for vasopressor support. Neuro: Depression: will restart home sertraline, mirtazapine, methadone Chronic pain syndrome: Restarted home dose of oxycodone 5 mg q.6 hours He is on Keppra a g b.i.d. at home, we will restarted Cardiac: Septic Shock: Possibly secondary to UTI and unspecified pneuomnia On Levophed support, titrate Levophed to keep map above 65 mm Hg Chronic atrial fibrillation: CHF: rate controlled, Lovenox for anticoagulation History of pulmonary embolism: will start on therapeutic Lovenox, hold off on apixaban 5 mg b.i.d. as patient might need a urological procedure Respiratory: Acute hypercapnic respiratory failure due to bilateral unspecified pneumonia on top of underlying COPD Currently off BiPAP support, saturation stable on nasal cannula oxygen CT chest suggestive of volume loss in the right lung, very small pleural effusion in the left lung, areas of lung infiltrates seen in either lungs. COPD/asthma: on duonebs, solumedrol switched to hydrocortisone GI: Cirrhosis of liver with possibly HCC leading to portal hypertension, esophageal varices and thrombocytopenia: unsure about etiology of cirrhosis. Continue home rifaximin [address] abdomen and pelvis showed distended gallbladder but ultrasound of abdomen suggestive of cholelithiasis with no obstruction or cholecystitis Renal: Acute kidney injury: Right perinephric abscess: Status post nephrostomy tube placement at [facility]. Repeat CT abdomen showing some fluid collection around the right kidney, urinalysis dirty, nephrocalcinosis of left kidney Unknown baseline creatinine, creatinine today is 1.51 We will closely monitor I's and O's Avoid nephrotoxic medications Acute hypernatremia: Possibly secondary to normal saline infusion Sodium 148 this morning, we will continue to monitor Acute hypophosphatemia: Possibly secondary to poor oral intake We will improved diet as tolerated Heme: Chronic anemia, closely monitor H&H, transfuse for hemoglobin less than 7 grams/deciliter Hemoglobin was falsely elevated yesterday due to volume constriction Chronic thrombocytopenia: Possibly secondary to portal hypertension Continue to monitor platelet count, no indication for transfusions Endocrine: Adrenal insufficiency: We will switch Solu-Medrol to hydrocortisone Infectious disease: Pending pancultures Possible sources of infection or complicated UTI, bilateral nonspecific pneumonia On empiric vanc and Zosyn, we will get MRSA nares to see if we can discontinue vancomycin Musculoskeletal: Decubitus ulcer prevention protocol Has a L1 vertebral fracture, age-indeterminate Lines: Peripheral Prophylaxis: Lovenox, pantoprazole Quality Stroke Does the patient have a stroke diagnosis?: No VTE Prior VTE?: No VTE Risk Level:: Medical - moderate - high VTE Device Contraindication: N/A - Device Ordered VTE Drug Contraindication: N/A - Med Ordered
--- NOTE | 2025-03-16 10:59 | PHA.MEDREC ---
Pharmacy Consult ? Medication Reconciliation Pharmacy has completed the medication reconciliation, utilized list from [facility].
[2025-03-16] MEDS: Triamcinolone Acet 0.1 % Cream 15 GM TUBE 1 APPL TOPICAL ×2 (11:39→21:13)
[2025-03-16] MEDS: Hydrocortisone Sod Succ/PF 100 MG VIAL 50 MG IVPUSH ×2 (16:03→23:23)
--- NOTE | 2025-03-16 18:29 | PC.NURSE ---
Assumed care at 0700. Upon initial assessment, levophed drip running. Pt restless, vague, talkative when awake, otherwise drowsy. Pt states 7/10 back pain. made aware. Home meds restarted. Levophed drip stopped at approx 1000. Pt repositioned q2hr as tolerated. Fall & safety precautions in place. See MAR and assessments for further details.
[2025-03-17] VITALS (15 sets, daily range): BP systolic 111–139; BP diastolic 56–75; PULSE 59–94; RESP 16–20; TEMP 36.3–37.2; O2SAT 89–96; BMI 29.1
--- NOTE | 2025-03-17 00:17 | PC.NURSE ---
calm and cooperative, only complains of chronic back pain/discomfort. prn provided. lovenox held for Platelets of 48 per MD Cardona. at 0015 on BiPAP 02/12, 25%, 16 eyes closed in semi fowlers even nonlabored respirations, call williamson in reach, bed alarm on
[2025-03-17] MEDS: Albuterol/Iprat 2.5/0.5MG 3 ML AMPUL.NEB INHALE ×4 (03:44→20:23)
[2025-03-17 07:22] LABS: Alanine Aminotransferase 9 U/L (0-40); Albumin Level 2.7 g/dL (3.5-5.0); Alkaline Phosphatase 94 U/L (39-117); Anion Gap 8 (12-20); Aspartate Amino Transferase 18 U/L (5-37); Blood Urea Nitrogen 30 mg/dL (9-16); Calcium 9.5 mg/dL (8.4-10.2); Carbon Dioxide 36 mmol/L (22-29); Chloride 108 mmol/L (96-108); Creatinine Clr Calc Pharmacy 53.9; Estimated Glomerular Filt Rate 41; Potassium 4.0 mmol/L (3.3-5.1); Sodium 148 mmol/L (135-145); Total Protein 6.0 g/dL (6.5-8.0)
--- NOTE | 2025-03-17 07:59 | PM.UROCN ---
History of Present Illness Consult details Consult date: 03/17/25 Narrative: CC: Complicated urinary tract infection 59-year-old male History significant for liver cancer, right perinephric abscess with nephrostomy tube, CHF, atherosclerotic disease, esophageal varices, malnutrition syndrome Sent to emergency room via EMS for low oxygen saturation Initial evaluation revealed afebrile patient technique of tachypneic and hypoxic. Urinalysis showed positive blood and leuk esterase but negative nitrites and negative bacteria Supportive care initiated with IV fluids and meropenem Mental status improve with BiPAP Urine culture positive Carmencita Requires infectious disease consult. May require exchange of right nephrostomy tube as this is potential source for candidiasis. Review of Systems Constitutional: Constitutional: Reports as per HPI and Reports no additional constitutional complaints Cardiovascular: Cardiovascular: Reports as per HPI and Reports no additional cardiovascular complaints Respiratory: Respiratory: Reports as per HPI and Reports no additional respiratory complaints Gastrointestinal: Gastrointestinal: Reports as per HPI and Reports no additional gastrointestinal complaints Genitourinary: Genitourinary: Reports as per HPI Musculoskeletal: Musculoskeletal: Reports no additional musculoskeletal complaints and Reports as per HPI Neurologic: Reports system reviewed and no additional complaints, except as documented and Reports as per HPI REPLACED BY [facility] Past Medical History Medical History (Updated 03/18/25 @ 16:47 by Lawrence Maddox MD) Perinephric abscess Hepatic encephalopathy Epilepsy, unspecified, not intractable, without status epilepticus Renal calculi Benign neoplasm of colon Bacteremia Cellulitis of chest wall Protein-calorie malnutrition UTI (urinary tract infection) Pneumonia Nicotine dependence Falls Portal hypertension Constipation GERD (gastroesophageal reflux disease) Asthma Esophageal varices Paroxysmal atrial fibrillation Hypertension History of MRSA infection Chronic pain syndrome Erythema multiforme Thrombophilia Depression Adrenal insufficiency COPD (chronic obstructive pulmonary disease) Liver cancer CHF (congestive heart failure) Social History Social History Household Members: Other Housing: [facility] Do you presently have visiting nurse or other home services: No Alcohol intake: former Patient Tobacco Use Status: Never used Tobacco Smoked in Last 30 Days: No Use of substances other than those prescribed or required for medical reasons: No Currently Displaying Signs/Symptoms of Drug Intoxication Withdrawal: No Have you been hit, kicked, punched, or otherwise hurt by someone within the past year? If so, by whom?: No Do you feel safe in your current relationship?: No Current Relationship Is there a partner from a previous relationship who is making you feel unsafe now?: No Are you made to feel afraid or neglected: No Advance Directives: No Advance Directives Information Provided: No Do you have a plan to hurt others: No Plan Recently lost weight without trying: Unsure How much weight loss: Unsure Eating poorly because of decreased appetite: No Nutrition screen score: 4 Nutrition Risks: No Nutritional Risk Poor oral hygiene: No service: No Meds Allergies Allergy/AdvReac Type Severity Reaction Status Date / Time allopurinol Allergy Unknown Verified 03/15/25 18:52 cephalexin Allergy Unknown Verified 03/15/25 18:52 Iodinated Contrast Media Allergy Unknown Verified 03/15/25 18:52 (Contrast Dye) levofloxacin Allergy Unknown Verified 03/15/25 18:52 sulfamethoxazole Allergy Unknown Verified 03/15/25 18:52 trimethoprim Allergy Unknown Verified 03/15/25 18:52 Active Medications: Current Medications Acetaminophen (Acetaminophen 325 Mg Tablet) 650 mg PO Q8H PRN PRN Reason: general discomfort/temp above 101 Last Admin: 03/16/25 23:24 Dose: 650 mg Albuterol Sulfate (Albuterol Sulfate (0.083%) 2.5 Mg/3 Ml Vial.Neb) 2.5 mg INHALE Q3H PRN PRN Reason: Wheezing Albuterol/Ipratropium (Albuterol/Iprat 2.5/0.5mg 3 Ml Ampul.Neb) 3 ml INHALE Q6H [facility] Last Admin: 03/17/25 03:44 Dose: 3 ml Bisacodyl (Bisacodyl 10 Mg Supp.Rect) 10 mg TN DAILY PRN PRN Reason: constipation if MOM ineffectiv Enoxaparin Sodium (Enoxaparin Sodium 100 Mg/Ml Syringe) 90 mg 1 mg/kg (90 mg) SUBCUT Q12H [facility] Last Admin: 03/16/25 23:39 Dose: Not Given Hydrocortisone Sodium Succinate (Hydrocortisone Sod Succ/Pf 100 Mg Vial) 50 mg IVPUSH Q8H [facility] Last Admin: 03/16/25 23:23 Dose: 50 mg Piperacillin Sod/Tazobactam (Sod 3.375 gm/ Sodium Chloride) 50 mls @ 100 mls/hr IV Q6H [facility] Last Infusion: 03/17/25 06:32 Dose: Infused Levetiracetam (Levetiracetam 1,000 Mg Tablet) 1,000 mg PO BID [facility] Last Admin: 03/16/25 21:10 Dose: 1,000 mg Methadone HCl (Methadone Hcl 10 Mg Tablet) 10 mg PO BID [facility] Last Admin: 03/16/25 21:10 Dose: 10 mg Midodrine (Midodrine Hcl 5 Mg Tablet) 5 mg PO TID@0900,1300,1700 HYUN Last Admin: 03/16/25 17:38 Dose: 5 mg Mirtazapine (Mirtazapine 7.5 Mg Tablet) 7.5 mg PO BEDTIME HYUN Last Admin: 03/16/25 21:10 Dose: 7.5 mg Rifaximin (Rifaximin 550 Mg Tablet) 550 mg PO BID [facility] Last Admin: 03/16/25 21:10 Dose: 550 mg Sertraline HCl (Sertraline Hcl 50 Mg Tablet) 50 mg PO DAILY [facility] Last Admin: 03/16/25 14:35 Dose: 50 mg Triamcinolone Acetonide (Triamcinolone Acet 0.1 % Cream 15 Gm Tube) 1 appl TOPICAL BID [facility]; Protocol Last Admin: 03/16/25 21:13 Dose: 1 appl Home Medications ?Medication ?Instructions ?Recorded ?Confirmed ?Last Taken ?Type acetaminophen 325 mg tablet 650 mg PO Q8H PRN general 03/16/25 03/16/25 Unknown History discomfort/temp above 101 albuterol sulfate 90 mcg/actuation 2 puff inhalation Q4H PRN 03/16/25 03/16/25 Unknown History aerosol inhaler Shortness Of Breath apixaban 5 mg tablet (Eliquis) 5 mg PO BID 03/16/25 03/16/25 Unknown History bisacodyl 10 mg rectal suppository 10 mg TN DAILY PRN constipation if 03/16/25 03/16/25 Unknown History MOM ineffectiv carvedilol 12.5 mg tablet 12.5 mg PO BID 03/16/25 03/16/25 Unknown History clotrimazole-betamethasone 1 1 appl topical TID 03/16/25 03/16/25 Unknown History %-0.05 % topical cream diphenhydramine HCl 25 mg capsule 25 mg PO Q8H PRN Itching 03/16/25 03/16/25 Unknown History docusate sodium 100 mg capsule 100 mg PO BID PRN Constipation 03/16/25 03/16/25 Unknown History epinephrine 0.3 mg/0.3 mL 0.3 mg IM Q5M PRN Anaphylaxis 03/16/25 03/16/25 Unknown History injection, auto-injector ergocalciferol (vitamin D2) 1,250 1,250 mcg PO Q28D 03/16/25 03/16/25 Unknown History mcg (50,000 unit) capsule (Vitamin D2) ferrous gluconate 240 mg (27 mg 240 mg PO DAILY 03/16/25 03/16/25 Unknown History iron) tablet fluticasone furoate 100 1 inh inhalation DAILY 03/16/25 03/16/25 Unknown History mcg-vilanterol 25 mcg/dose inhalation powder furosemide 20 mg tablet 40 mg PO DAILY 03/16/25 03/16/25 Unknown History glucagon 1 mg/0.2 mL subcutaneous 1 mg subcut Q15M PRN low BG 03/16/25 03/16/25 Unknown History solution (Gvoke) hydrocortisone 5 mg tablet 15 mg PO DAILY 03/16/25 03/16/25 Unknown History lacosamide 10 mg/mL oral solution 100 mg PO BID 03/16/25 03/16/25 Unknown History lactulose 10 gram/15 mL oral 45 ml PO QID 03/16/25 03/16/25 Unknown History solution levetiracetam 1,000 mg tablet 1,000 mg PO BID 03/16/25 03/16/25 Unknown History melatonin 3 mg tablet 3 mg PO BEDTIME 03/16/25 03/16/25 Unknown History methadone 10 mg tablet 10 mg PO Q12H 03/16/25 03/16/25 Unknown History mirtazapine 7.5 mg tablet 7.5 mg PO BEDTIME 03/16/25 03/16/25 Unknown History multivitamin 1 tab PO DAILY 03/16/25 03/16/25 Unknown History naloxone 0.4 mg/mL injection 0.4 mg IM Q3M PRN suspected opioid 03/16/25 03/16/25 Unknown History syringe overdose naloxone 4 mg/actuation nasal spray 1 spray intranasal Q3M PRN 03/16/25 03/16/25 Unknown History suspected opioid overdose omeprazole 20 mg capsule,delayed 20 mg PO DAILY@0630 03/16/25 03/16/25 Unknown History release oxycodone 5 mg tablet 5 mg PO Q6H PRN Severe Pain (Scale 03/16/25 03/16/25 Unknown History Score 7-10) potassium chloride 20 mEq 20 meq PO DAILY 03/16/25 03/16/25 Unknown History tablet,extended release rifaximin 550 mg tablet 550 mg PO BID 03/16/25 03/16/25 Unknown History sennosides 8.6 mg tablet (senna) 8.6 mg PO DAILY PRN Constipation 03/16/25 03/16/25 Unknown History sertraline 50 mg tablet 50 mg PO DAILY 03/16/25 03/16/25 Unknown History spironolactone 25 mg tablet 25 mg PO DAILY 03/16/25 03/16/25 Unknown History triamcinolone acetonide 0.1 % 1 appl topical BID 03/16/25 03/16/25 Unknown History topical cream umeclidinium 62.5 mcg/actuation 1 inh inhalation DAILY 03/16/25 03/16/25 Unknown History blister powder for inhalation (Incruse Ellipta) Physical Exam Vital Signs: Vital Signs: Last Vital Signs Temp 97.6 F 03/17/25 02:40 Pulse 60 03/17/25 03:55 Resp 18 03/17/25 03:56 BP 118/56 L 03/17/25 02:40 Pulse Ox 96 03/17/25 02:40 O2 Del Method BiPAP 03/17/25 02:40 O2 Flow Rate 3 03/16/25 23:10 FiO2 25 03/17/25 02:40 Oxygen Flow Rate 6 03/15/25 18:39 BMI result Body Mass Index 29.1 Const: General: cooperative, healthy appearing, comfortable and no acute distress Orientation/consciousness: patient oriented x3 HEENT: Face and sinus: Yes normal facial exam Mouth: moist mucous membranes Neck: Neck: Yes normal visual inspection, Yes full ROM and Yes trachea midline Chest: Chest palpation & inspection: normal inspection of the chest Resp: Effort & Inspection: normal respiratory effort, able to speak in complete sentences and no respiratory distress GI: Inspection: Yes normal to inspection Back/Spine/Pelvis: Cervical Spine: normal cervical lordosis Thoracic/Lumbar Spine: thoracic and lumbar spine normal to inspection Skin: General skin exam: no rashes or lesions noted Neuro: General: patient oriented x3, tone normal and moves all extremities Extrem: General: Yes normal to inspection and Yes capillary refill normal Results Labs 03/18/25 12:06 03/18/25 05:55 Labs: Abnormal lab results 03/16/25 03/17/25 Range/Units 07:54 06:26 RBC 2.89 L D (4.60-5.80) X10*6/uL Hgb 8.8 L D (14.0-18.0) g/dl Hct 29.4 L D (42.0-52.0) % MCV 101.7 H (80.0-98.0) fL MCHC 29.9 L (31.0-36.0) g/dl Plt Count 48 L D (160-400) X10*3/uL Immature Gran % (Auto) 0.6 H (0.0-0.4) % Neut % (Auto) 90.0 H (45-73) % Lymph % (Auto) 7.9 L (20-40) % Rogers % (Auto) 1.4 L (2-11) % Lymph # (Auto) 0.6 L (1.2-4.9) X10*3/uL Abs Immat Gran (auto) 0.04 H (0.00-0.03) X10*3/uL Sodium 148 H 148 H (135-145) mmol/L Carbon Dioxide 34 H 36 H (22-29) mmol/L Anion Gap 8 L (12-20) BUN 27 H 30 H (9-16) mg/dL Creatinine 1.51 H 1.71 H (0.5-1.4) mg/dL Phosphorus 2.4 L (2.7-4.5) mg/dL Total Bilirubin 1.4 H (0.0-1.0) mg/dL Direct Bilirubin 0.9 H (0.0-0.5) mg/dL Total Protein 6.3 L 6.0 L (6.5-8.0) g/dL Albumin 2.9 L 2.7 L (3.5-5.0) g/dL Short CBC 03/16/25 Range/Units 07:54 WBC 7.0 (4.8-10.8) X10*3/uL Hgb 8.8 L D (14.0-18.0) g/dl Hct 29.4 L D (42.0-52.0) % Plt Count 48 L D (160-400) X10*3/uL BMP 03/16/25 03/17/25 07:54 06:26 Sodium 148 H 148 H Potassium 4.2 4.0 Chloride 106 108 Carbon Dioxide 34 H 36 H BUN 27 H 30 H Creatinine 1.51 H 1.71 H Calcium 8.8 9.5 D Liver Function 03/16/25 03/17/25 Range/Units 07:54 06:26 Total Bilirubin 1.4 H 0.7 (0.0-1.0) mg/dL Direct Bilirubin 0.9 H (0.0-0.5) mg/dL AST 20 18 (5-37) U/L ALT 8 9 (0-40) U/L Alkaline Phosphatase 116 94 (39-117) U/L Albumin 2.9 L 2.7 L (3.5-5.0) g/dL Urine 03/15/25 Range/Units 20:50 Urine Color Red A Urine Appearance Cloudy Urine pH 6.5 (5.0-9.0) Ur Specific [place] 1.010 (1.005-1.025) Urine Protein 100 (2+) H (Neg-Trace) mg/dL Urine Glucose (UA) Negative (Negative) mg/dL All other labs normal. Assessment and Plan (1) Carmencita pyelonephritis: Status: Acute Plan Infectious disease consult regarding management of potential Ochoa within the upper tract system and setting of nephrostomy tube Procedures Date of Service Date of Service: 03/18/25
--- NOTE | 2025-03-17 09:37 | P.PNIM_ITS ---
Subjective Subjective Date of Service: 03/17/25 Interval History: improving, still very weak Physical Exam 2 Exam: Exam: General: AO X 3, ill appearing, diffuse echymosis Resp: diminished bilateral, no accessory muscles used CVS: S1,S2,RRR GI: soft, non tender, non distended Neuro: motor grossly intact, alert Psych: appropriate affect, appropriate insight Vital Signs: Vital Signs: Last Vital Signs Temp 98.0 F 03/17/25 08:00 Pulse 63 03/17/25 08:46 Resp 18 03/17/25 08:46 BP 119/58 L 03/17/25 08:00 Pulse Ox 90 L 03/17/25 08:00 O2 Del Method Nasal Cannula 03/17/25 08:00 O2 Flow Rate 2 03/17/25 08:00 FiO2 25 03/17/25 02:40 Oxygen Flow Rate 6 03/15/25 18:39 BMI result Body Mass Index 29.1 Objective Data Active Medications Acetaminophen (Acetaminophen 325 Mg Tablet) 650 mg PO Q8H PRN PRN Reason: general discomfort/temp above 101 Last Admin: 03/16/25 23:24 Dose: 650 mg Documented By: MORGAN Albuterol Sulfate (Albuterol Sulfate (0.083%) 2.5 Mg/3 Ml Vial.Neb) 2.5 mg INHALE Q3H PRN PRN Reason: Wheezing Albuterol/Ipratropium (Albuterol/Iprat 2.5/0.5mg 3 Ml Ampul.Neb) 3 ml INHALE Q6H [facility] Last Admin: 03/17/25 08:44 Dose: 3 ml Documented By: FRANCOISE Bisacodyl (Bisacodyl 10 Mg Supp.Rect) 10 mg DC DAILY PRN PRN Reason: constipation if MOM ineffectiv Enoxaparin Sodium (Enoxaparin Sodium 100 Mg/Ml Syringe) 90 mg 1 mg/kg (90 mg) SUBCUT Q12H [facility] Last Admin: 03/16/25 23:39 Dose: Not Given Documented By: MORGAN Non-Admin Reason: Physician Held Med Comments: platelets 48 Hydrocortisone Sodium Succinate (Hydrocortisone Sod Succ/Pf 100 Mg Vial) 50 mg IVPUSH Q8H [facility] Last Admin: 03/16/25 23:23 Dose: 50 mg Documented By: MORGAN Piperacillin Sod/Tazobactam (Sod 3.375 gm/ Sodium Chloride) 50 mls @ 100 mls/hr IV Q6H [facility] Last Infusion: 03/17/25 06:32 Dose: Infused Documented By: MORGAN Dextrose (D5w) 1,000 mls @ 100 mls/hr IVCONT .Q10H [facility] Levetiracetam (Levetiracetam 1,000 Mg Tablet) 1,000 mg PO BID [facility] Last Admin: 03/16/25 21:10 Dose: 1,000 mg Documented By: SPENCER Methadone HCl (Methadone Hcl 10 Mg Tablet) 10 mg PO BID [facility] Last Admin: 03/16/25 21:10 Dose: 10 mg Documented By: SPENCER Midodrine (Midodrine Hcl 5 Mg Tablet) 5 mg PO TID@0900,1300,1700 [facility] Last Admin: 03/16/25 17:38 Dose: 5 mg Documented By: JOSE M Mirtazapine (Mirtazapine 7.5 Mg Tablet) 7.5 mg PO BEDTIME [facility] Last Admin: 03/16/25 21:10 Dose: 7.5 mg Documented By: SPENCER Rifaximin (Rifaximin 550 Mg Tablet) 550 mg PO BID [facility] Last Admin: 03/16/25 21:10 Dose: 550 mg Documented By: SPENCER Sertraline HCl (Sertraline Hcl 50 Mg Tablet) 50 mg PO DAILY [facility] Last Admin: 03/16/25 14:35 Dose: 50 mg Documented By: TI Triamcinolone Acetonide (Triamcinolone Acet 0.1 % Cream 15 Gm Tube) 1 appl TOPICAL BID [facility]; Protocol Last Admin: 03/16/25 21:13 Dose: 1 appl Documented By: SPENCER Labs 03/16/25 07:54 03/17/25 06:26 Labs: Laboratory Results - last 24 hr 03/17/25 06:26 Anion Gap 8 L Estim Creat Clear Calc 53.9 Estimated GFR 41 Random Glucose 89 Calcium 9.5 D Total Bilirubin 0.7 AST 18 ALT 9 Alkaline Phosphatase 94 Total Protein 6.0 L Albumin 2.7 L Microbiology Microbiology Results: Microbiology 03/15/25 19:37 Blood Culture - Preliminary Blood - Venous No growth after 24 hours. 03/15/25 19:10 Blood Culture - Preliminary Blood - Venous No growth after 24 hours. 03/15/25 20:50 Urine Culture - Preliminary Urine Other - Nephrostomy No growth to date. 03/15/25 21:10 Gram Stain - Final Sputum - Expectorated Sputum Culture - Final Assessment and Plan (1) Acute exacerbation of chronic obstructive airways disease: Status: Acute Plan 59M PMH alcoholic cirrhosis, paroxysmal AFib, history of PE on Eliquis, chronic hypoxic respiratory failure due to COPD on 2 L home O2, adrenal insufficiency, chronic diastolic CHF, recent prolonged hospitalization at [facility] for MSSA bacteremia, admitted to ICU 03/15/2025 for altered mental status due to acute hypoxic and hypercapnic respiratory failure and hepatic encephalopathy. Treated with BiPAP and antibiotics for possible sepsis due to pneumonia, next day was weaned off and downgraded to medical floor. Acute metabolic encephalopathy due to acute on chronic hypoxic and hypercapnic respiratory failure and hepatic encephalopathy due to alcoholic cirrhosis Mental status back to baseline Improved with BiPAP, continue at night Hepatic encephalopathy appears resolved, continue rifaximin and lactulose Hypotension due to septic shock versus adrenal crisis Improved with hydrocortisone MRSA swab negative DC vancomycin Continue Zosyn, follow up cultures so far negative Ultrasound negative for cholecystitis Possible source pneumonia Acute hypernatremia D5W, monitor History of pulmonary embolism Due to chronic thrombocytopenia from cirrhosis less than 50,000 and diffuse ecchymosis plan to hold anticoagulation for now Paroxysmal AFib Coreg, hold anticoagulation dvt prophylaxis - mechanical due to thrombocytopenia full code reason for continued hospitalization:hypernatremia Quality Stroke Does the patient have a stroke diagnosis?: No VTE Prior VTE?: No VTE Risk Level:: Medical - moderate - high VTE Device Contraindication: N/A - Device Ordered VTE Drug Contraindication: N/A - Med Ordered
[2025-03-17] MEDS: Hydrocortisone Sod Succ/PF 100 MG VIAL 50 MG IVPUSH ×3 (10:36→23:22)
[2025-03-17] MEDS: Triamcinolone Acet 0.1 % Cream 15 GM TUBE 1 APPL TOPICAL ×2 (10:36→21:51)
[2025-03-17] MEDS: oxyCODONE HCl Immed Release 5 MG TABLET PO ×2 (10:56→16:57)
[2025-03-17 13:06] LABS: MRSA Nasal PCR NEGATIVE (Negative); SA Nasal PCR NEGATIVE (Negative)
--- NOTE | 2025-03-17 15:18 | MHC.CM.PN ---
EMR REVIEWED AND PER MD ROUNDS, PATIENT IS NOT MEDICALLY CLEARED FOR DISCHARGE DUE TO MANAGEMENT OF HYPERNATREMIA.
[2025-03-18] VITALS (13 sets, daily range): BP systolic 99–160; BP diastolic 67–84; PULSE 63–76; RESP 16–20; TEMP 36.6–37; O2SAT 90–96; BMI 29.1
[2025-03-18] MEDS: Albuterol/Iprat 2.5/0.5MG 3 ML AMPUL.NEB INHALE ×3 (04:56→17:23)
[2025-03-18 06:02] LABS: Venous Blood Gas Refer to POC result
[2025-03-18 06:08] LABS: VBG HCO3 47 mmol/L (22-26)
[2025-03-18 06:26] LABS: NT Pro B Type Natriuretic Pept 978.4 pg/mL (<300)
[2025-03-18 06:31] LABS: Anion Gap 10 (12-20); Blood Urea Nitrogen 28 mg/dL (9-16); Calcium 9.3 mg/dL (8.4-10.2); Carbon Dioxide 32 mmol/L (22-29); Chloride 106 mmol/L (96-108); Creatinine Clr Calc Pharmacy 54.6; Estimated Glomerular Filt Rate 42; Hematocrit 25.2 % (42.0-52.0); Hemoglobin 7.8 g/dl (14.0-18.0); Magnesium 1.9 mg/dL (1.6-2.6); Mean Corpuscular HGB Conc 31.0 g/dl (31.0-36.0); Mean Corpuscular Hemoglobin 30.5 pg (27.0-33.0); Mean Corpuscular Volume 98.4 fL (80.0-98.0); NRBC Abs Auto 0.000 X10*3/uL (0.0-0.012); NRBC Pct Auto 0.0 /100WBC (0.0-0.2); Potassium 3.6 mmol/L (3.3-5.1); Red Blood Count 2.56 X10*6/uL (4.60-5.80); Sodium 144 mmol/L (135-145); White Blood Count 5.3 X10*3/uL (4.8-10.8)
[2025-03-18 06:32] LABS: Platelet Count 35 X10*3/uL (160-400)
[2025-03-18 06:42] LABS: HBS Num1 0.40 mIU/mL (0-7.99); HBc Num1 0.11 S/CO (0.00-0.79); HBsAGNum1 0.43 S/CO (0.00-0.99); Hepatitis B Surface Antigen Negative (Negative); ~HepC Num1 0.16 S/CO (0.00-0.79); ~Hepatitis B Surface Antibody NONREACTIVE (Nonreactive); ~Hepatitis C Antibody Nonreactive (Nonreactive)
[2025-03-18] MEDS: Magnesium Sulfate/H2O 2 GM/50 ML PIGGYBACK IV (06:44)
--- NOTE | 2025-03-18 06:45 | PC.NURSE ---
run of wide complexes on tele. no change in pt mentation, VSS, noCP or SOB. MD Wren contacted. IV Mg ordered and running now
[2025-03-18] MEDS: Octreotide Acetate 100 MCG/ML AMPUL IVPUSH (07:13)
[2025-03-18] MEDS: Hydrocortisone Sod Succ/PF 100 MG VIAL 50 MG IVPUSH ×3 (09:06→23:44)
[2025-03-18] MEDS: Triamcinolone Acet 0.1 % Cream 15 GM TUBE 1 APPL TOPICAL ×2 (09:07→20:50)
[2025-03-18] MEDS: oxyCODONE HCl Immed Release 5 MG TABLET PO ×3 (09:08→23:43)
--- NOTE | 2025-03-18 09:41 | HO.PM.IMPN ---
Subjective Subjective Date of Service: 03/18/25 Interval History: right flank discomfort Physical Exam Exam: Exam: General: AO X 3, ill appearing, diffuse echymosis Resp: diminished bilateral, no accessory muscles used CVS: S1,S2,RRR GI: soft, non tender, non distended Neuro: motor grossly intact, alert Psych: appropriate affect, appropriate insight Vital Signs: Vital Signs: Last Vital Signs Temp 97.9 F 03/18/25 07:21 Pulse 63 03/18/25 07:21 Resp 18 03/18/25 07:21 BP 160/79 H 03/18/25 07:21 Pulse Ox 94 03/18/25 07:21 O2 Del Method Nasal Cannula 03/18/25 07:21 O2 Flow Rate 3 03/18/25 07:21 FiO2 35 03/17/25 16:00 Oxygen Flow Rate 6 03/15/25 18:39 BMI result Body Mass Index 29.1 Objective Data Active Medications Acetaminophen (Acetaminophen 325 Mg Tablet) 650 mg PO Q8H PRN PRN Reason: general discomfort/temp above 101 Last Admin: 03/17/25 21:36 Dose: 650 mg Documented By: MORGAN Albuterol Sulfate (Albuterol Sulfate (0.083%) 2.5 Mg/3 Ml Vial.Neb) 2.5 mg INHALE Q3H PRN PRN Reason: Wheezing Albuterol/Ipratropium (Albuterol/Iprat 2.5/0.5mg 3 Ml Ampul.Neb) 3 ml INHALE RQ6H HYUN Bisacodyl (Bisacodyl 10 Mg Supp.Rect) 10 mg [place] DAILY PRN PRN Reason: constipation if MOM ineffectiv Carvedilol (Carvedilol 6.25 Mg Tablet) 6.25 mg PO BID [facility]; Protocol Last Admin: 03/18/25 09:06 Dose: 6.25 mg Documented By: ERICA Fluconazole (Fluconazole 100 Mg Tablet) 100 mg PO DAILY [facility] Hydrocortisone Sodium Succinate (Hydrocortisone Sod Succ/Pf 100 Mg Vial) 50 mg IVPUSH Q8H [facility] Last Admin: 03/18/25 09:06 Dose: 50 mg Documented By: ERICA Dextrose (D5w) 1,000 mls @ 100 mls/hr IVCONT .Q10H [facility] Last Admin: 03/18/25 05:08 Dose: 100 mls/hr Documented By: MORGAN Octreotide Acetate 500 mcg/ (Sodium Chloride) 501 mls @ 50.1 mls/hr IVCONT .Q10H [facility] Last Admin: 03/18/25 09:06 Dose: 50 mcg/hr, 50.1 mls/hr Documented By: ERICA Lactulose (Lactulose 20 Gm/30 Ml Solution) 30 gm PO BID [facility] Last Admin: 03/18/25 09:07 Dose: 30 gm Documented By: ERICA Levetiracetam (Levetiracetam 1,000 Mg Tablet) 1,000 mg PO BID [facility] Last Admin: 03/18/25 09:06 Dose: 1,000 mg Documented By: ERICA Methadone HCl (Methadone Hcl 10 Mg Tablet) 10 mg PO BID [facility] Last Admin: 03/18/25 09:06 Dose: 10 mg Documented By: ERICA Midodrine (Midodrine Hcl 5 Mg Tablet) 5 mg PO TID@0900,1300,1700 [facility] Last Admin: 03/18/25 09:08 Dose: Not Given Documented By: ERICA Non-Admin Reason: high BP Mirtazapine (Mirtazapine 7.5 Mg Tablet) 7.5 mg PO BEDTIME [facility] Last Admin: 03/17/25 21:36 Dose: 7.5 mg Documented By: MORGAN Oxycodone HCl (Oxycodone Hcl Immed Release 5 Mg Tablet) 5 mg PO Q6H PRN PRN Reason: Pain, Severe (Pain Scale 7-10) Last Admin: 03/18/25 09:08 Dose: 5 mg Documented By: ERICA Pantoprazole Sodium (Pantoprazole Sodium 40 Mg/10 Ml Vial) 40 mg IVPUSH BID@0630,1630 [facility] Rifaximin (Rifaximin 550 Mg Tablet) 550 mg PO BID [facility] Last Admin: 03/18/25 09:05 Dose: 550 mg Documented By: ERICA Sertraline HCl (Sertraline Hcl 50 Mg Tablet) 50 mg PO DAILY [facility] Last Admin: 03/18/25 09:06 Dose: 50 mg Documented By: ERICA Triamcinolone Acetonide (Triamcinolone Acet 0.1 % Cream 15 Gm Tube) 1 appl TOPICAL BID HYUN; Protocol Last Admin: 03/18/25 09:07 Dose: 1 appl Documented By: ERICA Labs 03/18/25 05:55 03/18/25 05:55 Labs: Laboratory Results - last 24 hr 03/17/25 03/18/25 03/18/25 10:30 05:55 06:03 MCV 98.4 H MCH 30.5 MCHC 31.0 RDW 15.3 Plt Count 35 L D MPV Not Reportable Absolute Nucleated RBC 0.000 Nucleated RBC % (auto) 0.0 VBG pH 7.46 H VBG pCO2 65 VBG pO2 72 VBG HCO3 47 H VBG O2 Saturation Not Reportable VBG Base Excess 19.5 Anion Gap 10 L Estim Creat Clear Calc 54.6 Estimated GFR 42 Random Glucose 143 H Calcium 9.3 Magnesium 1.9 NT-Pro-B Natriuret Pep 978.4 H Nasal Screen MRSA (PCR) NEGATIVE Nasal S. aureus Screen NEGATIVE Nasal MRSA/S.aureus Interp SEE NOTE Hep Bs Antigen Negative Hep Bs Antibody NONREACTIVE Hep B Core Total Ab Nonreactive Hepatitis C Ab (EIA) Nonreactive Microbiology Microbiology Results: Microbiology 03/15/25 20:50 Urine Culture - Final Urine Other - Nephrostomy Divya albicans 03/15/25 19:37 Blood Culture - Preliminary Blood - Venous No growth after 48 hours. 03/15/25 19:10 Blood Culture - Preliminary Blood - Venous No growth after 48 hours. Assessment and Plan (1) Acute exacerbation of chronic obstructive airways disease: Status: Acute Plan 59M PMH alcoholic cirrhosis, paroxysmal AFib, history of PE on Eliquis, chronic hypoxic respiratory failure due to COPD on 2 L home O2, adrenal insufficiency, chronic diastolic CHF, recent prolonged hospitalization at [facility] for MSSA bacteremia, admitted to ICU 03/15/2025 for altered mental status due to acute hypoxic and hypercapnic respiratory failure and hepatic encephalopathy. Treated with BiPAP and antibiotics for possible sepsis due to pneumonia, next day was weaned off and downgraded to medical floor. Acute metabolic encephalopathy due to acute on chronic hypoxic and hypercapnic respiratory failure and hepatic encephalopathy due to alcoholic cirrhosis Mental status back to baseline Improved with BiPAP, continue at night Hepatic encephalopathy appears resolved, continue rifaximin and lactulose Hypotension due to septic shock versus adrenal crisis Improved with hydrocortisone MRSA swab negative DC vancomycin urine culture with divya, will dc zosyn, start diflucan Ultrasound negative for cholecystitis acute on chronic anemia suspect mulitfactorial (possible acute blood loss, inflammatory) check ct abd gi eval monitor Acute hypernatremia D5W, monitor History of pulmonary embolism Due to chronic thrombocytopenia from cirrhosis less than 50,000 and diffuse ecchymosis plan to hold anticoagulation for now acute on chronic thrombocytopneia basleine around 60K, ?due to zosyn - holding monitor Paroxysmal AFib Coreg, hold anticoagulation dvt prophylaxis - mechanical due to thrombocytopenia full code reason for continued hospitalization:anemia Quality Stroke Does the patient have a stroke diagnosis?: No VTE Prior VTE?: No VTE Risk Level:: Medical - moderate - high VTE Device Contraindication: N/A - Device Ordered VTE Drug Contraindication: N/A - Med Ordered
[2025-03-18 10:27] LABS: OBS Int Ctl Valid YES; OBS Lot 0224; OBS1 POSITIVE (NEGATIVE)
--- NOTE | 2025-03-18 11:52 | PM.GICN ---
History of Present Illness Data of Consult Service Date: 03/18/25 Primary Care Provider: VINNY GRANADO HPI Reason for consult: anemia 59-year-old male w/ hx of PE on Eliquis, COPD, liver cancer, right perinephric abscess status post nephrostomy at [facility], CHF,, adrenal insufficiency on hydrocortisone orally, depression, thrombophilia, erythema multiforme, chronic pain syndrome, MRSA carrier, hypertension, atherosclerotic disease, paroxysmal atrial fibrillation, asthma, GERD, constipation, portal hypertension, recurrent falls, generalized muscle weakness, nicotine dependence, pneumonia, UTIs, fracture of the left humeral shaft, protein calorie malnutrition syndrome, cellulitis of the chest wall, bacteremia (unspecified) benign neoplasm of the colon, renal calculi, hypoxic respiratory failure, unspecified epilepsy, who I am seeing for assessment for anemia Patient was initially admitted with hypoxic respiratory failure treated with Bipap and antibiotics with imaging revealing infitrates in lungs. Hgb on admission was 11. 5 --trending down as has plts count. He is on lovenox and eliquis is held. HGB is now 8 g/dl and plts went from 100--> 30 He denies overt GI bleeding with rectal bleeding, melena, nose bleeds, or hematuria. UA did reveal large blood, and he says he is prone to UTI and had some burning with urine, he has diarrhea but attributes it to the lactulose He also mentioned that he sees liver transplant team at [facility] and had colonoscopy and EGD in the past but timing is not known/ He beleives he has cirrhosis from alcohol use in the past and has had cirrhosis for about 25 yrs. Currently breathing is much better. denies abdominal or chest pain. no sputum. he has diarrhea which he attributes to lactulose; Review of Systems Review of Systems: Constitutional : No Weight loss, No Fever, No Chills ENT/Mouth : No sore throat, No Rhinorrhea Eyes: No Swelling, No Redness Cardiovascular : No Chest Pain, No SOB, No Edema Respiratory : No Cough, No Sputum, No Wheezing Gastrointestinal : see HPI Genitourinary : + Dysuria, No Urinary Frequency, No Hematuria, No Urgency Musculoskeletal : no joint pain, No Myalgias, No Joint Swelling Skin : No Skin Lesions, No rash Neuro : No Weakness, No Numbness, No Dizziness, No Headache Psych : No Anxiety/Panic, No Depression Heme/Lymph: No Bruising, No Lymphadenopathy Endocrine : No Polyuria, No Polydipsia All other systems reviewed and are negative. [facility] Past Medical History Medical History (Updated 03/18/25 @ 14:15 by Efe Syed MD) Perinephric abscess Hepatic encephalopathy Epilepsy, unspecified, not intractable, without status epilepticus Renal calculi Benign neoplasm of colon Bacteremia Cellulitis of chest wall Protein-calorie malnutrition UTI (urinary tract infection) Pneumonia Nicotine dependence Falls Portal hypertension Constipation GERD (gastroesophageal reflux disease) Asthma Esophageal varices Paroxysmal atrial fibrillation Hypertension History of MRSA infection Chronic pain syndrome Erythema multiforme Thrombophilia Depression Adrenal insufficiency COPD (chronic obstructive pulmonary disease) Liver cancer CHF (congestive heart failure) Family History Pertinent family history: denies FH of cirrhosis. Social History Social History Household Members: Other Housing: Intermediate Do you presently have visiting nurse or other home services: No Alcohol intake: former Patient Tobacco Use Status: Never used Tobacco Smoked in Last 30 Days: No Use of substances other than those prescribed or required for medical reasons: No Currently Displaying Signs/Symptoms of Drug Intoxication Withdrawal: No Have you been hit, kicked, punched, or otherwise hurt by someone within the past year? If so, by whom?: No Do you feel safe in your current relationship?: No Current Relationship Is there a partner from a previous relationship who is making you feel unsafe now?: No Are you made to feel afraid or neglected: No Advance Directives: No Advance Directives Information Provided: No Do you have a plan to hurt others: No Plan Recently lost weight without trying: Unsure How much weight loss: Unsure Eating poorly because of decreased appetite: No Nutrition screen score: 4 Nutrition Risks: No Nutritional Risk Poor oral hygiene: No service: No Meds Allergies Allergy/AdvReac Type Severity Reaction Status Date / Time allopurinol Allergy Unknown Verified 03/15/25 18:52 cephalexin Allergy Unknown Verified 03/15/25 18:52 Iodinated Contrast Media Allergy Unknown Verified 03/15/25 18:52 (Contrast Dye) levofloxacin Allergy Unknown Verified 03/15/25 18:52 sulfamethoxazole Allergy Unknown Verified 03/15/25 18:52 trimethoprim Allergy Unknown Verified 03/15/25 18:52 Active Medications: Current Medications Acetaminophen (Acetaminophen 325 Mg Tablet) 650 mg PO Q8H PRN PRN Reason: general discomfort/temp above 101 Last Admin: 03/17/25 21:36 Dose: 650 mg Albuterol Sulfate (Albuterol Sulfate (0.083%) 2.5 Mg/3 Ml Vial.Neb) 2.5 mg INHALE Q3H PRN PRN Reason: Wheezing Albuterol/Ipratropium (Albuterol/Iprat 2.5/0.5mg 3 Ml Ampul.Neb) 3 ml INHALE RQ6H HYUN Last Admin: 03/18/25 11:16 Dose: 3 ml Bisacodyl (Bisacodyl 10 Mg Supp.Rect) 10 mg [place] DAILY PRN PRN Reason: constipation if MOM ineffectiv Carvedilol (Carvedilol 6.25 Mg Tablet) 6.25 mg PO BID [facility]; Protocol Last Admin: 03/18/25 09:06 Dose: 6.25 mg Fluconazole (Fluconazole 100 Mg Tablet) 100 mg PO DAILY [facility] Last Admin: 03/18/25 10:17 Dose: 100 mg Hydrocortisone Sodium Succinate (Hydrocortisone Sod Succ/Pf 100 Mg Vial) 50 mg IVPUSH Q8H HYUN Last Admin: 03/18/25 09:06 Dose: 50 mg Dextrose (D5w) 1,000 mls @ 100 mls/hr IVCONT .Q10H HYUN Last Admin: 03/18/25 05:08 Dose: 100 mls/hr Octreotide Acetate 500 mcg/ (Sodium Chloride) 501 mls @ 50.1 mls/hr IVCONT .Q10H HYUN Last Admin: 03/18/25 09:06 Dose: 50 mcg/hr, 50.1 mls/hr Lactulose (Lactulose 20 Gm/30 Ml Solution) 30 gm PO BID HYUN Last Admin: 03/18/25 09:07 Dose: 30 gm Levetiracetam (Levetiracetam 1,000 Mg Tablet) 1,000 mg PO BID HYUN Last Admin: 03/18/25 09:06 Dose: 1,000 mg Methadone HCl (Methadone Hcl 10 Mg Tablet) 10 mg PO BID HYUN Last Admin: 03/18/25 09:06 Dose: 10 mg Midodrine (Midodrine Hcl 5 Mg Tablet) 5 mg PO TID@0900,1300,1700 HYUN Last Admin: 03/18/25 09:08 Dose: Not Given Mirtazapine (Mirtazapine 7.5 Mg Tablet) 7.5 mg PO BEDTIME [facility] Last Admin: 03/17/25 21:36 Dose: 7.5 mg Oxycodone HCl (Oxycodone Hcl Immed Release 5 Mg Tablet) 5 mg PO Q6H PRN PRN Reason: Pain, Severe (Pain Scale 7-10) Last Admin: 03/18/25 09:08 Dose: 5 mg Pantoprazole Sodium (Pantoprazole Sodium 40 Mg/10 Ml Vial) 40 mg IVPUSH BID@0630,1630 [facility] Rifaximin (Rifaximin 550 Mg Tablet) 550 mg PO BID [facility] Last Admin: 03/18/25 09:05 Dose: 550 mg Sertraline HCl (Sertraline Hcl 50 Mg Tablet) 50 mg PO DAILY [facility] Last Admin: 03/18/25 09:06 Dose: 50 mg Triamcinolone Acetonide (Triamcinolone Acet 0.1 % Cream 15 Gm Tube) 1 appl TOPICAL BID [facility]; Protocol Last Admin: 03/18/25 09:07 Dose: 1 appl Home Medications ?Medication ?Instructions ?Recorded ?Confirmed ?Last Taken ?Type acetaminophen 325 mg tablet 650 mg PO Q8H PRN general 03/16/25 03/16/25 Unknown History discomfort/temp above 101 albuterol sulfate 90 mcg/actuation 2 puff inhalation Q4H PRN 03/16/25 03/16/25 Unknown History aerosol inhaler Shortness Of Breath apixaban 5 mg tablet (Eliquis) 5 mg PO BID 03/16/25 03/16/25 Unknown History bisacodyl 10 mg rectal suppository 10 mg [place] DAILY PRN constipation if 03/16/25 03/16/25 Unknown History MOM ineffectiv carvedilol 12.5 mg tablet 12.5 mg PO BID 03/16/25 03/16/25 Unknown History clotrimazole-betamethasone 1 1 appl topical TID 03/16/25 03/16/25 Unknown History %-0.05 % topical cream diphenhydramine HCl 25 mg capsule 25 mg PO Q8H PRN Itching 03/16/25 03/16/25 Unknown History docusate sodium 100 mg capsule 100 mg PO BID PRN Constipation 03/16/25 03/16/25 Unknown History epinephrine 0.3 mg/0.3 mL 0.3 mg IM Q5M PRN Anaphylaxis 03/16/25 03/16/25 Unknown History injection, auto-injector ergocalciferol (vitamin D2) 1,250 1,250 mcg PO Q28D 03/16/25 03/16/25 Unknown History mcg (50,000 unit) capsule (Vitamin D2) ferrous gluconate 240 mg (27 mg 240 mg PO DAILY 03/16/25 03/16/25 Unknown History iron) tablet fluticasone furoate 100 1 inh inhalation DAILY 03/16/25 03/16/25 Unknown History mcg-vilanterol 25 mcg/dose inhalation powder furosemide 20 mg tablet 40 mg PO DAILY 03/16/25 03/16/25 Unknown History glucagon 1 mg/0.2 mL subcutaneous 1 mg subcut Q15M PRN low BG 03/16/25 03/16/25 Unknown History solution (Gvoke) hydrocortisone 5 mg tablet 15 mg PO DAILY 03/16/25 03/16/25 Unknown History lacosamide 10 mg/mL oral solution 100 mg PO BID 03/16/25 03/16/25 Unknown History lactulose 10 gram/15 mL oral 45 ml PO QID 03/16/25 03/16/25 Unknown History solution levetiracetam 1,000 mg tablet 1,000 mg PO BID 03/16/25 03/16/25 Unknown History melatonin 3 mg tablet 3 mg PO BEDTIME 03/16/25 03/16/25 Unknown History methadone 10 mg tablet 10 mg PO Q12H 03/16/25 03/16/25 Unknown History mirtazapine 7.5 mg tablet 7.5 mg PO BEDTIME 03/16/25 03/16/25 Unknown History multivitamin 1 tab PO DAILY 03/16/25 03/16/25 Unknown History naloxone 0.4 mg/mL injection 0.4 mg IM Q3M PRN suspected opioid 03/16/25 03/16/25 Unknown History syringe overdose naloxone 4 mg/actuation nasal spray 1 spray intranasal Q3M PRN 03/16/25 03/16/25 Unknown History suspected opioid overdose omeprazole 20 mg capsule,delayed 20 mg PO DAILY@0630 03/16/25 03/16/25 Unknown History release oxycodone 5 mg tablet 5 mg PO Q6H PRN Severe Pain (Scale 03/16/25 03/16/25 Unknown History Score 7-10) potassium chloride 20 mEq 20 meq PO DAILY 03/16/25 03/16/25 Unknown History tablet,extended release rifaximin 550 mg tablet 550 mg PO BID 03/16/25 03/16/25 Unknown History sennosides 8.6 mg tablet (senna) 8.6 mg PO DAILY PRN Constipation 03/16/25 03/16/25 Unknown History sertraline 50 mg tablet 50 mg PO DAILY 03/16/25 03/16/25 Unknown History spironolactone 25 mg tablet 25 mg PO DAILY 03/16/25 03/16/25 Unknown History triamcinolone acetonide 0.1 % 1 appl topical BID 03/16/25 03/16/25 Unknown History topical cream umeclidinium 62.5 mcg/actuation 1 inh inhalation DAILY 03/16/25 03/16/25 Unknown History blister powder for inhalation (Incruse Ellipta) Physical Exam Exam: Exam: EXAM: GENERAL: The patient is well developed and nontoxic. wearig nasal cannula VITAL SIGNS:see workflow HEENT: Nonicteric sclerae, PERRLA, EOMI. Oropharynx clear. Moist mucous membranes. Conjunctivae appear well perfused. No thyroid mass. CHEST: Chest wall is nontender. HEART: Regular rate and rhythm without murmurs. LUNGS: Clear to auscultation bilaterally. ABDOMEN: Soft, positive bowel sounds, nontender, no organomegaly.no flank tenderness SKIN: bruising on arms NEUROLOGIC: Cranial nerves II-XII intact without motor/sensory deficit. Psych: normal affect Vital Signs: Vital Signs: Last Vital Signs Temp 98.6 F 03/18/25 11:22 Pulse 69 03/18/25 11:22 Resp 18 03/18/25 11:22 BP 127/73 03/18/25 11:22 Pulse Ox 96 03/18/25 11:22 O2 Del Method Nasal Cannula 03/18/25 11:22 O2 Flow Rate 2 03/18/25 11:22 FiO2 35 03/17/25 16:00 Oxygen Flow Rate 6 03/15/25 18:39 BMI result Body Mass Index 29.1 Results Labs 03/18/25 12:06 03/18/25 05:55 Labs: Short CBC 03/18/25 Range/Units 05:55 WBC 5.3 (4.8-10.8) X10*3/uL Hgb 7.8 L (14.0-18.0) g/dl Hct 25.2 L (42.0-52.0) % Plt Count 35 L D (160-400) X10*3/uL BMP 03/18/25 05:55 Sodium 144 Potassium 3.6 Chloride 106 Carbon Dioxide 32 H BUN 28 H Creatinine 1.69 H Calcium 9.3 Microbiology Microbiology Results: Microbiology 03/15/25 20:50 Urine Other - Nephrostomy Urine Culture - Final Carmencita albicans 03/15/25 19:37 Blood - Venous Blood Culture - Preliminary No growth after 48 hours. 03/15/25 19:10 Blood - Venous Blood Culture - Preliminary No growth after 48 hours. 03/15/25 21:10 Sputum - Expectorated Gram Stain - Final 03/15/25 21:10 Sputum - Expectorated Sputum Culture - Final Imaging CT scan - abdomen: Attestation: I personally reviewed and interpreted this imaging study as follows: (cirrhotic liver, atherosclerosis, scoliosis, gallstones, nephrostomy tubes, kidney stranding, possible discitis ) Assessment and Plan (1) Anemia: Qualifiers: Anemia type: other cause Status: Acute Plan 1/ Multifactorial anemia, no overt signs of blood loss, could be from bruising, eliquis use, low plts, microscopic hematuria, chronic infection, portal HTN and cirrhosis and CKD. Its sounds like he has not had an EGD or colonoscopy for a while and follows [facility], so he does need these at some point, he thinks he will be moving back to [place] in near future PLAN: /1 - check iron studies, b12, folate, replace if low 2/ hold on EGD and colo unless overt GI bleeding 3/ consider changing lovenox given lowering of plts r/o HIT 4/ urology consult for hematuria and nephrostomy tubes 5/ cut back on lactulose -aiming for 2-3 soft stools daily, if ongoing diarrhea then check c diff and stool pcr Procedures Date of Service Date of Service: 03/18/25
[2025-03-18 12:14] LABS: Hematocrit 25.6 % (42.0-52.0); Hemoglobin 7.9 g/dl (14.0-18.0); Mean Corpuscular HGB Conc 30.9 g/dl (31.0-36.0); Mean Corpuscular Hemoglobin 30.6 pg (27.0-33.0); Mean Corpuscular Volume 99.2 fL (80.0-98.0); NRBC Abs Auto 0.000 X10*3/uL (0.0-0.012); NRBC Pct Auto 0.0 /100WBC (0.0-0.2); Platelet Count 30 X10*3/uL (160-400); Red Blood Count 2.58 X10*6/uL (4.60-5.80); White Blood Count 4.5 X10*3/uL (4.8-10.8)
[2025-03-19] VITALS (17 sets, daily range): BP systolic 136–171; BP diastolic 69–95; PULSE 64–78; RESP 18–20; TEMP 36.2–36.9; O2SAT 92–96; BMI 30.5
[2025-03-19] MEDS: Albuterol/Iprat 2.5/0.5MG 3 ML AMPUL.NEB INHALE ×5 (00:29→23:06)
[2025-03-19] MEDS: oxyCODONE HCl Immed Release 5 MG TABLET PO ×3 (05:54→20:31)
[2025-03-19 06:01] LABS: Hematocrit 24.5 % (42.0-52.0); Hemoglobin 7.5 g/dl (14.0-18.0); Mean Corpuscular HGB Conc 30.6 g/dl (31.0-36.0); Mean Corpuscular Hemoglobin 30.1 pg (27.0-33.0); Mean Corpuscular Volume 98.4 fL (80.0-98.0); NRBC Abs Auto 0.020 X10*3/uL (0.0-0.012); NRBC Pct Auto 0.6 /100WBC (0.0-0.2); Platelet Count 30 X10*3/uL (160-400); Red Blood Count 2.49 X10*6/uL (4.60-5.80); White Blood Count 3.3 X10*3/uL (4.8-10.8)
[2025-03-19 06:09] LABS: INTERNATIONAL NORM RATIO 1.3 (0.9-1.1); Prothrombin Time 15.3 SEC (10.9-12.4)
[2025-03-19 06:10] LABS: Fibrinogen 211 MG/DL (259-690)
[2025-03-19 06:12] LABS: D Dimer High Sensitivity 787 NG/ML
[2025-03-19 06:15] LABS: Alanine Aminotransferase 10 U/L (0-40); Albumin Level 2.4 g/dL (3.5-5.0); Alkaline Phosphatase 83 U/L (39-117); Anion Gap 10 (12-20); Aspartate Amino Transferase 15 U/L (5-37); Blood Urea Nitrogen 19 mg/dL (9-16); Calcium 8.6 mg/dL (8.4-10.2); Carbon Dioxide 30 mmol/L (22-29); Chloride 104 mmol/L (96-108); Creatinine Clr Calc Pharmacy 66.3; Estimated Glomerular Filt Rate 52; Magnesium 2.0 mg/dL (1.6-2.6); Potassium 3.6 mmol/L (3.3-5.1); Sodium 140 mmol/L (135-145); Total Protein 5.4 g/dL (6.5-8.0)
--- NOTE | 2025-03-19 08:27 | HO.PM.IMPN ---
Subjective Subjective Date of Service: 03/19/25 Interval History: right flank discomfort Review of Systems no new c/o Review of Systems: Yes all other systems are reviewed and are negative Physical Exam Exam: Exam: General: AO X 3, ill appearing, diffuse echymosis Resp: diminished bilateral, no accessory muscles used CVS: S1,S2,RRR GI: soft, non tender, non distended Neuro: motor grossly intact, alert Vital Signs: Vital Signs: Last Vital Signs Temp 97.2 F 03/19/25 07:35 Pulse 69 03/19/25 07:35 Resp 20 03/19/25 07:35 BP 151/75 H 03/19/25 07:35 Pulse Ox 95 03/19/25 07:35 O2 Del Method Nasal Cannula 03/19/25 07:35 O2 Flow Rate 2 03/19/25 07:35 FiO2 35 03/17/25 16:00 Oxygen Flow Rate 6 03/15/25 18:39 BMI result Body Mass Index 30.5 Objective Data Active Medications Acetaminophen (Acetaminophen 325 Mg Tablet) 650 mg PO Q8H PRN PRN Reason: general discomfort/temp above 101 Last Admin: 03/17/25 21:36 Dose: 650 mg Documented By: MORGAN Albuterol Sulfate (Albuterol Sulfate (0.083%) 2.5 Mg/3 Ml Vial.Neb) 2.5 mg INHALE Q3H PRN PRN Reason: Wheezing Albuterol/Ipratropium (Albuterol/Iprat 2.5/0.5mg 3 Ml Ampul.Neb) 3 ml INHALE RQ6H [facility] Last Admin: 03/19/25 06:29 Dose: 3 ml Documented By: BRIA Bisacodyl (Bisacodyl 10 Mg Supp.Rect) 10 mg SC DAILY PRN PRN Reason: constipation if MOM ineffectiv Carvedilol (Carvedilol 6.25 Mg Tablet) 6.25 mg PO BID [facility]; Protocol Last Admin: 03/18/25 20:48 Dose: 6.25 mg Documented By: ANDREA Fluconazole (Fluconazole 100 Mg Tablet) 100 mg PO DAILY [facility] Last Admin: 03/18/25 10:17 Dose: 100 mg Documented By: ERICA Hydrocortisone Sodium Succinate (Hydrocortisone Sod Succ/Pf 100 Mg Vial) 50 mg IVPUSH Q8H [facility] Last Admin: 03/18/25 23:44 Dose: 50 mg Documented By: ANDREA Dextrose (D5w) 1,000 mls @ 100 mls/hr IVCONT .Q10H [facility] Last Admin: 03/19/25 02:52 Dose: 100 mls/hr Documented By: ANDREA Octreotide Acetate 500 mcg/ (Sodium Chloride) 501 mls @ 50.1 mls/hr IVCONT .Q10H [facility] Last Admin: 03/19/25 05:30 Dose: 50 mcg/hr, 50.1 mls/hr Documented By: ANDREA Lactulose (Lactulose 20 Gm/30 Ml Solution) 30 gm PO DAILY [facility] Levetiracetam (Levetiracetam 1,000 Mg Tablet) 1,000 mg PO BID [facility] Last Admin: 03/18/25 20:49 Dose: 1,000 mg Documented By: ANDREA Methadone HCl (Methadone Hcl 10 Mg Tablet) 10 mg PO BID [facility] Last Admin: 03/18/25 20:49 Dose: 10 mg Documented By: ANDREA Midodrine (Midodrine Hcl 5 Mg Tablet) 5 mg PO TID@0900,1300,1700 [facility] Last Admin: 03/18/25 17:29 Dose: Not Given Documented By: KUN Non-Admin Reason: Physician Held Med Mirtazapine (Mirtazapine 7.5 Mg Tablet) 7.5 mg PO BEDTIME [facility] Last Admin: 03/18/25 20:49 Dose: 7.5 mg Documented By: ANDREA Oxycodone HCl (Oxycodone Hcl Immed Release 5 Mg Tablet) 5 mg PO Q6H PRN PRN Reason: Pain, Severe (Pain Scale 7-10) Last Admin: 03/19/25 05:54 Dose: 5 mg Documented By: ANDREA Pantoprazole Sodium (Pantoprazole Sodium 40 Mg/10 Ml Vial) 40 mg IVPUSH BID@0630,1630 [facility] Last Admin: 03/19/25 05:53 Dose: 40 mg Documented By: ANDREA Rifaximin (Rifaximin 550 Mg Tablet) 550 mg PO BID [facility] Last Admin: 03/18/25 20:49 Dose: 550 mg Documented By: ANDREA Sertraline HCl (Sertraline Hcl 50 Mg Tablet) 50 mg PO DAILY [facility] Last Admin: 03/18/25 09:06 Dose: 50 mg Documented By: ERICA Triamcinolone Acetonide (Triamcinolone Acet 0.1 % Cream 15 Gm Tube) 1 appl TOPICAL BID [facility]; Protocol Last Admin: 03/18/25 20:50 Dose: 1 appl Documented By: ANDREA Labs 03/19/25 13:01 03/19/25 05:40 Labs: Laboratory Results - last 24 hr 03/18/25 03/18/25 03/19/25 10:14 12:06 05:40 MCV 99.2 H Cancelled MCH 30.6 MCHC 30.9 L RDW 15.4 Plt Count 30 L MPV Not Reportable Absolute Nucleated RBC 0.000 Nucleated RBC % (auto) 0.0 PT INR Fibrinogen D-Dimer High Sensitivty Anion Gap Estim Creat Clear Calc Estimated GFR Random Glucose Calcium Magnesium Total Bilirubin Direct Bilirubin AST ALT Alkaline Phosphatase Total Protein Albumin Stool Occult Blood POSITIVE 03/19/25 03/19/25 03/19/25 05:40 05:40 05:40 MCV 98.4 H MCH Cancelled 30.1 MCHC Cancelled 30.6 L RDW Cancelled Plt Count MPV Absolute Nucleated RBC Nucleated RBC % (auto) PT INR Fibrinogen D-Dimer High Sensitivty Anion Gap Estim Creat Clear Calc Estimated GFR Random Glucose Calcium Magnesium Total Bilirubin Direct Bilirubin AST ALT Alkaline Phosphatase Total Protein Albumin Stool Occult Blood 03/19/25 03/19/25 03/19/25 05:40 05:40 05:40 MCV MCH MCHC RDW 15.1 Plt Count Cancelled 30 L MPV Cancelled Not Reportable Absolute Nucleated RBC Cancelled Nucleated RBC % (auto) PT INR Fibrinogen D-Dimer High Sensitivty Anion Gap Estim Creat Clear Calc Estimated GFR Random Glucose Calcium Magnesium Total Bilirubin Direct Bilirubin AST ALT Alkaline Phosphatase Total Protein Albumin Stool Occult Blood 03/19/25 03/19/25 03/19/25 05:40 05:40 05:41 MCV MCH MCHC RDW Plt Count MPV Absolute Nucleated RBC 0.020 H Nucleated RBC % (auto) Cancelled 0.6 H PT 15.3 H D INR 1.3 H Fibrinogen 211 L D-Dimer High Sensitivty 787 Anion Gap 10 L Estim Creat Clear Calc 66.3 Estimated GFR 52 Random Glucose 204 H Calcium 8.6 D Magnesium 2.0 Total Bilirubin 0.7 Direct Bilirubin 0.4 AST 15 ALT 10 Alkaline Phosphatase 83 Total Protein 5.4 L Albumin 2.4 L Stool Occult Blood Microbiology Microbiology Results: Microbiology 03/15/25 20:50 Urine Culture - Final Urine Other - Nephrostomy Divya albicans Assessment and Plan (1) Divya pyelonephritis: Status: Acute Plan 59M PMH alcoholic cirrhosis, paroxysmal AFib, history of PE on Eliquis, chronic hypoxic respiratory failure due to COPD on 2 L home O2, adrenal insufficiency, chronic diastolic CHF, recent prolonged hospitalization at [facility] for MSSA bacteremia, admitted to ICU 03/15/2025 for altered mental status due to acute hypoxic and hypercapnic respiratory failure and hepatic encephalopathy. Treated with BiPAP and antibiotics for possible sepsis due to pneumonia, next day was weaned off and downgraded to medical floor. Acute metabolic encephalopathy due to acute on chronic hypoxic and hypercapnic respiratory failure and hepatic encephalopathy due to alcoholic cirrhosis Mental status back to baseline Improved with BiPAP, continue at night Hepatic encephalopathy appears resolved, continue rifaximin and lactulose, moniter bm -goal bm between 2-3/day . Hypotension due to septic shock- versus adrenal crisis Improved with hydrocortisone(hydrocortisone 50 mg p.o. b.i.d. for 3 days then hydrocortisone 25 mg p.o. b.i.d. for 3 days, then switched to his regular p.o. dose of 15 mg-endocrinology recommended to divide the dose 10 mg in the morning and 5 mg at 16:00.) MRSA swab negative DC vancomycin urine culture with divya, on diflucan Ultrasound negative for cholecystitis acute on chronic anemia suspect mulitfactorial (possible acute blood loss, inflammatory) ct abd: Stable position of right nephrostomy tube. Question right dilated upper pole calyces versus peripelvic cysts. No lower pole calyceal dilatation adjacent to the nephrostomy tube renal pelvis or ureteral dilatation. Increased skin thickening and fat stranding surrounding the nephrostomy tube which may be related to hemorrhage given clinical history. No large fluid collection or soft tissue hematoma is seen. Chronic soft tissue changes in the right posterior pararenal fascia and muscle extending to the right anterior psoas muscle and anterior to the IVC. This appears partially calcified and similar to March 16, 2025 exam and likely chronic. No evidence of acute retroperitoneal hematoma. Probable transitional vertebral body and anatomy. Transitional or upper lumbar vertebral body mild recent appearing compression fracture. Air in the adjacent disc space. This may be related to trauma or degenerative change. Cannot include infection. Again if there is concern for discitis/osteomyelitis, lumbar spine MRI would be recommended. plan: no hematuria today. CT scan discussed with the radiologist-seems like chronic change in lumbar spine area, recommended to do nuclear medicine scan instead of MRI( due to hardware/more artifact chances with mri ) gi eval noted -recommended to hold Lovenox due to thrombocytopenia, now EGD currently. monitor CBC closely Acute hypernatremia Improved, IV fluids stopped. History of pulmonary embolism Due to chronic thrombocytopenia from cirrhosis less than 50,000 and diffuse ecchymosis plan to hold anticoagulation for now acute on chronic thrombocytopneia-pancytopenia somewhat improving basleine around 60K, ?due to zosyn - holding monitor Paroxysmal AFib Coreg, hold anticoagulation dvt prophylaxis - mechanical due to thrombocytopenia full code reason for continued hospitalization:anemia as well as further workup for abnormal CTA abdomen-needs close monitoring of CBC, acute metabolic encephalopathy, electrolytic abnormalities. Quality Stroke Does the patient have a stroke diagnosis?: No VTE Prior VTE?: No VTE Risk Level:: Medical - moderate - high VTE Device Contraindication: N/A - Device Ordered VTE Drug Contraindication: N/A - Med Ordered
[2025-03-19] MEDS: Hydrocortisone Sod Succ/PF 100 MG VIAL 50 MG IVPUSH ×3 (09:46→20:30)
[2025-03-19] MEDS: Triamcinolone Acet 0.1 % Cream 15 GM TUBE 1 APPL TOPICAL ×2 (09:47→20:32)
[2025-03-19 10:25] LABS: Folate 11.8 ng/mL (> or = 4.0); Vitamin B12 871 pg/mL (200-900)
[2025-03-19 13:27] LABS: Hematocrit 26.4 % (42.0-52.0); Hemoglobin 8.1 g/dl (14.0-18.0); Mean Corpuscular HGB Conc 30.7 g/dl (31.0-36.0); Mean Corpuscular Hemoglobin 30.5 pg (27.0-33.0); Mean Corpuscular Volume 99.2 fL (80.0-98.0); NRBC Abs Auto 0.020 X10*3/uL (0.0-0.012); NRBC Pct Auto 0.5 /100WBC (0.0-0.2); Platelet Count 36 X10*3/uL (160-400); Red Blood Count 2.66 X10*6/uL (4.60-5.80); White Blood Count 4.4 X10*3/uL (4.8-10.8)
--- NOTE | 2025-03-19 14:13 | MHC.CM.PN ---
EMR REVIEWED, PT W/ANEMIA ON HIGH DOSE IV PPI AND IV OCTREOTIDE, NO PLAN FOR DC AT THIS TIME, PT WILL RETURN TO LTC AT [facility] ONCE MEDICALLY, CM WILL CONT TO FOLLOW.
--- NOTE | 2025-03-19 22:08 | W.PM.IDCN ---
History of Present Illness Data of Consult Service Date: 03/19/25 Requesting physician: Yina Santiago Primary Care Provider: VINNY GRANADO Reason for consult: upper tract divya concern He presents with weakness and back pain over last week. He sees Urology and has h/o perinephric abscess with nephrostomy tube. Divya is growing from upper tract area kidney Review of Systems Review of Systems: Yes all other systems are reviewed and are negative PMFSH Past Medical History Medical History Perinephric abscess Hepatic encephalopathy Epilepsy, unspecified, not intractable, without status epilepticus Renal calculi Benign neoplasm of colon Bacteremia Cellulitis of chest wall Protein-calorie malnutrition UTI (urinary tract infection) Pneumonia Nicotine dependence Falls Portal hypertension Constipation GERD (gastroesophageal reflux disease) Asthma Esophageal varices Paroxysmal atrial fibrillation Hypertension History of MRSA infection Chronic pain syndrome Erythema multiforme Thrombophilia Depression Adrenal insufficiency COPD (chronic obstructive pulmonary disease) Liver cancer CHF (congestive heart failure) Family History Family history: reviewed and not pertinent Social History Social History Household Members: Other Housing: Half-Way Do you presently have visiting nurse or other home services: No Alcohol intake: former Patient Tobacco Use Status: Never used Tobacco Smoked in Last 30 Days: No Use of substances other than those prescribed or required for medical reasons: No Currently Displaying Signs/Symptoms of Drug Intoxication Withdrawal: No Have you been hit, kicked, punched, or otherwise hurt by someone within the past year? If so, by whom?: No Do you feel safe in your current relationship?: No Current Relationship Is there a partner from a previous relationship who is making you feel unsafe now?: No Are you made to feel afraid or neglected: No Advance Directives: No Advance Directives Information Provided: No Do you have a plan to hurt others: No Plan Recently lost weight without trying: Unsure How much weight loss: Unsure Eating poorly because of decreased appetite: No Nutrition screen score: 4 Nutrition Risks: No Nutritional Risk Poor oral hygiene: No service: No Meds Allergies Allergy/AdvReac Type Severity Reaction Status Date / Time allopurinol Allergy Unknown Verified 03/15/25 18:52 cephalexin Allergy Unknown Verified 03/15/25 18:52 Iodinated Contrast Media Allergy Unknown Verified 03/15/25 18:52 (Contrast Dye) levofloxacin Allergy Unknown Verified 03/15/25 18:52 sulfamethoxazole Allergy Unknown Verified 03/15/25 18:52 trimethoprim Allergy Unknown Verified 03/15/25 18:52 Active Medications: Current Medications Acetaminophen (Acetaminophen 325 Mg Tablet) 975 mg PO Q8H PRN PRN Reason: Headache,fever Last Admin: 03/19/25 20:30 Dose: 975 mg Albuterol Sulfate (Albuterol Sulfate (0.083%) 2.5 Mg/3 Ml Vial.Neb) 2.5 mg INHALE Q3H PRN PRN Reason: Wheezing Albuterol/Ipratropium (Albuterol/Iprat 2.5/0.5mg 3 Ml Ampul.Neb) 3 ml INHALE RQ6H [facility] Last Admin: 03/19/25 17:33 Dose: 3 ml Bisacodyl (Bisacodyl 10 Mg Supp.Rect) 10 mg NV DAILY PRN PRN Reason: constipation if MOM ineffectiv Carvedilol (Carvedilol 6.25 Mg Tablet) 6.25 mg PO BID [facility]; Protocol Last Admin: 03/19/25 20:31 Dose: 6.25 mg Fluconazole (Fluconazole 100 Mg Tablet) 100 mg PO DAILY [facility] Last Admin: 03/19/25 09:45 Dose: 100 mg Hydrocortisone Sodium Succinate (Hydrocortisone Sod Succ/Pf 100 Mg Vial) 50 mg IVPUSH BID [facility] Last Admin: 03/19/25 20:30 Dose: 50 mg Octreotide Acetate 500 mcg/ (Sodium Chloride) 501 mls @ 50.1 mls/hr IVCONT .Q10H [facility] Last Admin: 03/19/25 15:19 Dose: 50 mcg/hr, 50.1 mls/hr Lactulose (Lactulose 20 Gm/30 Ml Solution) 30 gm PO DAILY [facility] Last Admin: 03/19/25 09:47 Dose: 30 gm Levetiracetam (Levetiracetam 1,000 Mg Tablet) 1,000 mg PO BID [facility] Last Admin: 03/19/25 20:32 Dose: 1,000 mg Methadone HCl (Methadone Hcl 10 Mg Tablet) 10 mg PO BID [facility] Last Admin: 03/19/25 20:32 Dose: 10 mg Midodrine (Midodrine Hcl 5 Mg Tablet) 5 mg PO TID@0900,1300,1700 [facility] Last Admin: 03/19/25 16:15 Dose: Not Given Mirtazapine (Mirtazapine 7.5 Mg Tablet) 7.5 mg PO BEDTIME [facility] Last Admin: 03/19/25 20:31 Dose: 7.5 mg Oxycodone HCl (Oxycodone Hcl Immed Release 5 Mg Tablet) 5 mg PO Q4H PRN PRN Reason: Pain, Severe (Pain Scale 7-10) Last Admin: 03/19/25 20:31 Dose: 5 mg Pantoprazole Sodium (Pantoprazole Sodium 40 Mg/10 Ml Vial) 40 mg IVPUSH BID@0630,1630 [facility] Last Admin: 03/19/25 15:19 Dose: 40 mg Rifaximin (Rifaximin 550 Mg Tablet) 550 mg PO BID [facility] Last Admin: 03/19/25 20:31 Dose: 550 mg Sertraline HCl (Sertraline Hcl 50 Mg Tablet) 50 mg PO DAILY [facility] Last Admin: 03/19/25 09:38 Dose: 50 mg Triamcinolone Acetonide (Triamcinolone Acet 0.1 % Cream 15 Gm Tube) 1 appl TOPICAL BID [facility]; Protocol Last Admin: 03/19/25 20:32 Dose: 1 appl Home Medications ?Medication ?Instructions ?Recorded ?Confirmed ?Last Taken ?Type acetaminophen 325 mg tablet 650 mg PO Q8H PRN general 03/16/25 03/16/25 Unknown History discomfort/temp above 101 albuterol sulfate 90 mcg/actuation 2 puff inhalation Q4H PRN 03/16/25 03/16/25 Unknown History aerosol inhaler Shortness Of Breath apixaban 5 mg tablet (Eliquis) 5 mg PO BID 03/16/25 03/16/25 Unknown History bisacodyl 10 mg rectal suppository 10 mg NV DAILY PRN constipation if 03/16/25 03/16/25 Unknown History MOM ineffectiv carvedilol 12.5 mg tablet 12.5 mg PO BID 03/16/25 03/16/25 Unknown History clotrimazole-betamethasone 1 1 appl topical TID 03/16/25 03/16/25 Unknown History %-0.05 % topical cream diphenhydramine HCl 25 mg capsule 25 mg PO Q8H PRN Itching 03/16/25 03/16/25 Unknown History docusate sodium 100 mg capsule 100 mg PO BID PRN Constipation 03/16/25 03/16/25 Unknown History epinephrine 0.3 mg/0.3 mL 0.3 mg IM Q5M PRN Anaphylaxis 03/16/25 03/16/25 Unknown History injection, auto-injector ergocalciferol (vitamin D2) 1,250 1,250 mcg PO Q28D 03/16/25 03/16/25 Unknown History mcg (50,000 unit) capsule (Vitamin D2) ferrous gluconate 240 mg (27 mg 240 mg PO DAILY 03/16/25 03/16/25 Unknown History iron) tablet fluticasone furoate 100 1 inh inhalation DAILY 03/16/25 03/16/25 Unknown History mcg-vilanterol 25 mcg/dose inhalation powder furosemide 20 mg tablet 40 mg PO DAILY 03/16/25 03/16/25 Unknown History glucagon 1 mg/0.2 mL subcutaneous 1 mg subcut Q15M PRN low BG 03/16/25 03/16/25 Unknown History solution (Gvoke) hydrocortisone 5 mg tablet 15 mg PO DAILY 03/16/25 03/16/25 Unknown History lacosamide 10 mg/mL oral solution 100 mg PO BID 03/16/25 03/16/25 Unknown History lactulose 10 gram/15 mL oral 45 ml PO QID 03/16/25 03/16/25 Unknown History solution levetiracetam 1,000 mg tablet 1,000 mg PO BID 03/16/25 03/16/25 Unknown History melatonin 3 mg tablet 3 mg PO BEDTIME 03/16/25 03/16/25 Unknown History methadone 10 mg tablet 10 mg PO Q12H 03/16/25 03/16/25 Unknown History mirtazapine 7.5 mg tablet 7.5 mg PO BEDTIME 03/16/25 03/16/25 Unknown History multivitamin 1 tab PO DAILY 03/16/25 03/16/25 Unknown History naloxone 0.4 mg/mL injection 0.4 mg IM Q3M PRN suspected opioid 03/16/25 03/16/25 Unknown History syringe overdose naloxone 4 mg/actuation nasal spray 1 spray intranasal Q3M PRN 03/16/25 03/16/25 Unknown History suspected opioid overdose omeprazole 20 mg capsule,delayed 20 mg PO DAILY@0630 03/16/25 03/16/25 Unknown History release oxycodone 5 mg tablet 5 mg PO Q6H PRN Severe Pain (Scale 03/16/25 03/16/25 Unknown History Score 7-10) potassium chloride 20 mEq 20 meq PO DAILY 03/16/25 03/16/25 Unknown History tablet,extended release rifaximin 550 mg tablet 550 mg PO BID 03/16/25 03/16/25 Unknown History sennosides 8.6 mg tablet (senna) 8.6 mg PO DAILY PRN Constipation 03/16/25 03/16/25 Unknown History sertraline 50 mg tablet 50 mg PO DAILY 03/16/25 03/16/25 Unknown History spironolactone 25 mg tablet 25 mg PO DAILY 03/16/25 03/16/25 Unknown History triamcinolone acetonide 0.1 % 1 appl topical BID 03/16/25 03/16/25 Unknown History topical cream umeclidinium 62.5 mcg/actuation 1 inh inhalation DAILY 03/16/25 03/16/25 Unknown History blister powder for inhalation (Incruse Ellipta) Physical Exam Vital Signs: Vital Signs: Last Vital Signs Temp 98.3 F 03/19/25 19:53 Pulse 72 03/19/25 21:42 Resp 18 03/19/25 19:53 BP 151/69 H 03/19/25 21:42 Pulse Ox 92 03/19/25 19:53 O2 Del Method Nasal Cannula 03/19/25 19:53 O2 Flow Rate 2 03/19/25 19:53 FiO2 35 03/17/25 16:00 Oxygen Flow Rate 6 03/15/25 18:39 BMI result Body Mass Index 30.5 Const: General: cooperative HEENT: Head: Yes normal to inspection Face and sinus: Yes normal facial exam Mouth: Normal oral and palatal mucosa present Teeth and gingiva: dentition normal Eyes: General: appearance normal, both eyes and all related structures Pupils: Equal, round and reactive pupils present Resp: Effort & Inspection: normal respiratory effort Cardio: Rate: regular rate Rhythm: regular rhythm GI: Palpation (GI): Soft to palpation and nontender : General: Yes no CVA tenderness Back/Spine/Pelvis: Back: no CVA tenderness Skin: General skin exam: no rashes or lesions noted Neuro: General: moves all extremities Cranial nerves: Yes Equal, round and reactive pupils present Extrem: General: Yes normal to inspection Psych: Appearance: grossly normal Results Labs 03/19/25 13:01 03/19/25 05:40 Labs: Short CBC 03/19/25 03/19/25 03/19/25 Range/Units 05:40 05:40 05:40 WBC Cancelled 3.3 L Hgb Cancelled 7.5 L Hct Cancelled Plt Count 03/19/25 03/19/25 03/19/25 Range/Units 05:40 05:40 13:01 WBC 4.4 L Hgb 8.1 L Hct 24.5 L 26.4 L Plt Count Cancelled 30 L 36 L BMP 03/19/25 05:40 Sodium 140 Potassium 3.6 Chloride 104 Carbon Dioxide 30 H BUN 19 H Creatinine 1.39 Calcium 8.6 D Liver Function 03/19/25 Range/Units 05:40 Total Bilirubin 0.7 (0.0-1.0) mg/dL Direct Bilirubin 0.4 (0.0-0.5) mg/dL AST 15 (5-37) U/L ALT 10 (0-40) U/L Alkaline Phosphatase 83 (39-117) U/L Albumin 2.4 L (3.5-5.0) g/dL Microbiology Microbiology Results: Microbiology 03/15/25 20:50 Urine Other - Nephrostomy Urine Culture - Final Divya albicans 03/15/25 19:37 Blood - Venous Blood Culture - Preliminary No growth after 48 hours. 03/15/25 19:10 Blood - Venous Blood Culture - Preliminary No growth after 48 hours. 03/15/25 21:10 Sputum - Expectorated Gram Stain - Final 03/15/25 21:10 Sputum - Expectorated Sputum Culture - Final Assessment and Plan (1) Divya pyelonephritis: Status: Acute (2) Septic shock: Status: Acute Plan Concern over divya Upper tract infection Back pain,difficult to view image Would continue Diflucan ,increase to 200 mg daily possibly 14 days or more Check sensitivities divya.
[2025-03-20] VITALS (8 sets, daily range): BP systolic 162–178; BP diastolic 82–90; PULSE 57–68; RESP 18–22; TEMP 36.1–36.9; O2SAT 95–98; BMI 30.4
[2025-03-20] MEDS: oxyCODONE HCl Immed Release 5 MG TABLET PO ×5 (01:26→21:14)
[2025-03-20] MEDS: Albuterol/Iprat 2.5/0.5MG 3 ML AMPUL.NEB INHALE ×2 (05:23→15:07)
[2025-03-20] MEDS: Hydrocortisone Sod Succ/PF 100 MG VIAL 50 MG IVPUSH ×2 (09:50→21:15)
[2025-03-20] MEDS: Triamcinolone Acet 0.1 % Cream 15 GM TUBE 1 APPL TOPICAL ×2 (09:57→21:15)
--- NOTE | 2025-03-20 12:53 | PC.NURSE ---
bp 178/90 p 62. notified. AM and afternoon midodrine held.
--- NOTE | 2025-03-20 15:09 | HO.PM.IMPN ---
Subjective Subjective Date of Service: 03/20/25 Interval History: right flank discomfort Review of Systems Seems like pain is improving, No new complaints, elevated blood pressure. Review of Systems: Yes all other systems are reviewed and are negative Physical Exam Exam: Exam: General: AO X 3, ill appearing, diffuse echymosis Resp: diminished bilateral, no accessory muscles used CVS: S1,S2,RRR GI: soft, non tender, non distended Neuro: motor grossly intact, alert Vital Signs: Vital Signs: Last Vital Signs Temp 97.9 F 03/20/25 11:10 Pulse 62 03/20/25 15:09 Resp 18 03/20/25 15:09 BP 178/90 H 03/20/25 11:10 Pulse Ox 96 03/20/25 11:10 O2 Del Method Nasal Cannula 03/20/25 11:10 O2 Flow Rate 2 03/20/25 11:10 FiO2 35 03/17/25 16:00 Oxygen Flow Rate 6 03/15/25 18:39 BMI result Body Mass Index 30.4 Objective Data Active Medications Acetaminophen (Acetaminophen 325 Mg Tablet) 975 mg PO Q8H PRN PRN Reason: Headache,fever Last Admin: 03/19/25 20:30 Dose: 975 mg Documented By: ANDREA Albuterol Sulfate (Albuterol Sulfate (0.083%) 2.5 Mg/3 Ml Vial.Neb) 2.5 mg INHALE Q3H PRN PRN Reason: Wheezing Albuterol/Ipratropium (Albuterol/Iprat 2.5/0.5mg 3 Ml Ampul.Neb) 3 ml INHALE RQ6H [facility] Last Admin: 03/20/25 15:07 Dose: 3 ml Documented By: TAMERA Bisacodyl (Bisacodyl 10 Mg Supp.Rect) 10 mg [place] DAILY PRN PRN Reason: constipation if MOM ineffectiv Carvedilol (Carvedilol 6.25 Mg Tablet) 6.25 mg PO BID [facility]; Protocol Last Admin: 03/20/25 09:49 Dose: 6.25 mg Documented By: KANCHAN Fluconazole (Fluconazole 100 Mg Tablet) 100 mg PO DAILY [facility] Last Admin: 03/20/25 09:59 Dose: 100 mg Documented By: KANCHAN Hydrocortisone Sodium Succinate (Hydrocortisone Sod Succ/Pf 100 Mg Vial) 50 mg IVPUSH BID [facility] Last Admin: 03/20/25 09:50 Dose: 50 mg Documented By: KANCHAN Octreotide Acetate 500 mcg/ (Sodium Chloride) 501 mls @ 50.1 mls/hr IVCONT .Q10H [facility] Last Admin: 03/20/25 11:03 Dose: 50 mcg/hr, 50.1 mls/hr Documented By: KANCHAN Lactulose (Lactulose 20 Gm/30 Ml Solution) 30 gm PO DAILY [facility] Last Admin: 03/20/25 09:50 Dose: 30 gm Documented By: KANCHAN Levetiracetam (Levetiracetam 1,000 Mg Tablet) 1,000 mg PO BID [facility] Last Admin: 03/20/25 09:49 Dose: 1,000 mg Documented By: KANCHAN Methadone HCl (Methadone Hcl 10 Mg Tablet) 10 mg PO BID [facility] Last Admin: 03/20/25 09:50 Dose: 10 mg Documented By: KANCHAN Midodrine (Midodrine Hcl 5 Mg Tablet) 5 mg PO TID@0900,1300,1700 [facility] Last Admin: 03/20/25 12:55 Dose: Not Given Documented By: KANCHAN Non-Admin Reason: bp elevated Mirtazapine (Mirtazapine 7.5 Mg Tablet) 7.5 mg PO BEDTIME [facility] Last Admin: 03/19/25 20:31 Dose: 7.5 mg Documented By: ANDREA Oxycodone HCl (Oxycodone Hcl Immed Release 5 Mg Tablet) 5 mg PO Q4H PRN PRN Reason: Pain, Severe (Pain Scale 7-10) Last Admin: 03/20/25 14:20 Dose: 5 mg Documented By: KANCHAN Pantoprazole Sodium (Pantoprazole Sodium 40 Mg/10 Ml Vial) 40 mg IVPUSH BID@0630,1630 [facility] Last Admin: 03/20/25 05:39 Dose: 40 mg Documented By: ANDREA Rifaximin (Rifaximin 550 Mg Tablet) 550 mg PO BID [facility] Last Admin: 03/20/25 09:49 Dose: 550 mg Documented By: KANCHAN Sertraline HCl (Sertraline Hcl 50 Mg Tablet) 50 mg PO DAILY [facility] Last Admin: 03/20/25 09:49 Dose: 50 mg Documented By: KANCHAN Triamcinolone Acetonide (Triamcinolone Acet 0.1 % Cream 15 Gm Tube) 1 appl TOPICAL BID [facility]; Protocol Last Admin: 03/20/25 09:57 Dose: 1 appl Documented By: KANCHAN Labs 03/19/25 13:01 03/19/25 05:40 Assessment and Plan (1) Divya pyelonephritis: Status: Acute Plan 59M PMH alcoholic cirrhosis, paroxysmal AFib, history of PE on Eliquis, chronic hypoxic respiratory failure due to COPD on 2 L home O2, adrenal insufficiency, chronic diastolic CHF, recent prolonged hospitalization at [facility] for MSSA bacteremia, admitted to ICU 03/15/2025 for altered mental status due to acute hypoxic and hypercapnic respiratory failure and hepatic encephalopathy. Treated with BiPAP and antibiotics for possible sepsis due to pneumonia, next day was weaned off and downgraded to medical floor. Acute metabolic encephalopathy due to acute on chronic hypoxic and hypercapnic respiratory failure and hepatic encephalopathy due to alcoholic cirrhosis Mental status back to baseline Improved with BiPAP, continue at night Hepatic encephalopathy appears resolved, continue rifaximin and lactulose, moniter bm -goal bm between 2-3/day . Hypotension due to septic shock- versus adrenal crisis Improved with hydrocortisone(hydrocortisone 50 mg p.o. b.i.d. for 3 days then hydrocortisone 25 mg p.o. b.i.d. for 3 days, then switched to his regular p.o. dose of 15 mg-endocrinology recommended to divide the dose 10 mg in the morning and 5 mg at 16:00.) MRSA swab negative DC vancomycin urine culture with divya, on diflucan Ultrasound negative for cholecystitis patient is now htn -persistently elevated bp-adjusted coreg 12.5 mg po bid ,hold midodrine. acute on chronic anemia suspect mulitfactorial (possible acute blood loss, inflammatory) ct abd: Stable position of right nephrostomy tube. Question right dilated upper pole calyces versus peripelvic cysts. No lower pole calyceal dilatation adjacent to the nephrostomy tube renal pelvis or ureteral dilatation. Increased skin thickening and fat stranding surrounding the nephrostomy tube which may be related to hemorrhage given clinical history. No large fluid collection or soft tissue hematoma is seen. Chronic soft tissue changes in the right posterior pararenal fascia and muscle extending to the right anterior psoas muscle and anterior to the IVC. This appears partially calcified and similar to March 16, 2025 exam and likely chronic. No evidence of acute retroperitoneal hematoma. Probable transitional vertebral body and anatomy. Transitional or upper lumbar vertebral body mild recent appearing compression fracture. Air in the adjacent disc space. This may be related to trauma or degenerative change. Cannot include infection. Again if there is concern for discitis/osteomyelitis, lumbar spine MRI would be recommended. plan: no hematuria today. CT scan discussed with the radiologist-seems like chronic change in lumbar spine area, recommended to do nuclear medicine scan instead of MRI( due to hardware/more artifact chances with mri ) gi eval noted -recommended to hold Lovenox due to thrombocytopenia, no rec for EGD currently. monitor CBC closely Acute hypernatremia Improved, IV fluids stopped. History of pulmonary embolism Due to chronic thrombocytopenia from cirrhosis less than 50,000 and diffuse ecchymosis plan to hold anticoagulation for now acute on chronic thrombocytopneia-pancytopenia somewhat improving basleine around 60K, ?due to zosyn - holding monitor Paroxysmal AFib Coreg, hold anticoagulation dvt prophylaxis - mechanical due to thrombocytopenia full code reason for continued hospitalization:anemia as well as further workup for abnormal CTA abdomen-needs nm study,close monitoring of CBC, acute metabolic encephalopathy, electrolytic abnormalities. Quality Stroke Does the patient have a stroke diagnosis?: No VTE Prior VTE?: No VTE Risk Level:: Medical - moderate - high VTE Device Contraindication: N/A - Device Ordered VTE Drug Contraindication: N/A - Med Ordered
[2025-03-21] VITALS (8 sets, daily range): BP systolic 145–167; BP diastolic 74–94; PULSE 47–79; RESP 16–19; TEMP 36.1–36.7; O2SAT 94–97
[2025-03-21] MEDS: Albuterol/Iprat 2.5/0.5MG 3 ML AMPUL.NEB INHALE ×2 (00:15→05:19)
[2025-03-21] MEDS: oxyCODONE HCl Immed Release 5 MG TABLET PO (03:27)
[2025-03-21 07:40] LABS: Hematocrit 29.3 % (42.0-52.0); Hemoglobin 9.2 g/dl (14.0-18.0); Mean Corpuscular HGB Conc 31.4 g/dl (31.0-36.0); Mean Corpuscular Hemoglobin 30.3 pg (27.0-33.0); Mean Corpuscular Volume 96.4 fL (80.0-98.0); NRBC Abs Auto 0.110 X10*3/uL (0.0-0.012); Platelet Count 44 X10*3/uL (160-400); Red Blood Count 3.04 X10*6/uL (4.60-5.80); White Blood Count 6.6 X10*3/uL (4.8-10.8)
[2025-03-21 07:41] LABS: NRBC Pct Auto 1.7 /100WBC (0.0-0.2)
--- NOTE | 2025-03-21 08:23 | P.PNIM_ITS ---
Subjective Subjective Date of Service: 03/21/25 Review of Systems Review of Systems: Yes all other systems are reviewed and are negative Physical Exam 2 Exam: Exam: General: AO X 3, ill appearing, diffuse echymosis Resp: diminished bilateral, no accessory muscles used CVS: S1,S2,RRR GI: soft, non tender, non distended Neuro: motor grossly intact, alert Vital Signs: Vital Signs: Last Vital Signs Temp 97.0 F 03/21/25 07:22 Pulse 59 03/21/25 07:22 Resp 16 03/21/25 07:22 BP 162/74 H 03/21/25 07:22 Pulse Ox 94 03/21/25 07:22 O2 Del Method Nasal Cannula 03/21/25 07:22 O2 Flow Rate 2 03/21/25 07:22 FiO2 35 03/17/25 16:00 Oxygen Flow Rate 6 03/15/25 18:39 BMI result Body Mass Index 30.4 Objective Data Active Medications Acetaminophen (Acetaminophen 325 Mg Tablet) 975 mg PO Q8H PRN PRN Reason: Headache,fever Last Admin: 03/19/25 20:30 Dose: 975 mg Documented By: ANDREA Albuterol Sulfate (Albuterol Sulfate (0.083%) 2.5 Mg/3 Ml Vial.Neb) 2.5 mg INHALE Q3H PRN PRN Reason: Wheezing Albuterol/Ipratropium (Albuterol/Iprat 2.5/0.5mg 3 Ml Ampul.Neb) 3 ml INHALE RQ6H [facility] Last Admin: 03/21/25 05:19 Dose: 3 ml Documented By: ROSMERY Bisacodyl (Bisacodyl 10 Mg Supp.Rect) 10 mg [place] DAILY PRN PRN Reason: constipation if MOM ineffectiv Carvedilol (Carvedilol 12.5 Mg Tablet) 12.5 mg PO BID [facility]; Protocol Last Admin: 03/20/25 21:14 Dose: 12.5 mg Documented By: KIM Fluconazole (Fluconazole 100 Mg Tablet) 200 mg PO DAILY [facility] Hydrocortisone Sodium Succinate (Hydrocortisone Sod Succ/Pf 100 Mg Vial) 50 mg IVPUSH BID [facility] Last Admin: 03/20/25 21:15 Dose: 50 mg Documented By: KIM Octreotide Acetate 500 mcg/ (Sodium Chloride) 501 mls @ 50.1 mls/hr IVCONT .Q10H [facility] Last Admin: 03/21/25 05:38 Dose: 50 mcg/hr, 50.1 mls/hr Documented By: ANDREA Lactulose (Lactulose 20 Gm/30 Ml Solution) 30 gm PO DAILY [facility] Last Admin: 03/20/25 09:50 Dose: 30 gm Documented By: KANCHAN Levetiracetam (Levetiracetam 1,000 Mg Tablet) 1,000 mg PO BID [facility] Last Admin: 03/20/25 21:14 Dose: 1,000 mg Documented By: KIM Methadone HCl (Methadone Hcl 10 Mg Tablet) 10 mg PO BID [facility] Last Admin: 03/20/25 21:14 Dose: 10 mg Documented By: KIM Midodrine (Midodrine Hcl 5 Mg Tablet) 5 mg PO TID@0900,1300,1700 [facility] On Hold: 03/20/25 15:09 Last Admin: 03/20/25 12:55 Dose: Not Given Documented By: KANCHAN Non-Admin Reason: bp elevated Mirtazapine (Mirtazapine 7.5 Mg Tablet) 7.5 mg PO BEDTIME [facility] Last Admin: 03/20/25 21:14 Dose: 7.5 mg Documented By: KIM Oxycodone HCl (Oxycodone Hcl Immed Release 5 Mg Tablet) 5 mg PO Q4H PRN PRN Reason: Pain, Severe (Pain Scale 7-10) Last Admin: 03/21/25 03:27 Dose: 5 mg Documented By: ANDREA Pantoprazole Sodium (Pantoprazole Sodium 40 Mg/10 Ml Vial) 40 mg IVPUSH BID@0630,1630 [facility] Last Admin: 03/21/25 05:38 Dose: 40 mg Documented By: ANDREA Rifaximin (Rifaximin 550 Mg Tablet) 550 mg PO BID [facility] Last Admin: 03/20/25 21:14 Dose: 550 mg Documented By: KIM Sertraline HCl (Sertraline Hcl 50 Mg Tablet) 50 mg PO DAILY [facility] Last Admin: 03/20/25 09:49 Dose: 50 mg Documented By: KANCHAN Triamcinolone Acetonide (Triamcinolone Acet 0.1 % Cream 15 Gm Tube) 1 appl TOPICAL BID [facility]; Protocol Last Admin: 03/20/25 21:15 Dose: 1 appl Documented By: KIM Labs 03/21/25 06:47 03/19/25 05:40 Labs: Laboratory Results - last 24 hr 03/21/25 06:47 MCV 96.4 MCH 30.3 MCHC 31.4 RDW 15.4 Plt Count 44 L MPV Not Reportable Absolute Nucleated RBC 0.110 H Nucleated RBC % (auto) 1.7 H Microbiology Microbiology Results: Microbiology 03/15/25 19:10 Blood Culture - Final Blood - Venous No growth after 5 days. 03/15/25 19:37 Blood Culture - Final Blood - Venous No growth after 5 days. Assessment and Plan (1) Divya pyelonephritis: Status: Acute Plan 59M PMH alcoholic cirrhosis, paroxysmal AFib, history of PE on Eliquis, chronic hypoxic respiratory failure due to COPD on 2 L home O2, adrenal insufficiency, chronic diastolic CHF, recent prolonged hospitalization at [facility] for MSSA bacteremia, admitted to ICU 03/15/2025 for altered mental status due to acute hypoxic and hypercapnic respiratory failure and hepatic encephalopathy. Treated with BiPAP and antibiotics for possible sepsis due to pneumonia, next day was weaned off and downgraded to medical floor. Acute metabolic encephalopathy due to acute on chronic hypoxic and hypercapnic respiratory failure and hepatic encephalopathy due to alcoholic cirrhosis Mental status back to baseline Improved with BiPAP, continue at night Hepatic encephalopathy appears resolved, continue rifaximin and lactulose, moniter bm -goal bm between 2-3/day . Hypotension due to septic shock- versus adrenal crisis Improved with hydrocortisone(hydrocortisone 50 mg p.o. b.i.d. for 3 days then hydrocortisone 25 mg p.o. b.i.d. for 3 days, then switched to his regular p.o. dose of 15 mg-endocrinology recommended to divide the dose 10 mg in the morning and 5 mg at 16:00.) MRSA swab negative DC vancomycin urine culture with divya, on diflucan Ultrasound negative for cholecystitis patient is now htn -persistently elevated bp-adjusted coreg 12.5 mg po bid ,hold midodrine. acute on chronic anemia suspect mulitfactorial (possible acute blood loss, inflammatory) ct abd: Stable position of right nephrostomy tube. Question right dilated upper pole calyces versus peripelvic cysts. No lower pole calyceal dilatation adjacent to the nephrostomy tube renal pelvis or ureteral dilatation. Increased skin thickening and fat stranding surrounding the nephrostomy tube which may be related to hemorrhage given clinical history. No large fluid collection or soft tissue hematoma is seen. Chronic soft tissue changes in the right posterior pararenal fascia and muscle extending to the right anterior psoas muscle and anterior to the IVC. This appears partially calcified and similar to March 16, 2025 exam and likely chronic. No evidence of acute retroperitoneal hematoma. Probable transitional vertebral body and anatomy. Transitional or upper lumbar vertebral body mild recent appearing compression fracture. Air in the adjacent disc space. This may be related to trauma or degenerative change. Cannot include infection. Again if there is concern for discitis/osteomyelitis, lumbar spine MRI would be recommended. plan: no hematuria today. CT scan discussed with the radiologist-seems like chronic change in lumbar spine area, Nm Scan done :Bilateral pulmonary uptake, possible pneumonia Recommend MRI if discitis or osteomyelitis is suspected gi eval noted -recommended to hold Lovenox due to thrombocytopenia, no rec for EGD currently. monitor CBC closely Acute hypernatremia Improved, IV fluids stopped. History of pulmonary embolism Due to chronic thrombocytopenia from cirrhosis less than 50,000 and diffuse ecchymosis plan to hold anticoagulation for now acute on chronic thrombocytopneia-pancytopenia slowly improving basleine around 60K, ?due to zosyn - holding monitor Paroxysmal AFib Coreg, hold anticoagulation dvt prophylaxis - mechanical due to thrombocytopenia full code reason for continued hospitalization:anemia as well as further workup for abnormal CTA abdomen-needs nm study,close monitoring of CBC, acute metabolic encephalopathy, electrolytic abnormalities. Quality Stroke Does the patient have a stroke diagnosis?: No VTE Prior VTE?: No VTE Risk Level:: Medical - moderate - high VTE Device Contraindication: N/A - Device Ordered VTE Drug Contraindication: N/A - Med Ordered
[2025-03-21] MEDS: Hydrocortisone Sod Succ/PF 100 MG VIAL 50 MG IVPUSH (09:43)
[2025-03-21] MEDS: Triamcinolone Acet 0.1 % Cream 15 GM TUBE 1 APPL TOPICAL (09:45)
--- NOTE | 2025-03-21 14:25 | MHC.CM.PN ---
IMM 03/21/25 DELIVERED TO BEDSIDE, PT AGREEABLE TO DC PLAN IF MD SAYS HE'S READY, PER REQUEST PT'S BROTHER/HCP JOSEMANUEL UPDATED VIA NUMBER ON FILE AT 2:21PM, [facility] FOR BLS TRANSPORT AT 4PM.
--- NOTE | 2025-03-21 14:39 | PC.NURSE ---
Nurse to nurse given to a Jules RN from [facility]. He did tell me that his mental status is his baseline. I did inform his attending of this information and discharge will happen at 1600 today
--- NOTE | 2025-03-21 15:26 | P.DS_ITS ---
DS: Providers Provider Date of Service: 03/21/25 Date of admission: 03/15/25 21:02 Date of discharge: 03/21/25 Primary care physician: VINNY GRANADO Consults: 03/16/25 10:48 Consult to Urology Routine Consulting Provider: [facility] Reason for consultation: complicated UTI Has provider been notified: No 03/18/25 06:47 Consult to Gastroenterology Routine Consulting Provider: [facility] Reason for consultation: worsening anemia Has provider been notified: No 03/19/25 05:16 Consult to Infectious Diseases Routine Consulting Provider: [facility] Reason for consultation: potential [place] within the upper tract system and setting of nephrostomy t Has provider been notified: No Attending physician on discharge: Yina Santiago Discharging clinician: Yina Santiago DS: Diagnosis Discharge Diagnosis (1) Divya pyelonephritis: Status: Acute DS: Summary Hospital Course Hospital Course: HPI:59-year-old male who comes from a nursing facility with extensive past medical history per shelter records including PE on Eliquis last dose admin istered today at 17:15 prior to transfer, COPD, liver cancer, right perinephric abscess status post nephrostomy at [facility], history of CHF unknown EF, adrenal insufficiency on hydrocortisone orally, depression, thrombophilia, erythema multiforme, chronic pain syndrome, MRSA carrier, hypertension, atherosclerotic disease, paroxysmal atrial fibrillation, esophageal varices without bleeding, asthma, GERD, constipation, portal hypertension, recurrent falls, generalized muscle weakness, nicotine dependence, pneumonia, UTIs, fracture of the left humeral shaft, protein calorie malnutr ition syndrome, cellulitis of the chest wall, bacteremia (unspecified) benign neoplasm of the colon, renal calculi, hypoxic respiratory failure, unspecified epilepsy, hepatic encephalopathy. Patient was sent to the emergency room via EMS who found the patient to have an O2 sat of 70% at baseline was placed on an OxyMask at 6 L improving his O2 sat 93%.? Full workup in the emergency room revealed a normotensive afebrile patient who is tachypneic and hypoxic, laboratories show a white count of 16.1, H and H of 11.5 and 37.5 respectively MCV of 100, platelets 101, INR 1.8.? ABG pH of 7.28, pCO2 60, PO2 98, HC03 of 29, sodium 145, potassium 4.2, chloride 98, carbon dioxide 37, anion gap 14, BUN 30, creatinine 1.52 (baseline unknown) lactic acid 2.4, calcium 9.5, magnesium 1.7, total bilirubin 1.5, direct bilirubin 0.8, urinalysis shows red urine with proteinuria, large amount of blood and leukocyte esterase no nitrites, no bacteria.? Respiratory panel negative.? Chest x-ray shows no acute disease.? EKG to my view shows sinus rhythm ventricular rate 85 beats per minute.? There is no ST elevations, no ST depressions.? QTC 374.? No comparison available. The patient received 3 L of IV fluid, give him multiple antibiotic allergies, meropenem was administered, Solu-Medrol, albuterol and subsequently placed on BiPAP.? During my encounter, the patient does appear to be in [id number] respiratory distress using accessory muscles at the following commands and mentating well.? He is normotensive but I am concerned that the patient will likely deteriorate therefore the the patient will be admitted to the ICU for further care.? Prior to transfer the patient will have a CT of the chest, abdomen and pelvis without contrast. Hospital course: 59M PMH alcoholic cirrhosis, paroxysmal AFib, history of PE on Eliquis, chronic hypoxic respiratory failure due to COPD on 2 L home O2, adrenal insufficiency, chronic diastolic CHF, recent prolonged hospitalization at [facility] for MSSA bacteremia, admitted to ICU 03/15/2025 for altered mental status due to acute hypoxic and hypercapnic respiratory failure and hepatic encephalopathy. Treated with BiPAP and antibiotics for possible sepsis due to pneumonia, next day was weaned off and downgraded to medical floor. Acute metabolic encephalopathy due to acute on chronic hypoxic and hypercapnic respiratory failure and hepatic encephalopathy due to alcoholic cirrhosis Mental status back to baseline Improved with BiPAP, continue at night Hepatic encephalopathy appears resolved, continue rifaximin and lactulose, moniter bm -goal bm between 2-3/day . Hypotension due to septic shock- versus adrenal crisis Improved with hydrocortisone(hydrocortisone 50 mg p.o. b.i.d. for 3 days then hydrocortisone 25 mg p.o. b.i.d. for 3 days, then switched to his regular p.o. dose of 15 mg-endocrinology recommended to divide the dose 10 mg in the morning and 5 mg at 16:00.) ct abd:Stable position of right nephrostomy tube. Question right dilated upper pole calyces versus peripelvic cysts. No lower pole calyceal dilatation adjacent to the nephrostomy tube renal pelvis or ureteral dilatation. Increased skin thickening and fat stranding surrounding the nephrostomy tube which may be related to hemorrhage given clinical history. No large fluid collection or soft tissue hematoma is seen. Chronic soft tissue changes in the right posterior pararenal fascia and muscle extending to the right anterior psoas muscle and anterior to the IVC. This appe ars partially calcified and similar to March 16, 2025 exam and likely chronic. No evidence of acute retroperitoneal hematoma.Probable transitional vertebral body and anatomy. Transitional or upper lumbar vertebral body mild recent appearing compression fracture. Air in the adjacent disc space. This may be related to trauma or degenerative change. Cannot include infection. Again if there is concern for discitis/osteomyelitis. Nuclear medicine study done -Bilateral pulmonary uptake, possible pneumonia, Bone marrow activity is also within normal limits-less likely osteo( d/w with radiologist Dr Orozco -less likely osteo), also d/w ID-no mri recomended. Ultrasound negative for cholecystitis, blood culture negative, urine culture Divya albicans.sputum culture -contaminant. plan: Case reviewed and seen by ID: MRSA swab negative DC vancomycin urine culture with divya, on diflucan po 200 mg daily possibly 14 days and also added po doxycycline . patient is now htn -continue coreg 12.5 mg po bid . acute on chronic anemia suspect mulitfactorial (possible acute blood loss, inflammatory) plan: no gross bleeding CT abd as above. B12 and folate normal. gi eval noted -no recommendation for EGd/colonoscopy for now. Monitor CBC closely, follow-up with GI outpatient. Acute hypernatremia Improved, IV fluids stopped. History of pulmonary embolism Due to chronic thrombocytopenia from cirrhosis less than 50,000 and diffuse ecchymosis plan to hold anticoagulation for now acute on chronic thrombocytopneia-pancytopenia somewhat improving Thought to be secondary to?due to zosyn - holding No hematuria-resolved. basleine platelets around 60K. Paroxysmal AFib Coreg, hold anticoagulation for now. plan: cbc and bmp in rehab. Continue BiPAP at night Continue lactulose and rifaximin-moniter bm -goal bm between 2-3/day . Patient was strongly recommended to taper oxycodone and if possible methadone slowly. Doxycycline 100 mg p.o. b.i.d. for 7 days. Diflucan 200 mg p.o. daily for 12 more days hydrocortisone 50 mg p.o. b.i.d. for 1 days then hydrocortisone 25 mg p.o. b.i.d. for 3 days, then switched to his regular p.o. dose of 15 mg-endocrinology recommended to divide the dose 10 mg in the morning and 5 mg at 16:00. hypernatremia and radha-seems improved ivf . moniter bmp outpatient. Pancytopenia somewhat improving after discontinuing zosyn but platelets are in 44 range, has severe ecchymosis and history of cirrhosis-currently Eliquis on hold, repeat CBC and consider reintroducing Eliquis as per platelet count. Assessment and plan coordination time spent 50 minute. Time Attestation Total time managing care of this patient today: 50 mintues. Discharge Coordination Time (in mins): 50 min Quality: Safe Use of Opioids Does Pt have an Active Cancer Diagnosis on the Problem List?: No Quality: Stroke Does the patient have a stroke diagnosis?: No Physical Exam Exam: Exam: General: awake ,alert at baseline,diffuse echymosis Resp: air entry fair , no rales or wheezing, no accessory muscles used CVS: S1,S2,RRR GI: soft, non tender, non distended Neuro: motor grossly intact, alert Vital Signs: Vital Signs: Last Vital Signs Temp 97.8 F 03/21/25 12:00 Pulse 64 03/21/25 12:00 Resp 16 03/21/25 12:00 BP 162/75 H 03/21/25 12:00 Pulse Ox 94 03/21/25 12:00 O2 Del Method Nasal Cannula 03/21/25 12:00 O2 Flow Rate 3 03/21/25 12:00 FiO2 35 03/17/25 16:00 Oxygen Flow Rate 6 03/15/25 18:39 BMI result Body Mass Index 30.4 DS: Data Data Completed and Pending Labs on day of discharge: Laboratory Results - last 24 hr 03/21/25 06:47 WBC 6.6 RBC 3.04 L Hgb 9.2 L Hct 29.3 L MCV 96.4 MCH 30.3 MCHC 31.4 RDW 15.4 Plt Count 44 L MPV Not Reportable Absolute Nucleated RBC 0.110 H Nucleated RBC % (auto) 1.7 H Smear Path Review SEE NOTE Imaging CT scan - abdomen: Radiologist's impression: ITS Impressions Abdomen/Pelvis CT 03/18/25 10:44 IMPRESSION: Stable position of right nephrostomy tube. Question right dilated upper pole calyces versus peripelvic cysts. No lower pole calyceal dilatation adjacent to the nephrostomy tube renal pelvis or ureteral dilatation. Increased skin thickening and fat stranding surrounding the nephrostomy tube which may be related to hemorrhage given clinical history. No large fluid collection or soft tissue hematoma is seen. Chronic soft tissue changes in the right posterior pararenal fascia and muscle extending to the right anterior psoas muscle and anterior to the IVC. This appears partially calcified and similar to March 16, 2025 exam and likely chronic. No evidence of acute retroperitoneal hematoma. Left renal stones. Question hyperdense left renal cyst versus medullary nephrocalcinosis. Cirrhosis splenomegaly and varices. There may be a spontaneous left splenorenal shunt. Gallstones. Difficult to visualize the adrenal glands with the varices. Question left adrenal nodule versus a varix. Constipation and diverticulosis. Bilateral rib fractures of varying ages. Probable transitional vertebral body and anatomy. Transitional or upper lumbar vertebral body mild recent appearing compression fracture. Air in the adjacent disc space. This may be related to trauma or degenerative change. Cannot include infection. Again if there is concern for discitis/osteomyelitis, lumbar spine MRI would be recommended. Multiple bilateral rib fractures of varying ages. Old trauma to the pelvis. Postsurgical changes to the lower lumbar sacral spine. Increasing bilateral lower lobe atelectasis/consolidation and small bilateral pleural effusions, left greater than right2. wbc scan: Patient was given 13 mCi technetium Ceretec. Vascular phase imaging performed initially. Delayed whole-body and spot images obtained. Heterogeneous uptake noted in the lungs. This can indicate pneumonia, please correlate. Hepatic and splenic activity is unremarkable. No other abnormal uptake is identified. Bone marrow activity is also within normal limits. Dedicated spinal images not possible with white blood cell stand. If spinal osteomyelitis discitis suspected, recommend MRI. Impression: Bilateral pulmonary uptake, possible pneumonia Discharge Plan Discharge Anticipated Discharge Date/Time: 03/21/25 14:20 Patient Disposition: Xfer [facility] Discharge Diagnosis: Acute metabolic encephalopathy, candidal UTI,? pneumonia vs atelactasis Referrals: [facility] [Outside] - 1 Day Referral Note: RESUMPTION OF LTC VINNY GRANADO [Primary Care Provider, Internal Medicine] - 1 Week Discharge Medications: New fluconazole 100 mg Tablet 200 mg PO DAILY Qty: 1 0RF doxycycline monohydrate 100 mg Capsule 100 mg PO Q12H Qty: 13 0RF lidocaine 5 % adhesive patch,medicated 2 patch topical DAILY PRN (Reason: pain (scale score 4-6)) Qty: 1 0RF Rx Instructions: leave on most painful area for up to 12 hrs hydrocortisone [Cortef] 20 mg tablet 50 mg PO BID Qty: 1 0RF Rx Instructions: hydrocortisone 50 mg p.o. b.i.d. for 1 days then hydrocortisone 25 mg p.o. b.i.d. for 3 days, then switched to his regular p.o. dose of 15 mg-endocrinology recommended to divide the dose 10 mg in the morning and 5 mg at 16:00. Continued multivitamin Tablet 1 tab PO DAILY sennosides [senna] 8.6 mg Tablet 8.6 mg PO DAILY PRN (Reason: Constipation) acetaminophen 325 mg Tablet 650 mg PO Q8H MDD 3 grams PRN (Reason: general discomfort/temp above 101) carvedilol 12.5 mg Tablet 12.5 mg PO BID Rx Instructions: must administer with a meal/food methadone 10 mg Tablet 10 mg PO Q12H melatonin 3 mg Tablet 3 mg PO BEDTIME triamcinolone acetonide 0.1 % Cream 1 appl TOPICAL BID Rx Instructions: apply to arms and torso bisacodyl 10 mg Suppository 10 mg ND DAILY PRN (Reason: constipation if MOM ineffectiv) diphenhydramine HCl 25 mg Capsule 25 mg PO Q8H PRN (Reason: Itching) clotrimazole-betamethasone 1-0.05 % Cream 1 appl TOPICAL TID ferrous gluconate 240 mg (27 mg iron) Tablet 240 mg PO DAILY docusate sodium 100 mg Capsule 100 mg PO BID PRN (Reason: Constipation) omeprazole 20 mg Capsule,Delayed Release(Dr/Ec) 20 mg PO DAILY@0630 ergocalciferol (vitamin D2) [Vitamin D2] 1,250 mcg (50,000 unit) Capsule 1,250 mcg PO Q28D Rx Instructions: on the of every month epinephrine 0.3 mg/0.3 mL Auto-Injector 0.3 mg IM Q5M MDD 0.6 mg PRN (Reason: Anaphylaxis) Rx Instructions: for 2 doses albuterol sulfate 90 mcg/actuation Hfa Aerosol Inhaler 2 puff INHALATION Q4H PRN (Reason: Shortness Of Breath) sertraline 50 mg Tablet 50 mg PO DAILY oxycodone 5 mg Tablet 5 mg PO Q6H PRN (Reason: Severe Pain (Scale Score 7-10)) naloxone 0.4 mg/mL Syringe 0.4 mg IM Q3M PRN (Reason: suspected opioid overdose) Rx Instructions: NTExceed 10 mg total dose/episode mirtazapine 7.5 mg Tablet 7.5 mg PO BEDTIME lactulose 10 gram/15 mL Solution 45 ml PO QID levetiracetam 1,000 mg Tablet 1,000 mg PO BID rifaximin 550 mg Tablet 550 mg PO BID lacosamide 10 mg/mL Solution 100 mg PO BID fluticasone furoate-vilanterol 100-25 mcg/dose Blister With Device 1 inh INHALATION DAILY potassium chloride 20 mEq Tablet Extended Release 20 meq PO DAILY Incruse Ellipta 62.5 mcg/actuation Blister With Device 1 inh INHALATION DAILY naloxone 4 mg/actuation [place],Non-Aerosol 1 spray INTRANASAL Q3M PRN (Reason: suspected opioid overdose) Rx Instructions: spray 1 dose into ONE nostril; alternate nostrils w each dose until help arrives Gvoke 1 mg/0.2 mL Solution 1 mg SUBCUT Q15M PRN (Reason: low BG) Rx Instructions: until target blood sugar attained Held hydrocortisone 5 mg Tablet 15 mg PO DAILY Hold Instructions: Resume on 03/25/25. spironolactone 25 mg Tablet 25 mg PO DAILY Hold Instructions: Resume on 02/20/25. furosemide 20 mg Tablet 40 mg PO DAILY Hold Instructions: Resume on 03/24/25. Eliquis 5 mg Tablet 5 mg PO BID Hold Instructions: Resume on 02/25/25. Discharge Orders: Discharge Order (Routine); Ordered 03/21/25 Ordered By: Yina Snatiago Diet: Advance to usual diet Activity on Discharge: As tolerated Stand Alone Forms: Patient Portal Discharge page Print Language: French Care Plan Goals: cbc and bmp in rehab. Continue BiPAP at night Continue lactulose and rifaximin-moniter bm -goal bm between 2-3/day . Patient was strongly recommended to taper oxycodone and if possible methadone slowly. hydrocortisone 50 mg p.o. b.i.d. for 1 days then hydrocortisone 25 mg p.o. b.i.d. for 3 days, then switched to his regular p.o. dose of 15 mg-endocrinology recommended to divide the dose 10 mg in the morning and 5 mg at 16:00. hypernatremia and radha-seems improved ivf . moniter bmp outpatient. Pancytopenia somewhat improving after discontinuing zosyn but platelets are in 44 range, has severe ecchymosis and history of cirrhosis-currently Eliquis on hold, repeat CBC and consider reintroducing Eliquis as per platelet count. Health Concerns: as above. Plan of Treatment: as above. Assessment: as above.
== END 2025-03-21 16:41 | DRG 871 ==
LOC: HO.ED 19:02 → HO.EDOVER 21:06 → HO.ICU 21:07 → HO.IMC 03-16 19:40
PROVIDERS: Internal Medicine; Internal Medicine Critical Care Medicine; Admitting Provider Physician Assistant Medical; Emergency Provider Emergency Medicine Emergency Medical Services; PCP Emergency Medicine; Visit Provider Internal Medicine
DX: A41.9 Sepsis, unspecified organism (principal); G93.41 Metabolic encephalopathy; J18.9 Pneumonia, unspecified organism; J96.21 Acute and chronic respiratory failure with hypoxia; J96.22 Acute and chronic respiratory failure with hypercapnia; R65.21 Severe sepsis with septic shock; J44.0 Chronic obstructive pulmonary disease with (acute) lower respiratory infection; J44.1 Chronic obstructive pulmonary disease with (acute) exacerbation; K76.6 Portal hypertension; E87.0 Hyperosmolality and hypernatremia; I85.10 Secondary esophageal varices without bleeding; D62 Acute posthemorrhagic anemia; I50.32 Chronic diastolic (congestive) heart failure; B37.49 Other urogenital candidiasis; E27.2 Addisonian crisis; C22.9 Malignant neoplasm of liver, not specified as primary or secondary; N17.9 Acute kidney failure, unspecified; G40.909 Epilepsy, unspecified, not intractable, without status epilepticus; Z93.6 Other artificial openings of urinary tract status; I48.0 Paroxysmal atrial fibrillation; D69.59 Other secondary thrombocytopenia; D63.0 Anemia in neoplastic disease; K76.82 Hepatic encephalopathy; K70.30 Alcoholic cirrhosis of liver without ascites; G89.4 Chronic pain syndrome; Z20.822 Contact with and (suspected) exposure to COVID-19; Z22.322 Carrier or suspected carrier of Methicillin resistant Staphylococcus aureus; Z86.711 Personal history of pulmonary embolism; Z99.81 Dependence on supplemental oxygen; Z79.01 Long term (current) use of anticoagulants; Z79.899 Other long term (current) drug therapy
CPT/HCPCS: 36415; 71045; 71250; 74176; 76705; 78306; 80048; 80053; 80076; 81001; 82140; 82248; 82272; 82607; 82746; 82803; 83605; 83690; 83735; 83880; 84100; 84484; 85025; 85027; 85379; 85384; 85610; 86704; 86706; 86803; 87040; 87070; 87086; 87088; 87205; 87340; 87637; 87640; 87641; 93005; 94640; 94660; 99285; A9521; J1650; J1720; J2185; J2354; J2470; J2543; J2919; J3373; J3374; J3430; J3475; P9047

== ENCOUNTER → 2025-03-15 18:47 | Outpatient (BNV) | payer MEDICARE, MEDICAID, SELFPAY | PROVIDERS: Admitting Provider Physician Assistant Medical; Emergency Provider Emergency Medicine Emergency Medical Services; Visit Provider Internal Medicine Cardiovascular Disease | DX: R94.31 Abnormal electrocardiogram [ECG] [EKG] (principal); R06.02 Shortness of breath | CPT/HCPCS: 93010 ==

== ENCOUNTER → 2025-03-15 19:15 | Outpatient (BNV) | payer MEDICARE, MEDICAID, SELFPAY | PROVIDERS: Emergency Provider Emergency Medicine Emergency Medical Services; Visit Provider Radiology Diagnostic Radiology | DX: K76.0 Fatty (change of) liver, not elsewhere classified (principal); K82.8 Other specified diseases of gallbladder; N28.9 Disorder of kidney and ureter, unspecified; J90 Pleural effusion, not elsewhere classified; J98.6 Disorders of diaphragm | CPT/HCPCS: 71250; 74176 ==

== ENCOUNTER 2025-03-15 21:02 | Outpatient (BNV) | payer MEDICARE, MEDICAID, SELFPAY | END 2025-03-18 10:44 | PROVIDERS: Admitting Provider Physician Assistant Medical; Emergency Provider Emergency Medicine Emergency Medical Services; PCP Emergency Medicine; Visit Provider Radiology Diagnostic Radiology | DX: D64.9 Anemia, unspecified (principal); S30.11XA Contusion of abdominal wall, initial encounter | CPT/HCPCS: 74176 ==

== ENCOUNTER 2025-03-15 21:02 | Outpatient (BNV) | payer MEDICARE, MEDICAID, SELFPAY | END 2025-03-20 13:49 | PROVIDERS: Admitting Provider Physician Assistant Medical; Emergency Provider Emergency Medicine Emergency Medical Services; PCP Emergency Medicine; Visit Provider Radiology Diagnostic Radiology | DX: Z03.89 Encounter for observation for other suspected diseases and conditions ruled out (principal) | CPT/HCPCS: 78306 ==

== ENCOUNTER 2025-03-15 21:02 | Outpatient (BNV) | payer MEDICARE, MEDICAID, SELFPAY | END 2025-03-16 02:05 | PROVIDERS: Admitting Provider Physician Assistant Medical; Emergency Provider Emergency Medicine Emergency Medical Services; Visit Provider Radiology Diagnostic Radiology | DX: K80.20 Calculus of gallbladder without cholecystitis without obstruction (principal) | CPT/HCPCS: 76705 ==

== ENCOUNTER → 2025-03-15 21:02 | Outpatient (BNV) | payer MEDICARE, MEDICAID, SELFPAY | PROVIDERS: Admitting Provider Physician Assistant Medical; Emergency Provider Emergency Medicine Emergency Medical Services; PCP Emergency Medicine; Visit Provider Internal Medicine | DX: B37.49 Other urogenital candidiasis (principal); A41.9 Sepsis, unspecified organism; R65.21 Severe sepsis with septic shock | CPT/HCPCS: 99222 ==

== ENCOUNTER → 2025-03-15 21:02 | Outpatient (BNV) | payer MEDICARE, MEDICAID, SELFPAY | PROVIDERS: Admitting Provider Physician Assistant Medical; Emergency Provider Emergency Medicine Emergency Medical Services; Visit Provider Internal Medicine | DX: J44.1 Chronic obstructive pulmonary disease with (acute) exacerbation (principal) | CPT/HCPCS: 99233 ==

== ENCOUNTER → 2025-03-15 21:02 | Outpatient (BNV) | payer MEDICARE, MEDICAID, SELFPAY | PROVIDERS: Admitting Provider Physician Assistant Medical; Emergency Provider Emergency Medicine Emergency Medical Services; Visit Provider Physician Assistant Medical | DX: J44.1 Chronic obstructive pulmonary disease with (acute) exacerbation (principal); A41.9 Sepsis, unspecified organism; R65.21 Severe sepsis with septic shock; N17.9 Acute kidney failure, unspecified | CPT/HCPCS: 99291 ==

== ENCOUNTER → 2025-03-15 21:02 | Outpatient (BNV) | payer MEDICARE, MEDICAID, SELFPAY | PROVIDERS: Admitting Provider Physician Assistant Medical; Emergency Provider Emergency Medicine Emergency Medical Services; PCP Emergency Medicine; Visit Provider Internal Medicine Gastroenterology | DX: D64.9 Anemia, unspecified (principal) | CPT/HCPCS: 99223 ==

== ENCOUNTER → 2025-03-15 21:02 | Outpatient (BNV) | payer MEDICARE, MEDICAID, SELFPAY | PROVIDERS: Admitting Provider Physician Assistant Medical; Emergency Provider Emergency Medicine Emergency Medical Services; PCP Emergency Medicine; Visit Provider Urology | DX: B37.49 Other urogenital candidiasis (principal) | CPT/HCPCS: 99222 ==